=== PATIENT | female | born 1970 | race Caucasian/White ===

== ENCOUNTER 2016-11-25 05:25 | Inpatient (IN) ==
--- NOTE | 2016-11-25 05:51 | Emergency Department Note ---
Disposition Clinical Impression: Nausea and vomiting Qualifiers: Vomiting type: unspecified Vomiting Intractability: non-intractable Qualified Code(s): R11.2 - Nausea with vomiting, unspecified STEMI (ST elevation myocardial infarction) Qualifiers: Involved coronary artery: unspecified coronary artery Qualified Code(s): I21.3 - ST elevation (STEMI) myocardial infarction of unspecified site Disposition: Admitted As Inpatient Condition: Fair General Adult HPI - General Chief complaint: ED Chest Pain Stated complaint: Chest Pain Time Seen by Provider: 11/25/16 05:41 Source: patient, EMS Mode of arrival: EMS Limitations: no limitations Nursing Notes Reviewed: Yes Vital Signs Reviewed: Yes - History of Present Illness HPI Narrative: 46 year old female who presents with nausea and vomiting since 11pm last night. She admits to generalized abdominal pain. She also complains of a burning sensation retrosternal. No prior occurence. Just had a heart cath with stent placed on 11/16. She is on ASA and plavix. PMH of DM, HTN, COPD. Radiation: non-radiation Pain Severity: moderate Pain Scale: 7 Quality: burning Consistency: constant Improves with: nothing Worsens with: nothing Associated symptoms: Reports: weakness Treatments Prior to Arrival: none - Related Data Home Medications Medication Instructions Recorded Confirmed Albuterol Neb [Proventil Neb] 2.5 mg IH TID PRN 12/22/15 11/15/16 Diphenhydramine HCl [Vianca-Dryl] 25 mg PO Q6HR PRN 12/22/15 11/15/16 Docusate Sodium [Move It Along] 100 mg PO BID PRN 12/22/15 11/15/16 Fluticasone Propionate Nasal 2 spray NS DAILY 12/22/15 11/15/16 [Flonase] GlipiZIDE [Glipizide] 10 mg PO BID 12/22/15 11/15/16 Loratadine [Claritin] 10 mg PO DAILY 12/22/15 11/15/16 Montelukast [Singulair] 10 mg PO HS 12/22/15 11/15/16 Omeprazole [PriLOSEC] 40 mg PO DAILY 12/22/15 11/15/16 Gabapentin [Neurontin] 600 mg PO TID 11/15/16 11/15/16 Tramadol HCl [Ultram] 50 mg PO Q6H PRN 11/15/16 11/15/16 Previous Rx's Medication Instructions Recorded Aspirin 81 mg PO DAILY #30 tab.chew 11/17/16 Blood Sugar Diagnostic [Test [address] [facility] #120 strip 11/17/16 Strips] Blood-Glucose Meter [Freestyle 1 each ACHS #1 each 11/17/16 Precision Albert Meter] Clopidogrel [Plavix] 75 mg PO DAILY #30 tablet 11/17/16 Insulin Glargine,Hum.rec.anlog 15 unit SQ HS #1 insuln.pen 11/17/16 [Basaglar Kwikpen U-100] Insulin LISPRO [HumaLOG] 0 units SQ TIDAC #1 vial 11/17/16 Insulin LISPRO [Humalog Kwikpen 200 unit SQ TIDAC #1 insuln.pen 11/17/16 U-200] Lancets 1 each ACHS #120 each 11/17/16 Lisinopril [Zestril] 2.5 mg PO DAILY #15 tablet 11/17/16 Metoprolol [Lopressor] 25 mg PO BID #60 tablet 11/17/16 Nicotine Patch [Nicoderm] 21 mg TD HS #30 patch.td24 11/17/16 Pen Needle, Diabetic [Insulin Pen 1 each ACHS #150 dis.needle 11/17/16 Needle] Rosuvastatin [Crestor] 20 mg PO HS #30 tablet 11/17/16 Allergies Allergy/AdvReac Type Severity Reaction Status Date / Time codeine AdvReac Diarrhea Verified 12/22/15 13:29 All systems ED: reviewed and negative except as stated. Constitutional: Denies: fever Eyes: Denies: vision change Cardiovascular: Denies: chest pain Respiratory: Denies: cough Gastrointestinal: Reports: abdominal pain, nausea, vomiting. Denies: diarrhea Genitourinary: Denies: dysuria Musculoskeletal: Denies: back pain Integumentary: Denies: rash Neurological: Denies: headache Endocrine: Reports: fatigue Past Medical History - Past Medical History Medical history: Reports: asthma, diabetes, GERD, hypertension, other Surgical history: Reports: cholecystectomy Psychiatric history: Reports: no psych history - Social History Smoking Status: Current every day smoker Smokeless Tobacco Status: No Alcohol use: Reports: none Drug use: Reports: none Physical Exam - General Limitations: no limitations General appearance: alert, other (tired) - Head Head exam: atraumatic - Eye Eye exam: Present: nystagmus - ENT ENT exam: normal exam - Chest Chest inspection: Present: normal inspection - Respiratory Respiratory exam: Present: normal lung sounds bilaterally. Absent: respiratory distress - Cardiovascular Cardiovascular exam: Present: regular rate, normal rhythm - Abdominal Exam Abdominal exam: Present: soft, tenderness (epigastric pain on palpation. No rebound or guarding.) - Extremities Exam Extremities exam: Present: normal inspection - Back Exam Back exam: Present: normal inspection - Neurological Exam Neurological exam: Present: alert, oriented X3, CN II-XII intact - Skin Skin exam: Present: warm, dry Course Course Narrative: Initial blood pressure was 80 systolic. Improved after beginning saline infusion. She denies chest pain but says she has burning in her chest. Concern for dehydration vs cardiac vs abdominal etiology. Will obtain cardiac labs, basic labs, and abdominal labs. - Reevaluation(s) Reevaluation #1: EKG shows ST depression in V1-V4. This is significantly worse than her prior. I contacted the interventionalist who reviewed the EKG and decided to take her to the laborer steel handling. Was called by the interventionalist who believes this is a posterior STEMI. We are currently doing a posterior EKG and have called a STEMI alert. This patient has been signed out to the day team Dr Heredia while waiting for the laborer steel handling to take her. Vital Signs Temperature 98.6 F 11/25/16 05:27 Pulse Rate 79 11/25/16 05:27 Respiratory Rate 16 11/25/16 05:27 Blood Pressure 81/56 11/25/16 05:27 O2 Sat by Pulse Oximetry 97 11/25/16 05:27 Temperature 98.6 F 11/25/16 05:27 Pulse Rate 89 11/25/16 07:02 Respiratory Rate 18 11/25/16 07:05 Blood Pressure 75/50 11/25/16 07:05 O2 Sat by Pulse Oximetry 94 L 11/25/16 06:52 Oxygen Delivery Oxygen Delivery Room Air Medical Decision Making - Medical Records Medical records reviewed: Yes I reviewed the patient's medical records. - Lab Data Lab results reviewed: Yes I reviewed the patient's lab results. Result diagrams: 11/25/16 06:40 11/25/16 06:40 - Radiology Data Radiology results reviewed: Yes I reviewed the patient's radiology results. Chest X-Ray 11/25/16 05:46 IMPRESSION: No acute findings in the chest. D/ / Rafa Turner MD / Rafa Turner MD Interpreting Provider: Rafa Turner MD - EKG Data EKG #1 EKG attestation: Yes I reviewed and interpreted this EKG. EKG shows normal: sinus rhythm Rate: normal Rhythm: NSR ST segment depression in: v1, v2, v3, v4 When compared to previous EKG there are: changes noted Interpretation: other (Worsening ST depression in anterior leads.) EKG #2 Interpretation: other (Posterior EKG was performed which shows acute STEMI. Posterior STEMI.) Critical Care Time Critical Care Time: Yes Total Critical Care Time: 45 Attestation: Critical care performed: Time is exclusive of separately billable procedures. Time includes: direct patient care, patient reassessment, coordination of patient care, interpretation of data (laboratory data, radiology data, and respiratory data), review of patient's medical records, medical consultation and documentation of patient care. Procedures included in critical care time: Procedures excluded from critical care time: Attestation Statement - Attestation Attestation: I, Juancho Rodriguez MD, personally performed a history and physical exam of the patient and discussed their management with the resident. I reviewed the resident's note and agree with the documented findings, medical decision making , and plan of care. 46-year-old female presents to the emergency department by ambulance with a complaint of nausea and vomiting that started about 11 PM this evening. Shortly after onset of nausea and vomiting she developed a burning sensation in the epigastric area radiating up to the mid chest and into her throat. She states it scanlon all the way up into her ears. Patient just had a cardiac catheterization and a stent placed 9 days ago. She states that she did not have an LA but just is having chest pain so they did the heart catheter. She reports that this burning chest pain she is having now is not anything like the pain she was having before her heart catheter. She described it as more like a ball and pressure and tightness in her chest and not a burning sensation. There is been no diarrhea. No melena, hematemesis, or hematochezia. No urinary symptoms. No cough or fever. Patient states that she has done fine since the heart catheter until 11 PM tonight. On examination patient is a well-developed well-nourished female in mild distress. She was notably hypotensive on arrival. She is not diaphoretic but does appear slightly pale. She appears uncomfortable. Chest is nontender to palpation. Breath sounds are clear and equal bilaterally. Heart regular rate and rhythm. Abdomen is soft with normal bowel sounds. There is mild to moderate mid upper epigastric tenderness. EKG shows ST segment depression in V1 through V4, worse in V3 and V4. She also has inverted T waves. These changes were present on her prior EKG but appears significantly worse at this time. No ST elevation noted. EKG was sent to the spot machine operator and the case was discussed with him by Dr. Castillo. Called back after reviewing the x-ray and felt that the patient had an acute posterior LA and is going to take her to the cardiac catheter lab. Labs reviewed. Troponin 0.01. Labs consistent with DKA. Chest x-ray negative. Patient was taken from the emergency department to the cardiac catheter lab before her labs returned.
[2016-11-25] MEDS: 0.9 % Sodium Chloride 1,000 ML IVC ONE ×3 (05:53→06:51)
[2016-11-25] MEDS ORDERED: 0.9 % Sodium Chloride 1,000 ML ONE ×6 (06:11→09:12)
[2016-11-25] MEDS ORDERED: *HR* Ticagrelor 90 MG TABLET ONE (06:32)
[2016-11-25] MEDS ORDERED: *HR* Heparin 5,000 UNIT/ML VIAL ONE (06:32)
[2016-11-25] MEDS ORDERED: Aspirin 81 MG TAB.CHEW ONE (06:32)
[2016-11-25] MEDS ORDERED: Aspirin 81 MG TAB.CHEW PO ONE (06:35)
[2016-11-25] MEDS ORDERED: *HR* Ticagrelor 90 MG TABLET PO ONE (06:35)
[2016-11-25] MEDS ORDERED: *HR* Heparin 5,000 UNIT/ML VIAL IVP ONE (06:38)
[2016-11-25 06:49] LABS: Basophils % 0.2 %; Eosinophils % 0.1 %; Hematocrit 41.4 % (35.3-44.9); Hemoglobin 14.2 g/dL (11.5-15.4); Immature Granulocytes % 0.5 % (0-4); Lymphocytes # 1.2 K/mcL (0.6-4.6); Lymphocytes % 8.2 %; Mean Corpuscular HGB Conc 34.3 g/dL (31.6-35.5); Mean Corpuscular Hemoglobin 31.1 pg (28.0-33.3); Mean Corpuscular Volume 90.8 fL (83.0-100.0); Mean Platelet Volume 9.8 fL (9.4-12.4); Monocytes # 0.7 K/mcL (0.0-1.3); Monocytes % 4.6 %; Neutrophils # 12.2 K/mcL (1.6-8.9); Platelet Count 214 K/mcL (140-400); Red Blood Count 4.56 M/mcL (3.82-4.97); Red Cell Distribution Width 11.8 % (11.5-14.5); Segmented Neutrophils % 86.4 %
[2016-11-25 06:51] LABS: VBG HCO3 18.4 mEq/L (21-27); VBG PH 7.25 pH Units (7.32-7.42)
[2016-11-25] MEDS ORDERED: *HR* Heparin 10,000 UNIT/10 ML VIAL ONE (06:52)
[2016-11-25] MEDS ORDERED: Heparin 1,000 UNITS/500 mL NS 500 ML ONE (06:52)
[2016-11-25] MEDS ORDERED: Nitroglycerin 1,000 MCG/10 ML VIAL IV ONE (06:53)
[2016-11-25 06:54] LABS: Beta-Hydroxybutyric Acid 1.56 mmol/L (0.02-0.27); INR 1.5; Prothrombin Time 15.8 Seconds (9.4-12.1)
[2016-11-25 06:57] LABS: Activated Partial Thrombo Time 24.7 Seconds (26.0-36.0)
--- NOTE | 2016-11-25 07:01 | Pre-Sedation Evaluation ---
Pre-sedation evaluation - Pre-sedation checklist Date of procedure: 11/25/16 Procedure: heart cath Recent Vitals: Last Vital Signs Temp 98.6 F 11/25/16 05:27 Pulse 89 11/25/16 06:52 Resp 18 11/25/16 06:52 BP 92/36 11/25/16 06:52 Pulse Ox 94 L 11/25/16 06:52 H&P (including ROS) documented in medical record: Yes Previous reaction to sedatives/anesthetics: No Dietary Status: NPO after Midnight Airway Assessment: Patient can open mouth completely, TMJ function normal Dentition: No loose teeth or bridges Possible difficult airway: No ASA Classification *see protocol: CLASS III-Severe systemic disease Plan of Care: Pt appropriate candidate for procedure/moderate/conscious sedation , Risks/benefits of procedure/sedation discussed w/ patient/family, If not NPO; Risk of intake outweiged by necessity to perform procedure
--- NOTE | 2016-11-25 07:04 | Cardiology Consult Note ---
Date of Encounter: 11/25/16 Time of Encounter: 07:01 Assessment and Plan (1) STEMI (ST elevation myocardial infarction) Current Visit: Yes Status: Acute She is having ongoing 7 out of 10 chest pain. EKG suggestive of acute PA. She has taken to the lab for primary angioplasty if needed. Risk-benefit and alternatives of left heart catheterization and possible PCI explained to patient all questions answered she agrees to proceed. Qualifiers: Involved coronary artery: unspecified coronary artery Qualified Code(s): I21.3 - ST elevation (STEMI) myocardial infarction of unspecified site Discussion w patient/family: The assessment and plan as outlined above was discussed with the patient and/or family members who expressed understanding and agreement. All questions were answered. Thank you for involving us in the care of your patient. Please call with any questions. History of Present Illness Consult date: 11/25/16 Consult reason: Chest pain EKG suggestive of acute posterior PA Chief complaint: Chest pain History of present illness: Ms. Bravo is a 46 year old female with history of hypertension uncontrolled diabetes asthma who presented recently with chest pain on 11 16 2016. Stress test was abnormal indicating circumflex distribution ischemia. She underwent a left heart catheterization which showed 50% mid LAD, 80% first diagonal stenosis circumflex had a 24 mm long 90% stenosis in the mid circumflex. Right coronary artery was occluded distally there was a 70% proximal 90% mid RCA. She underwent drug-eluting stent placement to the midcircumflex a Promus premier 2.5 x 24 mm drug-eluting stent was placed. She presented to the ER with substernal burning nausea and vomiting since 11 PM last night. EKG that was transmitted earlier this morning to me she showed ST depressions in V1 through V4 with tall R waves in V1 and V2 suggestive of an acute posterior myocardial infarction. She is continuing to have substernal burning chest discomfort. Blood pressure was 90 systolic she was given fluid resuscitation. Full labs are pending at this time. She is being taken to the laboratory for catheterization and possible intervention. Patient states that she has been compliant with her aspirin and Plavix Past Med Surg Social Fam HX - Past Medical History Medical history: asthma, coronary artery disease, diabetes, GERD, hypertension, other Psychiatric history: no psych history - Past Surgical History Surgical History: cholecystectomy - Social History Smoking Status: Current every day smoker Smokeless Tobacco Status: No Alcohol use: none Drug use: none Medications and Allergies Albuterol Neb [Proventil Neb] 2.5 mg IH TID PRN 12/22/15 [History] Diphenhydramine HCl [Vianca-Dryl] 25 mg PO Q6HR PRN 12/22/15 [History] Docusate Sodium [Move It Along] 100 mg PO BID PRN 12/22/15 [History] Fluticasone Propionate Nasal [Flonase] 2 spray NS DAILY 12/22/15 [History] GlipiZIDE [Glipizide] 10 mg PO BID 12/22/15 [History] Loratadine [Claritin] 10 mg PO DAILY 12/22/15 [History] Montelukast [Singulair] 10 mg PO HS 12/22/15 [History] Omeprazole [PriLOSEC] 40 mg PO DAILY 12/22/15 [History] Gabapentin [Neurontin] 600 mg PO TID 11/15/16 [History] Tramadol HCl [Ultram] 50 mg PO Q6H PRN 11/15/16 [History] Aspirin 81 mg PO DAILY #30 tab.chew 11/17/16 [Rx] Blood Sugar Diagnostic [Test Strips] 1 each ACHS #120 strip 11/17/16 [Rx] Blood-Glucose Meter [Freestyle Precision Albert Meter] 1 each ACHS #1 each 11/17 [Rx] Clopidogrel [Plavix] 75 mg PO DAILY #30 tablet 11/17/16 [Rx] Insulin Glargine,Hum.rec.anlog [Basaglar Kwikpen U-100] 15 unit SQ HS #1 insuln.pen 11/17/16 [Rx] Insulin LISPRO [HumaLOG] 0 units SQ TIDAC #1 vial 11/17/16 [Rx] Insulin LISPRO [Humalog Kwikpen U-200] 200 unit SQ TIDAC #1 insuln.pen 11/17/16 [Rx] Lancets 1 each ACHS #120 each 11/17/16 [Rx] Lisinopril [Zestril] 2.5 mg PO DAILY #15 tablet 11/17/16 [Rx] Metoprolol [Lopressor] 25 mg PO BID #60 tablet 11/17/16 [Rx] Nicotine Patch [Nicoderm] 21 mg TD HS #30 patch.td24 11/17/16 [Rx] Pen Needle, Diabetic [Insulin Pen Needle] 1 each ACHS #150 dis.needle [Rx] Rosuvastatin [Crestor] 20 mg PO HS #30 tablet 11/17/16 [Rx] Allergies codeine Adverse Reaction (Verified 12/22/15 13:29) Diarrhea All Systems Review: A 10-system review of systems was performed and is negative for pertinent findings except as documented above in the HPI. Physical Examination Vital Signs, Last 4 Hours Pulse Resp BP Pulse Ox 11/25/16 06:52 89 18 92/36 94 L General: Conversant HEENT: Atraumatic, Normocephaly, Mucus Membranes Moist Neck: No JVD, Normal carotid pulses Cardiac: Reg Rate and Rhythm, Normal S1 and S2, No Murmur Lungs: Normal Breath Sounds, No Wheeze, Rales, Rhonchi Neuro: Alert and responsive, No focal deficits noted Abdomen: Soft Skin: No rashes noted on visualized skin Musculoskeletal: No Chest Wall Tenderness Extremities: No Clubbing, No Cyanosis, No Edema Results 11/25/16 06:40 Lab Results 11/25/16 11/25/16 06:40 06:40 WBC 14.1 H Hgb 14.2 Hct 41.4 Plt Count 214 INR 1.5 APTT 24.7 L - EKG Interpretation EKG results cardiology: personally reviewed (Normal sinus rhythm right bundle branch block, ST depressions in V1 through V4 suggestive of acute posterior myocardial infarction tall R-wave V1- V3) Consult Discharge Plan - Plan Referrals: NO,PCP [Primary Care Provider] -
[2016-11-25 07:05] LABS: Alanine Aminotransferase 9 Units/L (0-55); Albumin 2.5 g/dL (3.5-5.0); Albumin/Globulin Ratio 1.1 (1.1-2.2); Alkaline Phosphatase 48 Units/L (38-126); Amylase 19 Units/L (25-125); Aspartate Amino Transferase 9 Units/L (5-34); BUN/Creatinine Ratio 18 (6-26); Bilirubin,Direct 0.2 mg/dL (0.0-0.5); Bilirubin,Indirect 0.3 mg/dL (0.0-1.2); Bilirubin,Total 0.5 mg/dL (0.2-1.2); Blood Urea Nitrogen 12 mg/dL (7-20); Calcium 6.8 mg/dL (8.6-10.8); Carbon Dioxide 14 mEq/L (19-29); Chloride 115 mEq/L (98-109); Globulin 2.3 g/dL (2.4-3.5); Glucose 305 mg/dL (70-99); Lipase 17 Units/L (8-78); Osmolality,Calculated 301 (280-300); Sodium 140 mEq/L (136-145); Total Protein 4.8 g/dL (6.0-8.3); eGFR For African Americans > 60 (> 60); eGFR For Non-African Americans > 60 (> 60)
[2016-11-25 07:07] LABS: Potassium 3.6 mEq/L (3.5-4.5)
[2016-11-25] MEDS ORDERED: *HR* Midazolam HCl 5 MG/5 ML VIAL IVP ONE (07:08)
[2016-11-25] MEDS ORDERED: *HR* FentaNYL (PF) 250 MCG/5 ML VIAL ONE (07:09)
[2016-11-25] MEDS ORDERED: Ondansetron 4 MG/2 ML VIAL ONE (07:24)
[2016-11-25] MEDS ORDERED: Tirofiban 5 MG/100ML 5 MG/100 ML BAG IV ONE (07:29)
[2016-11-25] MEDS ORDERED: *HR* Norepinephrine 4 MG/4 ML VIAL IVC ONE (07:38)
[2016-11-25] MEDS ORDERED: D5% in Water 250 ML ONE (07:39)
[2016-11-25] MEDS ORDERED: Ondansetron 4 MG/2 ML VIAL IVP PRN (07:51)
--- NOTE | 2016-11-25 08:04 | Invasive Diagnostic Lab ---
Name: Elyse Bravo Date of Study: 11/25/2016 Date: 1970 Ht: 167.6 cm /66.0 in Medical Record#: [id number] Age: 46 Wt: 79. kg / 174.17 lb Account/Order#: [id number] Gender: Female BSA: 1.89 Order #: [id number] Fluoro Dose: 806 mGy BMI: 28.12 Procedure Physician: Sj Crow MD Referring MD: Referring MD: Procedures Performed: LEFT HEART CATH PCI of Acute MO Indications: STEMI Impressions: There is severe one vessel coronary artery disease. The left ventricle is normal and has mildly Abnormal contractility EF 45% Patient had successful PTCA/Drug-Eluting Stent placement in the mid Circ. Recommendations: Optimal medical therapy of patient's disease. Aggressive risk factor modification. History/Risk Factors: GERD Positive Stress Chest Pain Asthma Smoker HPTN DM PCI Procedure Access obtained in the right Femoral artery by percutaneous puncture Access obtained in the right Femoral vein. Patient had successful PTCA/Drug-Eluting Stent placement in the mid Circ. Complications: None, None Contrast: Isovue 150ml Hemodynamics: Pressures Site Systolic/ A Wave Diastolic/ V Wave End Diastolic/ Mean HR LV 75 24 35 75 AO 63 50 56 94 AO 73 57 64 95 AO 86 68 77 102 AO 90 67 76 136 AO 93 69 79 124 LV 73 29 37 88 LV -12 -12 -12 85 AO 73 55 64 85 LV Ventriculography Ejection Method: LV Gram Ejection Fraction: 45% Wall Motion: LOPEZ Anterobasal Normal Anterolateral Normal Apical: Normal Inferoapical Moderate Hypokinesis Inferobasal Moderate Hypokinesis Coronary Dominance: Lesion Findings/Interventions * Left Main Coronary Artery The LMCA is angiographically free of disease. * Left Anterior Descending There is a 50% stenosis in the Mid LAD. There is a 80% stenosis in the 1st Diagonal which is a small vessel. * Circumflex There is a 100% stenosis in the Mid Circumflex. The lesion has thrombus present. An intervention was performed on the Mid Circumflex with a final stenosis of 0%. There were no lesion complications. * Right Coronary Artery There is a 70% stenosis in the Proximal RCA. There is a 90% stenosis in the Mid RCA. There is a 100% stenosis in the Distal RCA. Interventional Device(s) Vessel Segment Type Name Diameter (mm) Length (mm) Mid Circumflex Balloon NC Emerge 2.5 12 Mid Circumflex Drug Eluting Stent Promus Premier Rx 2.25 16 Mid Circumflex Balloon NC Emerge 2.5 20 Updated by RT Tyler(R) on 11/25/2016 7:56:17 AM Sj Crow MD electronically signed on 11/25/2016 7:59:32 AM with status of Final
--- NOTE | 2016-11-25 08:31 | Invasive Diagnostic Lab Proc ---
Name: Elyse Bravo Date of Study: 11/25/2016 Date: 1970 Ht: 66.0in Medical Record#: [id number] Age: 46 Wt: 174.17lb Gender: Female BSA: 1.89 Order #: [id number] BMI: 28.12 Physicians Procedure Physician: Sj Crow MD Referring MD: Referring MD: Staff Name Position Time In Mellisa Cm RT (R) Monitor 07:13 AM Navid Kellee RT (R) Scrub 07:13 AM Nish Almeida RN Meat Hanger 07:14 AM Indications Indication STEMI Procedures Performed Procedure L HRT ARTERY/VENTRICLE ANGIO PRQ CARD REVASC AZ 1 VSL Pre-Procedure Checklist Informed consent is complete signed and on chart. H\\T\\P is on chart. ID band is on and ID verified with patient. Pt not NPO for procedure and MD aware. The procedure was described for the patient and questions were answered. Blood Pressure: 91/75 ECG is on chart. Rhythm: NSR with ST depression Plan of Care Patient will tolerate the procedure without complications. Adequate level of comfort will be maintained. Hemodynamics will remain stable Patient will recover from procedure without complications. Respiratory function will be maintained. Cardiac rhythm will remain stable. Patient temperature will be maintained. Patient and/or family have verbalized understanding of the procedure. Patient Education Intravenous Access Time IV Size Location DC'd Fluid/Drip Rate Units RN 06:52 AM 20g 1 1/4" Patent On Arrival Rt Wrist 0.9NaCl 25 ml/hr Nish Almeida RN Allergies codeine Vital Signs Time BP (mmHg) HR (bpm) O2 Sat. RR (bpm) LOC 06:53 AM 91 / 75 84 97 % 16 5 = Fully awake and oriented or at pre-proc level 07:15 AM / % 4 = Oriented but drowsy 07:16 AM 124 / 70 117 92 % 18 08:09 AM / 100 % Procedural Medications Time Medication Dose Units Method Given By 07:14 AM Oxygen 2 L/min nasal cannula Nish Almeida RN 07:18 AM Lidocaine 2% 18 ml Subcutaneous Sj Crow MD 07:19 AM Dopamine 5 mg/kg/min Intravenous Nish Almeida RN 07:24 AM Zofran 4 mg Intravenous Nish Almeida RN 07:26 AM Dopamine 10 mg/kg/min Intravenous Nish Almeida RN 07:27 AM Oxygen 4 L/min nasal cannula Nish Almeida RN 07:31 AM Aggrastat Bolus: 37.5 ml Intravenous Nish Almeida RN 07:33 AM Aggrastat drip 13.5 ml Intravenous Nish Almeida RN 07:36 AM Heparin 3000 units Intravenous Nish Almeida RN 07:37 AM Versed 1 mg Intravenous Nish Almeida RN 07:56 AM Dopamine 10 mg/kg/min Intravenous Nish Almeida RN DC'd 07:57 AM Levophed 5 mcg/min Intravenous Nish Almeida RN 07:59 AM Brillinta 180 mg Orally Nish Almeida RN Baudilio Score Preprocedure Postprocedure Activity Activity Circulation Circulation Consciousness Consciousness O2 Saturation O2 Saturation Respiratory Respiratory Total Score Total Score Contrast Agent: Isovue Diagnostic Contrast: 150 ml Total Contrast: 150 ml Fluoro Dose: 806 mGy Activated Clotting Time Time Seconds to Clot 07:31 AM 400 07:35 AM 171 Procedure Log Time Note Enter By 06:51 AM CathStat 07:12 AM Vitals capture started with the following parameters, Patient=Adult, Interval=5 min, Initial Vvrjxkve=720 mmHg, Deflation Rate=5 mmHg, Cuff placed on Right Arm 07:12 AM Case Start 07:13 AM 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 07:14 AM Physician arrived 07:14 csmith 07:14 AM Hair removed from procedure site in holding area using clippers. Bilateral groin prepped with Chloraprep by Mellisa Cm RT (R) then patient draped. Skin intact. [email or web address] 07:14 AM Meet and greet completed csmith 07:14 AM Sign in performed according to hospital policy. [email or web address] 07:14 AM Procedure start 07:14 [email or web address] 07:14 AM Time: 07:14 Oxygen on at 2 L/min per nasal cannula by Nish Almeida RN csmith 07:15 AM Vitals capture started with the following parameters, Patient=Adult, Interval=5 min, Initial Yrmzognj=442 mmHg, Deflation Rate=5 mmHg, Cuff placed on Right Arm 07:15 AM Time: 07:15 Patient comfortable and pain free: Yes [email or web address] 07:15 AM Time: 07:15LOC: 4 = Oriented but drowsy csmith 07:15 AM Time out performed according to hospital policy [email or web address] 07:16 AM JD=675 bpm, NLGT=137/70 mmhg, SpO2=92.0 %, Resp=18 B/min, Comment=NSR 07:17 AM Pressure channel 1 zeroed. 07:17 AM Recorded ECG: HR=87 Condition=Condition 1 07:18 AM Time: 07:18 18 ml Lidocaine 2% to right groin Subcutaneous Given by Sj Crow MD [email or web address] 07:18 AM Access obtained by percutaneous puncture. 6Fr 10cm Terumo Rector sheath placed in right Femoral artery. [id number] csmith 07:18 AM 0.035 145cm Navilyst 3mmJ wire [id number] csmith 07:18 AM 5Fr FL 4 catheter inserted over the wire DN csmith 07:19 AM LCA angiography performed in multiple views. [email or web address] 07:20 AM Time: :19 Dopamine 5 mg/kg/min Intravenous Given by Nish Almeida RN Gerardo pump csmith 07:21 AM Catheter removed csmith 07:21 AM RCA angiography performed in multiple views. [email or web address] 07:21 AM RCA angiography performed in multiple views. [email or web address] 07:21 AM Catheter removed csmith 07:22 AM Recorded Pressure: LV, HR=75, Condition=Condition 1 (Left Ventricle) LV 75/24/35 07:22 AM Recorded Pressure: LV, HR=88, Condition=Condition 1 (Left Ventricle) LV 73/29/37 07:22 AM Recorded Pressure: LV, Ao, HR=85, Condition=Condition 1 (Left Ventricle) LV -12/-12/-12, (Aorta) Ao 73/55/64 07:22 AM Vitals capture stopped. 07:23 AM 5Fr Pigtail catheter inserted over the wire DN [email or web address] 07:23 AM Catheter selectively placed in left ventricle csmith 07:23 AM Bolus angiogram of left Ventricle complete: 10 ml/sec for a total of 25 mls csmith 07:23 AM Catheter removed csmith 07:23 AM 6Fr XB LAD 3.5 Cordis guide catheter was used to cannulate the PCI vessel successfully. reused? No csmith 07:23 AM .014 Prowater 190cm guide wire across target lesion- successful. reused? No csmith 07:23 AM Inflation device was opened. [email or web address] 07:24 AM Recorded Pressure: Ao, HR=94, Condition=Condition 1 (Aorta) Ao 63/50/56 07:24 AM Time: 07:24 Zofran 4 mg Intravenous Given [email or web address] 07:25 AM Recorded Pressure: Ao, HR=95, Condition=Condition 1 (Aorta) Ao 73/57/64 07:26 AM 2.5 mm x 12mm NC Emerge balloon across target lesion- successful. reused? No [email or web address] 07:27 AM Time: 07:26 Dopamine 10 mg/kg/min Intravenous Given by Nish Almeida RN Gerardo pump [email or web address] 07:27 AM Time: 07:27 Oxygen on at 4 L/min per nasal cannula by Nish Almeida RN [email or web address] 07:29 AM Balloon inflated @ 16 jeff for 10 seconds [email or web address] 07:29 AM Balloon inflated @ 14 jeff for 4 seconds [email or web address] 07:29 AM Balloon inflated @ 14 jeff for 4 seconds [email or web address] 07:29 AM Recorded Pressure: Ao, AG=952, Condition=Condition 1 (Aorta) Ao 86/68/77 07:29 AM Balloon inflated @ 14 jeff for 4 seconds [email or web address] 07:30 AM Balloon catheter removed intact. [email or web address] 07:33 AM Time: 07:31 Aggrastat Bolus: 37.5 ml Intravenous Given by Nish Almeida RN Gerardo pump [email or web address] 07:34 AM Time: 07:33 Aggrastat drip 13.5 ml Intravenous Given by Nish Almeida RN Gerardo pump [email or web address] 07:34 AM 2.25mm x 16mm Promus Premier Rx drug-eluting stent across target lesion- successful Lot #[id number] [email or web address] 07:36 AM Time: 07:36 Heparin 3000 units Intravenous Given by Nish Almeida RN [email or web address] 07:36 AM Recorded Pressure: Ao, DL=574, Condition=Condition 1 (Aorta) Ao 90/67/76 07:37 AM Stent deployed @ 11 jeff for 8 seconds [email or web address] 07:37 AM Stent balloon reinflated @ 18 jeff for 18 seconds [email or web address] 07:37 AM Time: 07:37 Versed 1 mg Intravenous Given by Nish Almeida RN [email or web address] 07:38 AM Vitals capture started with the following parameters, Patient=Adult, Interval=5 min, Initial Ojgmjrtd=051 mmHg, Deflation Rate=5 mmHg, Cuff placed on Right Arm 07:38 AM Stent delivery system removed intact. [email or web address] 07:38 AM 2.5 mm x 20mm NC Emerge balloon across target lesion- successful. reused? No [email or web address] 07:38 AM Balloon inflated @ 18 jeff for 30 seconds [email or web address] 07:39 AM Balloon catheter removed intact. [email or web address] 07:40 AM Guide wire removed intact. [email or web address] 07:40 AM Recorded Pressure: Ao, HI=310, Condition=Condition 1 (Aorta) Ao 93/69/79 07:40 AM Vitals capture stopped. 07:42 AM Guide catheter removed intact. [email or web address] 07:43 AM Access obtained by percutaneous puncture. 7Fr 11cm Cordis Sarahi sheath placed in right Femoral vein. [id number] [email or web address] 07:44 AM Procedure completed at 07:44 [email or web address] 07:44 AM Sign out completed: Radiation Dose 805.77 mGy Fluoro Time: 5.1 Isovue 370 - 200ml contrast 150.4 ml given by Sj Crow MD. Complications: NoneCardiac Rehab Consult needed: YesConfirmed administered medications: Yes [email or web address] 07:44 AM Isovue 370 - 200ml,1 Bottle(s) used. [email or web address] 07:44 AM Sheath left in place to be pulled on floor/holding areaV+Pad [email or web address] 07:45 AM Post ECG Sinus Tachycardia [email or web address] 07:45 AM Post Blood Pressure 93/69 [email or web address] 07:45 AM 07:45 Post Pulses Bilateral DP \\T\\ PT 1+ [email or web address] 07:46 AM Information taught Cardiac Cath and PCI [email or web address] 07:47 AM Education needs Plan of Care and Disease Process [email or web address] 07:47 AM Learning barriers :None [email or web address] 07:47 AM Education Methods Verbal [email or web address] 07:47 AM Education evaluation Able to repeat information [email or web address] 07:47 AM Delay to floor No [email or web address] 07:47 AM Family placed in consult room. [email or web address] 07:47 AM Complications: None [email or web address] 07:54 AM Site status No bleeding/hematoma - Rt Groin as reported by Kellee Shoemaker RT (R) at 07:54 [email or web address] 07:54 AM Opsite applied [email or web address] 07:57 AM Time: 07:56 Dopamine 10 mg/kg/min Intravenous Given by Nish Almeida RN DC'd Gerardo pump [email or web address] 07:57 AM Time: 07:57 Levophed 5 mcg/min Intravenous Given by Nish Almeida RN [email or web address] 08:00 AM Time: 07:59 Brillinta 180 mg Orally Given by Nish Almeida RN [email or web address] 08:09 AM Report given to Megan VILLA Pt taken to ICU Room #11. 08:09 [email or web address] 08:10 AM Patient out of room: 08:10 [email or web address] Complications Complication None None Hemodynamics Pressures Site Systolic/A Wave Diastolic/V Wave Mean LV 75 24 35 AO 63 50 56 AO 73 57 64 AO 86 68 77 AO 90 67 76 AO 93 69 79 LV 73 29 37 LV -12 -12 -12 AO 73 55 64 Post Procedure Information Blood Pressure: 93/69 mmHg Rhythm: Sinus Tachycardia Post procedural instructions were not given Site Checks Time Location Status Staff Sheath In? Note 07:54 AM Rt Groin No bleeding/hematoma Kellee Shoemaker RT (R) Pulses Time Site Pre-Procedure Post-Procedure Note 11/25/2016 7:13:00 AM Bilateral DP \\T\\ PT 1+ 7:45:00 AM Bilateral DP \\T\\ PT 1+ Updated by Mellisa Cm RT(R) on 11/25/2016 8:10:19 AM electronically signed on 11/25/2016 8:27:15 AM with status of Final
[2016-11-25 09:04] LABS: Bilirubin,Urine Negative (Negative); Blood,Urine Large (Negative); Clarity,Urine Clear (Clear); Color,Urine Yellow (Yellow); Glucose,Urine (UA) >=1000 mg/dL (Normal); Ketones,Urine 80 mg/dL (Negative); Leukocyte Esterase,Urine Negative (Negative); Nitrite,Urine Negative (Negative); Protein,Urine Trace mg/dL (Neg-Trace); Specific Gravity,Urine > 1.030 (1.010-1.025); Urobilinogen,Urine Normal (Normal)
[2016-11-25 09:07] LABS: Bacteria,Urine Few per hpf (None-Few); Hyaline Casts,Urine None Seen per lpf (None-Few); Squamous Epithelial Cell,Urine Many per lpf (None-Few)
[2016-11-25 09:37] LABS: Yeast,Urine Many per hpf (None Seen)
[2016-11-25] MEDS ORDERED: *HR* Dextrose 50 % in Water (Syg) 50 ML SYRINGE IVP PRN ×2 (10:04→11:01)
[2016-11-25] MEDS ORDERED: Ringers Solution, Lactated 1,000 ML IVC SCH (10:15)
[2016-11-25] MEDS: Insulin Human Regular 100 UNIT in 0.9 % Sodium Chloride 100 ML IVC SCH ×2 (10:24→20:49)
[2016-11-25] MEDS: Aspirin 81 MG TAB.CHEW PO SCH (10:25)
[2016-11-25] MEDS: Tirofiban 12.5 MG/250ML 12.5 MG/250 ML BAG IVC SCH (10:25)
[2016-11-25] MEDS: *HR* Ticagrelor 90 MG TABLET PO SCH ×2 (10:26→20:41)
[2016-11-25 10:50] LABS: Ionized Calcium 1.02 mmol/L (1.15-1.35)
[2016-11-25 10:57] LABS: Magnesium 1.5 mg/dL (1.6-2.6)
[2016-11-25] MEDS ORDERED: D5% in 0.45% NACL 1,000 ML IVC PRN (11:01)
[2016-11-25] MEDS ORDERED: Insulin Regular, Human 100 UNIT/ML IV PRN (11:01)
[2016-11-25] MEDS ORDERED: D5% in 0.45% NACL w KCl 20 MEQ/1,000 ML MLS IVC PRN (11:01)
--- NOTE | 2016-11-25 11:14 | Event Note ---
Date of Encounter: 11/25/16 Time of Encounter: 11:13 Patient seen and examined after emergent cardiac catheterization. She is resting comfortably. Remains on Levophed. Only complaint is fatigue. She denies chest pain or discomfort. ICU consulted for management of diabetes, possible DKA, and medical comorbidities.
[2016-11-25] MEDS ORDERED: 0.9 % Sodium Chloride 1,000 ML IV SCH (11:15)
[2016-11-25] MEDS ORDERED: 0.9 % Sodium Chloride w KCl 20 MEQ/1,000 ML MLS IVC SCH (11:15)
[2016-11-25] MEDS: Magnesium Sulfate 2 GM in D5% in Water 100 ML IVPB PRN ×2 (11:15→20:17)
[2016-11-25] MEDS: Calcium Gluconate 1,000 MG in D5% in Water 100 ML IVPB PRN ×2 (11:28→20:16)
[2016-11-25] MEDS: 0.9 % Sodium Chloride w KCl 20 MEQ/1,000 ML MLS IVC SCH ×3 (11:28→22:04)
--- NOTE | 2016-11-25 11:28 | Pulmonology Consult Note ---
Date of Encounter: 11/25/16 Time of Encounter: 11:26 Assessment and Plan (1) DKA (diabetic ketoacidoses) Current Visit: Yes Status: Acute Patient with a known history of poorly controlled insulin dependent diabetes presented to the ED last evening with chest pain and abdominal pain. Labs revealed early DKA. Likely source of initial complaints of abdominal pain, nausea, and vomiting. VBG pH 7.25, Beta hydroxybutyrate level 1.56, glucose 305 Anion Gap of 11, Correct anion gap for albumin 14.75 (Na 140, K 3.6, Cl 115, HCO3 14, albumin 2.5) DKA protocol ordered. Will continue to monitor blood glucose and electrolytes per protocol orders. Will replace electrolytes per protocol orders. Continue to monitor i/o. Qualifiers: Diabetes mellitus type: type 2 Diabetes mellitus complication detail: without coma Qualified Code(s): E13.10 - Other specified diabetes mellitus with ketoacidosis without coma (2) STEMI (ST elevation myocardial infarction) Current Visit: Yes Status: Acute Continue per Cardiology management. Continue aspirin, ticagrelor, and statin. Qualifiers: Involved coronary artery: unspecified coronary artery Qualified Code(s): I21.3 - ST elevation (STEMI) myocardial infarction of unspecified site History of Present Illness Consult date: 11/25/16 Requesting physician: Pedro Luis Lawrence Reason for consult: other (DKA) Chief complaint: STEMI, DKA History of present illness: Ms. Bravo is a 46 year old female with history of hypertension, uncontrolled diabetes, gerd, and asthma, and recent left heart catheterization with drug euting stent placement on 11/16/16 who presented to the ED last night with substernal burning chest pain, generalized abdominal pain, nausea, vomiting, and weakness. EKG revealed ST depressions in V1-V4 with tall R waves in V1 and V2 suggestive of acute posterior CO. Blood pressure was slightly hypotensive in the 80s and patient was given fluids with improvement. She was taken to the clinical lab clerk this morning. Lab results returned and suggestive of early DKA. Patient denied fevers, chills, sweats, headaches, changes in vision or hearing, changes in bowels or bladder, and loss of sensation. Pulmonary was consulted for medical managment of DKA while patient is in the ICU. Past Med Surg Social Fam HX - Past Medical History Medical history: asthma, diabetes, GERD, hypertension, other Psychiatric history: no psych history - Past Surgical History Surgical History: angioplasty/stent, cholecystectomy - Social History Smoking Status: Current every day smoker Smokeless Tobacco Status: No Alcohol use: none Drug use: none Activity Level: Independent ambulation Recent Out of Country Travel Within the Last 8 Weeks: No Exposure or Possible Exposure to Illness During Travel: No Medications and Allergies Albuterol Neb [Proventil Neb] 2.5 mg IH TID PRN 12/22/15 [History] Diphenhydramine HCl [Vianca-Dryl] 25 mg PO Q6HR PRN 12/22/15 [History] Docusate Sodium [Move It Along] 100 mg PO BID PRN 12/22/15 [History] Fluticasone Propionate Nasal [Flonase] 2 spray NS DAILY 12/22/15 [History] GlipiZIDE [Glipizide] 10 mg PO BID 12/22/15 [History] Loratadine [Claritin] 10 mg PO DAILY 12/22/15 [History] Montelukast [Singulair] 10 mg PO HS 12/22/15 [History] Omeprazole [PriLOSEC] 40 mg PO DAILY 12/22/15 [History] Gabapentin [Neurontin] 600 mg PO TID 11/15/16 [History] Tramadol HCl [Ultram] 50 mg PO Q6H PRN 11/15/16 [History] Aspirin 81 mg PO DAILY #30 tab.chew 11/17/16 [Rx] Clopidogrel [Plavix] 75 mg PO DAILY #30 tablet 11/17/16 [Rx] Lisinopril [Zestril] 2.5 mg PO DAILY #15 tablet 11/17/16 [Rx] Metoprolol [Lopressor] 25 mg PO BID #60 tablet 11/17/16 [Rx] Nicotine Patch [Nicoderm] 21 mg TD HS #30 patch.td24 11/17/16 [Rx] Rosuvastatin [Crestor] 20 mg PO HS #30 tablet 11/17/16 [Rx] Insulin Glargine,Hum.rec.anlog [Lantus Solostar] 15 unit SQ HS 11/25/16 [History ] Insulin LISPRO [HumaLOG] 2 - 10 units SQ TIDAC 11/25/16 [History] Allergies codeine Adverse Reaction (Verified 12/22/15 13:29) Diarrhea All Systems: A 10-system review of systems was performed and is negative for pertinent findings except as documented above in the HPI. - Constitutional Constitutional: as per HPI, fatigue, weakness, no chills, no fever(s), no headache(s), no night sweats - EENT Eyes: as per HPI Ears: as per HPI Nose, mouth and throat: as per HPI, no dysphagia, no headache(s), no neck pain - Cardiovascular Cardiovascular: as per HPI, chest pain, no dyspnea, no edema - Respiratory Respiratory: as per HPI, no cough, no dyspnea - Gastrointestinal Gastrointestinal: as per HPI, abdominal pain, nausea, vomiting, no diarrhea - Genitourinary Genitourinary: as per HPI, no dysuria, no flank pain - Musculoskeletal Musculoskeletal: no neck pain - Integumentary Integumentary: as per HPI - Neurological Neurological: as per HPI, weakness, no headache(s) - Endocrine Endocrine: as per HPI, fatigue, no excessive sweating, no polyuria Physical Examination Vital Signs: Vital Signs, Last 4 Hours Temp Pulse Resp BP Pulse Ox 11/25/16 10:36 103 20 92/71 97 11/25/16 09:57 99 16 88/70 94 L 11/25/16 09:36 103 16 100/76 95 11/25/16 09:21 103 16 98/62 96 11/25/16 09:11 106 11/25/16 09:06 106 15 94/69 94 L 11/25/16 08:51 107 15 112/85 94 L 11/25/16 08:36 112 20 112/85 92 L 11/25/16 08:21 107 26 112/85 93 L 11/25/16 08:06 97.3 F L 110 20 89/65 93 L 11/25/16 07:51 97.3 F L 107 28 89/65 95 General appearance: no acute distress, alert (oriented x4) Eyes: nonicteric ENT: oropharynx moist Neck: supple Effort: normal Inspection: normal Cardiovascular: regular rate and rhythm Gastrointestinal: normoactive bowel sounds, soft, tender (generalized mild tenderness) Integumentary: normal Extremities: no cyanosis, no edema, pink and warm, pulses normal Musculoskeletal: no deformities normal mental status, non-focal exam, pupils equal and round, CN II-XII normal mood appropriate, affect normal Results - Laboratory Findings CBC and BMP: 11/25/16 06:40 11/25/16 06:40 PT/INR, D-dimer PT 15.8 Seconds (9.4-12.1) H 11/25/16 06:40 Abnormal lab findings: Abnormal lab results WBC 14.1 K/mcL (4.3-11.1) H 11/25/16 06:40 Neutrophils # 12.2 K/mcL (1.6-8.9) H 11/25/16 06:40 PT 15.8 Seconds (9.4-12.1) H 11/25/16 06:40 APTT 24.7 Seconds (26.0-36.0) L 11/25/16 06:40 VBG pH 7.25 pH Units (7.32-7.42) L 11/25/16 06:40 VBG pO2 41 mmHg (25-40) H 11/25/16 06:40 VBG HCO3 18.4 mEq/L (21-27) L 11/25/16 06:40 Chloride 115 mEq/L (98-109) H 11/25/16 06:40 Carbon Dioxide 14 mEq/L (19-29) L 11/25/16 06:40 Glucose 305 mg/dL (70-99) H 11/25/16 06:40 POC Glucose 334 (58-89) H 11/25/16 08:26 Calculated Osmolality 301 (280-300) H 11/25/16 06:40 Lactic Acid 2.3 mmol/L (0.5-2.2) H 11/25/16 06:40 Calcium 6.8 mg/dL (8.6-10.8) L 11/25/16 06:40 Ionized Calcium 1.02 mmol/L (1.15-1.35) L 11/25/16 10:40 Magnesium 1.5 mg/dL (1.6-2.6) L 11/25/16 10:40 Serum Total Protein 4.8 g/dL (6.0-8.3) L 11/25/16 06:40 Albumin 2.5 g/dL (3.5-5.0) L 11/25/16 06:40 Globulin 2.3 g/dL (2.4-3.5) L 11/25/16 06:40 Amylase 19 Units/L (25-125) L 11/25/16 06:40 Beta-Hydroxybutyric Acd 1.56 mmol/L (0.02-0.27) H 11/25/16 06:40 Ur Specific [place] > 1.030 (1.010-1.025) H 11/25/16 08:45 Urine Glucose (UA) >=1000 mg/dL (Normal) H 11/25/16 08:45 Urine Ketones 80 mg/dL (Negative) H 11/25/16 08:45 Urine Blood Large (Negative) H 11/25/16 08:45 Urine Microscopic RBC 5-15 per hpf (0-3) H 11/25/16 08:45 Urine Microscopic WBC 3-5 per hpf (0-3) H 11/25/16 08:45 Ur Squamous Epith Cells Many per lpf (None-Few) H 11/25/16 08:45 Urine Yeast Many per hpf (None Seen) H 11/25/16 08:45 - Clinical Findings Intake & Output: Intake & Output 11/24/16 11/25/16 11/25/16 23:59 07:59 15:59 Intake Total 999 0 / 0 Output Total 300 / 300 Balance 999 -300 / -300 Consult Discharge Plan - Plan Referrals: NO,PCP [Primary Care Provider] -
[2016-11-25] MEDS: *HR* Morphine 2 MG/ML SYRINGE IVP PRN (12:47)
[2016-11-25] MEDS: Norepinephrine 4 MG in D5% in Water 250 ML IVC SCH ×4 (13:59→20:35)
[2016-11-25 14:16] LABS: BUN/Creatinine Ratio 16 (6-26); Blood Urea Nitrogen 12 mg/dL (7-20); Calcium 7.5 mg/dL (8.6-10.8); Carbon Dioxide 17 mEq/L (19-29); Chloride 110 mEq/L (98-109); Glucose 269 mg/dL (70-99); Osmolality,Calculated 291 (280-300); Potassium 3.8 mEq/L (3.5-4.5); Sodium 136 mEq/L (136-145); eGFR For African Americans > 60 (> 60); eGFR For Non-African Americans > 60 (> 60)
[2016-11-25 18:21] LABS: BUN/Creatinine Ratio 14 (6-26); Blood Urea Nitrogen 11 mg/dL (7-20); Carbon Dioxide 19 mEq/L (19-29); Chloride 113 mEq/L (98-109); Glucose 189 mg/dL (70-99); Magnesium 1.9 mg/dL (1.6-2.6); Osmolality,Calculated 290 (280-300); Potassium 4.6 mEq/L (3.5-4.5); Sodium 138 mEq/L (136-145); eGFR For African Americans > 60 (> 60); eGFR For Non-African Americans > 60 (> 60)
[2016-11-25 23:34] LABS: BUN/Creatinine Ratio 14 (6-26); Blood Urea Nitrogen 9 mg/dL (7-20); Carbon Dioxide 17 mEq/L (19-29); Chloride 114 mEq/L (98-109); Glucose 96 mg/dL (70-99); Osmolality,Calculated 283 (280-300); Potassium 3.8 mEq/L (3.5-4.5); Sodium 137 mEq/L (136-145); eGFR For African Americans > 60 (> 60); eGFR For Non-African Americans > 60 (> 60)
[2016-11-26] MEDS ORDERED: *HR* Dextrose 50 % in Water (Syg) 50 ML SYRINGE IVP PRN (00:35)
[2016-11-26] MEDS ORDERED: D5% in Water 1,000 ML IV PRN (00:35)
[2016-11-26] MEDS ORDERED: Dextrose Gel 15 GM PO PRN ×2 (00:35)
[2016-11-26] MEDS: 0.9 % Sodium Chloride w KCl 20 MEQ/1,000 ML MLS IVC SCH (04:55)
[2016-11-26 05:17] LABS: Ionized Calcium 0.97 mmol/L (1.15-1.35)
[2016-11-26 05:25] LABS: BUN/Creatinine Ratio 13 (6-26); Blood Urea Nitrogen 8 mg/dL (7-20); Calcium 6.9 mg/dL (8.6-10.8); Carbon Dioxide 18 mEq/L (19-29); Chloride 113 mEq/L (98-109); Glucose 95 mg/dL (70-99); Magnesium 2.3 mg/dL (1.6-2.6); Osmolality,Calculated 280 (280-300); Potassium 3.6 mEq/L (3.5-4.5); Sodium 136 mEq/L (136-145); eGFR For African Americans > 60 (> 60); eGFR For Non-African Americans > 60 (> 60)
[2016-11-26 05:58] LABS: Phosphorous 1.5 mg/dL (2.3-4.7)
[2016-11-26] MEDS ORDERED: Insulin LISPRO 300 UNITS/3 ML VIAL SQ SCH (06:00)
[2016-11-26 06:26] LABS: Basophils % 0.1 %; Eosinophils % 0.3 %; Hematocrit 35.1 % (35.3-44.9); Immature Granulocytes % 0.5 % (0-4); Lymphocytes # 2.7 K/mcL (0.6-4.6); Lymphocytes % 18.1 %; Mean Corpuscular HGB Conc 33.9 g/dL (31.6-35.5); Mean Corpuscular Hemoglobin 31.3 pg (28.0-33.3); Mean Corpuscular Volume 92.4 fL (83.0-100.0); Mean Platelet Volume 9.9 fL (9.4-12.4); Neutrophils # 10.8 K/mcL (1.6-8.9); Platelet Count 222 K/mcL (140-400); Red Cell Distribution Width 12.4 % (11.5-14.5)
[2016-11-26] MEDS: Calcium Gluconate 1,000 MG in D5% in Water 100 ML IVPB PRN (06:33)
[2016-11-26 06:38] LABS: Hemoglobin 11.9 g/dL (11.5-15.4)
--- NOTE | 2016-11-26 07:37 | Pulmonology Progress Note ---
Date of Encounter: 11/26/16 Time of Encounter: 07:35 Assessment and Plan (1) STEMI (ST elevation myocardial infarction) Current Visit: Yes Status: Acute Qualifiers: Involved coronary artery: unspecified coronary artery Qualified Code(s): I21.3 - ST elevation (STEMI) myocardial infarction of unspecified site (2) Shock Current Visit: Yes Status: Acute (3) Hyperglycemia Current Visit: Yes Status: Acute (4) Metabolic acidosis Current Visit: Yes Status: Acute Subjective Principal diagnosis: STEMI Interval history: No acute overnight events. Patient is intermittently on vasopressors. She has responded nicely to insulin drip. No new complaints this morning. She is tolerating diabetic clear diet. Objective PUL Vital signs: Last Vital Signs Temp 98.3 F 11/26/16 06:00 Pulse 84 11/26/16 06:00 Resp 23 11/26/16 06:00 BP 80/65 11/26/16 06:00 Pulse Ox 97 11/26/16 06:00 General: no acute distress Eyes: nonicteric ENT: oropharynx moist Neck: supple, no lymphadenopathy Lungs: Clear to auscultation bilaterally Cardiovascular: regular rate and rhythm Gastrointestinal: normoactive bowel sounds, soft, non-tender, non-distended Integumentary: normal Extremities: no cyanosis, no edema Musculoskeletal: no deformities Neuro: normal mental status, non-focal exam Psych: mood appropriate, affect normal Results - Laboratory Findings CBC and BMP: 11/26/16 04:58 11/26/16 04:58 PT/INR, D-dimer PT 15.8 Seconds (9.4-12.1) H 11/25/16 06:40 Abnormal lab findings: Abnormal lab results WBC 14.6 K/mcL (4.3-11.1) H 11/26/16 04:58 RBC 3.80 M/mcL (3.82-4.97) L 11/26/16 04:58 Hct 35.1 % (35.3-44.9) L 11/26/16 04:58 Neutrophils # 10.8 K/mcL (1.6-8.9) H 11/26/16 04:58 PT 15.8 Seconds (9.4-12.1) H 11/25/16 06:40 APTT 24.7 Seconds (26.0-36.0) L 11/25/16 06:40 VBG pH 7.25 pH Units (7.32-7.42) L 11/25/16 06:40 VBG pO2 41 mmHg (25-40) H 11/25/16 06:40 VBG HCO3 18.4 mEq/L (21-27) L 11/25/16 06:40 Chloride 113 mEq/L (98-109) H 11/26/16 04:58 Carbon Dioxide 18 mEq/L (19-29) L 11/26/16 04:58 POC Glucose 117 (58-89) H 11/26/16 07:19 Calcium 6.9 mg/dL (8.6-10.8) L 11/26/16 04:58 Ionized Calcium 0.97 mmol/L (1.15-1.35) L 11/26/16 04:58 Phosphorus 1.5 mg/dL (2.3-4.7) L 11/26/16 04:58 Serum Total Protein 4.8 g/dL (6.0-8.3) L 11/25/16 06:40 Albumin 2.5 g/dL (3.5-5.0) L 11/25/16 06:40 Globulin 2.3 g/dL (2.4-3.5) L 11/25/16 06:40 Amylase 19 Units/L (25-125) L 11/25/16 06:40 Beta-Hydroxybutyric Acd 1.56 mmol/L (0.02-0.27) H 11/25/16 06:40 Ur Specific [place] > 1.030 (1.010-1.025) H 11/25/16 08:45 Urine Glucose (UA) >=1000 mg/dL (Normal) H 11/25/16 08:45 Urine Ketones 80 mg/dL (Negative) H 11/25/16 08:45 Urine Blood Large (Negative) H 11/25/16 08:45 Urine Microscopic RBC 5-15 per hpf (0-3) H 11/25/16 08:45 Urine Microscopic WBC 3-5 per hpf (0-3) H 11/25/16 08:45 Ur Squamous Epith Cells Many per lpf (None-Few) H 11/25/16 08:45 Urine Yeast Many per hpf (None Seen) H 11/25/16 08:45 - Clinical Findings Intake & Output: Intake & Output 11/25/16 11/25/16 11/26/16 15:59 23:59 07:59 Intake Total 1479 / 1479 2250.7 / 2250.7 1265.1 / 1265.1 Output Total 650 / 650 900 / 900 550 / 550 Balance 829 / 829 1350.7 / 1350.7 715.1 / 715.1 Weight 84.368 kg 84.867 kg Consult Discharge Plan - Plan Referrals: NO,PCP [Primary Care Provider] -
[2016-11-26] MEDS ORDERED: Insulin NPH 100 UNIT/ML (x5UNIT) SQ ONE (07:58)
[2016-11-26] MEDS: Aspirin 81 MG TAB.CHEW PO SCH (08:29)
[2016-11-26] MEDS: *HR* Ticagrelor 90 MG TABLET PO SCH ×2 (08:29→19:57)
[2016-11-26 08:41] LABS: Hemoglobin A1C 12.4 %
[2016-11-26] MEDS: Tirofiban 12.5 MG/250ML 12.5 MG/250 ML BAG IVC SCH (09:05)
--- NOTE | 2016-11-26 10:26 | Cardiology Progress Note ---
Date of Encounter: 11/26/16 Time of Encounter: 10:24 Assessment and Plan (1) STEMI (ST elevation myocardial infarction) Current Visit: Yes Status: Acute STEMI s/p emergent LHC. Acute CX ISR s/p PCI with LUIS ARMANDO x1. Clinically, doing very well. Required levophed for hypotension since LHC. Clinically, asymptomatic with no signs of shock. Nurse instructed to check BP on other arm, which was higher. Levophed now off. ? PAD of left upper extremity. Continue supportive care and appropriate medical therapy. DAPT for one year. Continue statin. Resume ACEi, BB if BP remains stable. Transfer out of ICU later today if remains stable off Levophed. Qualifiers: Involved coronary artery: unspecified coronary artery Qualified Code(s): I21.3 - ST elevation (STEMI) myocardial infarction of unspecified site (2) CAD (coronary artery disease) Current Visit: No Status: Acute [place] CAD. s/p PCI with LUIS ARMANDO x1 to CX 11/15/2016. s/p stent thrombosis and repeat PCI 11/25/2011 with LUIS ARMANDO x1. Residual significant disease as per [facility]. Risk factor modification, especially tobacco cessation emphasized. Continue DAPT without interruption for one year. Continue statin. Resume BB/ACEi if BP remains stable. Qualifiers: Coronary Disease-Associated Artery/Lesion type: [place] artery [place] vs. transplanted heart: [place] heart Associated angina: angina presence unspecified Qualified Code(s): I25.10 - Atherosclerotic heart disease of [place] coronary artery without angina pectoris Discussion w patient/family: The assessment and plan as outlined above was discussed with the patient and/or family members who expressed understanding and agreement. All questions were answered. Thank you for involving us in the care of your patient. Please call with any questions. Subjective Principal diagnosis: STEMI Interval history: Patient seen and examined. Clinically, she seems to be doing well. Levophed continued overnight despite feeling well due to hypotension. No chest pain reported. Objective Vital Signs, Last 4 Hours Temp Pulse Resp BP Pulse Ox 11/26/16 10:00 92 18 103/60 95 11/26/16 09:00 86 20 101/53 96 11/26/16 08:30 78 20 111/60 95 11/26/16 07:15 98.4 F General: Conversant, No Apparent Distress HEENT: Atraumatic, Normocephaly, Mucus Membranes Moist Neck: No JVD, Normal carotid pulses Cardiac: Reg Rate and Rhythm, Normal S1 and S2, No Murmur Lungs: Normal Breath Sounds, No Wheeze, Rales, Rhonchi Neuro: Alert and responsive, No focal deficits noted Abdomen: Soft, Non-Tender Skin: No rashes noted on visualized skin Musculoskeletal: No Chest Wall Tenderness Extremities: No Clubbing, No Cyanosis, No Edema Results 11/26/16 04:58 11/26/16 04:58 Lab Results 11/25/16 11/25/16 11/25/16 10:40 13:53 18:00 WBC Hgb Hct Plt Count Sodium 136 138 Potassium 3.8 4.6 H Chloride 110 H 113 H Carbon Dioxide 17 L 19 BUN 12 11 Creatinine 0.73 0.77 Glucose 269 H 189 H Calcium 7.5 L 7.0 L Magnesium 1.5 L 1.9 11/25/16 11/26/16 11/26/16 23:15 04:58 04:58 WBC 14.6 H Hgb 11.9 D Hct 35.1 L Plt Count 222 Sodium 137 136 Potassium 3.8 3.6 Chloride 114 H 113 H Carbon Dioxide 17 L 18 L BUN 9 8 Creatinine 0.63 0.62 Glucose 96 95 Calcium 7.0 L 6.9 L Magnesium 2.3 - Imaging and Cardiology Echo: pending - EKG Interpretation EKG results cardiology: personally reviewed Consult Discharge Plan - Plan Referrals: NO,PCP [Primary Care Provider] -
[2016-11-26] MEDS: Insulin LISPRO 300 UNITS/3 ML VIAL SQ SCH ×2 (11:52→16:45)
--- NOTE | 2016-11-26 12:45 | ECHO - Doppler Report ---
Echocardiogram Name: Elyse Bravo Date of Study: 11/26/2016 Date: 1970 Ht: 67.0 in Medical Record#: [id number] Age: 46 Wt: 187.0 lb Gender: Female BSA: 1.97 Order #: [id number] Location: [facility] Room #: [facility] Reading Physician: Pedro Luis Lawrence DO, SHAVONNE, RITA CARDENAS Job Order Clerk: Marcos Doty RDCS Ordering Physician: Sj Crow MD Primary Physician: None Indications: Myocardial infarction, Coronary artery disease Impressions: LVEF 50%. Normal LV chamber size. Mild concentric left ventricular hypertrophy. Mild segmental left ventricular systolic dysfunction. Moderate left ventricular diastolic dysfunction. Normal right ventricular structure and function. Mild mitral regurgitation. No evidence of pulmonary hypertension. Left Ventricular Wall Motion: Rest Echo Findings The mid inferior lateral and basal inferior lateral ricketts were hypokinetic. All other wall segments showed normal motion. Findings: Study Quality * Technically adequate exam. ECG Findings * Normal sinus rhythm. Left Ventricle * LVEF 50%. * Normal LV chamber size. * Mild segmental left ventricular systolic dysfunction. * Mild concentric left ventricular hypertrophy. * Moderate left ventricular diastolic dysfunction. Right Ventricle * Normal right ventricular structure and function. Left Atrium * Normal left atrial size. Right Atrium * Normal right atrial size. Interatrial Septum * Interatrial septum not well evaluated. Aortic Valve * Trileaflet aortic valve. * Mildly sclerotic aortic valve leaflets. * No aortic regurgitation. * No aortic stenosis. Mitral Valve * Normal mitral valve structure. * Mild mitral regurgitation. * No mitral stenosis. Tricuspid Valve * Normal tricuspid valve structure and function. * Trace tricuspid regurgitation. * No evidence of pulmonary hypertension. Pulmonic Valve * Pulmonic valve not well visualized. * No pulmonic regurgitation. Aorta * Normally sized aortic root. Pericardium * There is a trivial pericardial effusion present. IVC * Normal IVC dimensions and inspiratory collapse. Pulmonary Artery * Normal visualized portions of the main pulmonary artery. History Hypertension Diabetes History of Smoking Years 33 Packs 2 11/16/16 a Previous Echo was performed. Measurements: BP: 98/ 65 2D Normal Values RVIDd: 3.10 cm <2.7 cm IVSd: 1.30 cm 0.6 - 1.0 cm LVIDd: 4.30 cm 3.7 - 5.6 cm LVPWd: 1.30 cm 0.6 - 1.1 cm LVIDs: 3.30 cm 1.5 - 3.6 cm AO: 2.70 cm < 4.0 cm LA: 2.80 cm 2.0 - 4.0cm %FS: 23.30 cm >25 % LA volume: 39 Mitral Valve Peak E:1.29 m/sec Peak A:.68 m/sec E/A Ratio:1.9 Peak E' Lat Anthony:5.46 cm/s Peak E' Med Anthony:6.04 cm/s E/E' Lat Ratio:23.6 E/E' Med Ratio:21.4 Tricuspid Valve TV Regurg Peak Grad: 16.00mmHg TV Regurg Peak Anthony: 1.98m/sec Updated by Pedro Luis Lawrence DO, FACLizzy, RONALD, FASMACKENZIE on 11/26/2016 12:42:05 PM electronically signed on 11/26/2016 12:42:32 PM with status of Final Wall Motion Angel: 1=Normal, 2=Hypokinesis, 3=Akinesis, 4=Dyskinesis, 5=Aneurysmal, 6=Hyperkinetic, X=Not Visualized (Blank)=Missing
[2016-11-26] MEDS: Insulin Human Regular 100 UNIT in 0.9 % Sodium Chloride 100 ML IVC SCH (16:40)
[2016-11-26] MEDS: Potassium Phosphate 44 MEQ in 0.9 % Sodium Chloride 250 ML IVPB PRN (18:44)
[2016-11-26 18:57] LABS: Ionized Calcium 1.11 mmol/L (1.15-1.35)
[2016-11-26 19:01] LABS: Potassium 4.1 mEq/L (3.5-4.5)
--- NOTE | 2016-11-26 19:50 | Electrocardiograph Report ---
[facility] Test Date: 2016-11-25 Pat Name: Elyse Bravo Department: 105 Room: 07 Gender: F Trimmer Sorter: : 1970 Requested By: Hadley Castillo Order Number: [id number] Reading MD: Pedro Luis Lawrence DO Measurements Intervals [place] Rate: 82 P: 74 NE: 167 QRS: 116 QRSD: 153 T: 43 QT: 400 QTc: 438 Interpretive Statements Sinus rhythm Right bundle branch block Left posterior fascicular block Extensive ST-T changes V2-4 suggestive of ischemia Electronically Signed On 11-26-16 19:49:21 EST by Pedro Luis Lawrence DO
--- NOTE | 2016-11-26 19:51 | Electrocardiograph Report ---
[facility] Test Date: 2016-11-25 Pat Name: Elyse Bravo Department: 105 Room: 07 Gender: F Kiss Mixer: : 1970 Requested By: Sj Crow Order Number: [id number] Reading MD: Pedro Luis Lawrence DO Measurements Intervals [place] Rate: 89 P: 65 IA: 157 QRS: 110 QRSD: 100 T: 35 QT: 386 QTc: 433 Interpretive Statements Sinus rhythm Incomplete RBBB Anterior ST elevation suggests injury ACUTE RI Electronically Signed On 11-26-16 19:50:18 EST by Pedro Luis Lawrence DO
--- NOTE | 2016-11-26 19:53 | Electrocardiograph Report ---
[facility] Test Date: 2016-11-25 Pat Name: Elyse Bravo Department: 109 Room: 07 Gender: F Ripper Operator: SAGAR : 1970 Requested By: Sj Crow Order Number: [id number] Reading MD: Pedro Luis Lawrence DO Measurements Intervals [place] Rate: 109 P: 81 IA: 192 QRS: 127 QRSD: 150 T: 56 QT: 379 QTc: 443 Interpretive Statements SINUS TACHYCARDIA RIGHT BUNDLE BRANCH BLOCK LEFT POSTERIOR FASCICULAR BLOCK Electronically Signed On 11-26-16 19:52:38 EST by Pedro Luis Lawrence DO
[2016-11-26] MEDS ORDERED: Insulin DETEMIR 100 UNIT/ML X5UNITS SQ SCH (21:00)
[2016-11-27] MEDS: *HR* Morphine 2 MG/ML SYRINGE IVP PRN (00:15)
[2016-11-27 04:20] LABS: Ionized Calcium 1.17 mmol/L (1.15-1.35)
[2016-11-27 04:32] LABS: BUN/Creatinine Ratio 8 (6-26); Blood Urea Nitrogen 5 mg/dL (7-20); Carbon Dioxide 19 mEq/L (19-29); Chloride 110 mEq/L (98-109); Glucose 90 mg/dL (70-99); Magnesium 1.8 mg/dL (1.6-2.6); Osmolality,Calculated 281 (280-300); Phosphorous 2.6 mg/dL (2.3-4.7); Potassium 3.9 mEq/L (3.5-4.5); Sodium 137 mEq/L (136-145); eGFR For African Americans > 60 (> 60); eGFR For Non-African Americans > 60 (> 60)
[2016-11-27] MEDS: Potassium Phosphate 44 MEQ in 0.9 % Sodium Chloride 250 ML IVPB PRN (05:04)
[2016-11-27] MEDS: Magnesium Sulfate 2 GM in D5% in Water 100 ML IVPB PRN (05:05)
[2016-11-27 06:09] LABS: Basophils % 0.2 %; Eosinophils # 0.1 K/mcL (0.0-0.6); Eosinophils % 0.7 %; Hematocrit 33.7 % (35.3-44.9); Hemoglobin 11.6 g/dL (11.5-15.4); Immature Granulocytes % 0.5 % (0-4); Lymphocytes # 2.8 K/mcL (0.6-4.6); Lymphocytes % 23.1 %; Mean Corpuscular HGB Conc 34.4 g/dL (31.6-35.5); Mean Corpuscular Hemoglobin 31.4 pg (28.0-33.3); Mean Corpuscular Volume 91.1 fL (83.0-100.0); Mean Platelet Volume 9.7 fL (9.4-12.4); Monocytes # 0.9 K/mcL (0.0-1.3); Monocytes % 7.6 %; Neutrophils # 8.2 K/mcL (1.6-8.9); Platelet Count 181 K/mcL (140-400); Red Cell Distribution Width 12.3 % (11.5-14.5); Segmented Neutrophils % 67.9 %
[2016-11-27] MEDS: Norepinephrine 4 MG in D5% in Water 250 ML IVC SCH (07:56)
[2016-11-27] MEDS: *HR* Ticagrelor 90 MG TABLET PO SCH ×2 (08:39→19:52)
[2016-11-27] MEDS: Aspirin 81 MG TAB.CHEW PO SCH (08:40)
[2016-11-27] MEDS: Insulin LISPRO 300 UNITS/3 ML VIAL SQ SCH ×3 (08:41→19:52)
[2016-11-27] MEDS: Tirofiban 12.5 MG/250ML 12.5 MG/250 ML BAG IVC SCH (08:41)
--- NOTE | 2016-11-27 08:43 | Cardiology Progress Note ---
Date of Encounter: 11/27/16 Time of Encounter: 08:40 Assessment and Plan (1) STEMI (ST elevation myocardial infarction) Current Visit: Yes Status: Acute - S/p LHC after STEMI with acute CX ISR s/p PCI with LUIS ARMANDO x1. - Doing well - Off Levophed for 23 hours - Continue optimized medical therapy as listed below - Uninterrupted DAPT for one year with Aspirin and Brilinta (was previously on Plavix, will check with social work to see if patients insurance will cover it) - Continue statin. - Resume home doses of ACEi and BB today 11/27 - Transfer to step down today as well - Remove R femoral venous sheath, no longer requiring pressors Qualifiers: Involved coronary artery: unspecified coronary artery Qualified Code(s): I21.3 - ST elevation (STEMI) myocardial infarction of unspecified site (2) CAD (coronary artery disease) Current Visit: No Status: Acute - [place] CAD. - s/p PCI with LUIS ARMANDO x1 to CX 11/15/2016 and subsequent stent thrombosis on 2016 with LUIS ARMANDO x1 - LHC demonstrates significant residual CAD - Discussed risk factor modification including smoking cessation - Continue DAPT with Aspirin/Brilinta without interruption for one year. - Continue statin - Resume BB/ACEi today 11/27 - Remove R femoral venous sheath today 11/27 Qualifiers: Coronary Disease-Associated Artery/Lesion type: [place] artery [place] vs. transplanted heart: [place] heart Associated angina: angina presence unspecified Qualified Code(s): I25.10 - Atherosclerotic heart disease of [place] coronary artery without angina pectoris (3) DKA (diabetic ketoacidoses) Current Visit: Yes Status: Acute - On Insulin gtt - Further management per critical care team Qualifiers: Diabetes mellitus type: type 2 Diabetes mellitus complication detail: without coma Qualified Code(s): E13.10 - Other specified diabetes mellitus with ketoacidosis without coma Discussion w patient/family: The assessment and plan as outlined above was discussed with the patient and/or family members who expressed understanding and agreement. All questions were answered. Thank you for involving us in the care of your patient. Please call with any questions. Subjective Principal diagnosis: STEMI Interval history: No acute events overnight. Off vassopressors since 10am yesterday. Had BM this morning. Denies any chest pain, shortness of breath, continues to do well. Objective Vital Signs, Last 4 Hours Pulse Resp BP Pulse Ox 11/27/16 06:00 95 16 119/74 94 L 11/27/16 05:00 103 18 125/70 94 L General: Conversant, No Apparent Distress HEENT: Atraumatic, Normocephaly, Mucus Membranes Moist Neck: No JVD, Normal carotid pulses Cardiac: Reg Rate and Rhythm, Normal S1 and S2, No Murmur Lungs: Normal Breath Sounds, No Wheeze, Rales, Rhonchi Neuro: Alert and responsive, No focal deficits noted Abdomen: Soft, Non-Tender Skin: No rashes noted on visualized skin Musculoskeletal: No Chest Wall Tenderness Extremities: No Clubbing, No Cyanosis, No Edema, Normal Pulses Results 11/27/16 06:02 11/27/16 04:05 Lab Results 11/26/16 11/27/16 11/27/16 18:22 04:05 06:02 WBC 12.1 H Hgb 11.6 Hct 33.7 L Plt Count 181 Sodium 137 Potassium 4.1 3.9 Chloride 110 H Carbon Dioxide 19 BUN 5 L Creatinine 0.63 Glucose 90 Calcium 8.0 L D Magnesium 1.8 Consult Discharge Plan - Plan Referrals: NO,PCP [Primary Care Provider] -
[2016-11-27] MEDS ORDERED: Nicotine 21 MG PATCH.TD24 TD SCH (09:00)
[2016-11-27] MEDS ORDERED: Ondansetron 4 MG/2 ML VIAL IVP PRN (11:58)
[2016-11-27] MEDS ORDERED: *HR* Dextrose 50 % in Water (Syg) 50 ML SYRINGE IVP PRN (11:58)
[2016-11-27] MEDS ORDERED: Dextrose Gel 15 GM PO PRN ×2 (11:58)
[2016-11-27] MEDS ORDERED: D5% in Water 1,000 ML IV PRN (11:58)
[2016-11-27] MEDS ORDERED: *HR* Morphine 2 MG/ML SYRINGE IVP PRN (11:58)
[2016-11-27] MEDS ORDERED: Insulin DETEMIR 100 UNIT/ML X5UNITS SQ SCH (21:00)
[2016-11-28] MEDS: Insulin LISPRO 300 UNITS/3 ML VIAL SQ SCH ×2 (08:50→12:50)
[2016-11-28] MEDS: *HR* Ticagrelor 90 MG TABLET PO SCH (08:59)
[2016-11-28] MEDS ORDERED: Nicotine 21 MG PATCH.TD24 TD SCH (09:00)
[2016-11-28] MEDS ORDERED: Aspirin 81 MG TAB.CHEW PO SCH (09:00)
[2016-11-28 09:25] LABS: Hematocrit 34.1 % (35.3-44.9); Hemoglobin 11.8 g/dL (11.5-15.4)
--- NOTE | 2016-11-28 11:28 | Discharge Summary ---
Date of Encounter: 11/28/16 Time of Encounter: 10:00 - Discharge Diagnosis (1) Acute VA Priority: Primary Status: Acute Comments: Presented with ECG with presentation concerning for acute VA and underwent urgent left heart catheterization with findings of circumflex in-stent restenosis. Qualifiers: Myocardial infarction ST status: ST elevation myocardial infarction Involved coronary artery: left circumflex coronary artery Qualified Code(s): I21.21 - ST elevation (STEMI) myocardial infarction involving left circumflex coronary artery (2) Hyperglycemia Priority: Secondary Status: Acute Comments: On arrival hyperglycemic and seen by pulmonology in ICU for management. - Discharge Medications Prescriptions: Nitroglycerin 0.4 mg SL Q5MIN #30 tab.subl Metoprolol [Lopressor] 12.5 mg PO BID #60 tablet Ticagrelor [Brilinta] 90 mg PO BID #60 tablet Home Medications: Albuterol Neb [Proventil Neb] 2.5 mg IH TID PRN 12/22/15 [History] Diphenhydramine HCl [Vianca-Dryl] 25 mg PO Q6HR PRN 12/22/15 [History] Docusate Sodium [Move It Along] 100 mg PO BID PRN 12/22/15 [History] Fluticasone Propionate Nasal [Flonase] 2 spray NS DAILY 12/22/15 [History] GlipiZIDE [Glipizide] 10 mg PO BID 12/22/15 [History] Loratadine [Claritin] 10 mg PO DAILY 12/22/15 [History] Montelukast [Singulair] 10 mg PO HS 12/22/15 [History] Gabapentin [Neurontin] 600 mg PO TID 11/15/16 [History] Tramadol HCl [Ultram] 50 mg PO Q6H PRN 11/15/16 [History] Aspirin 81 mg PO DAILY #30 tab.chew 11/17/16 [Rx] Lisinopril [Zestril] 2.5 mg PO DAILY #15 tablet 11/17/16 [Rx] Nicotine Patch [Nicoderm] 21 mg TD HS #30 patch.td24 11/17/16 [Rx] Rosuvastatin [Crestor] 20 mg PO HS #30 tablet 11/17/16 [Rx] Insulin Glargine,Hum.rec.anlog [Lantus Solostar] 15 unit SQ HS 11/25/16 [History ] Insulin LISPRO [HumaLOG] 2 - 10 units SQ TIDAC 11/25/16 [History] Metoprolol [Lopressor] 12.5 mg PO BID #60 tablet 11/28/16 [Rx] Nitroglycerin 0.4 mg SL Q5MIN #30 tab.subl 11/28/16 [Rx] Ticagrelor [Brilinta] 90 mg PO BID #60 tablet 11/28/16 [Rx] Allergies/Adverse Reactions: Allergies codeine Adverse Reaction (Verified 12/22/15 13:29) Diarrhea Procedures/tests Complete & Pending: Procedures Performed prior 72 hours Category Date Time Status ECG 12 lead ECG [ECG] Routine Y 11/26/16 07:00 Ordered Date of admission: 11/25/16 06:37 Primary care physician: PCP NO Consults: 11/25/16 07:51 Consult to Cardiac Rehabilitation-Phase1 [CONS] Routine Comment: Reason for Consult: AMI Call Completed: Yes Consult to Cardiac Rehabilitation-Phase1 [CONS] Routine Comment: Reason for Consult: post op cath Call Completed: Yes Consult to Nurse Navigator [CONS] Routine Comment: 11/25/16 11:14 Consult to Pulmonology [CONS] Routine Consulting Provider: [facility] Jesse Reason for Consult: DKA, medical management Call Completed: Yes 11/25/16 14:56 Consult to Comb Machine Operator [CONS] Routine Comment: Discharging clinician: Thuan Sánchez Anticipated date of discharge: 11/28/16 - Patient Status Disposition: Home, Self-Care Condition: Fair Functional capacity at discharge: independent ambulation Overall status at discharge: patient is progressing back to baseline - Discharge Instructions Follow Up With: Marquez Arredondo, REED MAN [Advanced Practice Nurse] - 12/05/16 1:00 pm (Please follow up as schedule, at [facility]) Additional Instructions: RISK FACTORS: STOP SMOKING: If you smoke, STOP. Smoking or tobacco use significantly increases your risk of heart disease because nicotine causes the arteries to narrow or constrict. It also causes fats to stick to the artery. Your chances of having a heart attack are greatly increased if you continue to smoke. For more information, call the education line for smoking cessation 0-303-KYLAZYX EAT A LOW FAT/CHOLESTEROL/SODIUM DIET: This diet may help reduce your chances of having a heart attack. LIFTING: Avoid lifting anything more than 10 pounds for 5-7 days Prior to straining, laughing, sneezing and/or coughing, apply manual pressure directly over insertion site. ACTIVITY: You may walk or climb stairs as tolerated You can resume sexual activity as tolerated In general, you are encouraged to engage in a minimum of 30 minutes or more of moderate intensity physical activity, such as brisk walking, daily or at least 3 -4 times weekly BATHING Do not submerge the site into water (bath tub, hot tub, swimming pool) for 1 week. This can be a source for infection into the blood stream. You may shower after 24 hours SITE CARE: After 24 hours, you may remove the dressing and leave the site open to air. Keep the site clean and dry. Clean gently and pat dry. You can expect bruising and tenderness that gradually resolve within a week or two. Return to work as instructed per your physician Resume driving as instructed per physician Keep all scheduled follow up appointments Resume medications as instructed IMPORTANT: If prescribed a Platelet Aggregation Inhibitor such as, Plavix, Brilinta or Effient: Duration of therapy is minimum one year These medications are often used in combination with Aspirin in prevention of future heart attacks Never discontinue unless consult with your Watermaster STROKE (CVA) Risk factors for a stroke are: Age, cigarette smoking, diabetes, excessive alcohol consumption, family history, high blood pressure, overweight, physical inactivity, prior stroke, heart attack, diagnosis of carotid artery stenosis or other artery disease. Warning signs: Sudden numbness or weakness of the face, arm or leg; especially on one side of the body, sudden confusion, trouble speaking or understanding, sudden trouble seeing in one or both eyes, sudden trouble walking, dizziness, loss of balance or coordination, sudden severe headache with no cause. Call 911 or go to the Emergency Room. CONGESTIVE HEART FAILURE: If you have been diagnosed with Congestive Heart Failure (CHF) and your symptoms return, make an appointment with your physician Weigh yourself daily. Notify your physician if you have a weight gain of two or more pounds in one day or five or more pounds in one week. If you experience any difficulty breathing, please call 911 BLEEDING: Although the risk of bleeding is minimal, it can happen. If you have any bleeding from the site, apply firm pressure above the puncture site for 10-15 minutes. If the bleeding does not stop, continue manual pressure and call 911 Contact your physician if: You develop a fever greater than 101 degrees Fahrenheit Your site becomes reddened or has any drainage You have an increase in pain or burning at the site or if a large knot forms at the site. If you experience chest pain, shortness of breath, dizziness, or extreme tiredness, stop the activity and rest. Please notify your physicians office if you experience any of these symptoms and they are not relieved by rest please call 911! - Diet and Activity Diet: diabetic diet, low fat, low cholesterol - Hospital Course Hospital course: Ms. Bravo is a 46 year old female whom is status post recent catheterization November 16, 2016 status post PTCA with drug-eluting stent to mid circumflex 90% stenosis. Patient presented November 25, 2016 with acute VA with ECG suggestive of ischemia/Anterior STEMI and status post urgent left heart catheterization with subsequent PTCA and drug-eluting stent placement to mid circumflex 100% stenosis. Most recent catheterization also shows mid LAD 50%, diagonal 1 80% with small vessel, proximal RCA 70%, and mid RCA 90% stenosis. Echo showed EF 50 %, mild diastolic dysfunction, mild MR. Upon arrival patient with hyperglycemia with management per ICU staff. Required levophed for hypotension. Has been resumed on her home blood pressure meds indicate a building hallway without any difficulty. Encouraged to keep a heart rate and blood pressure log and bring to follow-up appointment. Smoking cessation reinforced. Patient follow-up with cardiology in 5-7 days unless she needs be seen sooner. The hospital stay Plavix was discontinued and patient started on Brilinta-- assistance card provided. Prepping for discharge home today in stable condition. Recommend follow-up with PCP in one week as well for further evaluation of diabetic regimen. - Time Spent with Patient Total time spent providing and/or coordinating discharge services: Physical Examination Vital Signs, Last 4 Hours Temp Pulse Resp BP Pulse Ox 11/28/16 07:30 97.3 F L 76 16 90/52 96
[2016-11-28 11:33] VITALS: BP 103/71
== END 2016-11-28 15:13 | disposition home or self-care (01) | DRG 174 ==
LOC: EMEROO 05:25 → ICNU 06:37 → 2ANU 11-27 13:46
PROVIDERS: ADMIT Internal Medicine; ATTEND Internal Medicine

== ENCOUNTER 2018-05-18 23:17 | Inpatient (IN) ==
--- NOTE | 2018-05-18 23:26 | Emergency Department Note ---
Disposition Clinical Impression: Non-STEMI (non-ST elevated myocardial infarction) Disposition: Admitted As Inpatient Condition: Fair Referrals: NONE,PCP [Primary Care Provider] - Time of Disposition: 02:41 Chest Pain HPI - General Stated Complaint: chest pain Time Seen by Provider: 05/18/18 23:22 Source: patient, EMS Mode of arrival: EMS Limitations: no limitations Vital Signs Reviewed: Yes Nursing Notes Reviewed: Yes - History of Present Illness HPI Narrative: nontoxic-appearing 48-yearold female presents for evaluatn of sustenal chest leigh that radiates into he neck. Symptoms began 2 days ago but worsened substantially this evening while she was attempting to fall asleep. She complains of some associated nausea, diaphoresis, and a couple episodes of vomiting since symptom onset. She does state that she has been running low- grade fevers and is coughing up a clear colored sputum. She denies any known alleviating factors for this pain. She states the pain is worsened with deep breathing but she denies any hemoptysis. She denies any pain or swelling of the lower extremities. She states a previous cardiac history with 2 MIs in the past however cannot recall if she has any cardiac stents in place. She states that she has seen a javascript web developer at this facility but it is been quite some time since she has followed up. Pt complaint: chest pain Onset (ago): day(s) (12) Duration: gradually worsening Onset: during rest Pain Location: substernal Severity: moderate Severity scale (1-10): 6 Quality: tightness Pain Radiation: neck Improves with: nothing Worsens with: nothing Associated symptoms: Reports: nausea, vomiting, diaphoresis, dyspnea, fever, cough. Denies: palpitations Treatments prior to arrival chest pain: aspirin (324 mg per EMS) - Related Data Home Medications Medication Instructions Recorded Confirmed Clopidogrel [Plavix] 75 mg PO DAILY 01/22/18 01/22/18 Nitroglycerin [Nitrostat] 0.4 mg SL Q5M PRN 01/22/18 01/22/18 Gabapentin 05/18/18 Previous Rx's Medication Instructions Recorded Aspirin 81 mg PO DAILY #30 tab.chew 11/17/16 Rosuvastatin [Crestor] 20 mg PO HS #30 tablet 11/17/16 Meclizine [Antivert] 12.5 mg PO TID PRN #12 tablet 05/18/18 Allergies Allergy/AdvReac Type Severity Reaction Status Date / Time cefdinir [From Omnicef] Allergy Rash Verified 01/22/18 10:46 metronidazole Allergy Swelling Verified 05/18/18 11:26 of Lip/Tongue/Throat codeine AdvReac Diarrhea Verified 01/22/18 10:46 metformin AdvReac Diarrhea Verified 05/18/18 11:25 All systems ED: reviewed and negative except as stated. Constitutional: Reports: as per HPI, fever. Denies: chills, weakness, weight change Eyes: Denies: eye pain, eye discharge, vision change ENT ED: Denies: ear pain, throat pain, dental pain, hearing loss, epistaxis, congestion, dysphagia Cardiovascular: Reports: as per HPI, chest pain, dyspnea on exertion. Denies: palpitations, edema, syncope Respiratory: Reports: as per HPI, cough, dyspnea, sputum production. Denies: wheezes, hemoptysis, stridor Gastrointestinal: Reports: as per HPI, nausea, vomiting. Denies: abdominal pain , diarrhea, constipation, hematemesis, melena, hematochezia Genitourinary: Denies: dysuria, frequency, hematuria, discharge Musculoskeletal: Denies: back pain, neck pain, arthralgia, myalgia Integumentary: Denies: rash, abrasion, lesions Neurological: Denies: headache, weakness, numbness, paresthesias, confusion, abnormal gait, vertigo Psychiatric: Denies: anxiety, depression, suicidal thoughts, homicidal thoughts , auditory hallucinations, visual hallucinations Endocrine: Denies: fatigue Hematological/Lymphatic: Denies: easy bleeding, easy bruising Allergic/Immunologic: Denies: facial swelling, urticaria Chest Pain PMH - Past Medical History Medical history: Reports: asthma, coronary artery disease, diabetes, GERD, myocardial infarction Surgical history: Reports: angioplasty/stent, cholecystectomy, other Psychiatric history: Reports: no psych history - Social History Smoking Status: Current every day smoker Alcohol use: Reports: none Drug use: Reports: none Physical Exam - General Limitations: no limitations General appearance: alert, in no apparent distress - Head Head exam: atraumatic, normocephalic, normal inspection - Eye Eye exam: Present: normal appearance, PERRL, EOMI. Absent: nystagmus - ENT ENT exam: mucous membranes moist - Neck Neck exam: Present: normal inspection, full ROM, trachea midline - Chest Chest inspection: Present: normal inspection, symmetric chest wall rise - Respiratory Respiratory exam: Present: normal lung sounds bilaterally. Absent: respiratory distress, wheezes, stridor, accessory muscle use, prolonged expiratory phase - Cardiovascular Cardiovascular exam: Present: regular rate, normal rhythm, normal heart sounds - Abdominal Exam Abdominal exam: Present: soft, Non-Tender, normal bowel sounds - Extremities Exam Extremities exam: Present: normal inspection, full ROM. Absent: tenderness, pedal edema - Neurological Exam Neurological exam: Present: alert, oriented X3 - Psychiatric Psychiatric exam: Present: normal affect, normal mood - Skin Skin exam: Present: warm, dry, intact, normal color. Absent: rash Course Course Narrative: 0110: I was informed by the patient's nurse that laboratory had notified her of a critically high troponin at 9.21. I discussed these findings with Dr. Vieyra. She recommended cardiology consultation. I consult with Dr. Valdes, javascript web developer supervisor electronics inspection. He recommended obtaining a repeat troponin to ascertain if the troponin was actually climbing or if he had perhaps plateaued. He recommends initiating a nitroglycerin and heparin (ACS protocol).. 0235: I spoke with Dr. Valdes again regarding the patient's repeat troponin of 9.22. The patient is completely pain-free at this time. She was pain-free prior to the initiation of the nitroglycerin drip, and as such, the nitroglycerin drip was withheld. Dr. Valdes states that the patient is suitable for admission to the hospitalist service at this time. He states that given the fact that she is pain-free and has a stable troponin, she does not require cardiac catheterization at this time however, He states that he plans a probable cardiac catheterization in the morning. 0311: I spoke with Dr. Spicer, of the hospitalist services agreed to accept the patient for admission under his care. Vital Signs Temperature 97.8 F 05/18/18 23:26 Pulse Rate 103 05/18/18 23:26 Respiratory Rate 21 05/18/18 23:26 Blood Pressure 144/97 05/18/18 23:26 O2 Sat by Pulse Oximetry 94 05/18/18 23:26 Temperature 97.8 F 05/18/18 23:26 Pulse Rate 88 05/19/18 02:21 Respiratory Rate 18 05/19/18 02:21 Blood Pressure 114/69 05/19/18 02:21 O2 Sat by Pulse Oximetry 96 05/19/18 02:21 Oxygen Delivery Oxygen Delivery Nasal Cannula Chest Pain - Medical Records Medical records reviewed: Yes I reviewed the patient's medical records. - Lab Data Lab results reviewed: Yes I reviewed the patient's lab results. Lab results narrative: Lab Results 05/19/18 05/19/18 05/19/18 Range/Units 00:18 00:26 00:26 WBC 13.5 H (4.3-11.1) K/mcL RBC 4.65 (3.82-4.97) M/mcL Hgb 15.2 (11.5-15.4) g/dL Hct 41.9 (35.3-44.9) % MCV 90.1 (83.0-100.0) fL MCH 32.7 (28.0-33.3) pg MCHC 36.3 H (31.6-35.5) g/dL RDW 12.2 (11.5-14.5) % Plt Count 209 (140-400) K/mcL MPV 9.6 (9.4-12.4) fL Immature Gran % 0.2 (0-4) % Seg Neutrophils % 70.8 % Lymphocytes % 19.1 % Monocytes % 9.2 % Eosinophils % 0.3 % Basophils % 0.4 % Neutrophils # 9.6 H (1.6-8.9) K/mcL Lymphocytes # 2.6 (0.6-4.6) K/mcL Monocytes # 1.2 (0.0-1.3) K/mcL Eosinophils # 0.0 (0.0-0.6) K/mcL Basophils # 0.1 (0.0-0.2) K/mcL PT 11.4 (9.4-12.1) Seconds INR 1.0 APTT 27.9 (26.0-36.0) Seconds D-Dimer 347 (0-500) ng/mLFEU Sodium (136-145) mEq/L Potassium (3.5-5.1) mEq/L Chloride (98-107) mEq/L Carbon Dioxide (23-29) mEq/L BUN (6-20) mg/dL Creatinine (0.60-1.20) mg/dL Est GFR ( Amer) (> 60) Est GFR (Non-Af Amer) (> 60) BUN/Creatinine Ratio (6-26) Glucose (70-105) mg/dL Calculated Osmolality (280-300) Calcium (8.6-10.3) mg/dL Troponin I (< 0.04) ng/mL Urine Color Yellow (Yellow) Urine Clarity Cloudy A (Clear) Urine pH 6.0 (5.0-8.0) pH Units Ur Specific Holstein > 1.030 H (1.010-1.025) Urine Protein Negative (Neg-Trace) mg/dL Urine Glucose (UA) >=1000 H (Normal) mg/dL Urine Ketones Trace H (Negative) mg/dL Urine Blood Trace H (Negative) Urine Nitrite Negative (Negative) Urine Bilirubin Negative (Negative) Urine Urobilinogen Normal (Normal) mg/dL Ur Leukocyte Esterase Negative (Negative) Urine Microscopic RBC 3-5 H (0-3) per hpf Urine Microscopic WBC 15-30 H (0-3) per hpf Ur Squamous Epith Cells Many H (None-Few) per lpf Urine Bacteria Many H (None-Few) per hpf Hyaline Casts None Seen (None-Few) per lpf Ur Culture Indicated? NO (NO) 05/19/18 05/19/18 Range/Units 00:26 01:35 WBC (4.3-11.1) K/mcL RBC (3.82-4.97) M/mcL Hgb (11.5-15.4) g/dL Hct (35.3-44.9) % MCV (83.0-100.0) fL MCH (28.0-33.3) pg MCHC (31.6-35.5) g/dL RDW (11.5-14.5) % Plt Count (140-400) K/mcL MPV (9.4-12.4) fL Immature Gran % (0-4) % Seg Neutrophils % % Lymphocytes % % Monocytes % % Eosinophils % % Basophils % % Neutrophils # (1.6-8.9) K/mcL Lymphocytes # (0.6-4.6) K/mcL Monocytes # (0.0-1.3) K/mcL Eosinophils # (0.0-0.6) K/mcL Basophils # (0.0-0.2) K/mcL PT (9.4-12.1) Seconds INR APTT (26.0-36.0) Seconds D-Dimer (0-500) ng/mLFEU Sodium 134 L (136-145) mEq/L Potassium 3.7 (3.5-5.1) mEq/L Chloride 104 (98-107) mEq/L Carbon Dioxide 21 L (23-29) mEq/L BUN 9 (6-20) mg/dL Creatinine 0.64 (0.60-1.20) mg/dL Est GFR ( Amer) > 60 (> 60) Est GFR (Non-Af Amer) > 60 (> 60) BUN/Creatinine Ratio 14 (6-26) Glucose 335 H (70-105) mg/dL Calculated Osmolality 290 (280-300) Calcium 9.2 (8.6-10.3) mg/dL Troponin I 9.21 H* 9.22 H* (< 0.04) ng/mL Urine Color (Yellow) Urine Clarity (Clear) Urine pH (5.0-8.0) pH Units Ur Specific Holstein (1.010-1.025) Urine Protein (Neg-Trace) mg/dL Urine Glucose (UA) (Normal) mg/dL Urine Ketones (Negative) mg/dL Urine Blood (Negative) Urine Nitrite (Negative) Urine Bilirubin (Negative) Urine Urobilinogen (Normal) mg/dL Ur Leukocyte Esterase (Negative) Urine Microscopic RBC (0-3) per hpf Urine Microscopic WBC (0-3) per hpf Ur Squamous Epith Cells (None-Few) per lpf Urine Bacteria (None-Few) per hpf Hyaline Casts (None-Few) per lpf Ur Culture Indicated? (NO) Result diagrams: 05/19/18 00:26 05/19/18 00:26 Lab Results 05/19/18 05/19/18 05/19/18 Range/Units 00:18 00:26 00:26 WBC 13.5 H (4.3-11.1) K/mcL RBC 4.65 (3.82-4.97) M/mcL Hgb 15.2 (11.5-15.4) g/dL Hct 41.9 (35.3-44.9) % MCV 90.1 (83.0-100.0) fL MCH 32.7 (28.0-33.3) pg MCHC 36.3 H (31.6-35.5) g/dL RDW 12.2 (11.5-14.5) % Plt Count 209 (140-400) K/mcL MPV 9.6 (9.4-12.4) fL Immature Gran % 0.2 (0-4) % Seg Neutrophils % 70.8 % Lymphocytes % 19.1 % Monocytes % 9.2 % Eosinophils % 0.3 % Basophils % 0.4 % Neutrophils # 9.6 H (1.6-8.9) K/mcL Lymphocytes # 2.6 (0.6-4.6) K/mcL Monocytes # 1.2 (0.0-1.3) K/mcL Eosinophils # 0.0 (0.0-0.6) K/mcL Basophils # 0.1 (0.0-0.2) K/mcL PT 11.4 (9.4-12.1) Seconds INR 1.0 APTT 27.9 (26.0-36.0) Seconds D-Dimer 347 (0-500) ng/mLFEU Sodium (136-145) mEq/L Potassium (3.5-5.1) mEq/L Chloride (98-107) mEq/L Carbon Dioxide (23-29) mEq/L BUN (6-20) mg/dL Creatinine (0.60-1.20) mg/dL Est GFR ( Amer) (> 60) Est GFR (Non-Af Amer) (> 60) BUN/Creatinine Ratio (6-26) Glucose (70-105) mg/dL Calculated Osmolality (280-300) Calcium (8.6-10.3) mg/dL Troponin I (< 0.04) ng/mL Urine Color Yellow (Yellow) Urine Clarity Cloudy A (Clear) Urine pH 6.0 (5.0-8.0) pH Units Ur Specific Holstein > 1.030 H (1.010-1.025) Urine Protein Negative (Neg-Trace) mg/dL Urine Glucose (UA) >=1000 H (Normal) mg/dL Urine Ketones Trace H (Negative) mg/dL Urine Blood Trace H (Negative) Urine Nitrite Negative (Negative) Urine Bilirubin Negative (Negative) Urine Urobilinogen Normal (Normal) mg/dL Ur Leukocyte Esterase Negative (Negative) Urine Microscopic RBC 3-5 H (0-3) per hpf Urine Microscopic WBC 15-30 H (0-3) per hpf Ur Squamous Epith Cells Many H (None-Few) per lpf Urine Bacteria Many H (None-Few) per hpf Hyaline Casts None Seen (None-Few) per lpf Ur Culture Indicated? NO (NO) 05/19/18 05/19/18 Range/Units 00:26 01:35 WBC (4.3-11.1) K/mcL RBC (3.82-4.97) M/mcL Hgb (11.5-15.4) g/dL Hct (35.3-44.9) % MCV (83.0-100.0) fL MCH (28.0-33.3) pg MCHC (31.6-35.5) g/dL RDW (11.5-14.5) % Plt Count (140-400) K/mcL MPV (9.4-12.4) fL Immature Gran % (0-4) % Seg Neutrophils % % Lymphocytes % % Monocytes % % Eosinophils % % Basophils % % Neutrophils # (1.6-8.9) K/mcL Lymphocytes # (0.6-4.6) K/mcL Monocytes # (0.0-1.3) K/mcL Eosinophils # (0.0-0.6) K/mcL Basophils # (0.0-0.2) K/mcL PT (9.4-12.1) Seconds INR APTT (26.0-36.0) Seconds D-Dimer (0-500) ng/mLFEU Sodium 134 L (136-145) mEq/L Potassium 3.7 (3.5-5.1) mEq/L Chloride 104 (98-107) mEq/L Carbon Dioxide 21 L (23-29) mEq/L BUN 9 (6-20) mg/dL Creatinine 0.64 (0.60-1.20) mg/dL Est GFR ( Amer) > 60 (> 60) Est GFR (Non-Af Amer) > 60 (> 60) BUN/Creatinine Ratio 14 (6-26) Glucose 335 H (70-105) mg/dL Calculated Osmolality 290 (280-300) Calcium 9.2 (8.6-10.3) mg/dL Troponin I 9.21 H* 9.22 H* (< 0.04) ng/mL Urine Color (Yellow) Urine Clarity (Clear) Urine pH (5.0-8.0) pH Units Ur Specific Holstein (1.010-1.025) Urine Protein (Neg-Trace) mg/dL Urine Glucose (UA) (Normal) mg/dL Urine Ketones (Negative) mg/dL Urine Blood (Negative) Urine Nitrite (Negative) Urine Bilirubin (Negative) Urine Urobilinogen (Normal) mg/dL Ur Leukocyte Esterase (Negative) Urine Microscopic RBC (0-3) per hpf Urine Microscopic WBC (0-3) per hpf Ur Squamous Epith Cells (None-Few) per lpf Urine Bacteria (None-Few) per hpf Hyaline Casts (None-Few) per lpf Ur Culture Indicated? (NO) - Radiology Data Radiology results reviewed: Yes I reviewed the patient's radiology results. Chest X-Ray 05/18/18 23:23 IMPRESSION: No acute process. D/ / Celestino Laird MD / Celestino Laird MD Interpreting Provider: Celestino Laird MD - EKG Data EKG attestation: Yes I reviewed and interpreted this EKG. EKG results narrative: EKG reviewed by Dr. Vieyra as well. EKG shows a sinus rhythm with a right bundle branch block and a left posterior fascicular block at a rate of 97 bpm. NJ interval 185, QRS duration 163, QT/QTc interval 402/457. No ST elevation noted. No significant changes when compared to an EKG dated from 11/11/17. 0132: EKG repeated at this time for cardiology request. EKG shows no significant changes from previous. EKG reviewed by Dr. Valdes as well.
[2018-05-18] MEDS ORDERED: Nitroglycerin 0.4 MG TAB.SUBL SL PRN (23:34)
--- NOTE | 2018-05-19 00:17 | Emergency Department Note ---
Disposition Clinical Impression: Non-STEMI (non-ST elevated myocardial infarction) Disposition: Admitted As Inpatient Condition: Fair Referrals: NONE,PCP [Primary Care Provider] - General Adult HPI - General Chief complaint: ED Chest Pain Stated complaint: chest pain Time Seen by Provider: 05/18/18 23:22 Source: patient, EMS Mode of arrival: EMS Limitations: no limitations - History of Present Illness Pain Scale: 7 - Related Data Home Medications Medication Instructions Recorded Confirmed Clopidogrel [Plavix] 75 mg PO DAILY 01/22/18 01/22/18 Nitroglycerin [Nitrostat] 0.4 mg SL Q5M PRN 01/22/18 01/22/18 Gabapentin 05/18/18 Previous Rx's Medication Instructions Recorded Aspirin 81 mg PO DAILY #30 tab.chew 11/17/16 Rosuvastatin [Crestor] 20 mg PO HS #30 tablet 11/17/16 Meclizine [Antivert] 12.5 mg PO TID PRN #12 tablet 05/18/18 Allergies Allergy/AdvReac Type Severity Reaction Status Date / Time cefdinir [From Omnicef] Allergy Rash Verified 01/22/18 10:46 metronidazole Allergy Swelling Verified 05/18/18 11:26 of Lip/Tongue/Throat codeine AdvReac Diarrhea Verified 01/22/18 10:46 metformin AdvReac Diarrhea Verified 05/18/18 11:25 Constitutional: Reports: as per HPI, fever. Denies: chills, weakness, weight change Eyes: Denies: eye pain, eye discharge, vision change ENT ED: Denies: ear pain, throat pain, dental pain, hearing loss, epistaxis, congestion, dysphagia Cardiovascular: Reports: as per HPI, chest pain, dyspnea on exertion. Denies: palpitations, edema, syncope Respiratory: Reports: as per HPI, cough, dyspnea, sputum production. Denies: wheezes, hemoptysis, stridor Gastrointestinal: Reports: as per HPI, nausea, vomiting. Denies: abdominal pain , diarrhea, constipation, hematemesis, melena, hematochezia Genitourinary: Denies: dysuria, frequency, hematuria, discharge Musculoskeletal: Denies: back pain, neck pain, arthralgia, myalgia Integumentary: Denies: rash, abrasion, lesions Neurological: Denies: headache, weakness, numbness, paresthesias, confusion, abnormal gait, vertigo Psychiatric: Denies: anxiety, depression, suicidal thoughts, homicidal thoughts , auditory hallucinations, visual hallucinations Endocrine: Denies: fatigue Hematological/Lymphatic: Denies: easy bleeding, easy bruising Allergic/Immunologic: Denies: facial swelling, urticaria Past Medical History - Past Medical History Medical history: Reports: asthma, coronary artery disease, diabetes, GERD, myocardial infarction Surgical history: Reports: angioplasty/stent, cholecystectomy, other Psychiatric history: Reports: no psych history - Social History Smoking Status: Current every day smoker Smokeless Tobacco Status: No Alcohol use: Reports: none Drug use: Reports: none Physical Exam - General Limitations: no limitations General appearance: alert, in no apparent distress Course Vital Signs Temperature 97.8 F 05/18/18 23:26 Pulse Rate 103 05/18/18 23:26 Respiratory Rate 21 05/18/18 23:26 Blood Pressure 144/97 05/18/18 23:26 O2 Sat by Pulse Oximetry 94 05/18/18 23:26 Temperature 97.8 F 05/18/18 23:26 Pulse Rate 88 05/19/18 02:21 Respiratory Rate 18 05/19/18 02:21 Blood Pressure 114/69 05/19/18 02:21 O2 Sat by Pulse Oximetry 96 05/19/18 02:21 Oxygen Delivery Oxygen Delivery Nasal Cannula Medical Decision Making - Lab Data Result diagrams: 05/19/18 00:26 05/19/18 00:26 Lab Results 05/19/18 05/19/18 05/19/18 Range/Units 00:18 00:26 00:26 WBC 13.5 H (4.3-11.1) K/mcL RBC 4.65 (3.82-4.97) M/mcL Hgb 15.2 (11.5-15.4) g/dL Hct 41.9 (35.3-44.9) % MCV 90.1 (83.0-100.0) fL MCH 32.7 (28.0-33.3) pg MCHC 36.3 H (31.6-35.5) g/dL RDW 12.2 (11.5-14.5) % Plt Count 209 (140-400) K/mcL MPV 9.6 (9.4-12.4) fL Immature Gran % 0.2 (0-4) % Seg Neutrophils % 70.8 % Lymphocytes % 19.1 % Monocytes % 9.2 % Eosinophils % 0.3 % Basophils % 0.4 % Neutrophils # 9.6 H (1.6-8.9) K/mcL Lymphocytes # 2.6 (0.6-4.6) K/mcL Monocytes # 1.2 (0.0-1.3) K/mcL Eosinophils # 0.0 (0.0-0.6) K/mcL Basophils # 0.1 (0.0-0.2) K/mcL PT 11.4 (9.4-12.1) Seconds INR 1.0 APTT 27.9 (26.0-36.0) Seconds D-Dimer 347 (0-500) ng/mLFEU Sodium (136-145) mEq/L Potassium (3.5-5.1) mEq/L Chloride (98-107) mEq/L Carbon Dioxide (23-29) mEq/L BUN (6-20) mg/dL Creatinine (0.60-1.20) mg/dL Est GFR ( Amer) (> 60) Est GFR (Non-Af Amer) (> 60) BUN/Creatinine Ratio (6-26) Glucose (70-105) mg/dL Calculated Osmolality (280-300) Calcium (8.6-10.3) mg/dL Troponin I (< 0.04) ng/mL Urine Color Yellow (Yellow) Urine Clarity Cloudy A (Clear) Urine pH 6.0 (5.0-8.0) pH Units Ur Specific Campbell > 1.030 H (1.010-1.025) Urine Protein Negative (Neg-Trace) mg/dL Urine Glucose (UA) >=1000 H (Normal) mg/dL Urine Ketones Trace H (Negative) mg/dL Urine Blood Trace H (Negative) Urine Nitrite Negative (Negative) Urine Bilirubin Negative (Negative) Urine Urobilinogen Normal (Normal) mg/dL Ur Leukocyte Esterase Negative (Negative) Urine Microscopic RBC 3-5 H (0-3) per hpf Urine Microscopic WBC 15-30 H (0-3) per hpf Ur Squamous Epith Cells Many H (None-Few) per lpf Urine Bacteria Many H (None-Few) per hpf Hyaline Casts None Seen (None-Few) per lpf Ur Culture Indicated? NO (NO) 05/19/18 05/19/18 Range/Units 00:26 01:35 WBC (4.3-11.1) K/mcL RBC (3.82-4.97) M/mcL Hgb (11.5-15.4) g/dL Hct (35.3-44.9) % MCV (83.0-100.0) fL MCH (28.0-33.3) pg MCHC (31.6-35.5) g/dL RDW (11.5-14.5) % Plt Count (140-400) K/mcL MPV (9.4-12.4) fL Immature Gran % (0-4) % Seg Neutrophils % % Lymphocytes % % Monocytes % % Eosinophils % % Basophils % % Neutrophils # (1.6-8.9) K/mcL Lymphocytes # (0.6-4.6) K/mcL Monocytes # (0.0-1.3) K/mcL Eosinophils # (0.0-0.6) K/mcL Basophils # (0.0-0.2) K/mcL PT (9.4-12.1) Seconds INR APTT (26.0-36.0) Seconds D-Dimer (0-500) ng/mLFEU Sodium 134 L (136-145) mEq/L Potassium 3.7 (3.5-5.1) mEq/L Chloride 104 (98-107) mEq/L Carbon Dioxide 21 L (23-29) mEq/L BUN 9 (6-20) mg/dL Creatinine 0.64 (0.60-1.20) mg/dL Est GFR ( Amer) > 60 (> 60) Est GFR (Non-Af Amer) > 60 (> 60) BUN/Creatinine Ratio 14 (6-26) Glucose 335 H (70-105) mg/dL Calculated Osmolality 290 (280-300) Calcium 9.2 (8.6-10.3) mg/dL Troponin I 9.21 H* 9.22 H* (< 0.04) ng/mL Urine Color (Yellow) Urine Clarity (Clear) Urine pH (5.0-8.0) pH Units Ur Specific Campbell (1.010-1.025) Urine Protein (Neg-Trace) mg/dL Urine Glucose (UA) (Normal) mg/dL Urine Ketones (Negative) mg/dL Urine Blood (Negative) Urine Nitrite (Negative) Urine Bilirubin (Negative) Urine Urobilinogen (Normal) mg/dL Ur Leukocyte Esterase (Negative) Urine Microscopic RBC (0-3) per hpf Urine Microscopic WBC (0-3) per hpf Ur Squamous Epith Cells (None-Few) per lpf Urine Bacteria (None-Few) per hpf Hyaline Casts (None-Few) per lpf Ur Culture Indicated? (NO) Critical Care Time Critical Care Time: Yes Total Critical Care Time: 40 Attestation: Critical care performed: Time is exclusive of separately billable procedures. Time includes: direct patient care, patient reassessment, coordination of patient care, interpretation of data (laboratory data, radiology data, and respiratory data), review of patient's medical records, medical consultation and documentation of patient care. Procedures included in critical care time: Procedures excluded from critical care time: Attestation Statement - Attestation Attestation: I examined this patient and my medical decision-making was reviewed with the Resident Physician. I agree with the documented findings, disposition and treatment plan as described except to the extent set forth below. Patient presents to the ED with chief complaint of substernal chest pain radiating to her neck. Onset 2 days ago but worsened tonight. On my evaluation patient is received nitroglycerin which is significantly improved the pain and it is minimally present. She appears in no distress with heart regular rate and rhythm and clear lungs. Plan. EKG shows a bifascicular block. No acute ST segment changes. Cardiac workup. Troponin elevated at 9. We will start heparin and nitro drip. Discussing with cardiology. We will admit. Repeat troponin was stable. Cardiology garay Chest X-Ray 05/18/18 23:23 IMPRESSION: No acute process. D/ / Celestino Laird MD / Celestino Laird MD Interpreting Provider: Celestino Laird MD s been contacted and admitted to medicine.
[2018-05-19 00:31] LABS: Bilirubin,Urine Negative (Negative); Blood,Urine Trace (Negative); Clarity,Urine Cloudy (Clear); Color,Urine Yellow (Yellow); Glucose,Urine (UA) >=1000 mg/dL (Normal); Ketones,Urine Trace mg/dL (Negative); Leukocyte Esterase,Urine Negative (Negative); Nitrite,Urine Negative (Negative); Protein,Urine Negative (Neg-Trace); Specific Gravity,Urine > 1.030 (1.010-1.025); Urobilinogen,Urine Normal (Normal)
[2018-05-19 00:33] LABS: Bacteria,Urine Many per hpf (None-Few); Hyaline Casts,Urine None Seen per lpf (None-Few); Squamous Epithelial Cell,Urine Many per lpf (None-Few); WBC,Urine 15-30 per hpf (0-3)
[2018-05-19 00:37] LABS: Basophils # 0.1 K/mcL (0.0-0.2); Basophils % 0.4 %; Eosinophils % 0.3 %; Hematocrit 41.9 % (35.3-44.9); Hemoglobin 15.2 g/dL (11.5-15.4); Immature Granulocytes % 0.2 % (0-4); Lymphocytes # 2.6 K/mcL (0.6-4.6); Lymphocytes % 19.1 %; Mean Corpuscular HGB Conc 36.3 g/dL (31.6-35.5); Mean Corpuscular Hemoglobin 32.7 pg (28.0-33.3); Mean Corpuscular Volume 90.1 fL (83.0-100.0); Mean Platelet Volume 9.6 fL (9.4-12.4); Monocytes # 1.2 K/mcL (0.0-1.3); Monocytes % 9.2 %; Neutrophils # 9.6 K/mcL (1.6-8.9); Platelet Count 209 K/mcL (140-400); Red Blood Count 4.65 M/mcL (3.82-4.97); Red Cell Distribution Width 12.2 % (11.5-14.5); Segmented Neutrophils % 70.8 %
[2018-05-19 00:45] LABS: Prothrombin Time 11.4 Seconds (9.4-12.1)
[2018-05-19 00:48] LABS: Activated Partial Thrombo Time 27.9 Seconds (26.0-36.0)
[2018-05-19 00:58] LABS: BUN/Creatinine Ratio 14 (6-26); Blood Urea Nitrogen 9 mg/dL (6-20); Calcium 9.2 mg/dL (8.6-10.3); Carbon Dioxide 21 mEq/L (23-29); Chloride 104 mEq/L (98-107); Glucose 335 mg/dL (70-105); Osmolality,Calculated 290 (280-300); Potassium 3.7 mEq/L (3.5-5.1); Sodium 134 mEq/L (136-145); eGFR For African Americans > 60 (> 60); eGFR For Non-African Americans > 60 (> 60)
[2018-05-19 01:02] LABS: Troponin I 9.21 ng/mL (< 0.04)
[2018-05-19] MEDS ORDERED: *HR* Heparin 5,000 UNIT/ML VIAL IVP PRN (01:13)
[2018-05-19] MEDS ORDERED: *HR* Heparin 5,000 UNIT/ML VIAL IVP ONE (01:13)
[2018-05-19] MEDS: Heparin 25,000 UNIT/500 ML D5W 25,000 UNIT/500 ML BAG IVC SCH (02:03)
[2018-05-19 04:18] LABS: Hematocrit 41.7 % (35.3-44.9); Hemoglobin 14.6 g/dL (11.5-15.4); Mean Corpuscular Hemoglobin 31.7 pg (28.0-33.3); Mean Corpuscular Volume 90.5 fL (83.0-100.0); Platelet Count 214 K/mcL (140-400); Red Blood Count 4.61 M/mcL (3.82-4.97); Red Cell Distribution Width 12.2 % (11.5-14.5)
[2018-05-19 04:25] LABS: Heparin anti-factor XA UFH 0.47 IU/mL (0.30-0.70)
[2018-05-19 04:26] LABS: Prothrombin Time 11.6 Seconds (9.4-12.1)
[2018-05-19] MEDS ORDERED: *HR* Dextrose 50 % in Water (Syg) 50 ML SYRINGE IVP PRN (04:46)
[2018-05-19] MEDS ORDERED: D5% in Water 1,000 ML IVC PRN (04:46)
[2018-05-19] MEDS ORDERED: Dextrose Gel 15 GM/37.5 ML TUBE PO PRN ×2 (04:46)
[2018-05-19] MEDS ORDERED: Naloxone 0.4 MG/ML INJ IVP PRN (04:46)
--- NOTE | 2018-05-19 05:08 | Internal Med History&Physical ---
Date of Encounter: 05/19/18 Time of Encounter: 05:00 Internal Medicine - H&P: HPI Chief complaint: chest pain; SOB Admitted From: Emergency Dept Plans for Post Hospital Care: Home History of present illness: Ms. Bravo is a 48 year old female who presents with complaints of substernal chest pain, pressure, diaphoresis, neck, and especially jaw pain. She has history of prior CAD with stents. She therefore came to ER for evaluation. Workup in the ER revealed patient to have findings concerning for non-STEMI. Troponin elevation was in excess of 9. Because of clinical presentation and rapid troponin elevation, Dr. Valdes was called by ER staff. Dr. Valdes reviewed the EKGs and discussed case with ER staff. No immediate intervention was recommended for patient, but she will likely undergo cardiac catheterization later today. She was subsequently admitted to hospitalist service with cardiology consultation. Upon my assessment of the patient, she confirms above history. Is very similar to her prior episodes of a ACS/NH. She denies any fevers, cough, congestion, vomiting, or diarrhea. Symptoms started earlier this evening while she was in bed and awoke her from sleep. She denies any recent episodes of exertional dyspnea or exertional chest pain. This with sudden in onset and very similar to her prior NH. In the ER, patient had several repeat EKGs and cardiology was consulted for concern of possible early STEMI. Dr. Valdes revealed EKGs and discussed with the ER staff. Patient did not require urgent or emergent left heart catheterization as he did not feel she was having a STEMI. He did recommend starting on aspirin, heparin drip, and admission to hospital service. He stated patient will likely go for left heart catheterization later today, but not emergently. Past Med Surg Social Fam HX - Past Medical History Attestation: Yes The following information was validated with the patient. 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 Psychiatric history: no psych history - Past Surgical History Surgical History: angioplasty/stent, cholecystectomy, other Additional surgical history: carpal tunnel-rt,foot surgey-rt - Social History Smoking Status: Current every day smoker Smokeless Tobacco Status: No Alcohol use: none Drug use: none Current living situation: Home, With Family Activity Level: Independent ambulation Recent Out of Country Travel Within the Last 8 Weeks: No - Family History Mother Living Status: Hx Family Cardiac Disorders: Yes Father Living Status: Hx Family Cardiac Disorders: Yes Internal Medicine - H&P: Meds Aspirin 81 mg PO DAILY #30 tab.chew 11/17/16 [Rx] Rosuvastatin [Crestor] 20 mg PO HS #30 tablet 11/17/16 [Rx] Clopidogrel [Plavix] 75 mg PO DAILY 01/22/18 [History] Nitroglycerin [Nitrostat] 0.4 mg SL Q5M PRN 01/22/18 [History] Gabapentin 05/18/18 [History] Meclizine [Antivert] 12.5 mg PO TID PRN #12 tablet 05/18/18 [Rx] 3 Allergy/AdvReac Type Severity Reaction Status Date / Time cefdinir [From Omnicef] Allergy Rash Verified 01/22/18 10:46 metronidazole Allergy Swelling Verified 05/18/18 11:26 of Lip/Tongue/Throat codeine AdvReac Diarrhea Verified 01/22/18 10:46 metformin AdvReac Diarrhea Verified 05/18/18 11:25 - Constitutional Constitutional: no chills, no fever(s) - EENT Eyes: no blurry vision, no change in vision Ears: no ear pain, no tinnitus Nose, mouth and throat: no nasal congestion, no sinus pressure, no sore throat - Cardiovascular Cardiovascular ROS IM: chest pain, diaphoresis, dyspnea, dyspnea on exertion, no orthopnea, no palpitations, no paroxysmal nocturnal dyspnea - Respiratory Respiratory: dyspnea, no cough, no hemoptysis, no chest congestion, no excessive phlegm production, no change in phlegm color - Gastrointestinal Gastrointestinal: no abdominal pain, no dyspepsia, no hematemesis, no hematochezia, no melena, no nausea, no vomiting - Genitourinary Genitourinary: no dysuria, no flank pain, no hematuria - Musculoskeletal Musculoskeletal ROS IM: no arthralgias, no back pain - Integumentary Integumentary IM: no rash, no jaundice - Neurological Neurological ROS: no confusion, no focal weakness, no frequent falls, no headache(s) - Psychiatric Psychiatric: no anxiety, no depression - Endocrine Endocrine IM: no polydipsia, no polyuria - Allergic/Immunologic Allergic/Immunologic: wheezing, no GI upset with certain foods - Constitutional Vitals: Temp Pulse Resp BP Pulse Ox 98.2 F 88 15 105/68 96 05/19/18 04:13 05/19/18 04:13 05/19/18 04:13 05/19/18 04:13 05/19/18 04:13 General appearance: Present: cooperative, A&O X 3, pleasant, no acute distress Exam: currently chest pain free - Head Head exam: Present: atraumatic, normal inspection - Eye Eye exam: Present: EOMI, PERRL. Absent: scleral icterus Pupils: Present: normal accommodation - ENT ENT exam: Present: mucous membranes dry, normal exam, normal external ear exam, normal oropharynx Additional comments: edentulous - Neck Neck exam general surgery: Present: full ROM, supple. Absent: tenderness, nuchal rigidity, thyromegaly - Respiratory Respiratory exam: Present: CTAB. Absent: chest wall tenderness, rales, rhonchi , wheezes - Cardiovascular Cardiovascular exam: Present: distant heart sounds, RRR, +S1, +S2. Absent: diastolic murmur, systolic murmur - GI/Abdominal GI/Abdominal exam: Present: soft. Absent: hepatomegaly, mass, splenomegaly, tenderness - Extremities Exam Extremities exam: Present: full ROM, normal capillary refill, warm, radial pulses palpable and symmetrical. Absent: calf tenderness, joint swelling, pedal edema, tenderness - Back Exam Back exam: Absent: CVA tenderness (L), CVA tenderness (R) - Neurological Exam Neurological exam: Present: alert, CN II-XII intact, oriented X3, no focal deficits - Psychiatric Psychiatric exam: Present: normal affect, normal mood - Skin Skin exam: Present: dry, intact, warm Internal Med - H&P Results - Labs CBC & Chem 7: 05/19/18 04:05 05/19/18 00:26 Labs: Short CBC 05/19/18 Range/Units 04:05 WBC 14.3 H (4.3-11.1) K/mcL Hgb 14.6 (11.5-15.4) g/dL Hct 41.7 (35.3-44.9) % Plt Count 214 (140-400) K/mcL - EKG Data -: EKG Interpreted by Myself (NSR; RBBB; subtle ST (<1mm) elevation in I, aVL. ) - Diagnostic Studies Chest x-ray Status: image reviewed by me (negative) - Assessment and plan (1) Non-STEMI (non-ST elevated myocardial infarction) Current Visit: Yes Status: Acute Assessment and plan: 1. Cardiology consulted by ER. Dr. Valdes reviewed EKG with ER and plans to take patient ot Heart Catheterization later this morning. 2. Patient currently CP free on Heparin gtt adn NTG gtt. 3. Will place on ASA, STATIN, and BB. 4. Will trend troponins, EKG's, and order ECHO. (2) CAD (coronary artery disease) Current Visit: Yes Status: Chronic Assessment and plan: 1. Will proceed with [facility] and obtain ECHO. 2. Intervention as above with further evaluation/work-up as clinically indicated. 3. Verify and resume home meds as appropriate. 4. Smoking cessation well advised. Qualifiers: Coronary Disease-Associated Artery/Lesion type: [place] artery [place] vs. transplanted heart: [place]art heart Associated angina: angina presence unspecified Qualified Code(s): I25.10 - Atherosclerotic heart disease of [place] coronary artery without angina pectoris (3) Uncontrolled type 2 diabetes mellitus Current Visit: Yes Status: Chronic Assessment and plan: 1. Patient does not know her meds and can not confirm meds. 2. Current med list not updated or accurate. 3. Will place on Q6H glucose checks and SSI. 4. Resume home meds as appropriate once verified. Qualifiers: Diabetes mellitus long-term insulin use: unspecified long-term insulin use status Diabetes mellitus complication status: with unspecified complications Qualified Code(s): E11.8 - Type 2 diabetes mellitus with unspecified complications; E11.65 - Type 2 diabetes mellitus with hyperglycemia (4) DVT prophylaxis Current Visit: No Status: Acute Assessment and plan: 1. Heparin gtt as above.
[2018-05-19] MEDS: 0.9 % Sodium Chloride 1,000 ML IVC SCH ×2 (05:29→22:20)
[2018-05-19] MEDS: Insulin LISPRO 300 UNITS/3 ML VIAL SQ SCH ×3 (06:20→17:48)
[2018-05-19] MEDS: Aspirin 81 MG TAB.CHEW PO SCH (09:50)
--- NOTE | 2018-05-19 10:16 | Cardiology Consult Note ---
<Thuan Sánchez R - Last Filed: 05/19/18 11:18> Date of Encounter: 05/19/18 Time of Encounter: 10:15 Assessment and Plan (1) NSTEMI (non-ST elevated myocardial infarction) Current Visit: Yes Status: Acute Per Cardiology: Peak troponin 9.22, downward trend to 7.15. Echo pending. On aspirin, Plavix, heparin drip, beta radha. Takes statin at home, will resume and increase to high intensity. Cardiac rehabilitation consult placed. Discussed and reviewed with Dr. Valdes, possible left heart catheterization tomorrow. Currently chest pain-free. All questions answered, patient verbalized understanding and agreed with plan. (2) CAD (coronary artery disease) Current Visit: Yes Status: Chronic Per Cardiology: Known history of CAD with most recent catheterization November 2016 which showed mid LAD 50%, diagonal 1 80% (small vessel), mid circumflex 100% status post PTCA /drug-eluting stent, proximal RCA 70%, mid RCA 90%, and distal RCA 100% lesions. Qualifiers: Coronary Disease-Associated Artery/Lesion type: [place] artery [place] vs. transplanted heart: [place] heart Associated angina: angina presence unspecified Qualified Code(s): I25.10 - Atherosclerotic heart disease of [place] coronary artery without angina pectoris Discussion w patient/family: The assessment and plan as outlined above was discussed with the patient and/or family members who expressed understanding and agreement. All questions were answered. Thank you for involving us in the care of your patient. Please call with any questions. History of Present Illness Consult date: 05/19/18 Requesting physician: Leon Spicer Consult reason: NSTEMI Chief complaint: CP History of present illness: Ms. Bravo is a 48 year old female with a relevant past medical history of CAD , GERD, nicotine abuse, diabetes mellitus. Cardiology consult for chest pain and elevated troponin. Patient reports chest midsternal pressure burning starting yesterday, currently now relieved. She denies any shortness of breath or palpitations. Reports continues to smoke about one pack per day. Reports compliance with medication regimen. Denies any active bleeding or blood loss. Reports nonproductive cough. Past Med Surg Social Fam HX - Past Medical History Attestation: Yes The following information was validated with the patient. 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 Psychiatric history: no psych history - Past Surgical History Surgical History: angioplasty/stent, cholecystectomy, other Additional surgical history: carpal tunnel-rt,foot surgey-rt - Social History Smoking Status: Current every day smoker Smokeless Tobacco Status: No Alcohol use: none Drug use: none - Family History Mother Living Status: Hx Family Cardiac Disorders: Yes Father Living Status: Hx Family Cardiac Disorders: Yes Medications and Allergies Aspirin 81 mg PO DAILY #30 tab.chew 11/17/16 [Rx] Clopidogrel [Plavix] 75 mg PO DAILY 01/22/18 [History] Nitroglycerin [Nitrostat] 0.4 mg SL Q5M PRN 01/22/18 [History] Alogliptin Benzoate [Alogliptin] 25 mg PO DAILY 05/19/18 [History] Omeprazole [PriLOSEC] 40 mg PO DAILY 05/19/18 [History] Rosuvastatin Calcium [Rosuvastatin Calcium] 20 mg PO HS 05/19/18 [History] 3 Allergy/AdvReac Type Severity Reaction Status Date / Time cefdinir [From Omnicef] Allergy Rash Verified 05/19/18 11:23 metronidazole Allergy Swelling Verified 05/19/18 11:23 of Lip/Tongue/Throat codeine AdvReac Diarrhea Verified 05/19/18 11:23 metformin AdvReac Diarrhea Verified 05/19/18 11:23 All Systems Review: The remainder of the systems were reviewed and are negative - Cardiovascular Cardiovascular: as per HPI, chest pain at rest - Respiratory Respiratory: cough Physical Examination Vital Signs, Last 4 Hours Temp Pulse Resp BP Pulse Ox 05/19/18 07:05 98.5 F 91 16 110/76 100 General: Conversant, No Apparent Distress HEENT: Atraumatic, Normocephaly, Mucus Membranes Moist Neck: No JVD, Normal carotid pulses Cardiac: Reg Rate and Rhythm, Normal S1 and S2, No Murmur Lungs: Normal Breath Sounds, No Wheeze, Rales, Rhonchi Neuro: Alert and responsive, No focal deficits noted Abdomen: Soft, Non-Tender Skin: No rashes noted on visualized skin Musculoskeletal: No Chest Wall Tenderness Extremities: No Clubbing, No Cyanosis, No Edema, Normal Pulses Results 05/19/18 04:05 05/19/18 00:26 Lab Results Selected Entries 11/28/16 04:47 11/28/16 07:30 Blood Pressure 105/69 90/52 Laboratory Tests 11/25/16 11/25/16 11/25/16 06:40 06:40 06:40 WBC Hgb 14.2 Hct 41.4 INR AST 9 ALT 9 Troponin I 0.01 11/27/16 11/28/16 05/19/18 06:02 09:16 00:26 WBC Hgb 11.6 11.8 Hct 33.7 L 34.1 L INR 1.0 AST ALT Troponin I 05/19/18 05/19/18 05/19/18 00:26 00:26 01:35 WBC 13.5 H Hgb Hct INR AST ALT Troponin I 9.21 H* 9.22 H* 05/19/18 05/19/18 04:05 06:02 WBC 14.3 H Hgb Hct INR AST ALT Troponin I 7.15 H* Laboratory Tests 01/10/18 01:20 AST 7 L ALT 7 ITS Impressions Chest X-Ray 05/18/18 23:23 IMPRESSION: No acute process. D/ / Celestino Laird MD / Celestino Laird MD Interpreting Provider: Celestino Laird MD Active Medications Aspirin (Aspirin) 81 mg PO DAILY [facility] Stop: 11/18/18 09:01 Last Admin: 05/19/18 09:50 Dose: 81 mg Clopidogrel Bisulfate (Plavix) 75 mg PO DAILY [facility] Stop: 11/18/18 09:01 Dextrose/Water (Dextrose 50% (Syg)) 25 ml IVP AD PRN PRN Reason: Hypoglycemia Stop: 11/18/18 04:47 Glucagon (Glucagen) 1 mg IM ONCE PRN PRN Reason: Hypoglycemia Stop: 11/18/18 04:47 Glucose (Gluctose) 15 gm PO ONCE PRN PRN Reason: Hypoglycemia Stop: 11/18/18 04:47 Glucose (Gluctose) 30 gm PO ONCE PRN PRN Reason: Hypoglycemia Stop: 11/18/18 04:47 Heparin Sodium (Porcine) (Heparin) 4,000 unit IVP Q6HR PRN PRN Reason: SEE COMMENTS Stop: 11/18/18 01:14 Heparin Sodium (Porcine) (Heparin) 2,000 unit IVP Q6H PRN PRN Reason: SEE COMMENTS Stop: 11/18/18 01:14 Heparin Sodium/Dextrose (Heparin 25,000 Unit/500 Ml D5w) 25,000 unit in 500 mls @ 19.051 mls/hr IVC .Q24H [place]; 12 UNIT/KG/HR PRN Reason: Protocol Stop: 11/18/18 01:16 Last Titration: 05/19/18 06:07 Dose: 12 unit/kg/hr, 19.051 mls/hr Nitroglycerin (Nitroglycerin Premix 25 Mg/250 Ml) 25 mg in 250 mls @ 3 mls/hr IVC .Q24H CAT[place]; 5 MCG/MIN PRN Reason: Protocol Stop: 11/18/18 01:16 Sodium Chloride (0.9 % Sodium Chloride) 1,000 mls @ 75 mls/hr IVC .[id number] [place] Stop: 05/20/18 07:39 Last Admin: 05/19/18 05:29 Dose: 75 mls/hr Dextrose (Dextrose 5%) 1,000 mls @ 100 mls/hr IVC .Q10H PRN PRN Reason: HYPOGLYCEMIA Stop: 11/18/18 04:47 Insulin Human Lispro (Humalog) 0 units SQ Q6HR [place] PRN Reason: Protocol Stop: 11/18/18 06:01 Last Admin: 05/19/18 06:20 Dose: 10 unit Metoprolol Tartrate (Lopressor) 12.5 mg PO BID [place] Stop: 11/18/18 09:01 Last Admin: 05/19/18 09:51 Dose: 12.5 mg Naloxone HCl (Narcan) 0.4 mg IVP Q2MIN PRN PRN Reason: SEE COMMENTS Stop: 11/18/18 04:47 Nitroglycerin (Nitroglycerin) 0.4 mg SL Q5MIN PRN PRN Reason: Chest Pain Stop: 11/17/18 23:35 Last Admin: 05/18/18 23:57 Dose: 0.4 mg - Imaging and Cardiology Echo: pending Cardiac cath: report reviewed - EKG Interpretation EKG results cardiology: personally reviewed, normal ECG, sinus rhythm, no diagnostic ischemia Consult Discharge Plan - Plan Referrals: NONE,PCP [Primary Care Provider] - <Marisa Valdes - Last Filed: 05/19/18 13:37> Date of Encounter: 05/19/18 - Attending Attestation I have personally performed a face to face evaluation on this patient. I have reviewed and agree with the care plan. History and Exam by me shows: 48 YOF with known CAD s/ p PCI of the Circ stent thrombosis 2 weeks after stent placement in 11/2016. Currently presents with NSTEMI and elevated trops now downtrending. Currently completely asymptomatic asking to go home. She is on Heparin IV and has been on her asa and plavix. She denies any recent exertional CP/SOB and states has been actiive. Initial presentation is fever chills and elevated wbc. She complains of sore throat and has possible uti. Dr. Umana will start on Abx. She does have extensive CAD with severe disease of the RCA occluded distally with proximal LAD 50%. Proximal DIAG 80% disease may have caused intial high lateral EKG changes but documented as a small vessel. This DIAG may be culprit, will consider [facility] sunday Assessment and Plan Discussion w patient/family: The assessment and plan as outlined above was discussed with the patient and/or family members who expressed understanding and agreement. All questions were answered. Thank you for involving us in the care of your patient. Please call with any questions. History of Present Illness History of present illness: Ms. Bravo is a 48 year old female All Systems Review: The remainder of the systems were reviewed and are negative Physical Examination Vital Signs, Last 4 Hours Temp Pulse Resp BP Pulse Ox 05/19/18 11:13 97.9 F 85 18 117/53 98 Results 05/19/18 04:05 05/19/18 00:26 Lab Results 05/19/18 05/19/18 05/19/18 04:05 04:05 06:02 WBC 14.3 H Hgb 14.6 Hct 41.7 Plt Count 214 INR 1.0 Troponin I 7.15 H* 05/19/18 12:00 WBC Hgb Hct Plt Count INR Troponin I 6.83 H*
--- NOTE | 2018-05-19 10:36 | Event Note ---
Date of Encounter: 05/19/18 Time of Encounter: 10:35 No longer having chest pain at this time. On IV heparin drip. Cardiology consultation. Echocardiogram pending. Will follow cardiology recommendations.
[2018-05-19] MEDS: *HR* Heparin 5,000 UNIT/ML VIAL IVP PRN ×2 (12:59→20:44)
[2018-05-19] MEDS: Nitroglycerin 25 MG/250 ML INFUS..BTL IVC SCH (17:35)
[2018-05-20] MEDS: Insulin LISPRO 300 UNITS/3 ML VIAL SQ SCH ×3 (01:55→13:04)
[2018-05-20] MEDS: Nitroglycerin 25 MG/250 ML INFUS..BTL IVC SCH (01:57)
[2018-05-20 02:09] LABS: Basophils % 0.3 %; Eosinophils # 0.1 K/mcL (0.0-0.6); Eosinophils % 0.4 %; Hematocrit 37.2 % (35.3-44.9); Hemoglobin 12.8 g/dL (11.5-15.4); Immature Granulocytes % 0.4 % (0-4); Lymphocytes # 2.7 K/mcL (0.6-4.6); Mean Corpuscular HGB Conc 34.4 g/dL (31.6-35.5); Mean Corpuscular Hemoglobin 31.2 pg (28.0-33.3); Mean Corpuscular Volume 90.7 fL (83.0-100.0); Monocytes # 1.1 K/mcL (0.0-1.3); Monocytes % 9.3 %; Neutrophils # 7.8 K/mcL (1.6-8.9); Platelet Count 187 K/mcL (140-400); Red Cell Distribution Width 12.3 % (11.5-14.5); Segmented Neutrophils % 66.6 %
[2018-05-20] MEDS: Heparin 25,000 UNIT/500 ML D5W 25,000 UNIT/500 ML BAG IVC SCH (02:14)
[2018-05-20 02:15] LABS: INR 1.1; Prothrombin Time 12.6 Seconds (9.4-12.1)
[2018-05-20 02:17] LABS: Activated Partial Thrombo Time 60.4 Seconds (26.0-36.0)
[2018-05-20 02:35] LABS: Alanine Aminotransferase 24 Units/L (7-52); Albumin 3.3 g/dL (3.5-5.7); Albumin/Globulin Ratio 1.4 (1.1-2.2); Alkaline Phosphatase 68 Units/L (34-104); Aspartate Amino Transferase 32 Units/L (13-39); BUN/Creatinine Ratio 18 (6-26); Bilirubin,Total 0.4 mg/dL (0.3-1.0); Blood Urea Nitrogen 12 mg/dL (6-20); Calcium 8.9 mg/dL (8.6-10.3); Carbon Dioxide 24 mEq/L (23-29); Chloride 105 mEq/L (98-107); Chol/HDL Ratio 5.3 (0-4.9); Cholesterol 139 mg/dL (< 200); Globulin 2.3 g/dL (2.4-3.5); Glucose 292 mg/dL (70-105); HDL Cholesterol 26 mg/dL (40-59); LDL Cholesterol,Calculated 73 mg/dL (0-99); Magnesium 1.7 mg/dL (1.6-2.6); Osmolality,Calculated 293 (280-300); Potassium 3.7 mEq/L (3.5-5.1); Sodium 136 mEq/L (136-145); Total Protein 5.6 g/dL (6.4-8.9); Triglycerides 202 mg/dL (< 150); eGFR For African Americans > 60 (> 60); eGFR For Non-African Americans > 60 (> 60)
--- NOTE | 2018-05-20 09:01 | Event Note ---
Date of Encounter: 05/20/18 Time of Encounter: 08:15 - Cardiology Event Note Laboratory Tests 05/19/18 05/19/18 05/19/18 00:26 01:35 06:02 INR Creatinine Est GFR (Non-Af Amer) Troponin I 9.21 H* 9.22 H* 7.15 H* 05/19/18 05/20/18 05/20/18 12:00 01:52 01:52 INR 1.1 Creatinine 0.67 Est GFR (Non-Af Amer) > 60 Troponin I 6.83 H* On IV heparin drip. Currently chest pain-free. Plan for heart catheterization today. All questions answered.
[2018-05-20] MEDS: Aspirin 81 MG TAB.CHEW PO SCH (10:01)
[2018-05-20] MEDS ORDERED: Nitroglycerin 1,000 MCG/10 ML VIAL IV ONE (13:27)
[2018-05-20] MEDS ORDERED: ISOVUE-370 200 ML INFUS..BTL IV ONE (13:27)
[2018-05-20] MEDS ORDERED: *HR* Heparin 10,000 UNIT/10 ML VIAL ONE (13:27)
[2018-05-20] MEDS ORDERED: Verapamil 5 MG/2 ML VIAL ONE (13:27)
[2018-05-20] MEDS ORDERED: Heparin 1,000 UNITS/500 mL 500 ML ONE (13:27)
[2018-05-20] MEDS ORDERED: 0.9 % Sodium Chloride 1,000 ML ONE ×2 (13:27→13:34)
[2018-05-20] MEDS ORDERED: *HR* Midazolam HCl 5 MG/5 ML VIAL IVP ONE (13:34)
[2018-05-20] MEDS ORDERED: *HR* FentaNYL (PF) 100 MCG/2 ML VIAL ONE (13:34)
--- NOTE | 2018-05-20 14:01 | Pre-Sedation Evaluation ---
Pre-sedation evaluation - Pre-sedation checklist Date of procedure: 05/20/18 Procedure: heart cath Recent Vitals: Last Vital Signs Temp 98.0 F 05/20/18 11:40 Pulse 81 05/20/18 11:40 Resp 16 05/20/18 11:40 BP 104/70 05/20/18 11:40 Pulse Ox 94 05/20/18 11:40 H&P (including ROS) documented in medical record: Yes Previous reaction to sedatives/anesthetics: No Dietary Status: NPO after Midnight Dentition: No loose teeth or bridges ASA Classification *see protocol: CLASS II-Mild systemic disease Plan of Care: Pt appropriate candidate for procedure/moderate/conscious sedation , Risks/benefits of procedure/sedation discussed w/ patient/family Cardiac Registry (Cardio Only) - Functional Capacity Functional Capacity: >=4 METS with symptoms - Clincal Frailty Scale Clinical Frailty Scale: Managing Well
[2018-05-20] MEDS ORDERED: Nitroglycerin Spray 4.9 GM BOTTLE ONE (14:09)
--- NOTE | 2018-05-20 14:58 | Invasive Diagnostic Lab Proc ---
Name: Elyse Bravo Date of Study: 05/20/2018 Date: 1970 Ht: 67.0in Medical Record#: [id number] Age: 48 Wt: 181.44lb Gender: Female BSA: 1.94 Order #: [id number] BMI: 28.41 Physicians Procedure Physician: Antonio Palmer MD, [facility] Referring MD: Referring MD: Staff Name Position Time In Eliane Jackson RT Monitor 01:45 PM Kellee Shoemaker RT (R) Scrub 01:45 PM Oneyda Luther RN Group Dynamics Instructor 01:45 PM Indications Indication Non-Stemi Procedures Performed Procedure L HRT ARTERY/VENTRICLE ANGIO Pre-Procedure Checklist Informed consent is complete signed and on chart. H&P is on chart. ID band is on and ID verified with patient. Patient NPO for procedure The procedure was described for the patient and questions were answered. ECG is on chart. Rhythm: NSR Plan of Care Patient will tolerate the procedure without complications. Adequate level of comfort will be maintained. Hemodynamics will remain stable Patient will recover from procedure without complications. Respiratory function will be maintained. Cardiac rhythm will remain stable. Patient temperature will be maintained. Patient and/or family have verbalized understanding of the procedure. Patient Education Chief Complaint/Reason for Test: Cardiac Cath Developmental Category: Adult (18-64 years) Developmentally Appropriate for Age: Yes Learning Barriers: None Education Needs: Procedure Education Method: Verbal Information Taught: Cardiac Cath Educational Evaluation: Able to repeat information Intravenous Access Time IV Size Location DC'd Fluid/Drip Rate Units RN 18g 1 1/4" Patent On Arrival Lt Arm 0.9NaCl ml/hr 20g 1 1/4" Patent On Arrival Rt Arm Allergies metformin metronidazole codeine cefdinir Vital Signs Time BP (mmHg) HR (bpm) O2 Sat. RR (bpm) LOC 01:46 PM / % 5 = Fully awake and oriented or at pre-proc level 01:46 PM / % 4 = Oriented but drowsy 02:07 PM / % 4 = Oriented but drowsy 02:22 PM / % 4 = Oriented but drowsy 01:51 PM 76 / 61 83 93 % 18 01:53 PM 90 / 66 82 94 % 27 01:56 PM 96 / 74 84 94 % 22 02:01 PM 90 / 67 86 93 % 20 02:06 PM 97 / 64 85 94 % 18 02:13 PM 84 / 57 83 92 % 18 02:17 PM 77 / 49 83 90 % 19 02:18 PM 80 / 58 113 92 % 19 02:22 PM 88 / 49 83 93 % 19 02:26 PM 82 / 49 81 94 % 18 02:31 PM 89 / 51 77 95 % 17 02:36 PM 86 / 52 78 % 20 Procedural Medications Time Medication Dose Units Method Given By 01:45 PM Oxygen 2 L/min nasal cannula Oneyda Luther RN 01:56 PM Versed 2 mg Intravenous Oneyda Luther RN 01:56 PM Fentanyl 50 mcg Intravenous Oneyda Luther RN 02:08 PM Versed 1 mg Intravenous Oneyda Luther RN 02:10 PM Fentanyl 25 mcg Intravenous Oneyda Luther RN 02:10 PM Nitro [place] 400 mcg Sublingual Oneyda Luther RN 02:11 PM Lidocaine 2% 0.5 ml Subcutaneous Antonio Palmer MD, FACC 02:12 PM Heparin 2000 units Nitroglycerin 200 mcg Verapamil 2.5 mg Intraarterial Antonio Palmer MD, FACC 02:14 PM Oxygen 4 L/min nasal cannula Oneyda Luther RN ASA Classification: CLASS II- Mild systemic disease (i.e. well-controlled diabetes, hypertension, asthma, cigarette smoking) Baudilio Score Preprocedure Postprocedure Activity 2- Moves 4 extremities sustained head lift Activity 2- Moves 4 extremities sustained head lift Circulation 2- SBP +/= 20 points of pre-anesthetic level Circulation 2- SBP +/= 20 points of pre-anesthetic level Consciousness 2- Awake and alert oriented x 3 Consciousness 2- Awake and alert oriented x 3 O2 Saturation 2- Able to maintain O2 satruation of 92% on room air O2 Saturation 2- Able to maintain O2 satruation of 92% on room air Respiratory 2- Able to deep breathe and cough well Respiratory 2- Able to deep breathe and cough well Total Score 10 Total Score 10 Contrast Agent: Isovue Diagnostic Contrast: 69 ml Total Contrast: 69 ml Fluoro Dose: 2629 mGy Procedure Log Time Note Enter By 01:44 PM CathStat 01:45 PM Vitals capture started with the following parameters, Patient=Adult, Interval=5 min, Initial Rlpqoteh=294 mmHg, Deflation Rate=5 mmHg, Cuff placed on Right Arm 01:45 PM Pt arrived to slab lifting supervisor 2 at 13:45 kkallner :45 PM Eliane Jackson RT Position: Monitor Time in: 13:45 kkallner :45 PM Kellee Shoemaker RT (R) Position: Scrub Time in: 13:45 kkallner :45 PM Oneyda Luther RN Position: Group Dynamics Instructor Time in: 13:45 kkallner :45 PM Patient charges- Angio tray pack, Navilyst 3mm J, Pulse Oximetry and ACIST tubing and transducer kkallner :45 PM Case Delayed No kkallner :45 PM Hair removed from procedure site in procedure lab using clippers. Right wrist prepped with Chloraprep by Kellee Shoemaker RT (R), then patient was draped. Skin intact. kkallner :45 PM Physician arrived 13:45 kkallner :45 PM Vitals capture stopped. 01:45 PM ASA Class CLASS II- Mild systemic disease (i.e. well-controlled diabetes, hypertension, asthma, cigarette smoking) kkallner :45 PM Meet and greet completed kkallner :45 PM Sign in performed according to hospital policy. kkallner :45 PM Procedure start 13:45 kkallner :45 PM Time: 13:45 Oxygen on at 2 L/min per nasal cannula by Oneyda Luther RN kkallner :46 PM Time: 13:46 Patient comfortable and pain free: Yes kkallner :46 PM Time: 13:46LOC: 5 = Fully awake and oriented or at pre-proc level kkallner :46 PM Clinical Presentation: Unstable angina kkallner 01:50 PM Vitals capture started with the following parameters, Patient=Adult, Interval=5 min, Initial Ogiqzuwz=315 mmHg, Deflation Rate=5 mmHg, Cuff placed on Right Arm 01:51 PM HR=83 bpm, NIBP=76/61 mmhg, SpO2=93 %, Resp=18 B/min 01:52 PM NIBP STAT measurement started. 01:53 PM HR=82 bpm, NIBP=90/66 mmhg, SpO2=94 %, Resp=27 B/min 01:56 PM HR=84 bpm, NIBP=96/74 mmhg, SpO2=94 %, Resp=22 B/min 01:56 PM Time: 13:56 Versed 2 mg Intravenous Given by Oneyda Luther RN 01:56 PM Time: 13:56 Fentanyl 50 mcg Intravenous Given by Oneyda Luther RN 02:01 PM HR=86 bpm, NIBP=90/67 mmhg, SpO2=93.0 %, Resp=20 B/min 02:06 PM HR=85 bpm, NIBP=97/64 mmhg, SpO2=94.0 %, Resp=18 B/min 02:07 PM Time: 13:46LOC: 4 = Oriented but drowsy 02:07 PM Time: 13:46 Patient comfortable and pain free: Yes allner 02:10 PM Time: 14:08 Versed 1 mg Intravenous Given by Oneyda Luther RN 02:10 PM Time: 14:10 Fentanyl 25 mcg Intravenous Given by Oneyda Luther RN rosa 02:10 PM Time: 14:10 Nitro [place] 400 mcg Sublingual Given by Oneyda Luther RN 02:10 PM ultrasound utilized 02:11 PM Time out performed according to hospital policy 02:11 PM Time: 14:11 .5 ml Lidocaine 2% to right radial Subcutaneous Given by Antonio Palmer MD, FACC 02:12 PM Access obtained by percutaneous puncture. 6Fr 10cm Terumo Glidesheath sheath placed in right Radial artery. [id number] 02:12 PM Time: 14:12 Patient given 2000 units Heparin, 200 mcg Nitroglycerin, and 2.5 mg Verapamil Intraarterial by Antonio Palmer MD, FAC. This is given to reduce risk of vessel spasm and thrombosis. :13 PM HR=83 bpm, NIBP=84/57 mmhg, SpO2=92.0 %, Resp=18 B/min 02:13 PM 5Fr TIG catheter inserted over the wire DNC 02:13 PM wire removed :14 PM Pressure channel 1 zeroed. 02:14 PM Time: 14:14 Oxygen on at 4 L/min per nasal cannula by Oneyda Luther RN sofi 02:15 PM Recorded Pressure: Ao, HR=95, Condition=Condition 1 (Aorta) Ao 90/69/78 02:16 PM LCA angiography performed in multiple views. kkallner 02:16 PM TIG repositioned into RCA kkallner 02:16 PM RCA angiography performed in multiple views. kkallner 02:17 PM HR=83 bpm, NIBP=77/49 mmhg, SpO2=90.0 %, Resp=19 B/min 02:17 PM NIBP STAT measurement started. 02:18 PM Catheter removed kkall 02:18 PM 5Fr Pigtail catheter inserted over the wire DNC kkallner 02:18 PM wire removed kkallner 02:18 PM OZ=863 bpm, NIBP=80/58 mmhg, SpO2=92.0 %, Resp=19 B/min 02:18 PM Catheter selectively placed in left ventricle kkallner 02:19 PM Bolus angiogram of left Ventricle complete: 10 ml/sec for a total of 20 mls allner :20 PM Recorded Pressure: LV, HR=82, Condition=Condition 1 (Left Ventricle) LV 103/10/27 02:20 PM Bolus angiogram of left Ventricle complete: 13 ml/sec for a total of 26 mls allner :22 PM Time: 14:07LOC: 4 = Oriented but drowsy ner 02:22 PM HR=83 bpm, NIBP=88/49 mmhg, SpO2=93.0 %, Resp=19 B/min 02:22 PM Time: 14:07 Patient comfortable and pain free: Yes all 02:24 PM Recorded Pressure: LV, Ao, HR=92, Condition=Condition 1 (Left Ventricle) LV 101/34/30, (Aorta) Ao 99/60/76 02:26 PM HR=81 bpm, NIBP=82/49 mmhg, SpO2=94.0 %, Resp=18 B/min 02:31 PM HR=77 bpm, NIBP=89/51 mmhg, SpO2=95.0 %, Resp=17 B/min 02:32 PM wire and catheter removed 02:33 PM Coronary Dominance: right kkallner 02:33 PM Lesion found in Distal LMCA. Pre Stenosis: 60 Pre CYNTHIA Flow: kkallner 02:34 PM Lesion found in Mid LAD. Pre Stenosis: 50 Pre CYNTHIA Flow: kkallner 02:34 PM Lesion found in 1st Diagonal. Pre Stenosis: 90 Pre CYNTHIA Flow: kkallner 02:35 PM Lesion found in Proximal Circumflex. Pre Stenosis: 60 Pre CYNTHIA Flow: kkallner 02:35 PM Lesion found in 1st Marginal. Pre Stenosis: 90 Pre CYNTHIA Flow: kkallner 02:35 PM Lesion found in Mid RCA. Pre Stenosis: 100 Pre CYNTHIA Flow: kkallner 02:35 PM Left Main Coronary Artery with 60% stenosis kkallner 02:35 PM Proximal Left Anterior Descending Coronary Artery with 0% stenosis. If graft is supplying this territory, 0 % stenosis. kkallner 02:36 PM Mid/Distal Left Anterior Descending Coronary Artery and diagonal branches with 50% stenosis. If graft is supplying this area, 0 % stenosis kkallner 02:36 PM Circumflex, Obtuse Marginal, Left Posterior Descending, and Left Posterolateral Coronary Arteries with 90 % stenosis. If graft is supplying this area, 0 % stenosis kkallner 02:36 PM Right Coronary, Right Posterior Descending Arteries with Right Posterolateral and Acute Marginal branches with 100 % stenosis. If graft is supplying this area, 0 % stenosis kkallner 02:36 PM Ramus with 0% stenosis. If graft is supplying this area, 0 % stenosis kkallner 02:36 PM Conversation between Interventionalist and CT Surgeon. kkallner 02:36 PM Procedure completed at 14:36 05/20/2018 kkallner 02:36 PM HR=78 bpm, NIBP=86/52 mmhg, Resp=20 B/min 02:36 PM Did you address CYNTHIA flow and Dominance? Yes kkallner 02:37 PM Time: 14:22LOC: 4 = Oriented but drowsy kkallner 02:37 PM Sign out completed: Radiation Dose 240.27 mGy, 2629.01 cGy/cm2 Fluoro Time: 1.0 Isovue 370 - 200ml contrast 69 ml given by Antonio Palmer MD, [facility]. Complications: NoneCardiac Rehab Consult needed: YesConfirmed administered medications: Yes kkallner 02:38 PM Isovue 370 - 200ml,1 Bottle(s) used. kkallner 02:38 PM 11 ml air in Vasc Band. kkallner 02:38 PM Estimated Blood Loss: minimal kkallner 02:38 PM Post ECG NSR kkallner 02:38 PM Post Blood Pressure 86/52 kkallner 02:39 PM 14:38 Post Pulses Rt Radial 2+ kkallner 02:39 PM Information taught Cardiac Cath and Vasc Band kkallner 02:39 PM Education needs Procedure, Plan of Care, and Responsibilities of Patient in Care kkallner 02:39 PM Learning barriers :None kkallner 02:39 PM Education Methods Verbal kkallner 02:39 PM Education evaluation Able to repeat information kkallner 02:39 PM Site status No bleeding/hematoma - Rt Wrist as reported by Kellee Shoemaker RT (R) at 14:39 kkallner 02:39 PM Plavix, Effient or Brilinta given No kkallner 02:39 PM Delay to floor No kkallner 02:39 PM Patient out of room: 14:39 kkallner 02:39 PM Family placed in consult room. kkallner 02:39 PM Complications: None kkallner 02:41 PM What is the NYHA Class? Class 3 kkallner 02:45 PM Report given to Jacquie VILLA Pt taken to 2A Room #44. 14:44 kkallner Complications Complication None None Hemodynamics Pressures Site Systolic/A Wave Diastolic/V Wave Mean AO 90 69 78 LV 103 10 27 LV 101 34 30 AO 99 60 76 Post Procedure Information Blood Pressure: 86/52 mmHg Rhythm: NSR Post procedural instructions were given Surgery consult for CABG Site Checks Time Location Status Staff Sheath In? Note 02:39 PM Rt Wrist No bleeding/hematoma Kellee Shoemaker RT (R) Pulses Time Site Pre-Procedure Post-Procedure Note Bilateral DP & PT 2+ Bilateral radial 2+ 2:38:00 PM Rt Radial 2+ Updated by Eliane Jackson, RT (R) on 05/20/2018 2:51:22 PM electronically signed on 05/20/2018 2:52:20 PM with status of Final
--- NOTE | 2018-05-20 14:58 | Event Note ---
Date of Encounter: 05/20/18 Time of Encounter: 14:45 - Cardiology Event Note EF 25-30% by angiogram with 50-60% distal left main disease, ostial LCx 50-60%, 80-90% edge stent stenosis of OM, 100% RCA (small collaterals from left) and small mid distal LAD. Patient continues to smoke and is diabetic with evidence of rapidly progressive coronary disease (from 11/2016) and history of stent thrombosis after angiographically good result of mid LCx 11/2016. Will consult CT surgery for options but has suboptimal distal vessels for grafting. Would recommend medical management if declined for CABG, and return for high risk PCI if intractable angina despite maximal medical management. Start Imdur 60mg daily.
--- NOTE | 2018-05-20 16:31 | Internal Med Progress Note ---
Date of Encounter: 05/20/18 Time of Encounter: 10:20 - Assessment and plan (1) Non-STEMI (non-ST elevated myocardial infarction) Current Visit: Yes Status: Acute Assessment and plan: Patient underwent left heart catheterization today. Does have poor anatomy and low ejection fraction of 25-30% with significant 50-60% distal left main disease , ostial left circumflex has 50-60% stenosis and 80-90% end stent stenosis of OM with 100% RCA and small mid distal LAD. Given her comorbidities, cardiothoracic surgery has been consulted. We will follow the recommendations. In the meantime continue aspirin, Plavix. (2) CAD (coronary artery disease) Current Visit: Yes Status: Chronic Assessment and plan: Continue aspirin, Plavix and statin. Qualifiers: Coronary Disease-Associated Artery/Lesion type: rosebud artery [place] vs. transplanted heart: rosebud heart Associated angina: angina presence unspecified Qualified Code(s): I25.10 - Atherosclerotic heart disease of rosebud coronary artery without angina pectoris (3) Uncontrolled type 2 diabetes mellitus Current Visit: Yes Status: Chronic Assessment and plan: Blood sugars remain elevated. We will increase insulin regimen. Monitor blood sugars closely. Diabetic diet when patient is able to eat. Qualifiers: Diabetes mellitus intermediate insulin use: unspecified intermediate insulin use status Diabetes mellitus complication status: with unspecified complications Qualified Code(s): E11.8 - Type 2 diabetes mellitus with unspecified complications; E11.65 - Type 2 diabetes mellitus with hyperglycemia (4) Urinary tract infection Current Visit: Yes Status: Acute Assessment and plan: Urine culture growing gram-negative rods. Patient is currently on ciprofloxacin. We will continue IV every 8 culture results.. Qualifiers: Urinary tract infection type: acute cystitis Hematuria presence: without hematuria Qualified Code(s): N30.00 - Acute cystitis without hematuria (5) DVT prophylaxis Current Visit: Yes Status: Acute Assessment and plan: Patient is currently on IV heparin for non-ST elevation NH - Time Spent With Patient Total time spent is greater than 50% in coordination of care (as documented) at patient's floor/unit and/or counseling patient: - Subjective Interval history: Patient not having any chest pain. Awaiting left heart catheterization this morning when I saw her. No shortness of breath or palpitations. No dizziness or lightheadedness. - Constitutional Vitals: Temp Pulse Resp BP Pulse Ox 97.8 F 81 14 85/60 91 05/20/18 15:23 05/20/18 15:23 05/20/18 16:15 05/20/18 16:15 05/20/18 15:23 General appearance: Present: cooperative, A&O X 3, pleasant, no acute distress, answers questions appropriately - Respiratory Respiratory exam: Present: CTAB. Absent: accessory muscle use, rales, rhonchi, wheezes - Cardiovascular Cardiovascular exam: Present: RRR, +S1, +S2. Absent: diastolic murmur, gallop, rubs, systolic murmur - Extremities Exam Extremities exam: Present: warm, radial pulses palpable and symmetrical. Absent : calf tenderness, cyanotic, pedal edema - Neurological Exam Neurological exam: Present: alert, oriented X3, no focal deficits. Absent: facial droop, speech deficit - Skin Skin exam: Present: dry, intact Internal Medicine: Result - Labs CBC & Chem 7: 05/20/18 01:52 05/20/18 01:52 Labs: Short CBC 05/20/18 Range/Units 01:52 WBC 11.8 H (4.3-11.1) K/mcL Hgb 12.8 D (11.5-15.4) g/dL Hct 37.2 (35.3-44.9) % Plt Count 187 (140-400) K/mcL Neutrophils # 7.8 (1.6-8.9) K/mcL BMP 05/20/18 01:52 Sodium 136 Potassium 3.7 Chloride 105 Carbon Dioxide 24 BUN 12 Creatinine 0.67 Glucose 292 H Calcium 8.9 Liver Function 05/20/18 Range/Units 01:52 Total Bilirubin 0.4 (0.3-1.0) mg/dL AST 32 (13-39) Units/L ALT 24 (7-52) Units/L Alkaline Phosphatase 68 (34-104) Units/L Albumin 3.3 L (3.5-5.7) g/dL - ABG Interpretation ABG results: PT/INR, D-dimer PT 12.6 Seconds (9.4-12.1) H 05/20/18 01:52 D-Dimer 347 ng/mLFEU (0-500) 05/19/18 00:26 Consult Discharge Plan - Plan Referrals: NONE,PCP [Primary Care Provider] -
--- NOTE | 2018-05-20 17:24 | Cardiothoracic Consult Note ---
Date of Encounter: 05/20/18 Time of Encounter: 17:20 Assessment and Plan (1) NSTEMI (non-ST elevated myocardial infarction) Current Visit: Yes Status: Acute The patient is a 32-year-old type II diabetic lady with known CAD and hypercholesterolemia. She experienced a NSTEMI on 05/18/2018. She underwent a transthoracic echocardiogram which revealed an LVEF 45%. Cardiac catheterization performed today revealed severe 3 vessel CAD and an LVEF 20%. The patient has small diffusely diseased diabetic vessels with no adequate grafting sites and is not an operative candidate. The patient should be treated medically. The assessment and plan as outlined above was discussed with the patient and/or family members who expressed understanding and agreement. All questions were answered. - History of Present Illness Consult date: 05/20/18 Requesting physician: Antonio Palmer Consult reason: CABG evaluation Chief complaint: Epigastric discomfort, jaw pain History of present illness: Ms. Bravo is a 48 year old type II diabetic lady with known CAD and hypercholesterolemia who was awakened from sleep on 05/18/2018. She had an LCx stent placed in November 2016. She did well initially, but states that for several weeks she has had "indigestion" manifested by epigastric discomfort. On the day of admission, she had epigastric discomfort as well as jaw pain, shortness of breath, dyspnea on exertion, diaphoresis, diarrhea, nausea, and vomiting. She was evaluated at [facility] emergency department and found to have elevated troponin I levels consistent with an acute NSTEMI. She was admitted for further cardiac workup. The patient underwent a transthoracic echocardiogram which revealed an LVEF 45% and mild segmental left ventricular systolic dysfunction. Cardiac catheterization performed today revealed severe 3 vessel CAD and an LVEF 20%. In particular the patient has a 60% distal left main lesion, a 50% mid LAD lesion, a 90% proximal D1 lesion, a 60% mid LCx lesion, a 90% proximal OM1 lesion, and a completely occluded mid RCA which has faint distal filling via [id number] collaterals. I have been asked to evaluate the patient for possible high risk CABG. 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 Psychiatric history: no psych history - Past Surgical History Surgical History: angioplasty/stent, cholecystectomy, other (Right carpal tunnel release, right foot second digit distal phalanx debridement) Additional surgical history: carpal tunnel-rt,foot surgey-rt - Social History Smoking Status: Current every day smoker Packs per day: 1PPD x 34YRS Smokeless Tobacco Status: No Alcohol use: none Drug use: none Occupational status: employed Current living situation: Home - Independent Activity Level: Independent ambulation Recent Out of Country Travel Within the Last 8 Weeks: No Exposure or Possible Exposure to Illness During Travel: No - Family History Mother Living Status: Hx Family Cardiac Disorders: Yes Father Living Status: Hx Family Cardiac Disorders: Yes Medications and Allergies Aspirin 81 mg PO DAILY #30 tab.chew 11/17/16 [Rx] Clopidogrel [Plavix] 75 mg PO DAILY 01/22/18 [History] Nitroglycerin [Nitrostat] 0.4 mg SL Q5M PRN 01/22/18 [History] Alogliptin Benzoate [Alogliptin] 25 mg PO DAILY 05/19/18 [History] Omeprazole [PriLOSEC] 40 mg PO DAILY 05/19/18 [History] Rosuvastatin Calcium [Rosuvastatin Calcium] 20 mg PO HS 05/19/18 [History] 3 Allergy/AdvReac Type Severity Reaction Status Date / Time cefdinir [From Omnicef] Allergy Rash Verified 05/19/18 11:23 metronidazole Allergy Swelling Verified 05/19/18 11:23 of Lip/Tongue/Throat codeine AdvReac Diarrhea Verified 05/19/18 11:23 metformin AdvReac Diarrhea Verified 05/19/18 11:23 All Systems Review: The remainder of the systems were reviewed and are negative Physical Examination Vital Signs, Last 4 Hours Temp Pulse Resp BP Pulse Ox 05/20/18 16:56 98.0 F 81 14 92/68 90 05/20/18 16:15 14 85/60 05/20/18 15:23 97.8 F 81 16 80/58 91 General: Conversant, No Apparent Distress HEENT: Atraumatic, Normocephaly, Trachea midline Neck: No JVD, Normal carotid pulses Cardiac: Reg Rate and Rhythm, Normal S1 and S2, No Murmur Lungs: Normal Breath Sounds Neuro: Alert and responsive, No focal deficits noted Vascular: Normal capillary refill Abdomen: Soft, Non-tender Skin: No rashes noted on visualized skin Musculoskeletal: No Chest Wall Tenderness Extremities: No Clubbing, No Cyanosis, No Edema Results 05/20/18 01:52 05/20/18 01:52 Lab Results, Last 24 hours 05/20/18 05/20/18 05/20/18 01:52 01:52 01:52 WBC 11.8 H Hgb 12.8 D Hct 37.2 Plt Count 187 INR 1.1 APTT 60.4 H D Sodium 136 Potassium 3.7 Chloride 105 Carbon Dioxide 24 BUN 12 Creatinine 0.67 Glucose 292 H Calcium 8.9 Magnesium 1.7 Total Bilirubin 0.4 AST 32 ALT 24 Alkaline Phosphatase 68 - Imaging Chest Xray: image reviewed (Normal cardiac size. No active pulmonary disease.) Consult Discharge Plan - Plan Referrals: NONE,PCP [Primary Care Provider] -
--- NOTE | 2018-05-20 18:32 | Electrocardiograph Report ---
[address] [place], [place] [address] Test Date: 2018-05-18 Pat Name: Elyse Bravo Department: 104 Room: 2A44 Gender: F Publications Sales Representative: EKP : 1970 Requested By: Thom Spring Order Number: [id number] Reading MD: Pedro Luis Lawrence Measurements Intervals [place] Rate: 97 P: 59 AR: 185 QRS: 153 QRSD: 163 T: 36 QT: 402 QTc: 457 Interpretive Statements SINUS RHYTHM POSSIBLE LEFT ATRIAL ENLARGEMENT RIGHT BUNDLE BRANCH BLOCK LEFT POSTERIOR FASCICULAR BLOCK Electronically Signed On 05-20-2018 18:30:33 EDT by Pedro Luis Lawrence
--- NOTE | 2018-05-20 18:35 | Electrocardiograph Report ---
[address] [place], [place] [address] Test Date: 2018-05-19 Pat Name: Elyse Bravo Department: 104 Room: 2A44 Gender: F Foot Worker: EKP : 1970 Requested By: Leon Spicer Order Number: [id number] Reading MD: Pedro Luis Lawrence Measurements Intervals [place] Rate: 84 P: 49 HI: 168 QRS: 151 QRSD: 164 T: 34 QT: 413 QTc: 454 Interpretive Statements SINUS RHYTHM POSSIBLE LEFT ATRIAL ENLARGEMENT RIGHT BUNDLE BRANCH BLOCK LEFT POSTERIOR FASCICULAR BLOCK Electronically Signed On 05-20-2018 18:33:27 EDT by Pedro Luis Lawrence
[2018-05-20] MEDS ORDERED: Insulin LISPRO 300 UNITS/3 ML VIAL SQ SCH (21:00)
[2018-05-21 04:50] LABS: Basophils % 0.3 %; Eosinophils # 0.1 K/mcL (0.0-0.6); Eosinophils % 0.5 %; Hemoglobin 12.6 g/dL (11.5-15.4); Immature Granulocytes % 0.3 % (0-4); Lymphocytes # 2.8 K/mcL (0.6-4.6); Lymphocytes % 27.4 %; Mean Corpuscular HGB Conc 34.1 g/dL (31.6-35.5); Mean Corpuscular Volume 91.1 fL (83.0-100.0); Mean Platelet Volume 10.4 fL (9.4-12.4); Monocytes # 0.8 K/mcL (0.0-1.3); Monocytes % 7.8 %; Neutrophils # 6.5 K/mcL (1.6-8.9); Platelet Count 196 K/mcL (140-400); Red Blood Count 4.06 M/mcL (3.82-4.97); Red Cell Distribution Width 12.3 % (11.5-14.5); Segmented Neutrophils % 63.7 %
[2018-05-21 05:11] LABS: BUN/Creatinine Ratio 15 (6-26); Blood Urea Nitrogen 8 mg/dL (6-20); Calcium 8.9 mg/dL (8.6-10.3); Carbon Dioxide 23 mEq/L (23-29); Chloride 106 mEq/L (98-107); Glucose 210 mg/dL (70-105); Osmolality,Calculated 289 (280-300); Potassium 3.7 mEq/L (3.5-5.1); Sodium 137 mEq/L (136-145); eGFR For African Americans > 60 (> 60); eGFR For Non-African Americans > 60 (> 60)
[2018-05-21] MEDS ORDERED: Insulin LISPRO 300 UNITS/3 ML VIAL SQ SCH (07:30)
[2018-05-21 07:36] VITALS: BP 134/83
[2018-05-21] MEDS ORDERED: Isosorbide MONOnitrate (24 HR) 60 MG TAB.ER.24H PO SCH (09:00)
[2018-05-21] MEDS: Aspirin 81 MG TAB.CHEW PO SCH (09:46)
--- NOTE | 2018-05-21 10:18 | Discharge Summary ---
<Chan Ivey - Last Filed: 05/21/18 10:16> - NOTES TO OUTPATIENT PROVIDER Notes to Outpatient Provider: Patient was admitted for chest pain. Catheterization and Cardiothoracic consult determined patient was not candidate for surgical intervention. Patient will be medically managed with Aspirin, Plavix, Statin, Beta [place], Imdur. Outpatient follow up with cardiology scheduled. Date of Encounter: 05/21/18 Time of Encounter: 10:16 - Discharge Diagnosis (1) Non-STEMI (non-ST elevated myocardial infarction) Priority: Primary Status: Resolved Assessment and Plan: Patient underwent left heart catheterization today. Does have poor anatomy and low ejection fraction of 25-30% with significant 50-60% distal left main disease , ostial left circumflex has 50-60% stenosis and 80-90% end stent stenosis of OM with 100% RCA and small mid distal LAD. Given her comorbidities, cardiothoracic surgery has been consulted. We will follow the recommendations. In the meantime continue aspirin, Plavix. 05/21-Cardiothoracic surgery decided patient was not a surgical candidate. Cardiology opted for medical management. Patient will be treated outpatient with Aspirin, Plavix, Statin, Beta [place], Imdur. (2) CAD (coronary artery disease) Priority: Secondary Status: Chronic Assessment and Plan: Medical Management as described above. Qualifiers: Coronary Disease-Associated Artery/Lesion type: [place] artery [place] vs. transplanted heart: [place] heart Associated angina: angina presence unspecified Qualified Code(s): I25.10 - Atherosclerotic heart disease of [place] coronary artery without angina pectoris (3) DVT prophylaxis Priority: Secondary Status: Inactive Assessment and Plan: Patient was anticoagulated with heparin while admitted (4) Uncontrolled type 2 diabetes mellitus Priority: Secondary Status: Chronic Assessment and Plan: Blood sugars remain elevated. We will increase insulin regimen. Monitor blood sugars closely. Diabetic diet when patient is able to eat. 05/21- Patient will be discharged on home diabetic medications. Qualifiers: Diabetes mellitus intermediate accountant insulin use: unspecified shelter insulin use status Diabetes mellitus complication status: with unspecified complications Qualified Code(s): E11.8 - Type 2 diabetes mellitus with unspecified complications; E11.65 - Type 2 diabetes mellitus with hyperglycemia (5) Urinary tract infection Priority: Secondary Status: Acute Assessment and Plan: Urine culture growing gram-negative rods. Patient is currently on ciprofloxacin. We will continue IV every 8 culture results.. 05/21- Urine culture final growth yielded E. coli sensitive to Bactrim, patient will get one dose here and 6 days outpatient Bactrim. Qualifiers: Urinary tract infection type: acute cystitis Hematuria presence: without hematuria Qualified Code(s): N30.00 - Acute cystitis without hematuria Hospital course: Ms. Bravo is a 48 year old female who presented in AM of 05/19 with chest pain and pressure, diaphoresis, neck and jaw pain. Remainder of ROS was negative. She has history of CAD with stents. Workup in ED was concerning for NSTEMI, troponins>9. Patient was admitted with aspirin, heparin drip, and cardiology consult for left heart cath. Left heart catheterization revealed significant stenosis and stent thrombosis, high risk for percutaneous intervention. Cardiothoracic surgery was consult who decided patient was not a surgical candidate. Plan is for outpatient medical management and outpatient cardiology follow up. Patient also developed UTI with E. coli on urine culture. Patient symptoms and clinical disposition improved at discharge. Patient will be discharged with Bactrim, ASA, Plavix, Statin, Beta [place], Imdur. Discharge discussed with: patient - Time Spent with Patient Total time spent providing and/or coordinating discharge services: - Discharge Medications Prescriptions: Isosorbide MONOnitrate (24 HR) [Imdur] 60 mg PO DAILY #30 tab.er.24h Metoprolol [Lopressor] 12.5 mg PO BID #60 tablet Sulfamethoxazole/Trimeth DS [Bactrim Ds] 1 each PO BID #12 tablet Home Medications: Aspirin 81 mg PO DAILY #30 tab.chew 11/17/16 [Rx] Clopidogrel [Plavix] 75 mg PO DAILY 01/22/18 [History] Nitroglycerin [Nitrostat] 0.4 mg SL Q5M PRN 01/22/18 [History] Alogliptin Benzoate [Alogliptin] 25 mg PO DAILY 05/19/18 [History] Omeprazole [PriLOSEC] 40 mg PO DAILY 05/19/18 [History] Rosuvastatin Calcium 20 mg PO HS 05/19/18 [History] Isosorbide MONOnitrate (24 HR) [Imdur] 60 mg PO DAILY #30 tab.er.24h 05/21/18 [ Rx] Metoprolol [Lopressor] 12.5 mg PO BID #60 tablet 05/21/18 [Rx] Sulfamethoxazole/Trimeth DS [Bactrim Ds] 1 each PO BID #12 tablet 05/21/18 [Rx] Allergies/Adverse Reactions: 3 Allergy/AdvReac Type Severity Reaction Status Date / Time cefdinir [From Omnicef] Allergy Rash Verified 05/19/18 11:23 metronidazole Allergy Swelling Verified 05/19/18 11:23 of Lip/Tongue/Throat codeine AdvReac Diarrhea Verified 05/19/18 11:23 metformin AdvReac Diarrhea Verified 05/19/18 11:23 Date of admission: 05/19/18 15:57 Primary care physician: PCP NONE - Constitutional Vitals: Temp Pulse Resp BP Pulse Ox 97.9 F 93 18 134/83 94 05/21/18 07:35 05/21/18 07:35 05/21/18 07:35 05/21/18 07:35 05/21/18 07:35 General appearance: Present: cooperative, A&O X 3, pleasant, no acute distress, answers questions appropriately Exam: Patient in no acute distress Alert and Oriented x3 Lungs clear to auscultation without wheeze or rhonchi Heart regular rate and rhythm without murmur, rub, or mirna Abdomen soft and non-tender skin warm and dry - Patient Status Disposition: Home, Self-Care Condition: Fair Functional capacity at discharge: independent ambulation Overall status at discharge: patient is back to baseline - Discharge Instructions Instructions: Sulfamethoxazole/Trimethoprim (By mouth), Metoprolol (By mouth), Isosorbide Mononitrate (By mouth), Myocardial Infarction (DC) Follow Up With: NONE,PCP [Primary Care Provider] - (cardio will call patient for an appointment...) Forms: ED Satisfaction Letter - Diet and Activity Activity: increase activity as tolerated Diet: diabetic diet, low fat, low cholesterol <Danny Don - Last Filed: 05/21/18 15:51> Date of Encounter: 05/21/18 - Discharge Diagnosis (1) DVT prophylaxis Status: Inactive (2) CAD (coronary artery disease) Status: Chronic Qualifiers: Coronary Disease-Associated Artery/Lesion type: [place] artery [place] vs. transplanted heart: [place] heart Associated angina: angina presence unspecified Qualified Code(s): I25.10 - Atherosclerotic heart disease of [place] coronary artery without angina pectoris (3) Uncontrolled type 2 diabetes mellitus Status: Chronic Qualifiers: Diabetes mellitus intermediate accountant insulin use: unspecified intermediate accountant insulin use status Diabetes mellitus complication status: with unspecified complications Qualified Code(s): E11.8 - Type 2 diabetes mellitus with unspecified complications; E11.65 - Type 2 diabetes mellitus with hyperglycemia (4) Non-STEMI (non-ST elevated myocardial infarction) Status: Resolved (5) Urinary tract infection Status: Acute Qualifiers: Urinary tract infection type: acute cystitis Hematuria presence: without hematuria Qualified Code(s): N30.00 - Acute cystitis without hematuria Hospital course: Ms. Bravo is a 48 year old female - Time Spent with Patient Total time spent providing and/or coordinating discharge services: Date of admission: 05/19/18 15:57 Primary care physician: PCP NONE - Constitutional Vitals: Temp Pulse Resp BP Pulse Ox 97.9 F 93 18 134/83 94 05/21/18 07:35 05/21/18 07:35 05/21/18 07:35 05/21/18 07:35 05/21/18 07:35 - Attending Attestation Patient was seen and examined. I agree with the discharge summary as dictated above by the resident physician. Discharge plans and recommendations were made under my direct supervision.
--- NOTE | 2018-05-21 10:28 | Cardiology Progress Note ---
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 Rapidly progressive CAD (compared with 11/2016) and history of stent thrombosis Diabetes, nicotine dependence The left ventricle has abnormal contractility EF 20% Recommendations: Optimal medical therapy of patient's disease. Aggressive risk factor modification. Consult CT surgery but likely poor targets, would recommend aggressive maximal medical therapy. Seen by CT surgery: "transthoracic echocardiogram which revealed an LVEF 45%. Cardiac catheterization performed today revealed severe 3 vessel CAD and an LVEF 20%. The patient has small diffusely diseased diabetic vessels with no adequate grafting sites and is not an operative candidate. The patient should be treated medically". Peak troponin 9.22. On aspirin, Plavix, statin, long-acting nitrate, and beta radha. Chest pain-free. Postprocedure education provided. Patient has nitroglycerin pills at home, reinforced education on how to utilize and when to call 911. I did spend 3-5 minutes today providing smoking cessation reinforcement, has nicotine patches at home. Cardiology will signoff, reconsult as needed, follow-up arranged. All questions answered. Discussed and reviewed with primary service, discharged pending. (2) CAD (coronary artery disease) Current Visit: Yes Status: Chronic Per Cardiology: Known history of CAD with most recent catheterization November 2016 which showed mid LAD 50%, diagonal 1 80% (small vessel), mid circumflex 100% status post PTCA /drug-eluting stent, proximal RCA 70%, mid RCA 90%, and distal RCA 100% lesions. Qualifiers: Qualified Code(s): I25.10 - Atherosclerotic heart disease of [place] coronary artery without angina pectoris Discussion w patient/family: The assessment and plan as outlined above was discussed with the patient and/or family members who expressed understanding and agreement. All questions were answered. Thank you for involving us in the care of your patient. Please call with any questions. Subjective Principal diagnosis: NSTEMI Interval history: Patient denies any chest pain, shortness of breath, palpitations. Reports some mild right wrist soreness. Anxious to go home. Objective Vital Signs, Last 4 Hours Temp Pulse Resp BP Pulse Ox 05/21/18 07:35 97.9 F 93 18 134/83 94 General: Conversant, No Apparent Distress HEENT: Atraumatic, Normocephaly, Mucus Membranes Moist Neck: No JVD, Normal carotid pulses Cardiac: Reg Rate and Rhythm, Normal S1 and S2, No Murmur Lungs: Normal Breath Sounds, No Wheeze, Rales, Rhonchi Neuro: Alert and responsive, No focal deficits noted Abdomen: Soft, Non-Tender Skin: No rashes noted on visualized skin, Other (Right wrist site dry and intact , mild ecchymosis, no bleeding, right radial pulse 2+ palpable) Musculoskeletal: No Chest Wall Tenderness Extremities: No Clubbing, No Cyanosis, No Edema, Normal Pulses Results 05/21/18 03:56 05/21/18 03:56 Lab Results 05/21/18 05/21/18 03:56 03:56 WBC 10.2 Hgb 12.6 Hct 37.0 Plt Count 196 Sodium 137 Potassium 3.7 Chloride 106 Carbon Dioxide 23 BUN 8 Creatinine 0.54 L Glucose 210 H Calcium 8.9 Active Medications Aspirin (Aspirin) 81 mg PO DAILY [facility] Stop: 11/18/18 09:01 Last Admin: 05/21/18 09:46 Dose: 81 mg Clopidogrel Bisulfate (Plavix) 75 mg PO DAILY [facility] Stop: 11/18/18 09:01 Last Admin: 05/21/18 09:46 Dose: 75 mg Dextrose/Water (Dextrose 50% (Syg)) 25 ml IVP AD PRN PRN Reason: Hypoglycemia Stop: 11/18/18 04:47 Glucagon (Glucagen) 1 mg IM ONCE PRN PRN Reason: Hypoglycemia Stop: 11/18/18 04:47 Glucose (Gluctose) 15 gm PO ONCE PRN PRN Reason: Hypoglycemia Stop: 11/18/18 04:47 Glucose (Gluctose) 30 gm PO ONCE PRN PRN Reason: Hypoglycemia Stop: 11/18/18 04:47 Heparin Sodium (Porcine) (Heparin) 4,000 unit IVP Q6HR PRN PRN Reason: SEE COMMENTS Stop: 11/18/18 01:14 Heparin Sodium (Porcine) (Heparin) 2,000 unit IVP Q6H PRN PRN Reason: SEE COMMENTS Stop: 11/18/18 01:14 Last Admin: 05/19/18 20:44 Dose: 2,000 unit Dextrose (Dextrose 5%) 1,000 mls @ 100 mls/hr IVC .Q10H PRN PRN Reason: HYPOGLYCEMIA Stop: 11/18/18 04:47 Insulin Human Lispro (Humalog) 0 units SQ HS [facility] PRN Reason: Protocol Stop: 11/19/18 21:01 Last Admin: 05/20/18 21:58 Dose: 5 unit Insulin Human Lispro (Humalog) 0 units SQ TIDAC [facility] PRN Reason: Protocol Stop: 11/20/18 07:31 Last Admin: 05/21/18 09:48 Dose: 8 unit Isosorbide Mononitrate (Imdur) 60 mg PO DAILY [facility] Stop: 11/20/18 09:01 Last Admin: 05/21/18 09:46 Dose: 60 mg Metoprolol Tartrate (Lopressor) 12.5 mg PO BID [facility] Stop: 11/18/18 09:01 Last Admin: 05/21/18 09:46 Dose: 12.5 mg Naloxone HCl (Narcan) 0.4 mg IVP Q2MIN PRN PRN Reason: SEE COMMENTS Stop: 11/18/18 04:47 Nitroglycerin (Nitroglycerin) 0.4 mg SL Q5MIN PRN PRN Reason: Chest Pain Stop: 11/17/18 23:35 Last Admin: 05/18/18 23:57 Dose: 0.4 mg Omeprazole (Prilosec) 40 mg PO DAILY [facility] Stop: 11/19/18 09:01 Last Admin: 05/21/18 09:46 Dose: 40 mg Rosuvastatin Calcium (Crestor) 40 mg PO HS [facility] Stop: 11/18/18 21:01 Last Admin: 05/20/18 20:23 Dose: 40 mg Trimethoprim/Sulfamethoxazole (Bactrim Ds) 1 each PO BID [facility] Stop: 05/27/18 21:01 - Imaging and Cardiology Cardiac cath: report reviewed Consult Discharge Plan - Plan Referrals: NONE,PCP [Primary Care Provider] -
[2018-05-21] MEDS ORDERED: Sulfamethoxazole/Trimeth DS 1 EACH TABLET PO SCH (21:00)
== END 2018-05-21 10:55 | disposition home or self-care (01) | DRG 190 ==
LOC: 2ANU 23:17 → EMEROO 23:17 → SUATTDRO 05-19 03:14 → 2ANU 05-19 03:48
PROVIDERS: ADMIT Pediatrics; ATTEND Internal Medicine

== ENCOUNTER 2018-07-15 05:55 | Observation (INO) ==
[2018-07-15] MEDS ORDERED: methylPREDNISolone 125 MG/2 ML VIAL IVP ONE (05:57)
[2018-07-15] MEDS ORDERED: Ipratropium/Albuterol Neb 3 ML IH ONE (05:57)
--- NOTE | 2018-07-15 06:13 | Emergency Department Note ---
Disposition Clinical Impression: Congestive heart failure Qualifiers: Heart failure type: unspecified Heart failure chronicity: acute on chronic Qualified Code(s): I50.9 - Heart failure, unspecified Disposition: Admitted As Inpatient Condition: Fair Time of Disposition: 16:23 SOB HPI - General Chief Complaint: ED Shortness of Breath/Dyspnea Stated Complaint: SERAFIN Time Seen by Provider: 07/15/18 05:56 Source: patient, EMS Mode of arrival: EMS Limitations: no limitations Nursing Notes Reviewed: Yes Vital Signs Reviewed: Yes - History of Present Illness Nontoxic-appearing 48-year-old female presents for evaluation of a nonproductive cough, shortness of breath, postnasal drainage, sore throat, and bilateral earache. Symptoms began 4 days ago and gradually worsened. She denies any overt chest pain but states of a "tightness in her chest that is more noticeable with cough. She denies any pain with inspiration or hemoptysis. She denies any swelling or discomfort of the lower extremities. She denies any abdominal pain, nausea, or vomiting. She states multiple contacts within her household with similar symptoms. Pt Subjective Complaint: shortness of breath, cough Onset (ago): day(s) (4) Consistency/Duration: gradually worsening Improves with: nothing Worsens with: exertion Associated symptoms: Reports: cough, wheezing. Denies: pain with inspiration, fever, sputum production, orthopnea, lower extremity pain, palpitations, hemoptysis, diaphoresis, nausea/vomiting, abdominal pain Treatment prior to arrival: none Cough Description: Involuntary Cough Frequency: Continuous Sputum production: No - Related Data Home oxygen amount: none Home Medications Medication Instructions Recorded Confirmed Clopidogrel [Plavix] 75 mg PO DAILY 01/22/18 07/15/18 Nitroglycerin [Nitrostat] 0.4 mg SL Q5M PRN 01/22/18 07/15/18 Alogliptin Benzoate [Alogliptin] 25 mg PO DAILY 05/19/18 07/15/18 Rosuvastatin Calcium 20 mg PO HS 05/19/18 07/15/18 Lisinopril [Zestril] 5 mg PO DAILY 07/04/18 07/15/18 Metoprolol Succinate [Toprol Xl] 25 mg PO DAILY 07/04/18 07/15/18 Previous Rx's Medication Instructions Recorded Aspirin 81 mg PO DAILY #30 tab.chew 11/17/16 Allergies Allergy/AdvReac Type Severity Reaction Status Date / Time cefdinir [From Omnicef] Allergy Rash Verified 07/04/18 15:30 metronidazole Allergy Swelling Verified 07/04/18 15:30 of Lip/Tongue/Throat codeine AdvReac Diarrhea Verified 07/04/18 15:30 metformin AdvReac Diarrhea Verified 07/04/18 15:30 All systems ED: reviewed and negative except as stated. Review of Systems: As Per HPI Constitutional: Denies: fever, chills, weakness, weight change Eyes: Denies: eye pain, eye discharge, vision change ENT ED: Reports: as per HPI, throat pain, congestion, other (Postnasal drainage) . Denies: ear pain, dental pain, hearing loss, epistaxis, dysphagia Cardiovascular: Denies: chest pain, palpitations, dyspnea on exertion, edema, syncope Respiratory: Reports: as per HPI, cough, wheezes. Denies: dyspnea, hemoptysis, stridor, sputum production Gastrointestinal: Denies: abdominal pain, nausea, vomiting, diarrhea, constipation, hematemesis, melena, hematochezia Genitourinary: Denies: dysuria, frequency, hematuria, discharge Musculoskeletal: Denies: back pain, neck pain, arthralgia, myalgia Integumentary: Denies: rash, abrasion, lesions Neurological: Denies: headache, weakness, numbness, paresthesias, confusion, abnormal gait, vertigo Psychiatric: Denies: anxiety, depression, suicidal thoughts, homicidal thoughts , auditory hallucinations, visual hallucinations Endocrine: Denies: fatigue Hematological/Lymphatic: Denies: easy bleeding, easy bruising Allergic/Immunologic: Denies: facial swelling, urticaria Past Medical History - Past Medical History Attestation: Yes The following information was validated with the patient. Source: patient, nursing notes reviewed Medical history: Reports: arthritis, asthma, CHF, coronary artery disease, diabetes, GERD, hypertension, myocardial infarction Surgical history: Reports: angioplasty/stent, cholecystectomy, other (Right carpal tunnel release, right foot second digit distal phalanx debridement) Psychiatric history: Reports: no psych history - Social History Smoking Status: Current every day smoker Smokeless Tobacco Status: No Alcohol use: Reports: none Drug use: Reports: none Physical Exam - General Limitations: no limitations General appearance: alert, in no apparent distress - Head Head exam: atraumatic, normocephalic, normal inspection - Eye Eye exam: Present: normal appearance, PERRL, EOMI. Absent: nystagmus - ENT ENT exam: mucous membranes moist - Neck Neck exam: Present: normal inspection, full ROM, trachea midline - Chest Chest inspection: Present: normal inspection, symmetric chest wall rise - Respiratory Respiratory exam: Present: wheezes (Expiratory wheezes noted bilaterally). Absent: respiratory distress, stridor, accessory muscle use, prolonged expiratory phase - Cardiovascular Cardiovascular exam: Present: normal rhythm, tachycardia, normal heart sounds - Abdominal Exam Abdominal exam: Present: soft, Non-Tender, normal bowel sounds - Extremities Exam Extremities exam: Present: normal inspection, full ROM. Absent: tenderness, pedal edema - Neurological Exam Neurological exam: Present: alert, oriented X3 - Psychiatric Psychiatric exam: Present: normal affect, normal mood - Skin Skin exam: Present: warm, dry, intact, normal color. Absent: rash Course Course Narrative: 0715: I discussed this patient's case with Dr. ba, ED attending. Dr. ba has had a [id number] evaluation with the patient. He has used a bedside ultrasound to further evaluate the patient's lung brooks. Prominent B lines favor edema over an infectious process. BiPAP per respiratory therapy has been ordered. The patient will be admitted to the hospitalist service pending CTA findings, as the patient is tachycardic, tachypnea, and has an elevated d-dimer. The patient's blood pressure cuff was switched to her contralateral arm. She had a systolic reading in the 120s. This was repeated and found to have a systolic reading in the 140s shortly thereafter. I feel that the patient's original vital signs as charted were inaccurate in showing a hypotensive state. 0944: I spoke with Dr. Nava of the hospitalist service. Dr. Nava has accepted the patient to the hospitalist care for further observation and management. Vital Signs Temperature 98.2 F 07/15/18 05:59 Pulse Rate 115 07/15/18 05:59 Respiratory Rate 30 07/15/18 05:59 Blood Pressure 105/87 07/15/18 05:59 O2 Sat by Pulse Oximetry 93 07/15/18 05:59 Temperature 98.4 F 07/15/18 10:44 Pulse Rate 92 07/15/18 10:44 Respiratory Rate 20 07/15/18 15:40 Blood Pressure 70/57 07/15/18 10:44 O2 Sat by Pulse Oximetry 92 07/15/18 15:40 Oxygen Delivery Oxygen Delivery Bipap Shortness of Breath/Dyspnea - Medical Records Medical records reviewed: Yes I reviewed the patient's medical records. - Lab Data Lab results reviewed: Yes I reviewed the patient's lab results. Lab results narrative: Lab Results 07/15/18 07/15/18 07/15/18 Range/Units 06:14 06:14 06:14 WBC 11.9 H (4.3-11.1) K/mcL RBC 5.28 H (3.82-4.97) M/mcL Hgb 16.4 H (11.5-15.4) g/dL Hct 48.4 H (35.3-44.9) % MCV 91.7 (83.0-100.0) fL MCH 31.1 (28.0-33.3) pg MCHC 33.9 (31.6-35.5) g/dL RDW 12.1 (11.5-14.5) % Plt Count 291 (140-400) K/mcL MPV 9.8 (9.4-12.4) fL Immature Gran % 0.5 (0-4) % Seg Neutrophils % 71.5 % Lymphocytes % 22.1 % Monocytes % 5.1 % Eosinophils % 0.5 % Basophils % 0.3 % Neutrophils # 8.5 (1.6-8.9) K/mcL Lymphocytes # 2.6 (0.6-4.6) K/mcL Monocytes # 0.6 (0.0-1.3) K/mcL Eosinophils # 0.1 (0.0-0.6) K/mcL Basophils # 0.0 (0.0-0.2) K/mcL D-Dimer (0-500) ng/mLFEU Sodium 134 L (136-145) mEq/L Potassium 4.0 (3.5-5.1) mEq/L Chloride 102 (98-107) mEq/L Carbon Dioxide 25 (23-29) mEq/L BUN 8 (6-20) mg/dL Creatinine 0.71 (0.60-1.20) mg/dL Est GFR ( Amer) > 60 (> 60) Est GFR (Non-Af Amer) > 60 (> 60) BUN/Creatinine Ratio 11 (6-26) Glucose 321 H (70-105) mg/dL Calculated Osmolality 289 (280-300) Calcium 9.4 (8.6-10.3) mg/dL Troponin I < 0.03 (< 0.04) ng/mL B-Natriuretic Peptide 452 H (Less than 100) pg/mL 07/15/18 Range/Units 06:14 WBC (4.3-11.1) K/mcL RBC (3.82-4.97) M/mcL Hgb (11.5-15.4) g/dL Hct (35.3-44.9) % MCV (83.0-100.0) fL MCH (28.0-33.3) pg MCHC (31.6-35.5) g/dL RDW (11.5-14.5) % Plt Count (140-400) K/mcL MPV (9.4-12.4) fL Immature Gran % (0-4) % Seg Neutrophils % % Lymphocytes % % Monocytes % % Eosinophils % % Basophils % % Neutrophils # (1.6-8.9) K/mcL Lymphocytes # (0.6-4.6) K/mcL Monocytes # (0.0-1.3) K/mcL Eosinophils # (0.0-0.6) K/mcL Basophils # (0.0-0.2) K/mcL D-Dimer 597 H (0-500) ng/mLFEU Sodium (136-145) mEq/L Potassium (3.5-5.1) mEq/L Chloride (98-107) mEq/L Carbon Dioxide (23-29) mEq/L BUN (6-20) mg/dL Creatinine (0.60-1.20) mg/dL Est GFR ( Amer) (> 60) Est GFR (Non-Af Amer) (> 60) BUN/Creatinine Ratio (6-26) Glucose (70-105) mg/dL Calculated Osmolality (280-300) Calcium (8.6-10.3) mg/dL Troponin I (< 0.04) ng/mL B-Natriuretic Peptide (Less than 100) pg/mL Result diagrams: 07/15/18 06:14 07/15/18 06:14 Lab Results 07/15/18 07/15/18 07/15/18 Range/Units 06:14 06:14 06:14 WBC 11.9 H (4.3-11.1) K/mcL RBC 5.28 H (3.82-4.97) M/mcL Hgb 16.4 H (11.5-15.4) g/dL Hct 48.4 H (35.3-44.9) % MCV 91.7 (83.0-100.0) fL MCH 31.1 (28.0-33.3) pg MCHC 33.9 (31.6-35.5) g/dL RDW 12.1 (11.5-14.5) % Plt Count 291 (140-400) K/mcL MPV 9.8 (9.4-12.4) fL Immature Gran % 0.5 (0-4) % Seg Neutrophils % 71.5 % Lymphocytes % 22.1 % Monocytes % 5.1 % Eosinophils % 0.5 % Basophils % 0.3 % Neutrophils # 8.5 (1.6-8.9) K/mcL Lymphocytes # 2.6 (0.6-4.6) K/mcL Monocytes # 0.6 (0.0-1.3) K/mcL Eosinophils # 0.1 (0.0-0.6) K/mcL Basophils # 0.0 (0.0-0.2) K/mcL D-Dimer (0-500) ng/mLFEU Sodium 134 L (136-145) mEq/L Potassium 4.0 (3.5-5.1) mEq/L Chloride 102 (98-107) mEq/L Carbon Dioxide 25 (23-29) mEq/L BUN 8 (6-20) mg/dL Creatinine 0.71 (0.60-1.20) mg/dL Est GFR ( Amer) > 60 (> 60) Est GFR (Non-Af Amer) > 60 (> 60) BUN/Creatinine Ratio 11 (6-26) Glucose 321 H (70-105) mg/dL Calculated Osmolality 289 (280-300) Calcium 9.4 (8.6-10.3) mg/dL Troponin I < 0.03 (< 0.04) ng/mL B-Natriuretic Peptide 452 H (Less than 100) pg/mL 07/15/18 Range/Units 06:14 WBC (4.3-11.1) K/mcL RBC (3.82-4.97) M/mcL Hgb (11.5-15.4) g/dL Hct (35.3-44.9) % MCV (83.0-100.0) fL MCH (28.0-33.3) pg MCHC (31.6-35.5) g/dL RDW (11.5-14.5) % Plt Count (140-400) K/mcL MPV (9.4-12.4) fL Immature Gran % (0-4) % Seg Neutrophils % % Lymphocytes % % Monocytes % % Eosinophils % % Basophils % % Neutrophils # (1.6-8.9) K/mcL Lymphocytes # (0.6-4.6) K/mcL Monocytes # (0.0-1.3) K/mcL Eosinophils # (0.0-0.6) K/mcL Basophils # (0.0-0.2) K/mcL D-Dimer 597 H (0-500) ng/mLFEU Sodium (136-145) mEq/L Potassium (3.5-5.1) mEq/L Chloride (98-107) mEq/L Carbon Dioxide (23-29) mEq/L BUN (6-20) mg/dL Creatinine (0.60-1.20) mg/dL Est GFR ( Amer) (> 60) Est GFR (Non-Af Amer) (> 60) BUN/Creatinine Ratio (6-26) Glucose (70-105) mg/dL Calculated Osmolality (280-300) Calcium (8.6-10.3) mg/dL Troponin I (< 0.04) ng/mL B-Natriuretic Peptide (Less than 100) pg/mL - Radiology Data Radiology results reviewed: Yes I reviewed the patient's radiology results. Chest X-Ray 07/15/18 05:57 IMPRESSION: Increased airspace disease, either early pneumonia or edema. D/ / Christiano Alvares MD / Christiano Alvares MD Interpreting Provider: Christiano Alvares MD Chest CTA 07/15/18 07:05 IMPRESSION: 1. No evidence of pulmonary embolism. 2. The patient does have numerous subcentimeter bilateral pulmonary nodules. Respiratory motion artifact limits evaluation of the fine lung details. Differential considerations include metastatic disease versus atypical infectious/inflammatory nodules. Correlation with any history of a primary malignancy is recommended. Follow-up chest CT is recommended in the next 6-8 weeks after the acute episode resolves. 3. Small to moderate bilateral pleural effusions, right greater than left with compressive atelectasis involving both lower lobes. The etiology is uncertain but could be reactive from an infectious/inflammatory process or malignant if the patient has a primary malignancy. 4. Soft tissue fullness in the bilateral keshav without discrete enlarged lymph nodes. Again, this may be reactive in nature or malignant. 5. Mild centrilobular emphysema. 6. Incidental subcutaneous lesion over the anterior aspect of the left shoulder likely related to a sebaceous cyst. D/ / Christian Rai MD / Christian Rai MD Interpreting Provider: Christian Rai MD - EKG Data EKG attestation: Yes I reviewed and interpreted this EKG. EKG results narrative: EKG shows a sinus tachycardia with a right bundle branch block and left posterior fascicular block at a rate of 108 bpm. [place] interval 152, QRS duration 158, QT/QTc interval 386/518. No ST elevation noted. No significant changes when compared to an EKG dated from 05/19/18.
[2018-07-15 06:26] LABS: Basophils % 0.3 %; Eosinophils # 0.1 K/mcL (0.0-0.6); Eosinophils % 0.5 %; Hematocrit 48.4 % (35.3-44.9); Hemoglobin 16.4 g/dL (11.5-15.4); Immature Granulocytes % 0.5 % (0-4); Lymphocytes # 2.6 K/mcL (0.6-4.6); Lymphocytes % 22.1 %; Mean Corpuscular HGB Conc 33.9 g/dL (31.6-35.5); Mean Corpuscular Hemoglobin 31.1 pg (28.0-33.3); Mean Corpuscular Volume 91.7 fL (83.0-100.0); Mean Platelet Volume 9.8 fL (9.4-12.4); Monocytes # 0.6 K/mcL (0.0-1.3); Monocytes % 5.1 %; Neutrophils # 8.5 K/mcL (1.6-8.9); Platelet Count 291 K/mcL (140-400); Red Blood Count 5.28 M/mcL (3.82-4.97); Red Cell Distribution Width 12.1 % (11.5-14.5); Segmented Neutrophils % 71.5 %
[2018-07-15 06:53] LABS: BUN/Creatinine Ratio 11 (6-26); Blood Urea Nitrogen 8 mg/dL (6-20); Calcium 9.4 mg/dL (8.6-10.3); Carbon Dioxide 25 mEq/L (23-29); Chloride 102 mEq/L (98-107); Glucose 321 mg/dL (70-105); Osmolality,Calculated 289 (280-300); Sodium 134 mEq/L (136-145); Troponin I < 0.03 ng/mL (< 0.04); eGFR For Non-African Americans > 60 (> 60)
[2018-07-15] MEDS ORDERED: Isovue-370 500 ML INFUS..BTL IV ONE (07:05)
[2018-07-15] MEDS ORDERED: 0.9 % Sodium Chloride 500 ML IVC ONE (07:18)
[2018-07-15] MEDS: Furosemide 40 MG/4 ML VIAL IVP ONE ×2 (07:30→09:10)
[2018-07-15] MEDS ORDERED: levoFLOXacin 500 MG TABLET PO ONE (10:06)
[2018-07-15] MEDS ORDERED: Naloxone 0.4 MG/ML INJ IVP PRN (10:09)
[2018-07-15] MEDS ORDERED: *HR* OxyCODONE Immed Rel 5 MG TABLET PO PRN (10:09)
[2018-07-15] MEDS ORDERED: Acetaminophen 325 MG TABLET PO PRN (10:09)
[2018-07-15] MEDS ORDERED: *HR* HYDROcodone/Acet 5/325 mg TABLET PO PRN (10:09)
[2018-07-15] MEDS ORDERED: Dextrose Gel 15 GM/37.5 ML TUBE PO PRN ×2 (10:12)
[2018-07-15] MEDS ORDERED: D5% in Water 1,000 ML IVC PRN (10:12)
[2018-07-15] MEDS ORDERED: *HR* Dextrose 50 % in Water (Syg) 50 ML SYRINGE IVP PRN (10:12)
--- NOTE | 2018-07-15 10:15 | Internal Med History&Physical ---
Date of Encounter: 07/15/18 Time of Encounter: 11:14 Internal Medicine - H&P: HPI Chief complaint: Shortness of breath Admitted From: Home Plans for Post Hospital Care: Home History of present illness: Ms. Bravo is a 48 year old female with medical history of CHF with reduced ejection fraction uncontrolled diabetes mellitus, heavy tobacco use, COPD not on home oxygen, coronary artery disease with prior stent placement andno stentable lesions her last period She presented to the emergency room with complains of 4 days duration of change in sputum production, nonproductive cough, sore throat, ear aches and shortness of breath. She reports that she has no chest pain, however she began to have pressure and tightness in the chest after coughing persistently for several days. She denies sick contacts. She denies pleuritic chest pain, she denies cough tenderness. She denies pedal edema. She denies orthopnea or PND. She has no abdominal or genitourinary symptoms. On presentation to the emergency room, she was found to be hypotensive when the blood pressure was checked on the left arm, 4 she received 1 L bolus. Further workup revealed BNP greater than 500, evidence of pulmonary edema and likely inflammatory or infectious multiple pulmonary nodules, as well as hyperglycemia. Other workup was unremarkable. EKG was nonischemic. She was placed on BiPAP I received 40 mg of intravenous Lasix. At my time of evaluation, she is saturating 92-94% on room air, she is comfortable at rest, and is able to provide History. She reports still smoking 1 pack per day, denies illicit drug use and is compliant with her medications and cardio rehabilitation. There is no documentation of hypoxemia on the chart She will be placed on observation for CHF exacerbation and COPD exacerbation. Incidental findings of multiple pulmonary nodules and pulmonology will be consulted. She is full code. 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 Psychiatric history: no psych history - Past Surgical History Surgical History: angioplasty/stent, cholecystectomy, other (Right carpal tunnel release, right foot second digit distal phalanx debridement) Additional surgical history: carpal tunnel-rt,foot surgey-rt - Social History Smoking Status: Current every day smoker Smokeless Tobacco Status: No Alcohol use: none Drug use: none - Family History Mother Living Status: Hx Family Cardiac Disorders: Yes Father Adopted: Yes (pt was adopted) Living Status: Hx Family Cardiac Disorders: Yes Internal Medicine - H&P: Meds Aspirin 81 mg PO DAILY #30 tab.chew 11/17/16 [Rx] Clopidogrel [Plavix] 75 mg PO DAILY 01/22/18 [History] Nitroglycerin [Nitrostat] 0.4 mg SL Q5M PRN 01/22/18 [History] Alogliptin Benzoate [Alogliptin] 25 mg PO DAILY 05/19/18 [History] Rosuvastatin Calcium 20 mg PO HS 05/19/18 [History] Lisinopril [Zestril] 5 mg PO DAILY 07/04/18 [History] Metoprolol Succinate [Toprol Xl] 25 mg PO DAILY 07/04/18 [History] 3 Allergy/AdvReac Type Severity Reaction Status Date / Time cefdinir [From Omnicef] Allergy Rash Verified 07/04/18 15:30 metronidazole Allergy Swelling Verified 07/04/18 15:30 of Lip/Tongue/Throat codeine AdvReac Diarrhea Verified 07/04/18 15:30 metformin AdvReac Diarrhea Verified 07/04/18 15:30 All Systems PM: A 10-system review of systems was performed and is negative for pertinent findings except as documented above in the HPI. - Constitutional Constitutional: as per HPI - EENT Eyes: as per HPI Ears: as per HPI Nose, mouth and throat: as per HPI - Cardiovascular Cardiovascular ROS IM: as per HPI - Respiratory Respiratory: as per HPI - Gastrointestinal Gastrointestinal: as per HPI - Genitourinary Genitourinary: as per HPI - Musculoskeletal Musculoskeletal ROS IM: as per HPI - Integumentary Integumentary IM: as per HPI - Neurological Neurological ROS: as per HPI - Hematologic/Lymphatic Hematologic/Lymphatic: as per HPI - Constitutional Vitals: Temp Pulse Resp BP Pulse Ox 98.2 F 101 26 142/84 96 07/15/18 05:59 07/15/18 09:38 07/15/18 09:38 07/15/18 09:38 07/15/18 09:38 General appearance: Present: A&O X 3, pleasant, no acute distress Exam: Detailed examination below - Head Head exam: Present: atraumatic, normocephalic - Eye Eye exam: Present: PERRL, conjuntiva pink, sclera anicteric Pupils: Present: PERRL - Neck Neck exam general surgery: Present: supple, trachea midline. Absent: lymphadenopathy - Respiratory Respiratory exam: Absent: accessory muscle use, rales, rhonchi, wheezes Additional comments: Equal air entry bilaterally, right lower lobe reveals, no rhonchi, few scattered wheezing bilaterally. - Cardiovascular Cardiovascular exam: Present: +S1, +S2, tachycardia. Absent: diastolic murmur, gallop, rubs, systolic murmur - GI/Abdominal GI/Abdominal exam: Present: normal bowel sounds, soft, no peritoneal signs. Absent: distended, tenderness - Extremities Exam Extremities exam: Present: warm, radial pulses palpable and symmetrical. Absent : calf tenderness, cyanotic, pedal edema - Neurological Exam Neurological exam: Present: alert, CN II-XII intact, oriented X3, no focal deficits. Absent: pronater drift, facial droop, speech deficit - Skin Skin exam: Present: dry, intact Internal Med - H&P Results - Labs CBC & Chem 7: 07/15/18 06:14 07/15/18 06:14 - Assessment and plan (1) COPD exacerbation Current Visit: Yes Status: Acute Assessment and plan: Patient presented with viral-like symptoms associated with change in sputum production and cough COPDE likely induced by viral infection Continue prednisone, DuoNeb's, add Levaquin by mouth. There is no oxygen requirement at this time, monitor pulse oximetry. Check resp panel Encouraged tobacco cessation. (2) CHF exacerbation Current Visit: Yes Status: Acute Assessment and plan: 48-year-old female with known CHF with decreased ejection fraction, ejection fraction on echo done 05/19/2018 showed EF 45%. Associated moderate left ventricular diastolic dysfunction. She also has coronary artery disease which is not amenable to stenting. She continues to smoke. She presented with shortness of breath associated with cough. BNP was 560. Chest x-ray and chest CAT scan shows likely pulmonary edema. She improved rapidly with intravenous Lasix and BiPAP in the ER. Continue Lasix IV 40 mg twice a day Continue daily weight monitoring Strict intake and output and fluid restriction diet. Initial troponin was negative, and initial EKG showed right bundle branch block which is chronic. Continue home doses of aspirin, beta blockers and Plavix. There is no current indication for repeat echo and there is no current indication for cardiology evaluation. Qualifiers: Heart failure type: systolic Qualified Code(s): I50.23 - Acute on chronic systolic (congestive) heart failure (3) Pulmonary nodules/lesions, multiple Current Visit: Yes Status: Acute Assessment and plan: heavy tobacco use Review of EMR shos hx of same in Abd/Pelvis CT from 01/2018, patient denies hemoptysis Consult pulmonology (4) CAD (coronary artery disease) Current Visit: Yes Status: Chronic Assessment and plan: resume and continue home meds Qualifiers: Coronary Disease-Associated Artery/Lesion type: [place] artery [place] vs. transplanted heart: [place] heart Associated angina: without angina Qualified Code(s): I25.10 - Atherosclerotic heart disease of [place] coronary artery without angina pectoris (5) DVT prophylaxis Current Visit: Yes Status: Acute Assessment and plan: SQ heparin (6) Hypertension Current Visit: Yes Status: Chronic Qualifiers: Hypertension type: essential hypertension Qualified Code(s): I10 - Essential (primary) hypertension (7) Diabetes mellitus Current Visit: Yes Status: Chronic Assessment and plan: Uncontrolled, with hyperglycemia Check A1C with a.m labs Levemir BID Correctional dose insulin as well as prandial insulin FS ACHS Qualifiers: Diabetes mellitus type: type 2 Diabetes mellitus penitentiary insulin use: without terminal worker use Diabetes mellitus complication status: with hyperglycemia Qualified Code(s): E11.65 - Type 2 diabetes mellitus with hyperglycemia - Time Spent With Patient Total time spent is greater than 50% in coordination of care (as documented) at patient's floor/unit and/or counseling patient:
[2018-07-15] MEDS: Ipratropium Neb 0.5 MG NEBULIZER IH SCH ×3 (11:19→22:10)
[2018-07-15] MEDS: Levalbuterol Neb 1.25 MG/3 ML IH SCH ×3 (11:19→22:10)
[2018-07-15] MEDS ORDERED: Insulin DETEMIR 100 UNIT/ML X5UNITS SQ ONE (11:20)
[2018-07-15] MEDS: Aspirin 81 MG TAB.CHEW PO SCH (11:37)
[2018-07-15] MEDS: Insulin LISPRO 300 UNITS/3 ML VIAL SQ SCH ×4 (11:38→17:16)
--- NOTE | 2018-07-15 11:38 | Pulmonology Consult Note ---
Date of Encounter: 07/15/18 Time of Encounter: 11:37 Assessment and Plan (1) COPD exacerbation Current Visit: Yes Status: Acute Patient is suffering from COPD exacerbation likely from upper respiratory tract infection. Agree with the current treatment with antibiotics and steroids I suspect she can be transitioned to oral glucocorticoids to complete a two-week taper Send sputum culture and respiratory infectious panel (PCR) She will need home-going nebulizer with bronchodilators to be scheduled (duo nebs) every 6 hours Start Symbicort 160/4.52 puffs twice a day Outpatient pulmonary follow-up for PFTs and ongoing optimization of respiratory disease (2) Heavy tobacco smoker Current Visit: No Status: Chronic I encouraged the patient to stop smoking completely (3) Pulmonary nodules/lesions, multiple Current Visit: Yes Status: Acute I suspect this is related to smoking related lung disease that is respiratory bronchiolitis interstitial lung disease (RB-ILD) Cannot exclude the possibility of chronic infectious process for this reason I agree with Levaquin and this should be prescribed for 10 days total there is possibly this represents an inflammatory condition such as underlying rheumatological condition for which I have sent off inflammatory serologies Outpatient pulmonary follow-up she will need repeat CT scan in 4-6 weeks if there is still evidence of pulmonary nodules would likely proceed with bronchoscopy at that time Although malignancy is possible and increased based upon the smoking history this CT scan at face value is not a classic picture for primary lung malignancy nor necessarily metastatic disease as opposed to the aforementioned differential diagnosis. Regardless she will need radiographic/clinical follow-up and is imperative that she follows up with pulmonary for this History of Present Illness Consult date: 07/15/18 Requesting physician: Clayton Nava Reason for consult: abnormal CXR/CT Chief complaint: SOB History of present illness: This is a pleasant 48-year-old woman with a past medical history of advanced coronary artery disease including severe triple vessel disease but not a candidate for CABG. She also suffers from heart failure with reduced ejection fraction. She was admitted for shortness of breath that started earlier in the day abruptly after a sore throat this is complicated by cough with thick mucus production which was unusual for her. She states that her brought his family around recently and they were all suffering from similar symptoms and thinks she picked up an infection from them. She was presenting to the emergency room where a CTA was performed which was negative for filling defect but notable for bilateral almost him numerable subcentimeter pulmonary nodules. She also small bilateral pleural effusions pulmonary was consulted for further evaluation of this. Patient is a current every day smoker smoking at least a pack a day since adolescence. 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 She did have woodworking as a hobby in the past but has not done that recently no exposure to exotic animals including birds. She denies night sweats hemoptysis weight loss nausea vomiting or diarrhea no recent travel outside the [place]. She is currently being treated with Levaquin for pneumonia also receiving steroids she says that she feels much better after starting steroids 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 Psychiatric history: no psych history - Past Surgical History Surgical History: angioplasty/stent, cholecystectomy, other (Right carpal tunnel release, right foot second digit distal phalanx debridement) Additional surgical history: carpal tunnel-rt,foot surgey-rt - Social History Smoking Status: Current every day smoker Smokeless Tobacco Status: No Alcohol use: none Drug use: none - Family History Mother Living Status: Hx Family Cardiac Disorders: Yes Father Adopted: Yes (pt was adopted) Living Status: Hx Family Cardiac Disorders: Yes Medications and Allergies Aspirin 81 mg PO DAILY #30 tab.chew 11/17/16 [Rx] Clopidogrel [Plavix] 75 mg PO DAILY 01/22/18 [History] Nitroglycerin [Nitrostat] 0.4 mg SL Q5M PRN 01/22/18 [History] Alogliptin Benzoate [Alogliptin] 25 mg PO DAILY 05/19/18 [History] Rosuvastatin Calcium 20 mg PO HS 05/19/18 [History] Lisinopril [Zestril] 5 mg PO DAILY 07/04/18 [History] Metoprolol Succinate [Toprol Xl] 25 mg PO DAILY 07/04/18 [History] 3 Allergy/AdvReac Type Severity Reaction Status Date / Time cefdinir [From Omnicef] Allergy Rash Verified 07/04/18 15:30 metronidazole Allergy Swelling Verified 07/04/18 15:30 of Lip/Tongue/Throat codeine AdvReac Diarrhea Verified 07/04/18 15:30 metformin AdvReac Diarrhea Verified 07/04/18 15:30 All Systems: The remainder of the systems were reviewed and are negative Physical Examination Vital Signs: Vital Signs, Last 4 Hours Temp Pulse Resp BP Pulse Ox 07/15/18 11:22 20 97 07/15/18 10:44 98.4 F 92 20 70/57 91 General appearance: no acute distress Eyes: nonicteric ENT: oropharynx moist Neck: supple Effort: normal Auscultation: bilateral: diminished breath sounds, wheezes (Prolonged expiratory phase with faint expiratory wheezing) Cardiovascular: regular rate and rhythm Gastrointestinal: normoactive bowel sounds Integumentary: normal Extremities: no cyanosis, no edema, no clubbing Musculoskeletal: no deformities normal mental status mood appropriate Results - Laboratory Findings CBC and BMP: 07/15/18 06:14 07/15/18 06:14 PT/INR, D-dimer D-Dimer 597 ng/mLFEU (0-500) H 07/15/18 06:14 Abnormal lab findings: Abnormal lab results WBC 11.9 K/mcL (4.3-11.1) H 07/15/18 06:14 RBC 5.28 M/mcL (3.82-4.97) H 07/15/18 06:14 Hgb 16.4 g/dL (11.5-15.4) H 07/15/18 06:14 Hct 48.4 % (35.3-44.9) H 07/15/18 06:14 D-Dimer 597 ng/mLFEU (0-500) H 07/15/18 06:14 Sodium 134 mEq/L (136-145) L 07/15/18 06:14 Glucose 321 mg/dL (70-105) H 07/15/18 06:14 B-Natriuretic Peptide 452 pg/mL (Less than 100) H 07/15/18 06:14 - Diagnostic Findings Chest x-ray: report reviewed, image reviewed CT scan - chest: report reviewed, image reviewed Consult Discharge Plan - Plan Referrals: NONE,PCP [Primary Care Provider] -
[2018-07-15] MEDS: Metoprolol XL (24 HR) Succ 25 MG TAB.ER.24H PO SCH (11:49)
[2018-07-15 14:32] LABS: Adenovirus Not Detected (Not Detect); Bordetella Pertussis Not Detected (Not Detect); Chlamydophila pneumoniae Not Detected (Not Detect); Coronavirus 229E Not Detected (Not Detect); Coronavirus HKU1 Not Detected (Not Detect); Coronavirus NL63 Not Detected (Not Detect); Coronavirus OC43 Not Detected (Not Detect); Human Metapneumovirus Not Detected (Not Detect); Human Rhinovirus/Enterovirus Not Detected (Not Detect); Influenza A Subtype 2009 H1 Not Detected (Not Detect); Influenza A Untypeable Not Detected (Not Detect); Influenza B Not Detected (Not Detect); Mycoplasma pneumoniae Not Detected (Not Detect); Parainfluenza Virus 1 Not Detected (Not Detect); Parainfluenza Virus 2 Not Detected (Not Detect); Parainfluenza Virus 3 Not Detected (Not Detect); Parainfluenza Virus 4 Not Detected (Not Detect); Respiratory Syncytial Virus Not Detected (Not Detect)
[2018-07-15] MEDS: Budesonide/Formoterol 160/4.5 1 PUFF INH IH SCH ×2 (15:36→22:10)
[2018-07-15] MEDS: Insulin DETEMIR 100 UNIT/ML X5UNITS SQ SCH (21:22)
[2018-07-15] MEDS: Furosemide 40 MG/4 ML VIAL IVP SCH (21:38)
[2018-07-16] MEDS: Insulin LISPRO 300 UNITS/3 ML VIAL SQ SCH ×7 (00:50→17:13)
[2018-07-16] MEDS: Levalbuterol Neb 1.25 MG/3 ML IH SCH ×4 (03:46→22:10)
[2018-07-16] MEDS: Ipratropium Neb 0.5 MG NEBULIZER IH SCH ×4 (03:47→22:10)
[2018-07-16 04:18] LABS: Basophils % 0.1 %; Hematocrit 39.5 % (35.3-44.9); Immature Granulocytes % 0.4 % (0-4); Lymphocytes # 2.5 K/mcL (0.6-4.6); Lymphocytes % 11.2 %; Mean Corpuscular HGB Conc 33.9 g/dL (31.6-35.5); Mean Corpuscular Hemoglobin 30.9 pg (28.0-33.3); Monocytes # 1.2 K/mcL (0.0-1.3); Monocytes % 5.2 %; Platelet Count 269 K/mcL (140-400); Red Blood Count 4.34 M/mcL (3.82-4.97); Red Cell Distribution Width 12.3 % (11.5-14.5); Segmented Neutrophils % 83.1 %
[2018-07-16 04:19] LABS: Hemoglobin 13.4 g/dL (11.5-15.4); Neutrophils # 18.8 K/mcL (1.6-8.9)
[2018-07-16 04:41] LABS: BUN/Creatinine Ratio 25 (6-26); Blood Urea Nitrogen 16 mg/dL (6-20); Calcium 9.1 mg/dL (8.6-10.3); Carbon Dioxide 25 mEq/L (23-29); Chloride 106 mEq/L (98-107); Glucose 193 mg/dL (70-105); Osmolality,Calculated 294 (280-300); Potassium 3.6 mEq/L (3.5-5.1); Sodium 139 mEq/L (136-145); eGFR For Non-African Americans > 60 (> 60)
[2018-07-16] MEDS: *HR* Enoxaparin 40 MG/0.4 ML SYRINGE SQ SCH (05:12)
[2018-07-16 06:53] LABS: Estimated Average Glucose 275 mg/dl; Hemoglobin A1C 11.2 %
--- NOTE | 2018-07-16 07:25 | Pulmonology Progress Note ---
Date of Encounter: 07/16/18 Time of Encounter: 07:25 Assessment and Plan (1) COPD exacerbation Current Visit: Yes Status: Acute recommend oral prednisone to complete 2 day burst. Symbicort 160/4.5 2puffs BID NASH as needed Home nebulizer with albuterol at d/c F/u PUlmonary 2-4 weeks Walking pulse ox prior to d/c (2) Heavy tobacco smoker Current Visit: No Status: Chronic tobacco cessation counseling given. (3) Pulmonary nodules/lesions, multiple Current Visit: Yes Status: Acute suspect RB-ILD cannot r/o infectious etiology. Levaquin x 7 days at discharge. f/u pulm for repeat Ct Scan in 4-6 weeks Crucial to stop smoking completely. Pulmonary will sign off please call with questions. Subjective Principal diagnosis: AECOPD Interval history: Elyse generally is feeling better today from a lung standpoint. She is tearful lamenting the fact that she has received fewer visitors in the hospital than she anticipated. Dawit any significant cough or sputum production. Denies hemoptysis. She has been weaned off of NC O2. RIP (-). Objective PUL Vital signs: Last Vital Signs Temp 98.4 F 07/16/18 04:00 Pulse 97 07/16/18 04:00 Resp 16 07/16/18 04:00 BP 121/66 07/16/18 04:00 Pulse Ox 95 07/16/18 04:00 General appearance: no acute distress Eyes: nonicteric ENT: oropharynx moist Neck: supple Effort: normal Auscultation: bilateral: rales (in lung bases exam in general markedly improved from previous days ) Cardiovascular: regular rate and rhythm Gastrointestinal: normoactive bowel sounds, soft, non-tender Integumentary: normal Extremities: no cyanosis Musculoskeletal: no deformities normal mental status, non-focal exam tearful Results - Laboratory Findings CBC and BMP: 07/16/18 03:44 07/16/18 03:44 PT/INR, D-dimer D-Dimer 597 ng/mLFEU (0-500) H 07/15/18 06:14 Abnormal lab findings: Abnormal lab results WBC 22.6 K/mcL (4.3-11.1) H D 07/16/18 03:44 Neutrophils # 18.8 K/mcL (1.6-8.9) H 07/16/18 03:44 D-Dimer 597 ng/mLFEU (0-500) H 07/15/18 06:14 Glucose 193 mg/dL (70-105) H 07/16/18 03:44 POC Glucose 298 mg/dL (70-99) H 07/16/18 00:30 Hemoglobin A1c 11.2 % (-5.6) H 07/16/18 03:44 B-Natriuretic Peptide 452 pg/mL (Less than 100) H 07/15/18 06:14 - Clinical Findings Intake & Output: Intake & Output 07/15/18 07/15/18 07/16/18 15:59 23:59 07:59 Intake Total 420 / 420 540 / 540 60 / 60 Output Total 1200 / 1200 1450 / 1450 Balance -780 / -780 -910 / -910 60 / 60 Weight 80.6 kg Consult Discharge Plan - Plan Referrals: NONE,PCP [Primary Care Provider] -
[2018-07-16] MEDS ORDERED: levoFLOXacin 500 MG TABLET PO SCH (09:00)
[2018-07-16] MEDS: Aspirin 81 MG TAB.CHEW PO SCH (09:48)
[2018-07-16] MEDS: Metoprolol XL (24 HR) Succ 25 MG TAB.ER.24H PO SCH (09:48)
[2018-07-16] MEDS: Furosemide 40 MG/4 ML VIAL IVP SCH (09:48)
[2018-07-16] MEDS: predniSONE 20 MG TABLET PO SCH (09:49)
[2018-07-16] MEDS: Insulin DETEMIR 100 UNIT/ML X5UNITS SQ SCH ×2 (09:56→20:38)
[2018-07-16] MEDS: Budesonide/Formoterol 160/4.5 1 PUFF INH IH SCH ×2 (10:25→22:10)
--- NOTE | 2018-07-16 10:45 | Electrocardiograph Report ---
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
--- NOTE | 2018-07-16 15:44 | Internal Med Progress Note ---
Hospitalist Progress Note - Encounter Date of Encounter: 07/16/18 Time of Encounter: 09:00 - Subjective Interval History: Patient has less shortness of breath and less cough. No fever overnight. - Exam Vitals: Temp Pulse Resp BP Pulse Ox 98.1 F 120 16 95/72 97 07/16/18 11:17 07/16/18 11:17 07/16/18 11:17 07/16/18 11:17 07/16/18 11:17 Exam: Patient is awake alert oriented 3, in no acute distress HEENT: NC/AT, PERRL Neck: Supple, no JVD Lungs: Coarse breathsound b/l with scattered wheezing Heart: S1S2, RRR Abd: Soft, NT Ext: No pedal edema. Neuro: No focal deficit. - Assessment and Plan (1) DVT prophylaxis Current Visit: Yes Status: Acute Assessment and Plan: SQ heparin (2) Hypertension Current Visit: Yes Status: Chronic Assessment and Plan: BP is at lower site. Hold home medication lisinopril 5 mg daily. (3) CAD (coronary artery disease) Current Visit: Yes Status: Chronic Assessment and Plan: resume and continue home meds (4) COPD exacerbation Current Visit: Yes Status: Acute Assessment and Plan: Patient presented with viral-like symptoms associated with change in sputum production and cough COPDE likely induced by viral infection Continue prednisone, DuoNeb's, add Levaquin by mouth. There is no oxygen requirement at this time, monitor pulse oximetry. Resp panel negative Encouraged tobacco cessation. (5) CHF exacerbation Current Visit: Yes Status: Acute Assessment and Plan: 48-year-old female with known CHF with decreased ejection fraction, ejection fraction on echo done 05/19/2018 showed EF 45%. Associated moderate left ventricular diastolic dysfunction. Appears euvolemic at this point. Lasix is on hold. Home medication metoprolol , will resume AUNG inhibitor has BP is stable. (6) Pulmonary nodules/lesions, multiple Current Visit: Yes Status: Acute Assessment and Plan: heavy tobacco use Review of EMR shows hx of same in Abd/Pelvis CT from 01/2018, patient denies hemoptysis Pulmonology input appreciated. We will repeat CT in 6 weeks (7) Diabetes mellitus Current Visit: Yes Status: Chronic Assessment and Plan: Poorly controlled, with hyperglycemia A1C 11 Levemir BID Correctional dose insulin as well as prandial insulin FS ACHS (8) Leukocytosis Current Visit: Yes Status: Acute Assessment and Plan: Most likely due to steroid use. No signs of sepsis DVT Prophylaxis: Lovenox sc - Time Spent with Patient Total time spent is greater than 50% in coordination of care (as documented) at patient's floor/unit and/or counseling patient: 30 min 25 - 35 minutes Plan of Care Discussed with: patient Internal Medicine: Result - Labs CBC & Chem 7: 07/16/18 03:44 07/16/18 03:44 Labs: Short CBC 07/16/18 Range/Units 03:44 WBC 22.6 H D (4.3-11.1) K/mcL Hgb 13.4 D (11.5-15.4) g/dL Hct 39.5 (35.3-44.9) % Plt Count 269 (140-400) K/mcL Neutrophils # 18.8 H (1.6-8.9) K/mcL BMP 07/16/18 03:44 Sodium 139 Potassium 3.6 Chloride 106 Carbon Dioxide 25 BUN 16 Creatinine 0.63 Glucose 193 H Calcium 9.1 - ABG Interpretation ABG results: PT/INR, D-dimer D-Dimer 597 ng/mLFEU (0-500) H 07/15/18 06:14 Consult Discharge Plan - Plan Referrals: NONE,PCP [Primary Care Provider] - (2) Hypertension Qualifiers: Hypertension type: essential hypertension Qualified Code(s): I10 - Essential (primary) hypertension (3) CAD (coronary artery disease) Qualifiers: Coronary Disease-Associated Artery/Lesion type: [place] artery [place] vs. transplanted heart: [place] heart Associated angina: without angina Qualified Code(s): I25.10 - Atherosclerotic heart disease of [place] coronary artery without angina pectoris (5) CHF exacerbation Qualifiers: Heart failure type: systolic Qualified Code(s): I50.23 - Acute on chronic systolic (congestive) heart failure (7) Diabetes mellitus Qualifiers: Diabetes mellitus type: type 2 Diabetes mellitus nursing home insulin use: without nursing home use Diabetes mellitus complication status: with hyperglycemia Qualified Code(s): E11.65 - Type 2 diabetes mellitus with hyperglycemia (8) Leukocytosis Qualifiers: Leukocytosis type: leukemoid reaction Qualified Code(s): D72.823 - Leukemoid reaction
[2018-07-16] MEDS ORDERED: Furosemide 40 MG/4 ML VIAL IVP SCH (17:00)
[2018-07-16] MEDS ORDERED: Insulin LISPRO 300 UNITS/3 ML VIAL SQ SCH (21:00)
[2018-07-17] MEDS: Levalbuterol Neb 1.25 MG/3 ML IH SCH ×2 (04:03→10:34)
[2018-07-17] MEDS: Ipratropium Neb 0.5 MG NEBULIZER IH SCH ×2 (04:03→10:34)
[2018-07-17 04:41] LABS: Basophils % 0.1 %; Eosinophils % 0.1 %; Hematocrit 42.6 % (35.3-44.9); Hemoglobin 14.2 g/dL (11.5-15.4); Immature Granulocytes % 0.4 % (0-4); Lymphocytes # 2.6 K/mcL (0.6-4.6); Lymphocytes % 15.4 %; Mean Corpuscular HGB Conc 33.3 g/dL (31.6-35.5); Mean Corpuscular Hemoglobin 30.9 pg (28.0-33.3); Mean Corpuscular Volume 92.6 fL (83.0-100.0); Mean Platelet Volume 9.8 fL (9.4-12.4); Monocytes # 0.9 K/mcL (0.0-1.3); Monocytes % 5.2 %; Neutrophils # 13.1 K/mcL (1.6-8.9); Platelet Count 280 K/mcL (140-400); Red Cell Distribution Width 12.4 % (11.5-14.5); Segmented Neutrophils % 78.8 %
[2018-07-17 04:57] LABS: BUN/Creatinine Ratio 30 (6-26); Blood Urea Nitrogen 18 mg/dL (6-20); Calcium 9.3 mg/dL (8.6-10.3); Carbon Dioxide 24 mEq/L (23-29); Chloride 105 mEq/L (98-107); Glucose 204 mg/dL (70-105); Osmolality,Calculated 294 (280-300); Potassium 4.1 mEq/L (3.5-5.1); Sodium 138 mEq/L (136-145); eGFR For Non-African Americans > 60 (> 60)
[2018-07-17] MEDS: *HR* Enoxaparin 40 MG/0.4 ML SYRINGE SQ SCH (05:32)
[2018-07-17 07:43] VITALS: BP 110/59
[2018-07-17] MEDS: Aspirin 81 MG TAB.CHEW PO SCH (08:14)
[2018-07-17] MEDS: Metoprolol XL (24 HR) Succ 25 MG TAB.ER.24H PO SCH (08:14)
[2018-07-17] MEDS: predniSONE 20 MG TABLET PO SCH (08:14)
[2018-07-17] MEDS: Insulin LISPRO 300 UNITS/3 ML VIAL SQ SCH ×3 (08:15→08:34)
[2018-07-17] MEDS: Insulin DETEMIR 100 UNIT/ML X5UNITS SQ SCH (08:45)
[2018-07-17] MEDS ORDERED: Doxycycline 100 MG CAPSULE PO SCH (09:45)
[2018-07-17] MEDS: Budesonide/Formoterol 160/4.5 1 PUFF INH IH SCH (10:33)
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
[2018-07-19 10:33] LABS: Angiotensin Converting Enzyme 5 U/L (9-67); Immunoglobulin A 292 mg/dL (68-408); Immunoglobulin G 805 mg/dL (768-1632); Immunoglobulin M 211 mg/dL (35-263)
[2018-07-19 10:45] LABS: ANA IgG by ELISA NONE DETECTED (None Detected)
[2018-07-20 10:12] LABS: Aspergillus spp. Ab by ID NONE DETECTED (None Detected); Blastomyces dermatitidis Ab ID NONE DETECTED (None Detected); Coccidioides immitis Ab by ID DETECTED (None Detected); Histoplasma spp.Ab by ID NONE DETECTED (None Detected)
== END 2018-07-17 14:22 | disposition home or self-care (01) ==
LOC: EMEROOARM 05:55 → 2NENU 10:01 → INTOOBSV 10:01 → 2NENU 10:27
PROVIDERS: ADMIT Internal Medicine; ATTEND Internal Medicine

== ENCOUNTER 2018-11-07 10:15 | Inpatient (IN) ==
--- NOTE | 2018-11-07 11:13 | Emergency Department Note ---
Disposition Clinical Impression: Osteomyelitis Qualifiers: Osteomyelitis type: unspecified type Osteomyelitis location: foot Laterality: right Qualified Code(s): M86.9 - Osteomyelitis, unspecified Disposition: Admitted As Inpatient Condition: Good Wound/Laceration HPI - General Chief Complaint: ED Wound/Laceration Stated Complaint: Ulcer right foot Time Seen by Provider: 11/07/18 10:47 Source: patient Mode of arrival: ambulatory Limitations: no limitations Nursing Notes Reviewed: Yes Vital Signs Reviewed: Yes - History of Present Illness HPI Narrative: 48 year old female with a history of diabetes presents with the right foot ulcer. Patient stated she has right foot ulcer for 2-3 months. Patient follows up with Dr. Araiza in wound clinic. Patient reported worsening swelling around the ulcer in the past 1 week. She was on antibiotics Doxycycline, Bactrim, Augmentin. Patient visited Dr. Araiza today. She was suggested to be admitted to hospital. Dr. Araiza will see the patient in the floor. Pt denied chills and fever. Onset (ago): week(s) (1) - Related Data Home Medications Medication Instructions Recorded Confirmed Clopidogrel [Plavix] 75 mg PO DAILY 01/22/18 10/03/18 Nitroglycerin [Nitrostat] 0.4 mg SL Q5M PRN 01/22/18 10/03/18 Metoprolol Succinate [Toprol Xl] 25 mg PO DAILY 07/04/18 10/03/18 Fluticasone/Vilanterol [Breo 1 puff IH DAILY 10/03/18 10/03/18 Ellipta 100-25 Mcg INH] Rosuvastatin [Crestor] 20 mg PO HS 10/03/18 10/03/18 Sulfamethoxazole/Trimeth DS 1 tab PO BID 10/03/18 10/03/18 [Bactrim DS] Tiotropium [place] [Spiriva 2 puff PO DAILY 10/03/18 10/03/18 Respimat] Previous Rx's Medication Instructions Recorded Aspirin 81 mg PO DAILY #30 tab.chew 11/17/16 Insulin DETEMIR [Levemir] 15 unit SQ HS 30 Days #90 [id number] 07/17/18 Insulin LISPRO [HumaLOG] 10 units SQ TIDAC 30 Days #3 vial 07/17/18 Lisinopril [Zestril] 2.5 mg PO DAILY 30 Days #30 tablet 07/17/18 Allergies Allergy/AdvReac Type Severity Reaction Status Date / Time cefdinir [From Omnicef] Allergy Rash Verified 10/01/18 13:33 metronidazole Allergy Swelling Verified 10/01/18 13:33 of Lip/Tongue/Throat codeine AdvReac Diarrhea Verified 10/01/18 13:33 metformin AdvReac Diarrhea Verified 10/01/18 13:33 Constitutional: Denies: fever, chills Eyes: Denies: eye pain ENT ED: Denies: ear pain Cardiovascular: Denies: chest pain Respiratory: Denies: cough Gastrointestinal: Denies: abdominal pain Genitourinary: Denies: urgency Musculoskeletal: Denies: back pain Integumentary: Reports: lesions (right foot ulcer). Denies: rash Neurological: Denies: headache Psychiatric: Denies: anxiety Endocrine: Denies: fatigue Hematological/Lymphatic: Denies: easy bleeding Allergic/Immunologic: Denies: facial swelling Past Medical History - Past Medical History Medical history: Reports: diabetes, myocardial infarction, other Surgical history: Reports: angioplasty/stent, cholecystectomy Psychiatric history: Reports: no psych history - Social History Smoking Status: Current every day smoker Smokeless Tobacco Status: No Alcohol use: Reports: none Drug use: Reports: none Physical Exam - General Limitations: no limitations General appearance: alert - Head Head exam: atraumatic - Eye Eye exam: Present: normal appearance - ENT ENT exam: normal exam - Neck Neck exam: Present: normal inspection - Chest Chest inspection: Present: normal inspection - Respiratory Respiratory exam: Present: normal lung sounds bilaterally - Cardiovascular Cardiovascular exam: Present: regular rate - Abdominal Exam Abdominal exam: Present: soft, Non-Tender - Expanded Lower Extremity Exam Foot/toe exam: Present: full ROM, tenderness, swelling. Absent: normal inspection (dorsal side right second toe swelling, erythema, warmth and tender to palpation) - Back Exam Back exam: Present: normal inspection, full ROM. Absent: tenderness - Neurological Exam Neurological exam: Present: alert, oriented X3 - Psychiatric Psychiatric exam: Present: normal affect, normal mood - Skin Skin exam: Present: warm. Absent: intact (see foot exam) Course Vital Signs Temperature 98.6 F 11/07/18 10:30 Pulse Rate 86 11/07/18 10:30 Respiratory Rate 17 11/07/18 10:30 Blood Pressure 112/57 11/07/18 10:30 O2 Sat by Pulse Oximetry 97 11/07/18 10:30 Temperature 98.6 F 11/07/18 10:30 Pulse Rate 86 11/07/18 10:30 Respiratory Rate 17 11/07/18 10:30 Blood Pressure 112/57 11/07/18 10:30 O2 Sat by Pulse Oximetry 97 11/07/18 10:30 Oxygen Delivery Oxygen Delivery Room Air Wound/Laceration - MDM Narrative Medical decision making narrative: 48-year-old female with a history of diabetes presents with the worsening right foot ulcer. Patient visited Dr. Araiza in wound care clinic today. She was suggested to be admitted to hospital. Pt has right second toe swelling, erythema, warmth and tender to palpation. Xr right foot indicated osteomylitis in right second toe, with gas in soft tissue. Antibiotics started in ER. Spoke with Hospitalist. Pt is accepted. Dr. Araiza notified the xray results. He will see the patient in floor. He may take the patient to operation room. - Lab Data Lab results reviewed: Yes I reviewed the patient's lab results. Result diagrams: 11/07/18 11:17 11/07/18 11:17 Lab Results 11/07/18 11/07/18 11/07/18 Range/Units 11:17 11:17 11:17 WBC 11.4 H (4.3-11.1) K/mcL RBC 4.59 (3.82-4.97) M/mcL Hgb 13.6 (11.5-15.4) g/dL Hct 40.2 (35.3-44.9) % MCV 87.6 (83.0-100.0) fL MCH 29.6 (28.0-33.3) pg MCHC 33.8 (31.6-35.5) g/dL RDW 12.6 (11.5-14.5) % Plt Count 343 (140-400) K/mcL MPV 9.1 L (9.4-12.4) fL Immature Gran % 0.5 (0-4) % Seg Neutrophils % 73.2 % Lymphocytes % 18.9 % Monocytes % 5.7 % Eosinophils % 1.3 % Basophils % 0.4 % Neutrophils # 8.3 (1.6-8.9) K/mcL Lymphocytes # 2.2 (0.6-4.6) K/mcL Monocytes # 0.7 (0.0-1.3) K/mcL Eosinophils # 0.2 (0.0-0.6) K/mcL Basophils # 0.1 (0.0-0.2) K/mcL Sodium 137 (136-145) mEq/L Potassium 4.3 (3.5-5.1) mEq/L Chloride 103 (98-107) mEq/L Carbon Dioxide 27 (23-29) mEq/L BUN 10 (6-20) mg/dL Creatinine 0.63 (0.60-1.20) mg/dL Est GFR ( Amer) > 60 (> 60) Est GFR (Non-Af Amer) > 60 (> 60) BUN/Creatinine Ratio 16 (6-26) Glucose 348 H (70-105) mg/dL Calculated Osmolality 297 (280-300) Lactic Acid 1.1 (0.5-2.2) mmol/L Calcium 9.5 (8.6-10.3) mg/dL - Radiology Data Radiology results reviewed: Yes I reviewed the patient's radiology results. HISTORY: ORDERING SYSTEM PROVIDED HISTORY: right foot ulcer Follow-up foot ulcer. On going examination. Subsequent study. FINDINGS: There has been amputation at the base of the middle phalanx of the 2nd toe, as seen previously. No acute fracture or dislocation is demonstrated. There is soft tissue gas in the 2nd digit, which is diffusely swollen. There is indistinctness of the medial base of the proximal phalanx of the 2nd digit, suspicious for osteomyelitis, which was not previously present. XR/XR foot 3V RT IMPRESSION: Osteomyelitis involving the medial base of the proximal phalanx of the 2nd digit. There is surrounding soft tissue infection, with soft tissue gas. Consider further evaluation of these findings with MRI. D/ / Steven Banks MD / tSeven Banks MD Interpreting Provider: Steven Banks MD
[2018-11-07 11:30] LABS: Basophils # 0.1 K/mcL (0.0-0.2); Basophils % 0.4 %; Eosinophils # 0.2 K/mcL (0.0-0.6); Eosinophils % 1.3 %; Hematocrit 40.2 % (35.3-44.9); Hemoglobin 13.6 g/dL (11.5-15.4); Immature Granulocytes % 0.5 % (0-4); Lymphocytes # 2.2 K/mcL (0.6-4.6); Lymphocytes % 18.9 %; Mean Corpuscular HGB Conc 33.8 g/dL (31.6-35.5); Mean Corpuscular Hemoglobin 29.6 pg (28.0-33.3); Mean Corpuscular Volume 87.6 fL (83.0-100.0); Mean Platelet Volume 9.1 fL (9.4-12.4); Monocytes # 0.7 K/mcL (0.0-1.3); Monocytes % 5.7 %; Neutrophils # 8.3 K/mcL (1.6-8.9); Platelet Count 343 K/mcL (140-400); Red Blood Count 4.59 M/mcL (3.82-4.97); Red Cell Distribution Width 12.6 % (11.5-14.5); Segmented Neutrophils % 73.2 %
[2018-11-07 11:50] LABS: BUN/Creatinine Ratio 16 (6-26); Blood Urea Nitrogen 10 mg/dL (6-20); Calcium 9.5 mg/dL (8.6-10.3); Carbon Dioxide 27 mEq/L (23-29); Chloride 103 mEq/L (98-107); Glucose 348 mg/dL (70-105); Osmolality,Calculated 297 (280-300); Potassium 4.3 mEq/L (3.5-5.1); Sodium 137 mEq/L (136-145); eGFR For Non-African Americans > 60 (> 60)
[2018-11-07] MEDS ORDERED: Piperacillin/Tazobactam 3.375 GM in 0.9 % Sodium Chloride Mini Bag 100 ML IVPB ONE (11:50)
[2018-11-07] MEDS ORDERED: *HR* Dextrose 50 % in Water (Syg) 50 ML SYRINGE IVP PRN (12:07)
[2018-11-07] MEDS ORDERED: Dextrose Gel 15 GM/37.5 ML TUBE PO PRN ×2 (12:07)
[2018-11-07] MEDS ORDERED: D5% in Water 1,000 ML IVC PRN (12:07)
[2018-11-07] MEDS ORDERED: Naloxone 0.4 MG/ML INJ IVP PRN (12:09)
--- NOTE | 2018-11-07 12:12 | Emergency Department Note ---
Disposition Clinical Impression: Osteomyelitis Qualifiers: Osteomyelitis type: unspecified type Osteomyelitis location: foot Laterality: right Qualified Code(s): M86.9 - Osteomyelitis, unspecified Disposition: Admitted As Inpatient Condition: Good Referrals: NONE,PCP [Primary Care Provider] - Forms: ED Satisfaction Letter General Adult HPI - General Chief complaint: ED Wound/Laceration Stated complaint: Ulcer right foot Time Seen by Provider: 11/07/18 10:47 Source: patient Mode of arrival: ambulatory Limitations: no limitations - History of Present Illness Pain Scale: 5 - Related Data Home Medications Medication Instructions Recorded Confirmed Clopidogrel [Plavix] 75 mg PO DAILY 01/22/18 10/03/18 Nitroglycerin [Nitrostat] 0.4 mg SL Q5M PRN 01/22/18 10/03/18 Metoprolol Succinate [Toprol Xl] 25 mg PO DAILY 07/04/18 10/03/18 Fluticasone/Vilanterol [Breo 1 puff IH DAILY 10/03/18 10/03/18 Ellipta 100-25 Mcg INH] Rosuvastatin [Crestor] 20 mg PO HS 10/03/18 10/03/18 Sulfamethoxazole/Trimeth DS 1 tab PO BID 10/03/18 10/03/18 [Bactrim DS] Tiotropium [place] [Spiriva 2 puff PO DAILY 10/03/18 10/03/18 Respimat] Previous Rx's Medication Instructions Recorded Aspirin 81 mg PO DAILY #30 tab.chew 11/17/16 Insulin DETEMIR [Levemir] 15 unit SQ HS 30 Days #90 [id number] 07/17/18 Insulin LISPRO [HumaLOG] 10 units SQ TIDAC 30 Days #3 vial 07/17/18 Lisinopril [Zestril] 2.5 mg PO DAILY 30 Days #30 tablet 07/17/18 Allergies Allergy/AdvReac Type Severity Reaction Status Date / Time cefdinir [From Omnicef] Allergy Rash Verified 10/01/18 13:33 metronidazole Allergy Swelling Verified 10/01/18 13:33 of Lip/Tongue/Throat codeine AdvReac Diarrhea Verified 10/01/18 13:33 metformin AdvReac Diarrhea Verified 10/01/18 13:33 Constitutional: Denies: fever, chills Eyes: Denies: eye pain ENT ED: Denies: ear pain Cardiovascular: Denies: chest pain Respiratory: Denies: cough Gastrointestinal: Denies: abdominal pain Genitourinary: Denies: urgency Musculoskeletal: Denies: back pain Integumentary: Reports: lesions (right foot ulcer). Denies: rash Neurological: Denies: headache Psychiatric: Denies: anxiety Endocrine: Denies: fatigue Hematological/Lymphatic: Denies: easy bleeding Allergic/Immunologic: Denies: facial swelling Past Medical History - Past Medical History Medical history: Reports: diabetes, myocardial infarction, other Surgical history: Reports: angioplasty/stent, cholecystectomy Psychiatric history: Reports: no psych history - Social History Smoking Status: Current every day smoker Smokeless Tobacco Status: No Alcohol use: Reports: none Drug use: Reports: none Physical Exam - General Limitations: no limitations General appearance: alert Course Vital Signs Temperature 98.6 F 11/07/18 10:30 Pulse Rate 86 11/07/18 10:30 Respiratory Rate 17 11/07/18 10:30 Blood Pressure 112/57 11/07/18 10:30 O2 Sat by Pulse Oximetry 97 11/07/18 10:30 Temperature 98.6 F 11/07/18 10:30 Pulse Rate 86 11/07/18 10:30 Respiratory Rate 17 11/07/18 10:30 Blood Pressure 112/57 11/07/18 10:30 O2 Sat by Pulse Oximetry 97 11/07/18 10:30 Oxygen Delivery Oxygen Delivery Room Air Medical Decision Making - Lab Data Result diagrams: 11/07/18 11:17 11/07/18 11:17 Lab Results 11/07/18 11/07/18 11/07/18 Range/Units 11:17 11:17 11:17 WBC 11.4 H (4.3-11.1) K/mcL RBC 4.59 (3.82-4.97) M/mcL Hgb 13.6 (11.5-15.4) g/dL Hct 40.2 (35.3-44.9) % MCV 87.6 (83.0-100.0) fL MCH 29.6 (28.0-33.3) pg MCHC 33.8 (31.6-35.5) g/dL RDW 12.6 (11.5-14.5) % Plt Count 343 (140-400) K/mcL MPV 9.1 L (9.4-12.4) fL Immature Gran % 0.5 (0-4) % Seg Neutrophils % 73.2 % Lymphocytes % 18.9 % Monocytes % 5.7 % Eosinophils % 1.3 % Basophils % 0.4 % Neutrophils # 8.3 (1.6-8.9) K/mcL Lymphocytes # 2.2 (0.6-4.6) K/mcL Monocytes # 0.7 (0.0-1.3) K/mcL Eosinophils # 0.2 (0.0-0.6) K/mcL Basophils # 0.1 (0.0-0.2) K/mcL Sodium 137 (136-145) mEq/L Potassium 4.3 (3.5-5.1) mEq/L Chloride 103 (98-107) mEq/L Carbon Dioxide 27 (23-29) mEq/L BUN 10 (6-20) mg/dL Creatinine 0.63 (0.60-1.20) mg/dL Est GFR ( Amer) > 60 (> 60) Est GFR (Non-Af Amer) > 60 (> 60) BUN/Creatinine Ratio 16 (6-26) Glucose 348 H (70-105) mg/dL Calculated Osmolality 297 (280-300) Lactic Acid 1.1 (0.5-2.2) mmol/L Calcium 9.5 (8.6-10.3) mg/dL Attestation Statement - Attestation Attestation: For this encounter, I have reviewed the DIRECTOR OF PEOPLE or PA documentation, treatment plan, and medical decision making; and I have had face to face time with this patient. Patient presents to the ED with a chief complaint of a foot ulcer infection. Patient has had bone removed in the second toe before. Is now red and swollen and she was sent in by podiatry. On exam there is diffuse swelling and erythema of the second digit. Plan. X-ray shows subcutaneous gas. We will discuss with podiatry. IV antibiotic ordered.
--- NOTE | 2018-11-07 12:27 | Internal Med History&Physical ---
Date of Encounter: 11/07/18 Time of Encounter: 12:23 Internal Medicine - H&P: HPI Chief complaint: Right foot ulcer Admitted From: Emergency Dept Plans for Post Hospital Care: Home History of present illness: Ms. JAMES is a 48 year old female with medical history of CHF with reduced ejection fraction uncontrolled diabetes mellitus, heavy tobacco use, COPD not on home oxygen, coronary artery disease with prior stent placement who was sent from Dr. Araiza office as she was there being evaluated for right sided diabetic foot ulcer. The patient has been dealing with this for the past 3-4 months and has been on multiple courses of oral antibiotics. Recently been on doxycycline as well as Bactrim and Augmentin. She is being evaluated there in in the office and was sent here for possible osteomyelitis. Patient had a right foot x-ray that showed osteomyelitis involving the medial base of the proximal phalanx of the second digit. There is surrounding soft tissue infection. There was also soft tissue gas. The patient was given vancomycin and Zosyn. She was hemodynamically stable in the ED. Denies any headache, blurry vision, nausea, vomiting, chest pain, shortness of Abdominal pain, there, constipation, her symptoms, or neurological symptoms. Patient does report subjective fevers and chills. Labs in the ED were significant for glucose of 348 and a WBC count of 11.4. Otherwise labs were unremarkable. 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 Psychiatric history: no psych history - Past Surgical History Surgical History: angioplasty/stent, cholecystectomy Additional surgical history: carpal tunnel-rt,foot surgey-rt - Social History Smoking Status: Current every day smoker Smokeless Tobacco Status: No Alcohol use: none Drug use: none - Family History Mother Adopted: No Living Status: Hx Family Cardiac Disorders: Yes Father Adopted: (Patient adopted, no information available) Living Status: Hx Family Cardiac Disorders: Yes Internal Medicine - H&P: Meds Aspirin 81 mg PO DAILY #30 tab.chew 11/17/16 [Rx] Clopidogrel [Plavix] 75 mg PO DAILY 01/22/18 [History] Nitroglycerin [Nitrostat] 0.4 mg SL Q5M PRN 01/22/18 [History] Metoprolol Succinate [Toprol Xl] 25 mg PO DAILY 07/04/18 [History] Insulin DETEMIR [Levemir] 15 unit SQ HS 30 Days #90 [id number] 07/17/18 [Rx] Insulin LISPRO [HumaLOG] 10 units SQ TIDAC 30 Days #3 vial 07/17/18 [Rx] Lisinopril [Zestril] 2.5 mg PO DAILY 30 Days #30 tablet 07/17/18 [Rx] Fluticasone/Vilanterol [Breo Ellipta 100-25 Mcg INH] 1 puff IH DAILY 10/03/18 [History] Rosuvastatin [Crestor] 20 mg PO HS 10/03/18 [History] Sulfamethoxazole/Trimeth DS [Bactrim DS] 1 tab PO BID 10/03/18 [History] Tiotropium [place] [Spiriva Respimat] 2 puff PO DAILY 10/03/18 [History] Allergy/AdvReac Type Severity Reaction Status Date / Time cefdinir [From Omnicef] Allergy Rash Verified 10/01/18 13:33 metronidazole Allergy Swelling Verified 10/01/18 13:33 of Lip/Tongue/Throat codeine AdvReac Diarrhea Verified 10/01/18 13:33 metformin AdvReac Diarrhea Verified 10/01/18 13:33 All Systems PM: A 10-system review of systems was performed and is negative for pertinent findings except as documented above in the HPI. Review of systems: All systems reviewed are negative except as mentioned above - Constitutional Vitals: Temp Pulse Resp BP Pulse Ox 98.6 F 86 17 112/57 97 11/07/18 12:15 11/07/18 12:15 11/07/18 12:15 11/07/18 12:15 11/07/18 12:15 Exam: GEN: NAD HEENT: AT, NC, No cyanosis, oral mucosa is moist, No JVD Lymphatics: No lymphadenoapthy Eyes: Extrocular muscles intact, anicteric CVS:RRR. S1, S2, No m/r/g RESP: CTAB ABD: Soft, NT, ND, +BS EXT: No edema, No rashes, 2+ DP. Patient has been ulceration there is deep to the bone on the plantar aspect of her right foot under the area of the second toe with surrounding erythema. Tender to palpation. The toe on the dorsal aspect is erythematous and swollen NEURO: Nonfocal, CN II-XII intact, No focal motor or sensory deficits Psych: Cooperative, Not anxious or depressed Internal Med - H&P Results - Labs CBC & Chem 7: 11/07/18 11:17 11/07/18 11:17 Labs: Short CBC 11/07/18 Range/Units 11:17 WBC 11.4 H (4.3-11.1) K/mcL Hgb 13.6 (11.5-15.4) g/dL Hct 40.2 (35.3-44.9) % Plt Count 343 (140-400) K/mcL Neutrophils # 8.3 (1.6-8.9) K/mcL BMP 11/07/18 11:17 Sodium 137 Potassium 4.3 Chloride 103 Carbon Dioxide 27 BUN 10 Creatinine 0.63 Glucose 348 H Calcium 9.5 - Impressions ITS Impressions Foot X-Ray 11/07/18 11:01 IMPRESSION: Osteomyelitis involving the medial base of the proximal phalanx of the 2nd digit. There is surrounding soft tissue infection, with soft tissue gas. Consider further evaluation of these findings with MRI. D/ / Steven Banks MD / Steven Banks MD Interpreting Provider: Steven Banks MD - Assessment and plan (1) Osteomyelitis Current Visit: Yes Status: Acute Assessment and plan: We will place the patient on vancomycin and Zosyn. Follow up on cultures. We will talk to Dr. Araiza about his plans. If patient is to be operated on we will have to get cardiology involved for preop clearance given her history of ischemic cardiomyopathy. I believe she is likely to get an amputation. Had an echocardiogram that showed an EF of 45% with mild diastolic dysfunction. Also left heart catheter done recently showed severe three-vessel disease. There was collateral sonorously description. Recommendations was for optimal medical therapy as she was not a candidate for CABG due to no adequate grafting sites available. This was all in May of last year. We will get an EKG for now. Otherwise the patient is functional. Qualifiers: Osteomyelitis type: unspecified type Osteomyelitis location: foot Laterality: right Qualified Code(s): M86.9 - Osteomyelitis, unspecified (2) COPD (chronic obstructive pulmonary disease) Current Visit: Yes Status: Acute Assessment and plan: not in exacerbation. c/w inhalers Qualifiers: COPD type: emphysema Emphysema type: unspecified Qualified Code(s): J43.9 - Emphysema, unspecified (3) Ischemic cardiomyopathy Current Visit: Yes Status: Acute Assessment and plan: c/w previous cardiac meds (4) CAD (coronary artery disease) Current Visit: No Status: Chronic Assessment and plan: c/w home meds Qualifiers: Coronary Disease-Associated Artery/Lesion type: [place] artery [place] vs. transplanted heart: [place] heart Associated angina: without angina Qualified Code(s): I25.10 - Atherosclerotic heart disease of [place] coronary artery without angina pectoris (5) Diabetes mellitus Current Visit: No Status: Chronic Assessment and plan: c/w basal insulin. will put on sliding scale insulin. 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
[2018-11-07] MEDS: Nicotine 21 MG PATCH.TD24 TD SCH (15:08)
[2018-11-07] MEDS: *HR* Heparin 5,000 UNIT/ML VIAL SQ SCH ×2 (15:08→21:32)
[2018-11-07] MEDS: Insulin LISPRO 300 UNITS/3 ML VIAL SQ SCH (18:09)
[2018-11-07] MEDS ORDERED: Insulin DETEMIR 100 UNIT/ML X5UNITS SQ SCH (21:00)
[2018-11-07] MEDS ORDERED: Insulin LISPRO 300 UNITS/3 ML VIAL SQ SCH (21:00)
[2018-11-07] MEDS: Piperacillin/Tazobactam 3.375 GM in 0.9 % Sodium Chloride Mini Bag 100 ML IVPB SCH (23:35)
--- NOTE | 2018-11-07 23:54 | Anesthesia Evaluation PreOp ---
Addendum entered and electronically signed by Pearl Elliott MD 11/08/18 12:37: Laboratory Tests 11/08/18 11/08/18 11/08/18 05:00 05:00 05:00 WBC 10.7 Hgb 12.6 Hct 38.1 Plt Count 331 PT 12.4 H INR 1.1 Sodium 137 Potassium 4.2 Chloride 102 Carbon Dioxide 27 BUN 9 Creatinine 0.66 Vital Signs/O2 Sat, Most Current Temp Pulse Resp BP Pulse Ox 98.2 F 77 16 106/71 100 11/08/18 11:18 11/08/18 11:18 11/08/18 11:18 11/08/18 11:18 11/08/18 11:18 labs reviewed, vital signs stable, NPO status confirmed Plan MAC/LOCAL Original Note: Date of Encounter: 11/07/18 Time of Encounter: 21:44 - Past History Planned Operation: RIGHT PARTIAL FOOT AMPUTATION Cardiac History: [place] (05/2018), HTN, Arrhythmia (RBBB, LPFB), Cardiac Stent (11/2016), Other (ISCHEMIC CARDIOMYOPATHY, EF 20% BY C AT TIME OF [place] & 45% BY TTE) Pulmonary History: Smoker, COPD Other Medical History: Diabetes Type II (INSULIN DEPENDENT, POORLY CONTROLLED) Anesthesia History: No Prior Anesthetic Complications Alcohol Use: none Drug use: none Medications and Allergies Aspirin 81 mg PO DAILY #30 tab.chew 11/17/16 [Rx] Clopidogrel [Plavix] 75 mg PO DAILY 01/22/18 [History] Nitroglycerin [Nitrostat] 0.4 mg SL Q5M PRN 01/22/18 [History] Metoprolol Succinate [Toprol Xl] 25 mg PO DAILY 07/04/18 [History] Insulin DETEMIR [Levemir] 15 unit SQ HS 30 Days #90 [id number] 07/17/18 [Rx] Insulin LISPRO [HumaLOG] 10 units SQ TIDAC 30 Days #3 vial 07/17/18 [Rx] Lisinopril [Zestril] 2.5 mg PO DAILY 30 Days #30 tablet 07/17/18 [Rx] Fluticasone/Vilanterol [Breo Ellipta 100-25 Mcg INH] 1 puff IH DAILY 10/03/18 [History] Rosuvastatin [Crestor] 20 mg PO HS 10/03/18 [History] Sulfamethoxazole/Trimeth DS [Bactrim DS] 1 tab PO BID 10/03/18 [History] Tiotropium Proctor [Spiriva Respimat] 2 puff PO DAILY 10/03/18 [History] Allergy/AdvReac Type Severity Reaction Status Date / Time cefdinir [From Omnicef] Allergy Rash Verified 10/01/18 13:33 metronidazole Allergy Swelling Verified 10/01/18 13:33 of Lip/Tongue/Throat codeine AdvReac Diarrhea Verified 10/01/18 13:33 metformin AdvReac Diarrhea Verified 10/01/18 13:33 - Meds/Allergy Pre-op Review Medications Reviewed: Yes Allergies Reviewed: Yes Beta Blockers on Current Med List: No Anesthesia Results - Labs 11/07/18 11:17 11/07/18 11:17 Laboratory Tests 11/07/18 11:17 Est GFR (Non-Af Amer) > 60 Calcium 9.5 - Imaging Additional studies: [facility] 05/2018: There is severe three vessel coronary artery disease including severe distal left main disease/ostial LCx and long RCA OTOLOGIST with left septals providing collaterals to RCA distribution. Rapidly progressive CAD (compared with 11/2016) and history of stent thrombosis Diabetes, nicotine dependence The left ventricle has abnormal contractility EF 20% Recommendations: Optimal medical therapy of patient's disease. Aggressive risk factor modification. Consult CT surgery but likely poor targets, would recommend aggressive maximal medical therapy. TTE 05/2018 LVEF 45%. Normal LV chamber size. Atypical septal motion consistent with a bundle branch block. Mild segmental left ventricular systolic dysfunction. Moderate left ventricular diastolic dysfunction. Normal right ventricular structure and function. Mild mitral regurgitation. Unable to estimate RVSP due to lack of TR jet. EXCERCISE STRESS 06/2018: Stress ECG was indeterminate for ischemia due to failure to achieve target heart rate. Patient exercised for 2 minutes 8 seconds achieving 58% MPHR demonstrating poor exercise capacity. At heart rate achieved, there were no marked ECG abnormalities. Blunted blood pressure response correlating with poor exercise capacity. No complaints of chest pain. No dysrhythmia. Anesthesia Exam Vital Signs/O2 Sat/Glucose, Most Recent Temp Pulse Resp BP Pulse Ox 98.3 F 90 14 108/71 93 11/07/18 18:50 11/07/18 18:50 11/07/18 18:50 11/07/18 18:50 11/07/18 18:50 Blood Glucose* 368 Weight: 79 KG - BMI 27 NPO (# of Hours): >MN - HEENT Mallampati: II Teeth: Edentulous Oral Opening: Greater than 3 - Cardiac Rhythm: Regular - Pulmonary Breath Sounds: bilateral Clear Respiratory Effort: Symmetrical - Additional Findings Active Medications Dextrose/Water (Dextrose 50% (Syg)) 25 ml IVP AD PRN PRN Reason: Hypoglycemia Stop: 05/09/19 12:08 Glucagon (Glucagen) 1 mg IM ONCE PRN PRN Reason: Hypoglycemia Stop: 05/09/19 12:08 Glucose (Gluctose) 15 gm PO ONCE PRN PRN Reason: Hypoglycemia Stop: 05/09/19 12:08 Glucose (Gluctose) 30 gm PO ONCE PRN PRN Reason: Hypoglycemia Stop: 05/09/19 12:08 Heparin Sodium (Porcine) (Heparin) 5,000 unit SQ Q8HCO [place] Stop: 05/09/19 14:01 Last Admin: 11/07/18 21:32 Dose: 5,000 unit Dextrose (Dextrose 5%) 1,000 mls @ 100 mls/hr IVC .Q10H PRN PRN Reason: HYPOGLYCEMIA Stop: 05/09/19 12:08 Piperacillin Sod/Tazobactam (Sod 3.375 gm/ Sodium Chloride) 100 mls @ 25 mls/hr IVPB Q8H [place] Stop: 05/09/19 21:01 Last Admin: 11/07/18 23:35 Dose: 25 mls/hr Vancomycin HCl 1,250 mg/ (Sodium Chloride) 250 mls @ 167 mls/hr IVPB Q12H [facility]; Protocol Stop: 05/09/19 22:01 Last Admin: 11/07/18 21:33 Dose: 167 mls/hr Insulin Detemir (Levemir) 20 unit SQ HS [place] Stop: 05/09/19 21:01 Last Admin: 11/07/18 21:33 Dose: 20 unit Insulin Human Lispro (Humalog) 0 units SQ HS [facility]; Protocol Stop: 05/09/19 21:01 Last Admin: 11/07/18 21:32 Dose: 6 units Insulin Human Lispro (Humalog) 0 units SQ TIDAC [facility]; Protocol Stop: 05/09/19 16:31 Last Admin: 11/07/18 18:09 Dose: 12 units Naloxone HCl (Narcan) 0.4 mg IVP Q2MIN PRN PRN Reason: SEE COMMENTS Stop: 05/09/19 12:10 Nicotine (Nicoderm) 21 mg TD Q24H [facility]; Protocol Stop: 05/09/19 12:46 Last Admin: 11/07/18 15:08 Dose: Not Given Anesthesia Assess/Plan ASA Score: 3 Anesthetic Plan: General, MAC Monitoring Plan: Standard Monitors Recovery Plan: PACU
[2018-11-08 05:14] LABS: Basophils # 0.1 K/mcL (0.0-0.2); Basophils % 0.5 %; Eosinophils # 0.2 K/mcL (0.0-0.6); Eosinophils % 1.6 %; Hematocrit 38.1 % (35.3-44.9); Hemoglobin 12.6 g/dL (11.5-15.4); Immature Granulocytes % 0.7 % (0-4); Lymphocytes # 2.9 K/mcL (0.6-4.6); Lymphocytes % 27.3 %; Mean Corpuscular HGB Conc 33.1 g/dL (31.6-35.5); Mean Corpuscular Hemoglobin 29.1 pg (28.0-33.3); Mean Platelet Volume 9.2 fL (9.4-12.4); Monocytes # 0.7 K/mcL (0.0-1.3); Monocytes % 6.1 %; Neutrophils # 6.8 K/mcL (1.6-8.9); Platelet Count 331 K/mcL (140-400); Red Blood Count 4.33 M/mcL (3.82-4.97); Red Cell Distribution Width 12.3 % (11.5-14.5); Segmented Neutrophils % 63.8 %
[2018-11-08 05:19] LABS: INR 1.1; Prothrombin Time 12.4 Seconds (9.4-12.1)
[2018-11-08 05:32] LABS: BUN/Creatinine Ratio 14 (6-26); Blood Urea Nitrogen 9 mg/dL (6-20); Calcium 9.3 mg/dL (8.6-10.3); Carbon Dioxide 27 mEq/L (23-29); Chloride 102 mEq/L (98-107); Glucose 293 mg/dL (70-105); Magnesium 1.8 mg/dL (1.6-2.6); Osmolality,Calculated 293 (280-300); Potassium 4.2 mEq/L (3.5-5.1); Sodium 137 mEq/L (136-145); eGFR For Non-African Americans > 60 (> 60)
[2018-11-08] MEDS: *HR* Heparin 5,000 UNIT/ML VIAL SQ SCH ×2 (05:49→21:39)
[2018-11-08] MEDS: Piperacillin/Tazobactam 3.375 GM in 0.9 % Sodium Chloride Mini Bag 100 ML IVPB SCH ×3 (06:46→21:31)
--- NOTE | 2018-11-08 07:34 | Podiatry Consult Note ---
Date of Encounter: 11/08/18 Time of Encounter: 06:00 Assessment and Plan (1) Osteomyelitis Current visit: Yes Status: Acute see below. Qualifiers: Osteomyelitis type: other acute Osteomyelitis location: foot Laterality: right Qualified Code(s): M86.171 - Other acute osteomyelitis, right ankle and foot (2) Osteomyelitis Current visit: Yes Status: Acute I had a thorough review with the patient regarding her infection and condition. discussed with patient treatment options. patient in agreement to proceed with I&D and partial 2nd ray amputation right foot. discussed with patient potential complications and consequences of surgery of surgery and her condition. she und erstood that she is high risk for limb loss and she could during or after surgery with her heart condition or if she develops sepsis. She understood that she will require more surgery in the future. No guarantees made as to the outcome or that she would keep her foot. all questions answered and the informed consent was signed. Qualifiers: Osteomyelitis type: unspecified type Osteomyelitis location: foot Laterality: right Qualified Code(s): M86.9 - Osteomyelitis, unspecified History of Present Illness HPI: Ms. JAMES is a 48 year old female admitted with severe right foot infection. The infection has worsened since last week. She was admitted after being sent to the ER from the wound care center yesterday. 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 Psychiatric history: no psych history - Past Surgical History Surgical History: angioplasty/stent, cholecystectomy Additional surgical history: carpal tunnel-rt,foot surgey-rt - Social History Smoking Status: Current every day smoker Smokeless Tobacco Status: No Alcohol use: none Drug use: none - Family History Mother Adopted: No Living Status: Hx Family Cardiac Disorders: Yes Father Adopted: (Patient adopted, no information available) Living Status: Hx Family Cardiac Disorders: Yes Medications and Allergies Aspirin 81 mg PO DAILY #30 tab.chew 11/17/16 [Rx] Clopidogrel [Plavix] 75 mg PO DAILY 01/22/18 [History] Nitroglycerin [Nitrostat] 0.4 mg SL Q5M PRN 01/22/18 [History] Metoprolol Succinate [Toprol Xl] 25 mg PO DAILY 07/04/18 [History] Insulin DETEMIR [Levemir] 15 unit SQ HS 30 Days #90 [id number] 07/17/18 [Rx] Insulin LISPRO [HumaLOG] 10 units SQ TIDAC 30 Days #3 vial 07/17/18 [Rx] Lisinopril [Zestril] 2.5 mg PO DAILY 30 Days #30 tablet 07/17/18 [Rx] Fluticasone/Vilanterol [Breo Ellipta 100-25 Mcg INH] 1 puff IH DAILY 10/03/18 [History] Rosuvastatin [Crestor] 20 mg PO HS 10/03/18 [History] Sulfamethoxazole/Trimeth DS [Bactrim DS] 1 tab PO BID 10/03/18 [History] Tiotropium Aurora [Spiriva Respimat] 2 puff PO DAILY 10/03/18 [History] Allergy/AdvReac Type Severity Reaction Status Date / Time cefdinir [From Omnicef] Allergy Rash Verified 10/01/18 13:33 metronidazole Allergy Swelling Verified 10/01/18 13:33 of Lip/Tongue/Throat codeine AdvReac Diarrhea Verified 10/01/18 13:33 metformin AdvReac Diarrhea Verified 10/01/18 13:33 All Systems Reviewed: The remainder of the systems were reviewed and are negative - Constitutional Constitutional: no fever(s) - Cardiovascular Cardiovascular: no chest pain - Respiratory Respiratory: no cough - Musculoskeletal Musculoskeletal: numbness Physical Exam - Constitutional Vitals: Temp Pulse Resp BP Pulse Ox 98.7 F 92 14 120/82 90 11/08/18 03:30 11/08/18 03:30 11/08/18 03:30 11/08/18 03:30 11/08/18 03:30 Exam: well developed and nourished female in no acute distress CFT < 3 sec digits of right foot. right foot is warm to touch. intense erythema of the right 2nd toe extending onto the midfoot. crepitus of the 2nd digit. purulent drainage and ulceration plantarly. moderate edema. diminished protective sensation. xray: osteomyelitis proximal phalanx base, soft tissue gas 2nd digit. Results - Labs Result Diagrams: 11/08/18 05:00 11/08/18 05:00 Labs: Abnormal lab results MPV 9.2 fL (9.4-12.4) L 11/08/18 05:00 PT 12.4 Seconds (9.4-12.1) H 11/08/18 05:00 Glucose 293 mg/dL (70-105) H 11/08/18 05:00 POC Glucose 358 mg/dL (70-99) H 11/07/18 16:45 H & H 11/07/18 11/08/18 Range/Units 11:17 05:00 Hgb 13.6 12.6 (11.5-15.4) g/dL Hct 40.2 38.1 (35.3-44.9) % All other labs normal. Consult Discharge Plan - Plan Referrals: NONE,PCP [Primary Care Provider] -
--- NOTE | 2018-11-08 07:35 | Internal Med Progress Note ---
Hospitalist Progress Note - Encounter Date of Encounter: 11/08/18 Time of Encounter: 07:36 - Subjective Interval History: No acute events overnight. Feeling well. afebrile. Admitted by myself for osteomyelitis. Discussed with Dr. Araiza and needs clearance by cardiology to go to the OR for amputation. - Exam Vitals: Temp Pulse Resp BP Pulse Ox 98.7 F 92 14 120/82 90 11/08/18 03:30 11/08/18 03:30 11/08/18 03:30 11/08/18 03:30 11/08/18 03:30 Exam: GEN: NAD HEENT: AT, NC, No cyanosis, oral mucosa is moist, No JVD Lymphatics: No lymphadenoapthy Eyes: Extrocular muscles intact, anicteric CVS:RRR. S1, S2, No m/r/g RESP: CTAB ABD: Soft, NT, ND, +BS EXT: No edema, No rashes, 2+ DP. Patient has been ulceration there is deep to the bone on the plantar aspect of her right foot under the area of the second toe with surrounding erythema. Tender to palpation. The toe on the dorsal aspect is erythematous and swollen NEURO: Nonfocal, CN II-XII intact, No focal motor or sensory deficits Psych: Cooperative, Not anxious or depressed - Assessment and Plan (1) Osteomyelitis Current Visit: Yes Status: Acute Assessment and Plan: c/w vanco/zosyn. f/u on blood cultures. cardiology to see for preop clearance. Has a history of ischemic cardiomyopathy. Had an echocardiogram that showed an EF of 45% with mild diastolic dysfunction. Also left heart catheter done recently showed severe three-vessel disease. There was collateral. Re commendations was for optimal medical therapy as she was not a candidate for CABG due to no adequate grafting sites available. This was all in May of last year. We will get an EKG for now. Otherwise the patient is functional. (2) COPD (chronic obstructive pulmonary disease) Current Visit: Yes Status: Acute Assessment and Plan: not in exacerbation. c/w inhalers (3) Ischemic cardiomyopathy Current Visit: Yes Status: Acute Assessment and Plan: c/w previous cardiac meds (4) CAD (coronary artery disease) Current Visit: No Status: Chronic Assessment and Plan: c/w home meds (5) Diabetes mellitus Current Visit: No Status: Chronic Assessment and Plan: c/w basal insulin. will put on sliding scale insulin. c/w accuchecks (6) Tobacco abuse Current Visit: Yes Status: Acute Assessment and Plan: Nicotine patch (7) DVT prophylaxis Current Visit: No Status: Acute Assessment and Plan: heparin sq - Time Spent with Patient Total time spent is greater than 50% in coordination of care (as documented) at patient's floor/unit and/or counseling patient: Internal Medicine: Result - Labs CBC & Chem 7: 11/08/18 05:00 11/08/18 05:00 Labs: Short CBC 11/07/18 11/08/18 Range/Units 11:17 05:00 WBC 11.4 H 10.7 (4.3-11.1) K/mcL Hgb 13.6 12.6 (11.5-15.4) g/dL Hct 40.2 38.1 (35.3-44.9) % Plt Count 343 331 (140-400) K/mcL Neutrophils # 8.3 6.8 (1.6-8.9) K/mcL BMP 11/07/18 11/08/18 11:17 05:00 Sodium 137 137 Potassium 4.3 4.2 Chloride 103 102 Carbon Dioxide 27 27 BUN 10 9 Creatinine 0.63 0.66 Glucose 348 H 293 H Calcium 9.5 9.3 - ABG Interpretation ABG results: PT/INR, D-dimer PT 12.4 Seconds (9.4-12.1) H 11/08/18 05:00 - Impressions Impressions Foot X-Ray 11/07/18 11:01 IMPRESSION: Osteomyelitis involving the medial base of the proximal phalanx of the 2nd digit. There is surrounding soft tissue infection, with soft tissue gas. Consider further evaluation of these findings with MRI. D/ / Steven Banks MD / Steven Banks MD Interpreting Provider: Steven Banks MD Consult Discharge Plan - Plan Referrals: NONE,PCP [Primary Care Provider] - ___ (1) Osteomyelitis Qualifiers: Qualified Code(s): M86.9 - Osteomyelitis, unspecified (2) COPD (chronic obstructive pulmonary disease) Qualifiers: Qualified Code(s): J43.9 - Emphysema, unspecified (4) CAD (coronary artery disease) Qualifiers: Qualified Code(s): I25.10 - Atherosclerotic heart disease of [place] coronary artery without angina pectoris (5) Diabetes mellitus Qualifiers: Qualified Code(s): E11.65 - Type 2 diabetes mellitus with hyperglycemia
[2018-11-08] MEDS: Insulin LISPRO 300 UNITS/3 ML VIAL SQ SCH ×4 (07:47→21:41)
--- NOTE | 2018-11-08 08:50 | Cardiology Consult Note ---
<Farhan Goodwin - Last Filed: 11/08/18 10:50> Date of Encounter: 11/08/18 Time of Encounter: 09:48 Assessment and Plan (1) Osteomyelitis Current Visit: Yes Status: Acute Ms. JAMES is a 48 year old female with PMHx significant for three vessel CAD w/ most recent WI in May 2017, CHF with reduced EF, uncontrolled DM, heavy tobacco use who presents from Podiatry office with worsening right foot ulcer. Cardiology consulted for pre-operative clearance; Pt denies chest pain, SOB, palpitations; denies decreased functional capacity; patient able to complete activities of daily living without difficulty. Pt recently seen in May 2018 with WI. LHC indicated severe three vessel CAD. CT surgery was consulted for possible surgical intervention at the time. However, due to poor targets for grafting, they recommended against surgery, and instead suggested aggressive maximal medical therapy. TTE indicated LVEF = 45% at the time, and LHC suggested EF = 20%. PLAN: Patient is at high risk for surgical complications due to severe three vessel coronary artery disease including severe distal left main disease; however, patient is not a surgical candidate; will continue with aggressive maximal medical therapy Follow up Outpatient Cardiology Qualifiers: Osteomyelitis type: other acute Osteomyelitis location: foot Laterality: right Qualified Code(s): M86.171 - Other acute osteomyelitis, right ankle and foot (2) CAD (coronary artery disease) Current Visit: No Status: Chronic Currently denies any symptoms - denies headache, blurry vision, chest pain, SOB, palpitations, weakness, fatigue, lower extremity claudication No decreased in functional capacity; has not necessitated use of nitroglycerin for chest pain EKG: HR = 91; NSR; Right Crucible deviation; Right Bundle Branch Block; No acute ST Changes; EKG largely unchanged from previous in 07/2018 [facility] 05/2018: There is severe three vessel coronary artery disease including severe distal lef t main disease/ostial LCx and 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 Rapidly progressive CAD (compared with 11/2016) and history of stent thrombosis. Diabetes, nicotine dependence. The left ventricle has abnormal contractility EF 20% Recommendations: Optimal medical therapy of patient's disease. Aggressive risk factor modification. Consult CT surgery but likely poor targets, would recommend aggressive maximal medical therapy. PLAN: Cont home medications - Rosuvastatin, Metoprolol Succ, Lisinopril, Plavix, Aspirin, Nitroglycerin PRN Follow up Outpatient cardiology Qualifiers: Coronary Disease-Associated Artery/Lesion type: [place] artery [place] vs. transplanted heart: [place] heart Associated angina: without angina Qualified Code(s): I25.10 - Atherosclerotic heart disease of [place] coronary artery without angina pectoris (3) Congestive heart failure Current Visit: No Status: Acute Currently not in acute exacerbation - no evidence of dyspnea, chest pain, lower extremity swelling TTE 05/2018: LVEF 45%. Normal LV chamber size. Atypical septal motion consistent with a bundle branch block. Mild segmental left ventricular systolic dysfunction. Moderate left ventricular diastolic dysfunction. Normal right ventricular structure and function. Mild mitral regurgitation. Unable to estimate RVSP due to lack of TR jet. PLAN: Cont home meds Follow up Outpatient Cardiology Qualifiers: Heart failure type: combined systolic and diastolic Heart failure chronicity: acute on chronic Qualified Code(s): I50.43 - Acute on chronic combined systolic (congestive) and diastolic (congestive) heart failure (4) Hypertension Current Visit: No Status: Chronic Chronic - BP controlled PLAN: Cont home meds Qualifiers: Hypertension type: essential hypertension Qualified Code(s): I10 - Essential (primary) hypertension Discussion w patient/family: The assessment and plan as outlined above was discussed with the patient and/or family members who expressed understanding and agreement. All questions were answered. Thank you for involving us in the care of your patient. Please call with any questions. History of Present Illness Consult date: 11/08/18 Requesting physician: Danny Don Consult reason: Pre Operative Clearance Chief complaint: Right Foot Ulcer History of present illness: Ms. JAMES is a 48 year old female with PMHx significant for three vessel CAD w/ most recent WI in May 2017, CHF with reduced EF, uncontrolled DM, heavy tobacco use who presents from Podiatry office with worsening right foot ulcer. On further examination, patient was found to have osteomyelitis involving medial base of the proximal phalynx of the second digit. Associated with surrounding soft tissue infection, soft tissue gas. Plan for podiatry to take patient to surgery for toe amputation. Cardiology was consulted for pre-operative clearance given patient's extensive cardiac history. Pt recently seen in May 2018 with WI. LHC indicated severe three vessel CAD. CT surgery was consulted for possible surgical intervention at the time. However, due to poor targets for grafting, they recommended against surgery, and instead suggested aggressive maximal medical therapy. TTE indicated LVEF = 45% at the time, and [facility] suggested EF = 20%. Pt seen and examined at bedside today, resting comfortably in no acute distress. Denies any cardiac symptoms at this time. Denies headache, blurry vision, chest pain, SOB, palpitations, nausea, vomiting, diarrhea, weakness, fatigue, lower extremity pain, numbness. Pt states that she is fully functional and able to complete her daily activities of living without difficulty. Notes that she can walk and climb stairs without difficulty, other than pain secondary to her foot ulcer. Notes she is able to complete chores around the house. Denies dyspnea on exertion, exertional angina, lower extremity claudication. Denies need to use nitroglycerin for chest pain. Currently managed with Rosuvastatin, Metoprolol Succ, Lisinopril, Plavix, Aspirin, Nitroglycerin PRN. 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 Rapidly progressive CAD (compared with 11/2016) and history of stent thrombosis. Diabetes, nicotine dependence. The left ventricle has abnormal contractility EF 20% Recommendations: Optimal medical therapy of patient's disease. Aggressive risk factor modification. Consult CT surgery but likely poor targets, would recommend aggressive maximal medical therapy. TTE 05/2018: LVEF 45%. Normal LV chamber size. Atypical septal motion consistent with a bundle branch block. Mild segmental left ventricular systolic dysfunction. Moderate left ventricular diastolic dysfunction. Normal right ventricular structure and function. Mild mitral regurgitation. Unable to estimate RVSP due to lack of TR jet. EXCERCISE STRESS 06/2018: Stress ECG was indeterminate for ischemia due to failure to achieve target heart rate. Patient exercised for 2 minutes 8 seconds achieving 58% MPHR demonstrati ng poor exercise capacity. At heart rate achieved, there were no marked ECG abnormalities. Blunted blood pressure response correlating with poor exercise capacity. No complaints of chest pain. No dysrhythmia. Past Med Surg Social Fam HX - Past Medical History Attestation: Yes The following information was validated with the patient. Source: patient, old records reviewed Medical history: diabetes, myocardial infarction, other Additional medical history: right arm nerve damage Psychiatric history: no psych history - Past Surgical History Surgical History: angioplasty/stent, cholecystectomy Additional surgical history: carpal tunnel-rt,foot surgey-rt - Social History Smoking Status: Current every day smoker Smokeless Tobacco Status: No Alcohol use: none Drug use: none - Family History Mother Adopted: No Living Status: Hx Family Cardiac Disorders: Yes Father Adopted: (Patient adopted, no information available) Living Status: Hx Family Cardiac Disorders: Yes Medications and Allergies Aspirin 81 mg PO DAILY #30 tab.chew 11/17/16 [Rx] Clopidogrel [Plavix] 75 mg PO DAILY 01/22/18 [History] Nitroglycerin [Nitrostat] 0.4 mg SL Q5M PRN 01/22/18 [History] Metoprolol Succinate [Toprol Xl] 25 mg PO DAILY 07/04/18 [History] Insulin DETEMIR [Levemir] 15 unit SQ HS 30 Days #90 [id number] 07/17/18 [Rx] Insulin LISPRO [HumaLOG] 10 units SQ TIDAC 30 Days #3 vial 07/17/18 [Rx] Lisinopril [Zestril] 2.5 mg PO DAILY 30 Days #30 tablet 07/17/18 [Rx] Fluticasone/Vilanterol [Breo Ellipta 100-25 Mcg INH] 1 puff IH DAILY 10/03/18 [History] Rosuvastatin [Crestor] 20 mg PO HS 10/03/18 [History] Sulfamethoxazole/Trimeth DS [Bactrim DS] 1 tab PO BID 10/03/18 [History] Tiotropium [place] [Spiriva Respimat] 2 puff PO DAILY 10/03/18 [History] Allergy/AdvReac Type Severity Reaction Status Date / Time cefdinir [From Omnicef] Allergy Rash Verified 10/01/18 13:33 metronidazole Allergy Swelling Verified 10/01/18 13:33 of Lip/Tongue/Throat codeine AdvReac Diarrhea Verified 10/01/18 13:33 metformin AdvReac Diarrhea Verified 10/01/18 13:33 All Systems Review: The remainder of the systems were reviewed and are negative - Constitutional Constitutional: no anorexia, no chills, no fatigue, no fever(s), no frequent falls, no headache(s), no lethargy, no malaise, no weakness - EENT Eyes: no blurred vision - Cardiovascular Cardiovascular: no chest pain at rest, no chest pain with exertion, no claudication, no diaphoresis, no dyspnea at rest, no dyspnea on exertion, no irregular heart rhythm, no radiating jaw, neck or arm pain, no leg edema, no lightheadedness, no palpitations, no rapid heart rate - Respiratory Respiratory: no cough, no dyspnea - Gastrointestinal Gastrointestinal: no abdominal pain, no nausea - Genitourinary Genitourinary: no dysuria - Musculoskeletal Musculoskeletal: other (Right Foot Pain), no back pain, no myalgias - Integumentary Integumentary: no rash - Neurological Neurological: no dizziness, no focal weakness, no syncope Physical Examination Vital Signs, Last 4 Hours Temp Pulse Resp BP Pulse Ox 11/08/18 07:31 98.1 F 84 16 114/74 91 General: Conversant, No Apparent Distress HEENT: Atraumatic, Normocephaly, Mucus Membranes Moist Neck: Normal carotid pulses Cardiac: Reg Rate and Rhythm, Normal S1 and S2, No Murmur Lungs: Normal Breath Sounds, No Wheeze, Rales, Rhonchi Neuro: Alert and responsive, No focal deficits noted Abdomen: Soft, Non-Tender Skin: No rashes noted on visualized skin Extremities: No Edema, Normal Pulses, Other (Bandaged Right Foot) Results 11/08/18 05:00 11/08/18 05:00 Lab Results 11/07/18 11/07/18 11/08/18 11:17 11:17 05:00 WBC 11.4 H 10.7 Hgb 13.6 12.6 Hct 40.2 38.1 Plt Count 343 331 INR Sodium 137 Potassium 4.3 Chloride 103 Carbon Dioxide 27 BUN 10 Creatinine 0.63 Glucose 348 H Calcium 9.5 Magnesium 11/08/18 11/08/18 05:00 05:00 WBC Hgb Hct Plt Count INR 1.1 Sodium 137 Potassium 4.2 Chloride 102 Carbon Dioxide 27 BUN 9 Creatinine 0.66 Glucose 293 H Calcium 9.3 Magnesium 1.8 Consult Discharge Plan - Plan Referrals: NONE,PCP [Primary Care Provider] - <Alex Atkinson - Last Filed: 11/08/18 11:53> Date of Encounter: 11/08/18 - Attending Attestation I examined this patient and my medical decision-making was reviewed with the Resident Physician. I agree with the documented findings, disposition and treatment plan as described except to the extent set forth below. CC: Pain in right foot. HPI: Pt reports approximately six month hx of pain right foot, started with sore on bottom of her foot, which has progressed in size and pain. She has also developed an ulcer on the top of her right distal foot. She has undergone outpatient evaluation, and reportedly has a bone infection in the distal right foot, anticipates amputation. She has an extensive cardiac history, with two previous MIs in the last year, with most recent LHC 05/22. She denies chest pain, pressure, lower extremity edema and palpitations. She reports is chronically short of breath with exertion, which she attributes to smoking, however reports is able to climb one flight of stairs without stopping due to shortness of breath of chest pain. She has more difficulty comming down stairs due pain in right foot with weight bearing. She continues to smoke at least one half pack cigs a day against medical advice. ROS: Reviewed PMH: Reviewed LABS, Xrays, previous C 05/23 reviewed PE: pt seen and examined, agree with findings as documented. IMP/Plan: 1. Osteomyelites second digit right foot, failed multiple courses of antibiotics, now anticipates partial right foot amptuation. 2. CAD: severe triple vessel CAD with severe LMT disease, proximal LAD dx, with diffuse moderate to severe CAD in all three vessels, not a candidate for surgical or percutaneous revascularization, on optimal medical management. 3. Well compensated chronic systolic heart failure due to ischemic CMP with most recent EF 45%, ant and apical hypokinesis 4. Tobacco abuse medical advice: encourage smoking cessation Pt is at high cardiovascular risk for planned procedure, not a candidate for revascularization, medical tx optimized, pt aware and accepts increased cardiovascular risk of WI, CHF, arrythmia and . Assessment and Plan Discussion w patient/family: The assessment and plan as outlined above was discussed with the patient and/or family members who expressed understanding and agreement. All questions were answered. Thank you for involving us in the care of your patient. Please call with any questions. History of Present Illness History of present illness: Ms. JAMES is a 48 year old female All Systems Review: The remainder of the systems were reviewed and are negative Physical Examination Vital Signs, Last 4 Hours Temp Pulse Resp BP Pulse Ox 11/08/18 11:18 98.2 F 77 16 106/71 100 Results 11/08/18 05:00 11/08/18 05:00 Lab Results 11/07/18 11/08/18 11/08/18 11:17 05:00 05:00 WBC 10.7 Hgb 12.6 Hct 38.1 Plt Count 331 INR 1.1 Sodium 137 Potassium 4.3 Chloride 103 Carbon Dioxide 27 BUN 10 Creatinine 0.63 Glucose 348 H Calcium 9.5 Magnesium 11/08/18 05:00 WBC Hgb Hct Plt Count INR Sodium 137 Potassium 4.2 Chloride 102 Carbon Dioxide 27 BUN 9 Creatinine 0.66 Glucose 293 H Calcium 9.3 Magnesium 1.8
[2018-11-08] MEDS ORDERED: Bupivacaine/EPI 1:200k 0.25%PF 10 ML VIAL INFILT ONE (12:43)
[2018-11-08] MEDS ORDERED: Lidocaine -MPF 2% 2 ML VIAL ONE (12:45)
[2018-11-08] MEDS ORDERED: *HR* Midazolam HCl 2 MG/2 ML VIAL ONE (12:45)
[2018-11-08] MEDS ORDERED: Propofol 500 MG/50 ML INFUS..BTL ONE (12:47)
[2018-11-08] MEDS: Nicotine 21 MG PATCH.TD24 TD SCH (13:03)
--- NOTE | 2018-11-08 14:04 | Operative Note ---
Date of procedure: 11/08/18 Pre-op diagnosis: right foot osteomyelitis, soft tissue gas, abscess Post-op diagnosis: same Procedure: incision and drainage right foot partial right foot 2nd ray amputation Implants: none Complications: none Anesthesia: MAC Local Anesthetics: 1% Lidocaine HCL SubQ (cc) Surgeon: Shin Araiza Was there an assistant merchandise manager present: No Estimated blood loss (cc): 25 Specimen: path-right 2nd toe bone and clear margin metatarsal, micro-right foot soft Condition: stable Disposition: PACU Procedure in Detail: Indications: 48 year old female with severe diabetic foot infection with abscess and osteomyelitis being brought to the operating room after having the nature of the procedure, risks versus benefits potential complications consequences of surgery and her condition discussed at length. No guarantees made as to the outcome of any procedure. She understood that she may require return trips to the operating room. All questions were answered and informed consent was signed patient was taken from preoperative holding area and operating room placed on operating room table in supine position. 1% lidocaine plain was injected into the patient's right foot the right foot was scrubbed prepped and draped in the usual sterile fashion and the following procedures began Right foot incision and drainage and partial right second ray amputation.Attention was directed to the patients right foot where a #15 blade was used to make an incision over the dorsal aspect of the right second ray. Skin incision was full-thickness down to the level of the bone soft tissue was freed from the second metatarsophalangeal joint. Bone was noted to be soft at the base of the proximal phalanx and purulent drainage noted surrounding the bone of the second metatarsal and phalanx. Purulent drainage was flushed and tissue culture was taken and sent to microbiology. The second digit was disarticulated at the metatarsophalangeal joint and sent to pathology. The soft tissue was freed from the distal aspect of the second metatarsal sagittal saw used to resect the metatarsal was also sent to pathology. The flexor and extensor tendons were traced for proximal and cut. Devitalized tissue surrounding the area was excised. Pulse lavage with vancomycin was used to irrigate the area. Upon reinspection no further devitalized tissue was present or purulence could be expressed. 2-0 Prolene was used to partially close the incision dorsally and iodoform gauze was used to pack the area distally where the wound present. Sterile bandage applied. PRP was applied to the wound. Patient tolerated the anesthesia and the procedure well and escorted to the recovery room with vital signs stable and vascular status intact to the right foot noted by instant capillar refill time to the remaining digits.
--- NOTE | 2018-11-08 14:23 | Anesthesia Evaluation Post Op ---
Date of Encounter: 11/08/18 Time of Encounter: 14:22 - Vital Signs Vital Signs: Vital Signs/O2 Sat, Most Current Temp Pulse Resp BP Pulse Ox 98.2 F 77 16 106/71 100 11/08/18 11:18 11/08/18 11:18 11/08/18 11:18 11/08/18 11:18 11/08/18 11:18 - Lungs Lungs: Clear Ascult./Percussion - Airway Airway: Non-obstructed - Cardiovascular Regular Rate - Mental Status Mental Status: Alert & Oriented, Answers Appropriately - Pain Pain Scale: 0 Pain Scale used: Numeric (1 - 10) - Nausea Vomiting Nausea Vomiting: Not Present - Hydration Hydration: NPO - Discharge PostOp Status: Transfer Patient to floor
[2018-11-08] MEDS ORDERED: Naloxone 0.4 MG/ML INJ IVP PRN (15:33)
[2018-11-08] MEDS ORDERED: D5% in Water 1,000 ML IVC PRN (15:33)
[2018-11-08] MEDS ORDERED: *HR* Dextrose 50 % in Water (Syg) 50 ML SYRINGE IVP PRN (15:33)
[2018-11-08] MEDS ORDERED: Dextrose Gel 15 GM/37.5 ML TUBE PO PRN ×2 (15:33)
[2018-11-08] MEDS ORDERED: Acetaminophen 325 MG TABLET PO PRN (16:20)
[2018-11-08] MEDS ORDERED: *HR* OxyCODONE Immed Rel 5 MG TABLET PO PRN (16:20)
[2018-11-08] MEDS: traMADol 50 MG TABLET PO PRN ×2 (17:22→23:46)
[2018-11-08] MEDS: Insulin DETEMIR 100 UNIT/ML X5UNITS SQ SCH (21:40)
[2018-11-09 03:08] LABS: Basophils # 0.1 K/mcL (0.0-0.2); Basophils % 0.5 %; Eosinophils # 0.1 K/mcL (0.0-0.6); Eosinophils % 1.3 %; Hemoglobin 11.9 g/dL (11.5-15.4); Immature Granulocytes % 0.5 % (0-4); Lymphocytes # 2.8 K/mcL (0.6-4.6); Lymphocytes % 27.4 %; Mean Corpuscular HGB Conc 33.1 g/dL (31.6-35.5); Mean Corpuscular Hemoglobin 29.7 pg (28.0-33.3); Mean Corpuscular Volume 89.8 fL (83.0-100.0); Mean Platelet Volume 9.5 fL (9.4-12.4); Monocytes # 0.6 K/mcL (0.0-1.3); Monocytes % 5.5 %; Neutrophils # 6.6 K/mcL (1.6-8.9); Platelet Count 313 K/mcL (140-400); Red Blood Count 4.01 M/mcL (3.82-4.97); Red Cell Distribution Width 12.4 % (11.5-14.5); Segmented Neutrophils % 64.8 %
[2018-11-09 03:30] LABS: BUN/Creatinine Ratio 17 (6-26); Blood Urea Nitrogen 13 mg/dL (6-20); Calcium 9.1 mg/dL (8.6-10.3); Carbon Dioxide 29 mEq/L (23-29); Chloride 100 mEq/L (98-107); Glucose 308 mg/dL (70-105); Magnesium 1.7 mg/dL (1.6-2.6); Osmolality,Calculated 292 (280-300); Potassium 4.1 mEq/L (3.5-5.1); Sodium 135 mEq/L (136-145); eGFR For Non-African Americans > 60 (> 60)
[2018-11-09] MEDS: Piperacillin/Tazobactam 3.375 GM in 0.9 % Sodium Chloride Mini Bag 100 ML IVPB SCH ×3 (05:20→20:18)
[2018-11-09] MEDS: *HR* Heparin 5,000 UNIT/ML VIAL SQ SCH ×3 (05:21→20:19)
[2018-11-09] MEDS: traMADol 50 MG TABLET PO PRN ×2 (06:39→18:03)
[2018-11-09] MEDS: Tiotropium 18 MCG inhalation IH SCH (07:53)
--- NOTE | 2018-11-09 08:02 | Podiatry Progress Note ---
Date of Encounter: 11/09/18 Time of Encounter: 07:30 - Assessment and Plan (1) Osteomyelitis Current Visit: Yes Status: Acute see below. Qualifiers: Osteomyelitis type: other acute Osteomyelitis location: foot Laterality: right Qualified Code(s): M86.171 - Other acute osteomyelitis, right ankle and foot (2) Osteomyelitis Current Visit: Yes Status: Acute reviewed surgical procedure and findings with patient. discussed recovery. she understands she could require more surgery but for now would continue IV antibiotics and f/u recommendations from ID. patient may heel weight bear. will need diabetic boot Sunday. dressing changed today. orders placed for [id number] packing. change if saturated or change tomorrow. elevation. Qualifiers: Osteomyelitis type: unspecified type Osteomyelitis location: foot Laterality: right Qualified Code(s): M86.9 - Osteomyelitis, unspecified Subjective Interval history: no problems overnight. pain controlled. denies feeling like she experienced f/c/n/v/sob/cp. Objective - Vital Signs Vital Signs: Vital Signs Temp Pulse Resp BP Pulse Ox 11/09/18 04:41 97.7 F 93 16 113/57 90 11/08/18 23:21 98.0 F 77 17 89/60 93 11/08/18 19:26 97.8 F 77 17 93/59 90 11/08/18 14:35 98.0 F 81 16 110/73 97 11/08/18 11:18 98.2 F 77 16 106/71 100 Intake and Output 11/08/18 11/08/18 11/09/18 15:59 23:59 07:59 Intake Total 1350 / 1350 Output Total 20 Balance -20 / -20 1350 / 1350 Intake: IV Fluids 350 / 350 Zosyn 3.375 GM In 0.9 % Sodium 100 / 100 Chloride (Mini-Bag +) 100 ML @ 25 mls/hr IVPB Q8H [facility] Rx#: [id number] Vancocin 1,250 MG In 0.9 % 250 / 250 Sodium Chloride 250 ML @ 167 mls/hr IVPB Q12H [facility] Rx#: [id number] Oral 1000 / 1000 Output: Estimated Blood Loss 20 / 20 Other: # Voids 1 1 Blood Glucose* 202 313 - Exam Exam: no purulence expressed from wound, erythema significantly decreased on the right foot. wound plantar foot circular [id number]. no fluctuance. foot is warm to touch. - Lab Result Diagrams: 11/09/18 02:51 11/09/18 02:51 Labs: Abnormal lab results PT 12.4 Seconds (9.4-12.1) H 11/08/18 05:00 Sodium 135 mEq/L (136-145) L 11/09/18 02:51 Glucose 308 mg/dL (70-105) H 11/09/18 02:51 POC Glucose 313 mg/dL (70-99) H 11/08/18 20:33 Microbiology, Last 48 Hours 11/07/18 11:58 Blood Culture - Preliminary Peripheral Venipuncture Culture is incubating and being continuously monitored for growth. Final report to follow. 11/07/18 11:17 Blood Culture - Preliminary Peripheral Venipuncture Culture is incubating and being continuously monitored for growth. Final report to follow. Consult Discharge Plan - Plan Referrals: NONE,PCP [Primary Care Provider] -
[2018-11-09] MEDS: Insulin LISPRO 300 UNITS/3 ML VIAL SQ SCH ×4 (09:25→20:20)
[2018-11-09] MEDS: Aspirin 81 MG TAB.CHEW PO SCH (09:25)
[2018-11-09] MEDS: Metoprolol XL (24 HR) Succ 25 MG TAB.ER.24H PO SCH (09:25)
[2018-11-09] MEDS: (Breo Ellipta 100-25 Mcg Inh) IH SCH (09:26)
--- NOTE | 2018-11-09 11:17 | Internal Med Progress Note ---
Hospitalist Progress Note - Encounter Date of Encounter: 11/09/18 Time of Encounter: 11:00 - Subjective Interval History: Patient presented from dialysis office due to right diabetic foot ulcer POD#1 incision and drainage right foot with partial right foot 2nd ray amputation Continuing IV antibiotics while surgical cultures pending - Exam Vitals: Temp Pulse Resp BP Pulse Ox 98.1 F 85 16 95/58 94 11/09/18 08:23 11/09/18 08:23 11/09/18 08:23 11/09/18 08:23 11/09/18 08:23 Exam: Gen.: Nonacute distress, alert and oriented 3 ENT: Mucosal membranes moist Respiratory: Lungs are clear to auscultation bilaterally without any wheezing rhonchi or rales Cardiovascular: Normal S1 and S2 regular rate rhythm no murmurs rubs or gallops Abdomen: Soft, nontender and nondistended with positive bowel sounds Extremities: No lower extremity edema Skin: Normal color - Assessment and Plan (1) Osteomyelitis Current Visit: Yes Status: Acute Assessment and Plan: Patient presented from dialysis office due to right diabetic foot ulcer POD#1 incision and drainage right foot with partial right foot 2nd ray amputation Surgical cultures pending Will continue IV vancomycin and IV Zosyn Will consult infectious disease for recommendations for duration and antibiotic choice (2) Ischemic cardiomyopathy Current Visit: Yes Status: Acute Assessment and Plan: Left heart catheterization and 05/2018 severe three vessel coronary artery disease including severe distal left main disease/ostial LCx and long RCA DIRECT MARKETING COORDINATOR with left septals providing collaterals to RCA distribution. Rapidly progressive CAD (compared with 11/2016) and history of stent thrombosis. Echocardiogram on 05/2018 reveal LVEF of 45% with atypical septal motion consistent with bundle branch block in addition to moderate left ventricular diastolic dysfunction Continue current medical management with beta radha, AUNG inhibitor, Plavix, aspirin, statin and nitroglycerin as needed (3) Diabetes mellitus Current Visit: No Status: Chronic Assessment and Plan: Continue basal insulin and coverage with sliding scale insulin (4) COPD (chronic obstructive pulmonary disease) Current Visit: Yes Status: Acute Assessment and Plan: Not in exacerbation;c/w inhalers (5) Tobacco abuse Current Visit: Yes Status: Acute Assessment and Plan: Nicotine patch DVT Prophylaxis: Heparin subcutaneous - Time Spent with Patient Total time spent is greater than 50% in coordination of care (as documented) at patient's floor/unit and/or counseling patient: Internal Medicine: Result - Labs CBC & Chem 7: 11/09/18 02:51 11/09/18 02:51 Labs: Short CBC 11/09/18 Range/Units 02:51 WBC 10.2 (4.3-11.1) K/mcL Hgb 11.9 (11.5-15.4) g/dL Hct 36.0 (35.3-44.9) % Plt Count 313 (140-400) K/mcL Neutrophils # 6.6 (1.6-8.9) K/mcL BMP 11/09/18 02:51 Sodium 135 L Potassium 4.1 Chloride 100 Carbon Dioxide 29 BUN 13 Creatinine 0.75 Glucose 308 H Calcium 9.1 - ABG Interpretation ABG results: PT/INR, D-dimer PT 12.4 Seconds (9.4-12.1) H 11/08/18 05:00 Consult Discharge Plan - Plan Referrals: NONE,PCP [Primary Care Provider] - (1) Osteomyelitis Qualifiers: Osteomyelitis type: unspecified type Osteomyelitis location: foot Laterality: right Qualified Code(s): M86.9 - Osteomyelitis, unspecified (3) Diabetes mellitus Qualifiers: Diabetes mellitus type: type 2 Diabetes mellitus longterm insulin use: without terminal manager use Diabetes mellitus complication status: with hyperglycemia Qualified Code(s): E11.65 - Type 2 diabetes mellitus with hyperglycemia (4) COPD (chronic obstructive pulmonary disease) Qualifiers: COPD type: emphysema Emphysema type: unspecified Qualified Code(s): J43.9 - Emphysema, unspecified
[2018-11-09] MEDS: Nicotine 21 MG PATCH.TD24 TD SCH (12:46)
[2018-11-09] MEDS: Insulin DETEMIR 100 UNIT/ML X5UNITS SQ SCH (20:18)
[2018-11-10] MEDS: traMADol 50 MG TABLET PO PRN ×3 (01:17→19:31)
[2018-11-10] MEDS: *HR* Heparin 5,000 UNIT/ML VIAL SQ SCH ×3 (05:04→21:04)
[2018-11-10] MEDS: Piperacillin/Tazobactam 3.375 GM in 0.9 % Sodium Chloride Mini Bag 100 ML IVPB SCH ×3 (05:05→21:04)
[2018-11-10] MEDS: (Breo Ellipta 100-25 Mcg Inh) IH SCH (07:19)
[2018-11-10] MEDS: Insulin LISPRO 300 UNITS/3 ML VIAL SQ SCH ×3 (07:30→17:23)
[2018-11-10] MEDS: Metoprolol XL (24 HR) Succ 25 MG TAB.ER.24H PO SCH (07:30)
[2018-11-10] MEDS: Aspirin 81 MG TAB.CHEW PO SCH (07:30)
[2018-11-10] MEDS: Tiotropium 18 MCG inhalation IH SCH (07:41)
[2018-11-10] MEDS: Nicotine 21 MG PATCH.TD24 TD SCH (13:19)
[2018-11-10] MEDS ORDERED: Insulin LISPRO 300 UNITS/3 ML VIAL SQ SCH (15:32)
--- NOTE | 2018-11-10 19:50 | Internal Med Progress Note ---
Hospitalist Progress Note - Encounter Date of Encounter: 11/10/18 Time of Encounter: 11:00 - Subjective Interval History: Patient presented from dialysis office due to right diabetic foot ulcer POD#2 incision and drainage right foot with partial right foot 2nd ray amputation Continuing IV antibiotics while surgical cultures pending - Exam Vitals: Temp Pulse Resp BP Pulse Ox 98.1 F 84 18 113/76 93 11/10/18 19:23 11/10/18 19:23 11/10/18 19:23 11/10/18 19:23 11/10/18 19:35 Exam: Gen.: Nonacute distress, alert and oriented 3 ENT: Mucosal membranes moist Respiratory: Lungs are clear to auscultation bilaterally without any wheezing rhonchi or rales Cardiovascular: Normal S1 and S2 regular rate rhythm no murmurs rubs or gallops Abdomen: Soft, nontender and nondistended with positive bowel sounds Extremities: No lower extremity edema Skin: Normal color - Assessment and Plan (1) Osteomyelitis Current Visit: Yes Status: Acute Assessment and Plan: Patient presented from dialysis office due to right diabetic foot ulcer POD#2 incision and drainage right foot with partial right foot 2nd ray amputation Surgical cultures pending Will continue IV vancomycin and IV Zosyn Will consult infectious disease for recommendations for duration and antibiotic choice (2) Ischemic cardiomyopathy Current Visit: Yes Status: Acute Assessment and Plan: Left heart catheterization and 05/2018 severe three vessel coronary artery disease including severe distal left main disease/ostial LCx and long RCA SERVICES MANAGER with left septals providing collaterals to RCA distribution. Rapidly progressive CAD (compared with 11/2016) and history of stent thrombosis. Echocardiogram on 05/2018 reveal LVEF of 45% with atypical septal motion consistent with bundle branch block in addition to moderate left ventricular diastolic dysfunction Continue current medical management with beta radha, AUNG inhibitor, Plavix, aspirin, statin and nitroglycerin as needed (3) Diabetes mellitus Current Visit: No Status: Chronic Assessment and Plan: Continue basal insulin and coverage with sliding scale insulin (4) COPD (chronic obstructive pulmonary disease) Current Visit: Yes Status: Acute Assessment and Plan: Not in exacerbation;c/w inhalers (5) Tobacco abuse Current Visit: Yes Status: Acute Assessment and Plan: Nicotine patch DVT Prophylaxis: Heparin subcutaneous - Time Spent with Patient Total time spent is greater than 50% in coordination of care (as documented) at patient's floor/unit and/or counseling patient: Internal Medicine: Result - Labs CBC & Chem 7: 11/09/18 02:51 11/09/18 02:51 - ABG Interpretation ABG results: PT/INR, D-dimer PT 12.4 Seconds (9.4-12.1) H 11/08/18 05:00 Consult Discharge Plan - Plan Referrals: NONE,PCP [Primary Care Provider] - (1) Osteomyelitis Qualifiers: Osteomyelitis type: unspecified type Osteomyelitis location: foot Laterality: right Qualified Code(s): M86.9 - Osteomyelitis, unspecified (3) Diabetes mellitus Qualifiers: Diabetes mellitus type: type 2 Diabetes mellitus fpc insulin use: without computer terminal operator use Diabetes mellitus complication status: with hyperglycemia Qualified Code(s): E11.65 - Type 2 diabetes mellitus with hyperglycemia (4) COPD (chronic obstructive pulmonary disease) Qualifiers: COPD type: emphysema Emphysema type: unspecified Qualified Code(s): J43.9 - Emphysema, unspecified
[2018-11-10] MEDS: Insulin DETEMIR 100 UNIT/ML X5UNITS SQ SCH (21:49)
[2018-11-10] MEDS ORDERED: Simethicone 80 MG TAB.CHEW PO PRN (23:00)
[2018-11-11 00:33] LABS: ABG Base Excess 6 mEq/L (-2 to 3); ABG HCO3 36 mEq/L (21-27); ABG PCO2 77 mmHg (35-45); ABG PH 7.27 pH Units (7.32-7.45); ABG PO2 < 17 mmHg (85-104); ABG TCO2 38 mEq/L (20-26)
[2018-11-11] MEDS: *HR* Heparin 5,000 UNIT/ML VIAL SQ SCH (05:26)
[2018-11-11] MEDS: Piperacillin/Tazobactam 3.375 GM in 0.9 % Sodium Chloride Mini Bag 100 ML IVPB SCH (05:27)
[2018-11-11] MEDS: Tiotropium 18 MCG inhalation IH SCH (07:52)
[2018-11-11] MEDS: Metoprolol XL (24 HR) Succ 25 MG TAB.ER.24H PO SCH (08:10)
[2018-11-11] MEDS: Aspirin 81 MG TAB.CHEW PO SCH (08:10)
[2018-11-11] MEDS: (Breo Ellipta 100-25 Mcg Inh) IH SCH (08:11)
[2018-11-11] MEDS: Insulin LISPRO 300 UNITS/3 ML VIAL SQ SCH (08:11)
--- NOTE | 2018-11-11 11:30 | Internal Med Progress Note ---
Hospitalist Progress Note - Encounter Date of Encounter: 11/11/18 - Subjective Interval History: Patient presented from dialysis office due to right diabetic foot ulcer POD#3 incision and drainage right foot with partial right foot 2nd ray amputation - Exam Vitals: Temp Pulse Resp BP Pulse Ox 97.7 F 89 16 113/72 92 11/11/18 07:15 11/11/18 08:10 11/11/18 07:52 11/11/18 08:10 11/11/18 07:52 - Assessment and Plan (1) Osteomyelitis Current Visit: Yes Status: Acute Assessment and Plan: Patient presented from dialysis office due to right diabetic foot ulcer POD#3 incision and drainage right foot with partial right foot 2nd ray amputation Surgical cultures growing Corynebacterium and gram-positive cocci; sensitivities pending Will continue IV vancomycin and IV Zosyn Will consult infectious disease for recommendations for duration and antibiotic choice (2) Ischemic cardiomyopathy Current Visit: Yes Status: Acute Assessment and Plan: Left heart catheterization and 05/2018 severe three vessel coronary artery disease including severe distal left main disease/ostial LCx and long RCA FILLING HAULER WEAVING with left septals providing collaterals to RCA distribution. Rapidly progressive CAD (compared with 11/2016) and history of stent thrombosis. Echocardiogram on 05/2018 reveal LVEF of 45% with atypical septal motion consistent with bundle branch block in addition to moderate left ventricular diastolic dysfunction Continue current medical management with beta radha, AUNG inhibitor, Plavix, aspirin, statin and nitroglycerin as needed (3) Diabetes mellitus Current Visit: No Status: Chronic Assessment and Plan: Continue basal insulin and coverage with sliding scale insulin (4) COPD (chronic obstructive pulmonary disease) Current Visit: Yes Status: Acute Assessment and Plan: Not in exacerbation;c/w inhalers (5) Tobacco abuse Current Visit: Yes Status: Acute Assessment and Plan: Nicotine patch DVT Prophylaxis: Heparin subcutaneous - Time Spent with Patient Total time spent is greater than 50% in coordination of care (as documented) at patient's floor/unit and/or counseling patient: Internal Medicine: Result - Labs CBC & Chem 7: 11/09/18 02:51 11/09/18 02:51 - ABG Interpretation ABG results: ABG ABG pH 7.27 pH Units (7.32-7.45) L 11/11/18 00:29 ABG pCO2 77 mmHg (35-45) H* 11/11/18 00:29 ABG pO2 < 17 mmHg (85-104) L* 11/11/18 00:29 ABG O2 Saturation TNP 11/11/18 00:29 PT/INR, D-dimer PT 12.4 Seconds (9.4-12.1) H 11/08/18 05:00 Consult Discharge Plan - Plan Referrals: NONE,PCP [Primary Care Provider] - (1) Osteomyelitis Qualifiers: Osteomyelitis type: unspecified type Osteomyelitis location: foot Laterality: right Qualified Code(s): M86.9 - Osteomyelitis, unspecified (3) Diabetes mellitus Qualifiers: Diabetes mellitus type: type 2 Diabetes mellitus penitentiary insulin use: without penitentiary use Diabetes mellitus complication status: with hyperglycemia Qualified Code(s): E11.65 - Type 2 diabetes mellitus with hyperglycemia (4) COPD (chronic obstructive pulmonary disease) Qualifiers: COPD type: emphysema Emphysema type: unspecified Qualified Code(s): J43.9 - Emphysema, unspecified
[2018-11-11 11:36] VITALS: BP 120/64
[2018-11-11] MEDS ORDERED: Aminoglycoside Consult 1 EACH MC ONE (12:02)
--- NOTE | 2018-11-11 12:03 | Infectious Disease Consult ---
Date of Encounter: 11/11/18 Time of Encounter: 11:46 Assessment and Plan (1) Sepsis Status: Acute Assessment and plan: Had to SIRS criteria on admission (tachycardia and leukocytosis) Secondary to right foot cellulitis/abscess with osteomyelitis Qualifiers: Sepsis type: sepsis due to unspecified organism Qualified Code(s): A41.9 - Sepsis, unspecified organism (2) Osteomyelitis Status: Acute Assessment and plan: Medial base of the proximal phalanx of the second digit Causative organism not clear but previously she had group B streptococcus on October 31 S/P incision and drainage of the right foot and partial right foot second ray amputation by Dr. Araiza 11/08/2018. Intra-Op cultures were sent and so far growing gram-positive cocci and anaerobes. Pathology report is pending Currently patient is on vancomycin and Zosyn We will wait 1 more day, if no MRSA we can DC the vancomycin and we will do Unasyn Duration of treatment 6 weeks While on antibiotics we need to check weekly CBC, BMP, ESR, CRP Patient will need adequate glucose control and smoking cessation for better healing prospects Qualifiers: Osteomyelitis type: other acute Osteomyelitis location: foot Laterality: right Qualified Code(s): M86.171 - Other acute osteomyelitis, right ankle and foot (3) Chronic ulcer of right foot with fat layer exposed Status: Acute (4) Diabetes mellitus with diabetic neuropathy, with long-term current use of insulin Status: Acute Qualifiers: Diabetes mellitus type: type 2 Qualified Code(s): E11.40 - Type 2 diabetes mellitus with diabetic neuropathy, unspecified; Z79.4 - correction (current) use of insulin (5) Tobacco abuse Status: Acute (6) COPD (chronic obstructive pulmonary disease) Status: Acute Qualifiers: COPD type: emphysema Emphysema type: unspecified Qualified Code(s): J43.9 - Emphysema, unspecified (7) Ischemic cardiomyopathy Status: Acute (8) Congestive heart failure Status: Acute Qualifiers: Heart failure type: combined systolic and diastolic Heart failure chronicity: acute on chronic Qualified Code(s): I50.43 - Acute on chronic combined systolic (congestive) and diastolic (congestive) heart failure (9) Allergy to multiple antibiotics Status: Acute Assessment and plan: Cefdinir: Exact reaction not clear but has tolerated Zosyn Metronidazole Infectious Disease HPI - Data of Consult Patient: new to practice Consult date: 11/11/18 Requesting Physician: Sanya Melendez Primary Care Provider: PCP NONE - Consult Narrative Reason for consult: Recommendations for IV antibiotics duration for osteomyelitis History of present illness: Ms. JAMES is a 48 year old female Patient is a 48-year-old woman who presented to [facility] with the right foot ulcer on 11/07/2018, we are consulted on 11/11/2018 for antibiotics recommendation for osteomyelitis of the right foot. Patient with past medical history significant for congestive heart failure, diabetes mellitus type 2 poorly controlled, heavy tobacco use, COPD, coronary ar larisa disease who has been followed by Dr. Araiza since July 2018 for chronic ulcer of the right foot with fat layer exposed. Patient had multiple I&D's done. Most recent I&D was done on 10/31/2018 and it grew group B streptococcus. Patient continued to progressively get worse. Eventually v[place] was evaluated by podiatry and they noted that the wound is getting progressively worse since patient was sent to the emergency department for evaluation and admission. Since admission, patient has been afebrile with a MAXIMUM TEMPERATURE of 99.2, tachycardia but no tachypnea. Presenting labs revealed a WBC of 11.4 with 73% neutrophils no bands. Other labs revealed a BUN of 10 CR 0.63. Foot x-ray right foot reveals osteomyelitis involving the medial base of the proximal phalanx of the second digit. There is surrounding soft tissue infection with soft tissue gas. Patient was taken to surgery where she underwent incision and drainage of the right foot and partial right foot second ray amputation. Intra- Op cultures were sent and so far growing gram-positive cocci and anaerobes. P athology report is pending. Patient currently on vancomycin and Zosyn we were asked to evaluate the patient and make further recommendations. Patient is sitting up in a chair. Very brief when answering questions. Review of systems unremarkable. CC: Sanya Melendez 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 Psychiatric history: no psych history - Past Surgical History Surgical History: angioplasty/stent, cholecystectomy Additional surgical history: carpal tunnel-rt,foot surgey-rt - Social History Smoking Status: Current every day smoker Smokeless Tobacco Status: No Alcohol use: none Drug use: none - Family History Father Adopted: (Patient adopted, no information available) Living Status: Hx Family Cardiac Disorders: Yes Mother Adopted: No Living Status: Hx Family Cardiac Disorders: Yes Infectious Disease-CN:Meds RX: Aspirin 81 mg PO DAILY #30 tab.chew 11/17/16 [Rx] RX: Clopidogrel [Plavix] 75 mg PO DAILY 01/22/18 [History] RX: Nitroglycerin [Nitrostat] 0.4 mg SL Q5M PRN 01/22/18 [History] RX: Metoprolol Succinate [Toprol Xl] 25 mg PO DAILY 07/04/18 [History] RX: Insulin DETEMIR [Levemir] 15 unit SQ HS 30 Days #90 [id number] 07/17/18 [Rx] RX: Insulin LISPRO [HumaLOG] 10 units SQ TIDAC 30 Days #3 vial 07/17/18 [Rx] RX: Fluticasone/Vilanterol [Breo Ellipta 100-25 Mcg INH] 1 puff IH DAILY 10/03/18 [History] Rosuvastatin [Crestor] 20 mg PO HS 10/03/18 [History] Tiotropium [place] [Spiriva Respimat] 2 puff PO DAILY 10/03/18 [History] RX: Amoxicillin/Clavulanate [Augmentin] 1 tab PO BID 11/08/18 [History] RX: Lisinopril [Zestril] 5 mg PO DAILY 11/08/18 [History] RX: Mupirocin [Bactroban Oint] 1 appl TP DAILY 11/08/18 [History] Allergy/AdvReac Type Severity Reaction Status Date / Time cefdinir [From Omnicef] Allergy Rash Verified 10/01/18 13:33 metronidazole Allergy Swelling Verified 10/01/18 13:33 of Lip/Tongue/Throat codeine AdvReac Diarrhea Verified 10/01/18 13:33 metformin AdvReac Diarrhea Verified 10/01/18 13:33 Review of systems: 10 point review of systems done, negative other for what is mentioned in history of present illness Exam - Constitutional Vitals: Temp Pulse Resp BP Pulse Ox 97.4 F L 86 17 120/64 97 11/11/18 11:31 11/11/18 11:31 11/11/18 11:31 11/11/18 11:31 11/11/18 11:31 General appearance: cooperative, no febrile - Head Head exam: Present: atraumatic, normocephalic - Eye Eye exam: Present: EOMI, PERRL, sclera anicteric - ENT ENT exam: Present: mucous membranes dry, normal exam - Respiratory Respiratory exam: Present: CTAB. Absent: wheezes - Cardiovascular Cardiovascular exam: Present: RRR, +S1, +S2 - GI/Abdominal GI/Abdominal exam: Present: normal bowel sounds, soft. Absent: tenderness - Extremities Exam Extremities exam: Present: normal inspection. Absent: joint swelling Additional comments: no purulence expressed from wound, erythema significantly decreased on the right foot. wound plantar foot circular [id number]. no fluctuance. foot is warm to touch. - Neurological Exam Neurological exam: Present: alert, oriented X3 - Psychiatric Psychiatric exam: Present: agitated, normal affect, normal mood - Skin Skin exam: Present: normal color. Absent: rash Infectious Disease CN: Results - Labs CBC & Chem 7: 11/09/18 02:51 11/09/18 02:51 Cultures: Cultures 11/08/18 13:56 Surgical Biopsy Culture - Preliminary Right Foot Corynebacterium striatum Gram Positive Cocci 11/08/18 13:56 Anaerobic Culture - Preliminary Right Foot At this time, no anaerobic growth is present. The culture will be finalized after 5 days of incubation. 11/07/18 11:58 Blood Culture - Preliminary Peripheral Venipuncture Culture is incubating and being continuously monitored for growth. Final report to follow. 11/07/18 11:17 Blood Culture - Preliminary Peripheral Venipuncture Culture is incubating and being continuously monitored for growth. Final report to follow. Consult Discharge Plan - Plan Referrals: NONE,PCP [Primary Care Provider] -
--- NOTE | 2018-11-11 19:30 | Discharge Summary ---
Orders not resulted at time of discharge: Pending orders 11/07/18 11:58 Culture,Blood [BC] Stat 11/07/18 12:34 EKG [ECG 12 lead ECG] [ECG] Stat 11/08/18 13:56 Culture,Anaerobic [RM] Routine Culture,Tissue (Biopsy) [RM] Routine Surgical Pathology [PTH] Routine Date of Encounter: 11/11/18 Time of Encounter: 00:00 - Discharge Diagnosis (1) Osteomyelitis Priority: Primary Status: Acute Qualifiers: Osteomyelitis type: unspecified type Osteomyelitis location: foot Laterality: right Qualified Code(s): M86.9 - Osteomyelitis, unspecified (2) Ischemic cardiomyopathy Priority: Secondary Status: Acute (3) Diabetes mellitus Priority: Secondary Status: Chronic Qualifiers: Diabetes mellitus type: type 2 Diabetes mellitus usp insulin use: without remote computer terminal operator use Diabetes mellitus complication status: with hyperglycemia Qualified Code(s): E11.65 - Type 2 diabetes mellitus with hyperglycemia (4) COPD (chronic obstructive pulmonary disease) Priority: Secondary Status: Acute Qualifiers: COPD type: emphysema Emphysema type: unspecified Qualified Code(s): J43.9 - Emphysema, unspecified (5) Tobacco abuse Priority: Secondary Status: Acute Hospital course: Patient is a 48-year-old female with past medical history significant for CHF with reduced ejection fraction uncontrolled diabetes mellitus, heavy tobacco use, COPD not on home oxygen, coronary artery disease with prior stent placement who was sent from Dr. Araiza office as she was there being evaluated for right sided diabetic foot ulcer. The patient has been dealing with this for the past 3-4 months and has been on multiple courses of oral antibiotics. Recently been on doxycycline as well as Bactrim and Augmentin. She is being evaluated there in in the office and was sent here for possible osteomyelitis. Patient had a right foot x-ray that showed osteomyelitis involving the medial base of the proximal phalanx of the second digit. There is surrounding soft tissue infection. There was also soft tissue gas. The patient was given vancomycin and Zosyn. During patients hospital stay podiatry was consulted and an incision and drainage right foot with partial right foot 2nd ray amputation. Patient was managed with IV antibiotics on vancomycin and Zosyn. Patient however decided to leave AGAINST MEDICAL ADVICE in spite of known risk. - Time Spent with Patient Total time spent providing and/or coordinating discharge services: Less than 30 minutes - Discharge Medications Home Medications: Aspirin 81 mg PO DAILY #30 tab.chew 11/17/16 [Rx] Clopidogrel [Plavix] 75 mg PO DAILY 01/22/18 [History] Nitroglycerin [Nitrostat] 0.4 mg SL Q5M PRN 01/22/18 [History] Metoprolol Succinate [Toprol Xl] 25 mg PO DAILY 07/04/18 [History] Insulin DETEMIR [Levemir] 15 unit SQ HS 30 Days #90 [id number] 07/17/18 [Rx] Insulin LISPRO [HumaLOG] 10 units SQ TIDAC 30 Days #3 vial 07/17/18 [Rx] Fluticasone/Vilanterol [Breo Ellipta 100-25 Mcg INH] 1 puff IH DAILY 10/03/18 [History] Rosuvastatin [Crestor] 20 mg PO HS 10/03/18 [History] Tiotropium [place] [Spiriva Respimat] 2 puff PO DAILY 10/03/18 [History] Amoxicillin/Clavulanate [Augmentin] 1 tab PO BID 11/08/18 [History] Lisinopril [Zestril] 5 mg PO DAILY 11/08/18 [History] Mupirocin [Bactroban Oint] 1 appl TP DAILY 11/08/18 [History] Allergies/Adverse Reactions: Allergy/AdvReac Type Severity Reaction Status Date / Time cefdinir [From Omnicef] Allergy Rash Verified 10/01/18 13:33 metronidazole Allergy Swelling Verified 10/01/18 13:33 of Lip/Tongue/Throat codeine AdvReac Diarrhea Verified 10/01/18 13:33 metformin AdvReac Diarrhea Verified 10/01/18 13:33 Date of admission: 11/07/18 12:13 Primary care physician: PCP NONE Consults: 11/07/18 12:11 Consult to Podiatry [CONS] Routine Consulting Provider: Podiatry [facility] Reason for Consult: diabetic foot ulcer/osteo Call Completed: No 11/07/18 12:35 Consult to Cardiology [CONS] Routine Comment: Consulting Provider: Cardiology [facility] Reason for Consult: pre op clearance Call Completed: No 11/10/18 19:51 Consult to Infectious Diseases [CONS] Routine Consulting Provider: Infectious Disease [place] Reason for Consult: Recommendations for IV antibiotic duration for osteomyelitis Call Completed: No - Constitutional Vitals: Temp Pulse Resp BP Pulse Ox 97.4 F L 86 17 120/64 97 11/11/18 11:31 11/11/18 11:31 11/11/18 11:31 11/11/18 11:31 11/11/18 11:31 Exam: Left AMA - Patient Status Disposition: Left Against Medical Advice - Discharge Instructions Follow Up With: NONE,PCP [Primary Care Provider] -
== END 2018-11-11 12:03 | disposition left against medical advice (07) | DRG 710 ==
LOC: EMEROOARM 10:15 → 3NENU 10:15 → SUATTDRO 12:13 → 3NENU 14:15
PROVIDERS: ADMIT Internal Medicine; ATTEND Hospitalist

== ENCOUNTER 2019-11-15 14:38 | Inpatient (IN) ==
[2019-11-15] MEDS ORDERED: 0.9 % Sodium Chloride 2,000 ML ONE (14:50)
[2019-11-15] MEDS ORDERED: 0.9 % Sodium Chloride 1,000 ML IVC ONE (14:54)
[2019-11-15] MEDS ORDERED: Isovue-370 500 ML BOTTLE IVP ONE (14:57)
[2019-11-15 15:25] LABS: Basophils # 0.1 K/mcL (0.0-0.2); Basophils % 0.4 %; Eosinophils % 0.3 %; Hematocrit 41.2 % (35.3-44.9); Hemoglobin 13.4 g/dL (11.5-15.4); Immature Granulocytes % 0.8 % (0-4); Lymphocytes # 1.4 K/mcL (0.6-4.6); Lymphocytes % 10.9 %; Mean Corpuscular HGB Conc 32.5 g/dL (31.6-35.5); Mean Corpuscular Hemoglobin 26.6 pg (28.0-33.3); Mean Corpuscular Volume 81.9 fL (83.0-100.0); Mean Platelet Volume 9.9 fL (9.4-12.4); Monocytes # 0.6 K/mcL (0.0-1.3); Monocytes % 4.8 %; Neutrophils # 10.7 K/mcL (1.6-8.9); Platelet Count 308 K/mcL (140-400); Red Blood Count 5.03 M/mcL (3.82-4.97); Red Cell Distribution Width 16.8 % (11.5-14.5); Segmented Neutrophils % 82.8 %
[2019-11-15 15:26] LABS: INR 1.4; Prothrombin Time 16.3 Seconds (9.4-12.1)
[2019-11-15 15:50] LABS: Alanine Aminotransferase 8 Units/L (7-52); Albumin 3.2 g/dL (3.5-5.7); Albumin/Globulin Ratio 0.8 (1.1-2.2); Alkaline Phosphatase 131 Units/L (34-104); Aspartate Amino Transferase 9 Units/L (13-39); BUN/Creatinine Ratio 11 (6-26); Bilirubin,Total 0.9 mg/dL (0.3-1.0); Blood Urea Nitrogen 8 mg/dL (6-20); Calcium 8.9 mg/dL (8.6-10.3); Carbon Dioxide 28 mEq/L (23-29); Chloride 87 mEq/L (98-107); Globulin 4.1 g/dL (2.4-3.5); Glucose 309 mg/dL (70-105); Magnesium 1.9 mg/dL (1.6-2.6); Osmolality,Calculated 274 (280-300); Potassium 3.3 mEq/L (3.5-5.1); Sodium 127 mEq/L (136-145); Total Protein 7.3 g/dL (6.4-8.9); eGFR For African Americans > 60 (> 60); eGFR For Non-African Americans > 60 (> 60)
[2019-11-15 15:52] LABS: Troponin I 0.06 ng/mL (< 0.04)
[2019-11-15 16:07] LABS: Thyroid Stimulating Hormone 4.414 mcIU/mL (0.340-5.600)
[2019-11-15 16:42] LABS: Bilirubin,Urine Negative (Negative); Blood,Urine Large (Negative); Color,Urine Yellow (Yellow); Glucose,Urine (UA) >=1000 mg/dL (Normal); Ketones,Urine Negative (Negative); Leukocyte Esterase,Urine Small (Negative); Nitrite,Urine Negative (Negative); Protein,Urine 100 mg/dL (Neg-Trace); Specific Gravity,Urine > 1.030 (1.010-1.025); Urobilinogen,Urine Normal (Normal)
[2019-11-15 16:44] LABS: Bacteria,Urine Many per hpf (None-Few); Hyaline Casts,Urine None Seen per lpf (None-Few); Squamous Epithelial Cell,Urine Many per lpf (None-Few); WBC,Urine TNTC per hpf (0-3)
[2019-11-15 16:50] LABS: Sodium, Urine 15.1 mEq/L
[2019-11-15 16:51] LABS: Clarity,Urine Slightly Hazy (Clear)
[2019-11-15 17:09] LABS: RBC,Urine 0-3 per hpf (0-3)
[2019-11-15] MEDS ORDERED: Piperacillin/Tazobactam 3.375 GM in 0.9 % Sodium Chloride Mini Bag 100 ML IVPB ONE (19:14)
[2019-11-15] MEDS ORDERED: Potassium Chloride Elixir 20 MEQ/15 ML UDC PO ONE (20:10)
[2019-11-15] MEDS ORDERED: Naloxone 0.4 MG/ML INJ IVP PRN (21:57)
[2019-11-15] MEDS ORDERED: Dextrose Gel 15 GM/37.5 ML TUBE PO PRN ×2 (21:58)
[2019-11-15] MEDS ORDERED: *HR* Dextrose 50 % in Water (Syg) 50 ML SYRINGE IVP PRN (21:58)
[2019-11-15] MEDS ORDERED: D5% in Water 1,000 ML IVC PRN (21:58)
[2019-11-15] MEDS ORDERED: 0.9 % Sodium Chloride 1,000 ML IVC SCH (22:00)
[2019-11-15] MEDS ORDERED: Acetaminophen 325 MG TABLET PO PRN (22:12)
[2019-11-15] MEDS ORDERED: Ketorolac 15 MG/ML VIAL IVP PRN (23:43)
[2019-11-16] MEDS ORDERED: Vancomycin 1,000 MG VIAL ONE ×2 (00:25→00:40)
[2019-11-16] MEDS ORDERED: Lidocaine 1% 20 ML MDV ONE (00:34)
[2019-11-16] MEDS ORDERED: *HR* FentaNYL (PF) 100 MCG/2 ML VIAL ONE (00:44)
[2019-11-16] MEDS ORDERED: Propofol 500 MG/50 ML INFUS..BTL ONE (00:44)
[2019-11-16] MEDS ORDERED: Lidocaine HCL 4 ML Topical Solution (Laryng-O-Jet Kit Sterile Pak) TP ONE (00:44)
[2019-11-16] MEDS ORDERED: D5% in Water 1,000 ML IVC PRN ×2 (02:06→15:40)
[2019-11-16] MEDS ORDERED: Naloxone 0.4 MG/ML INJ IVP PRN (02:06)
[2019-11-16] MEDS ORDERED: *HR* Dextrose 50 % in Water (Syg) 50 ML SYRINGE IVP PRN ×3 (02:06→15:40)
[2019-11-16] MEDS ORDERED: Ketorolac 15 MG/ML VIAL IVP PRN (02:06)
[2019-11-16] MEDS ORDERED: Dextrose Gel 15 GM/37.5 ML TUBE PO PRN ×5 (02:06→15:40)
[2019-11-16 05:00] LABS: Acinetobacter baumannii by PCR Not Detected (Not Detect); Candida albicans by PCR Not Detected (Not Detect); Candida glabrata by PCR Not Detected (Not Detect); Candida krusei by PCR Not Detected (Not Detect); Candida parapsilosis by PCR Not Detected (Not Detect); Enterobacter cloacae Cmplx PCR Not Detected (Not Detect); Enterobacteriaceae by PCR Not Detected (Not Detect); Enterococcus by PCR Not Detected (Not Detect); Escherichia coli by PCR Not Detected (Not Detect); Klebsiella oxytoca by PCR Not Detected (Not Detect); Klebsiella pneumoniae by PCR Not Detected (Not Detect); Proteus by PCR Not Detected (Not Detect); Pseudomonas aeruginosa by PCR Not Detected (Not Detect); Serratia marcescens by PCR Not Detected (Not Detect); Staphylococcus aureus by PCR Not Detected (Not Detect); Staphylococcus by PCR Not Detected (Not Detect); Streptococcus agalactiae(B)PCR DETECTED (Not Detect); Streptococcus pneumoniae PCR Not Detected (Not Detect); Streptococcus pyogenes (A) PCR Not Detected (Not Detect); blaKPC Carbapenem-Resist Gene Not Detected (Not Detect); mecA Methicillin-Resist Gene Not Detected (Not Detect); vanA/B Vancomycin-Resist Genes Not Detected (Not Detect)
[2019-11-16 05:01] LABS: Candida tropicalis by PCR Not Detected (Not Detect)
[2019-11-16] MEDS ORDERED: Insulin LISPRO 300 UNITS/3 ML VIAL SQ SCH ×4 (06:00→21:00)
[2019-11-16] MEDS: 0.9 % Sodium Chloride 1,000 ML IVC SCH ×3 (06:10→11:37)
[2019-11-16] MEDS ORDERED: 0.9 % Sodium Chloride 250 ML IVC ONE (06:14)
[2019-11-16] MEDS ORDERED: Piperacillin/Tazobactam 3.375 GM in 0.9 % Sodium Chloride Mini Bag 100 ML IVPB SCH (08:00)
[2019-11-16 08:49] LABS: Hematocrit 38.7 % (35.3-44.9); Hemoglobin 12.3 g/dL (11.5-15.4); Mean Corpuscular HGB Conc 31.8 g/dL (31.6-35.5); Mean Corpuscular Hemoglobin 26.8 pg (28.0-33.3); Mean Corpuscular Volume 84.3 fL (83.0-100.0); Mean Platelet Volume 9.6 fL (9.4-12.4); Platelet Count 299 K/mcL (140-400); Red Blood Count 4.59 M/mcL (3.82-4.97); Red Cell Distribution Width 17.1 % (11.5-14.5)
[2019-11-16 09:01] LABS: BUN/Creatinine Ratio 13 (6-26); Blood Urea Nitrogen 10 mg/dL (6-20); Calcium 8.1 mg/dL (8.6-10.3); Carbon Dioxide 26 mEq/L (23-29); Chloride 99 mEq/L (98-107); Glucose 305 mg/dL (70-105); Osmolality,Calculated 287 (280-300); Potassium 3.6 mEq/L (3.5-5.1); Sodium 133 mEq/L (136-145); eGFR For African Americans > 60 (> 60); eGFR For Non-African Americans > 60 (> 60)
[2019-11-16 09:03] LABS: Troponin I 0.03 ng/mL (< 0.04)
[2019-11-16] MEDS: Piperacillin/Tazobactam 3.375 GM in 0.9 % Sodium Chloride Mini Bag 100 ML IVPB SCH ×3 (09:04→23:28)
[2019-11-16] MEDS: Aspirin 81 MG TAB.CHEW PO SCH (09:04)
[2019-11-16] MEDS: Insulin LISPRO 300 UNITS/3 ML VIAL SQ SCH ×4 (09:05→23:26)
[2019-11-16] MEDS ORDERED: Gadolinium Contrast Agent (WT Based) IV PRN (10:05)
[2019-11-16] MEDS ORDERED: 0.9 % Sodium Chloride 1,000 ML IVC ONE (10:26)
[2019-11-16] MEDS: Clindamycin 900 MG/50 ML 900 MG/50 ML IV.SOLN IVPB SCH ×3 (10:33→23:28)
[2019-11-16] MEDS: Budesonide/Formoterol 160/4.5 1 PUFF INH IH SCH (10:45)
[2019-11-16] MEDS: Acetaminophen 325 MG TABLET PO PRN ×3 (12:28→20:46)
[2019-11-16] MEDS: Norepinephrine 4 MG in 0.9 % Sodium Chloride 250 ML IVC SCH (12:36)
[2019-11-16] MEDS ORDERED: Isovue-370 500 ML BOTTLE IVP ONE (12:49)
[2019-11-16] MEDS ORDERED: Clindamycin 900 MG/50 ML 900 MG/50 ML IV.SOLN IVPB SCH (16:00)
[2019-11-16] MEDS: Insulin DETEMIR 100 UNIT/ML X5UNITS SQ SCH (19:48)
[2019-11-17] MEDS: Acetaminophen 325 MG TABLET PO PRN ×3 (01:55→20:51)
[2019-11-17] MEDS: Insulin LISPRO 300 UNITS/3 ML VIAL SQ SCH ×3 (03:33→17:13)
[2019-11-17 03:39] LABS: Hematocrit 34.3 % (35.3-44.9); Mean Corpuscular HGB Conc 30.3 g/dL (31.6-35.5); Mean Corpuscular Hemoglobin 26.5 pg (28.0-33.3); Mean Corpuscular Volume 87.3 fL (83.0-100.0); Mean Platelet Volume 9.8 fL (9.4-12.4); Platelet Count 277 K/mcL (140-400); Red Blood Count 3.93 M/mcL (3.82-4.97); Red Cell Distribution Width 17.3 % (11.5-14.5); Segmented Neutrophils % 80.4 %; White Blood Count 12.7 K/mcL (4.3-11.1)
[2019-11-17 03:40] LABS: Basophils % 0.3 %; Eosinophils # 0.1 K/mcL (0.0-0.6); Eosinophils % 0.8 %; Immature Granulocytes % 0.8 % (0-4); Lymphocytes # 1.3 K/mcL (0.6-4.6); Lymphocytes % 10.4 %; Monocytes # 0.9 K/mcL (0.0-1.3); Monocytes % 7.3 %; Neutrophils # 10.2 K/mcL (1.6-8.9)
[2019-11-17 03:41] LABS: Hemoglobin 10.4 g/dL (11.5-15.4)
[2019-11-17 04:07] LABS: BUN/Creatinine Ratio 16 (6-26); Blood Urea Nitrogen 10 mg/dL (6-20); Calcium 7.9 mg/dL (8.6-10.3); Carbon Dioxide 25 mEq/L (23-29); Chloride 101 mEq/L (98-107); Glucose 90 mg/dL (70-105); Osmolality,Calculated 277 (280-300); Potassium 3.6 mEq/L (3.5-5.1); Sodium 134 mEq/L (136-145); eGFR For African Americans > 60 (> 60); eGFR For Non-African Americans > 60 (> 60)
[2019-11-17] MEDS: Budesonide/Formoterol 160/4.5 1 PUFF INH IH SCH (07:48)
[2019-11-17] MEDS: Clindamycin 900 MG/50 ML 900 MG/50 ML IV.SOLN IVPB SCH ×3 (07:52→23:23)
[2019-11-17] MEDS: Piperacillin/Tazobactam 3.375 GM in 0.9 % Sodium Chloride Mini Bag 100 ML IVPB SCH ×3 (07:52→23:22)
[2019-11-17] MEDS: Aspirin 81 MG TAB.CHEW PO SCH (08:59)
[2019-11-17] MEDS ORDERED: Vancomycin 500 MG in 0.9 % Sodium Chloride Mini Bag 100 ML IVPB ONE (10:00)
[2019-11-17] MEDS: Norepinephrine 4 MG in 0.9 % Sodium Chloride 250 ML IVC SCH (11:37)
[2019-11-17] MEDS ORDERED: Albuterol 2.5 MG/3 ML NEBULIZER IH PRN (14:41)
[2019-11-17] MEDS: 0.9 % Sodium Chloride 1,000 ML IVC SCH ×2 (16:12→23:20)
[2019-11-17] MEDS: Insulin DETEMIR 100 UNIT/ML X5UNITS SQ SCH (20:52)
[2019-11-17] MEDS ORDERED: Insulin LISPRO 300 UNITS/3 ML VIAL SQ SCH (21:00)
[2019-11-18 04:48] LABS: Hematocrit 33.6 % (35.3-44.9); Hemoglobin 10.4 g/dL (11.5-15.4); Mean Corpuscular Hemoglobin 26.3 pg (28.0-33.3); Mean Corpuscular Volume 85.1 fL (83.0-100.0); Mean Platelet Volume 9.9 fL (9.4-12.4); Platelet Count 328 K/mcL (140-400); Red Blood Count 3.95 M/mcL (3.82-4.97); Red Cell Distribution Width 17.3 % (11.5-14.5); White Blood Count 11.5 K/mcL (4.3-11.1)
[2019-11-18 05:21] LABS: BUN/Creatinine Ratio 25 (6-26); Blood Urea Nitrogen 18 mg/dL (6-20); Calcium 7.6 mg/dL (8.6-10.3); Carbon Dioxide 24 mEq/L (23-29); Chloride 102 mEq/L (98-107); Glucose 217 mg/dL (70-105); Osmolality,Calculated 284 (280-300); Potassium 3.6 mEq/L (3.5-5.1); Sodium 133 mEq/L (136-145); eGFR For African Americans > 60 (> 60); eGFR For Non-African Americans > 60 (> 60)
[2019-11-18] MEDS ORDERED: Vancomycin 1,000 MG, Sodium Chloride IRRigation 1,000 ML IR ONE ×2 (06:00→20:31)
[2019-11-18] MEDS: Budesonide/Formoterol 160/4.5 1 PUFF INH IH SCH (07:21)
[2019-11-18] MEDS ORDERED: Aminoglycoside Consult 1 EACH MC ONE (07:48)
[2019-11-18] MEDS ORDERED: Gabapentin 300 MG CAPSULE PO SCH (09:00)
[2019-11-18] MEDS: Aspirin 81 MG TAB.CHEW PO SCH (09:01)
[2019-11-18] MEDS: Clindamycin 900 MG/50 ML 900 MG/50 ML IV.SOLN IVPB SCH (09:11)
[2019-11-18] MEDS: Piperacillin/Tazobactam 3.375 GM in 0.9 % Sodium Chloride Mini Bag 100 ML IVPB SCH ×2 (09:12→16:29)
[2019-11-18] MEDS: Insulin LISPRO 300 UNITS/3 ML VIAL SQ SCH ×4 (09:15→22:19)
[2019-11-18] MEDS ORDERED: Vancomycin 1,000 MG VIAL ONE (18:25)
[2019-11-18] MEDS ORDERED: Lidocaine -MPF 2% 2 ML VIAL ONE (18:32)
[2019-11-18] MEDS ORDERED: *HR* Midazolam HCl 2 MG/2 ML VIAL ONE (18:33)
[2019-11-18] MEDS ORDERED: Propofol 500 MG/50 ML INFUS..BTL ONE (18:33)
[2019-11-18] MEDS ORDERED: *HR* PHENYLEPHRINE 1,000 MCG/10 ML SYRINGE IVP ONE (19:09)
[2019-11-18] MEDS ORDERED: *HR* Dextrose 50 % in Water (Syg) 50 ML SYRINGE IVP PRN (20:31)
[2019-11-18] MEDS ORDERED: Dextrose Gel 15 GM/37.5 ML TUBE PO PRN ×4 (20:31)
[2019-11-18] MEDS ORDERED: Naloxone 0.4 MG/ML INJ IVP PRN (20:31)
[2019-11-18] MEDS ORDERED: D5% in Water 1,000 ML IVC PRN (20:31)
[2019-11-18] MEDS ORDERED: Albuterol 2.5 MG/3 ML NEBULIZER IH PRN (20:31)
[2019-11-18] MEDS ORDERED: Insulin DETEMIR 100 UNIT/ML X5UNITS SQ SCH (21:00)
[2019-11-18] MEDS: Ketorolac 15 MG/ML VIAL IVP PRN (22:19)
[2019-11-19 01:35] LABS: Basophils # 0.1 K/mcL (0.0-0.2); Basophils % 0.4 %; Eosinophils # 0.2 K/mcL (0.0-0.6); Eosinophils % 1.6 %; Hematocrit 35.7 % (35.3-44.9); Hemoglobin 11.4 g/dL (11.5-15.4); Immature Granulocytes % 1.3 % (0-4); Lymphocytes # 1.8 K/mcL (0.6-4.6); Lymphocytes % 12.7 %; Mean Corpuscular HGB Conc 31.9 g/dL (31.6-35.5); Mean Corpuscular Hemoglobin 26.7 pg (28.0-33.3); Mean Corpuscular Volume 83.6 fL (83.0-100.0); Mean Platelet Volume 9.5 fL (9.4-12.4); Monocytes # 0.8 K/mcL (0.0-1.3); Monocytes % 5.3 %; Neutrophils # 11.1 K/mcL (1.6-8.9); Platelet Count 365 K/mcL (140-400); Red Blood Count 4.27 M/mcL (3.82-4.97); Red Cell Distribution Width 17.4 % (11.5-14.5); Segmented Neutrophils % 78.7 %; White Blood Count 14.1 K/mcL (4.3-11.1)
[2019-11-19] MEDS: Piperacillin/Tazobactam 3.375 GM in 0.9 % Sodium Chloride Mini Bag 100 ML IVPB SCH ×3 (01:43→17:57)
[2019-11-19 01:54] LABS: BUN/Creatinine Ratio 23 (6-26); Blood Urea Nitrogen 15 mg/dL (6-20); Calcium 7.8 mg/dL (8.6-10.3); Carbon Dioxide 24 mEq/L (23-29); Chloride 104 mEq/L (98-107); Glucose 206 mg/dL (70-105); Osmolality,Calculated 289 (280-300); Potassium 3.7 mEq/L (3.5-5.1); Sodium 136 mEq/L (136-145); eGFR For African Americans > 60 (> 60); eGFR For Non-African Americans > 60 (> 60)
[2019-11-19] MEDS: Aspirin 81 MG TAB.CHEW PO SCH (08:21)
[2019-11-19] MEDS: Ketorolac 15 MG/ML VIAL IVP PRN ×2 (08:21→18:20)
[2019-11-19] MEDS: Insulin LISPRO 300 UNITS/3 ML VIAL SQ SCH ×4 (08:21→21:52)
[2019-11-19] MEDS ORDERED: Gabapentin 300 MG CAPSULE PO SCH (09:00)
[2019-11-19] MEDS: Budesonide/Formoterol 160/4.5 1 PUFF INH IH SCH (11:01)
[2019-11-19] MEDS ORDERED: Insulin DETEMIR 100 UNIT/ML X5UNITS SQ SCH (21:00)
[2019-11-19] MEDS: Insulin DETEMIR 100 UNIT/ML X5UNITS SQ SCH (21:53)
[2019-11-20] MEDS: Piperacillin/Tazobactam 3.375 GM in 0.9 % Sodium Chloride Mini Bag 100 ML IVPB SCH ×3 (01:00→15:42)
[2019-11-20 04:58] LABS: Basophils # 0.1 K/mcL (0.0-0.2); Basophils % 0.4 %; Eosinophils # 0.3 K/mcL (0.0-0.6); Eosinophils % 2.5 %; Hematocrit 34.6 % (35.3-44.9); Hemoglobin 10.7 g/dL (11.5-15.4); Immature Granulocytes % 1.1 % (0-4); Lymphocytes # 1.8 K/mcL (0.6-4.6); Lymphocytes % 14.7 %; Mean Corpuscular HGB Conc 30.9 g/dL (31.6-35.5); Mean Corpuscular Hemoglobin 26.9 pg (28.0-33.3); Mean Corpuscular Volume 86.9 fL (83.0-100.0); Mean Platelet Volume 9.5 fL (9.4-12.4); Monocytes # 0.7 K/mcL (0.0-1.3); Monocytes % 5.4 %; Neutrophils # 9.2 K/mcL (1.6-8.9); Platelet Count 370 K/mcL (140-400); Red Blood Count 3.98 M/mcL (3.82-4.97); Red Cell Distribution Width 17.6 % (11.5-14.5); Segmented Neutrophils % 75.9 %; White Blood Count 12.1 K/mcL (4.3-11.1)
[2019-11-20 05:35] LABS: BUN/Creatinine Ratio 19 (6-26); Blood Urea Nitrogen 12 mg/dL (6-20); Calcium 8.2 mg/dL (8.6-10.3); Carbon Dioxide 24 mEq/L (23-29); Chloride 104 mEq/L (98-107); Glucose 121 mg/dL (70-105); Osmolality,Calculated 287 (280-300); Potassium 3.8 mEq/L (3.5-5.1); Sodium 138 mEq/L (136-145); eGFR For African Americans > 60 (> 60); eGFR For Non-African Americans > 60 (> 60)
[2019-11-20] MEDS: Aspirin 81 MG TAB.CHEW PO SCH (08:22)
[2019-11-20] MEDS: Insulin LISPRO 300 UNITS/3 ML VIAL SQ SCH ×4 (08:23→21:32)
[2019-11-20 10:57] LABS: Estimated Average Glucose 401 mg/dl
[2019-11-20] MEDS: Budesonide/Formoterol 160/4.5 1 PUFF INH IH SCH (11:53)
[2019-11-20] MEDS: Ketorolac 15 MG/ML VIAL IVP PRN (17:07)
[2019-11-20] MEDS: Gabapentin 300 MG CAPSULE PO SCH (21:30)
[2019-11-20] MEDS: Insulin DETEMIR 100 UNIT/ML X5UNITS SQ SCH (21:31)
[2019-11-21] MEDS: Piperacillin/Tazobactam 3.375 GM in 0.9 % Sodium Chloride Mini Bag 100 ML IVPB SCH ×3 (00:35→15:26)
[2019-11-21] MEDS: *HR* OxyCODONE Immed Rel 5 MG TABLET PO PRN ×2 (05:23→15:26)
[2019-11-21] MEDS: Budesonide/Formoterol 160/4.5 1 PUFF INH IH SCH (07:33)
[2019-11-21] MEDS: Insulin LISPRO 300 UNITS/3 ML VIAL SQ SCH ×4 (08:14→17:14)
[2019-11-21] MEDS: Aspirin 81 MG TAB.CHEW PO SCH (08:15)
[2019-11-21 08:59] LABS: Basophils # 0.1 K/mcL (0.0-0.2); Basophils % 0.5 %; Eosinophils # 0.2 K/mcL (0.0-0.6); Hematocrit 33.2 % (35.3-44.9); Hemoglobin 10.3 g/dL (11.5-15.4); Lymphocytes # 1.4 K/mcL (0.6-4.6); Lymphocytes % 13.2 %; Mean Corpuscular Hemoglobin 26.7 pg (28.0-33.3); Monocytes # 0.5 K/mcL (0.0-1.3); Monocytes % 4.5 %; Neutrophils # 8.2 K/mcL (1.6-8.9); Platelet Count 401 K/mcL (140-400); Red Blood Count 3.86 M/mcL (3.82-4.97); Red Cell Distribution Width 17.6 % (11.5-14.5); Segmented Neutrophils % 78.8 %; White Blood Count 10.4 K/mcL (4.3-11.1)
[2019-11-21 09:18] LABS: BUN/Creatinine Ratio 22 (6-26); Blood Urea Nitrogen 14 mg/dL (6-20); Calcium 7.9 mg/dL (8.6-10.3); Carbon Dioxide 26 mEq/L (23-29); Chloride 103 mEq/L (98-107); Glucose 152 mg/dL (70-105); Osmolality,Calculated 285 (280-300); Potassium 4.2 mEq/L (3.5-5.1); Sodium 136 mEq/L (136-145); eGFR For African Americans > 60 (> 60); eGFR For Non-African Americans > 60 (> 60)
[2019-11-21] MEDS: Gabapentin 300 MG CAPSULE PO SCH (20:45)
[2019-11-21] MEDS: Insulin DETEMIR 100 UNIT/ML X5UNITS SQ SCH (20:45)
[2019-11-21] MEDS: Acetaminophen 325 MG TABLET PO PRN (20:46)
[2019-11-22] MEDS: Piperacillin/Tazobactam 3.375 GM in 0.9 % Sodium Chloride Mini Bag 100 ML IVPB SCH ×4 (00:21→23:28)
[2019-11-22] MEDS: *HR* OxyCODONE Immed Rel 5 MG TABLET PO PRN ×3 (05:26→23:29)
[2019-11-22 06:54] LABS: Basophils % 0.4 %; Eosinophils # 0.3 K/mcL (0.0-0.6); Eosinophils % 2.6 %; Hemoglobin 9.7 g/dL (11.5-15.4); Immature Granulocytes % 0.9 % (0-4); Lymphocytes # 1.8 K/mcL (0.6-4.6); Lymphocytes % 17.7 %; Mean Corpuscular HGB Conc 31.3 g/dL (31.6-35.5); Mean Corpuscular Hemoglobin 27.1 pg (28.0-33.3); Mean Corpuscular Volume 86.6 fL (83.0-100.0); Mean Platelet Volume 9.1 fL (9.4-12.4); Monocytes # 0.5 K/mcL (0.0-1.3); Monocytes % 5.3 %; Neutrophils # 7.5 K/mcL (1.6-8.9); Platelet Count 402 K/mcL (140-400); Red Blood Count 3.58 M/mcL (3.82-4.97); Red Cell Distribution Width 17.5 % (11.5-14.5); Segmented Neutrophils % 73.1 %; White Blood Count 10.2 K/mcL (4.3-11.1)
[2019-11-22 07:11] LABS: BUN/Creatinine Ratio 22 (6-26); Blood Urea Nitrogen 16 mg/dL (6-20); Calcium 8.2 mg/dL (8.6-10.3); Carbon Dioxide 25 mEq/L (23-29); Chloride 101 mEq/L (98-107); Glucose 275 mg/dL (70-105); Osmolality,Calculated 291 (280-300); Potassium 4.6 mEq/L (3.5-5.1); Sodium 135 mEq/L (136-145); eGFR For African Americans > 60 (> 60); eGFR For Non-African Americans > 60 (> 60)
[2019-11-22] MEDS: Budesonide/Formoterol 160/4.5 1 PUFF INH IH SCH (08:21)
[2019-11-22] MEDS: Insulin LISPRO 300 UNITS/3 ML VIAL SQ SCH ×6 (09:22→16:56)
[2019-11-22] MEDS: Aspirin 81 MG TAB.CHEW PO SCH (09:23)
[2019-11-22] MEDS: Insulin DETEMIR 100 UNIT/ML X5UNITS SQ SCH (20:59)
[2019-11-22] MEDS: Gabapentin 300 MG CAPSULE PO SCH (20:59)
[2019-11-22] MEDS: Acetaminophen 325 MG TABLET PO PRN (20:59)
[2019-11-23 04:48] LABS: Basophils % 0.4 %; Eosinophils # 0.2 K/mcL (0.0-0.6); Eosinophils % 2.3 %; Hematocrit 30.7 % (35.3-44.9); Hemoglobin 9.4 g/dL (11.5-15.4); Immature Granulocytes % 0.8 % (0-4); Lymphocytes # 1.6 K/mcL (0.6-4.6); Lymphocytes % 22.2 %; Mean Corpuscular HGB Conc 30.6 g/dL (31.6-35.5); Mean Corpuscular Hemoglobin 26.5 pg (28.0-33.3); Mean Corpuscular Volume 86.5 fL (83.0-100.0); Monocytes # 0.4 K/mcL (0.0-1.3); Monocytes % 4.9 %; Neutrophils # 5.1 K/mcL (1.6-8.9); Platelet Count 387 K/mcL (140-400); Red Blood Count 3.55 M/mcL (3.82-4.97); Red Cell Distribution Width 17.2 % (11.5-14.5); Segmented Neutrophils % 69.4 %; White Blood Count 7.3 K/mcL (4.3-11.1)
[2019-11-23 05:07] LABS: BUN/Creatinine Ratio 19 (6-26); Blood Urea Nitrogen 14 mg/dL (6-20); Calcium 8.4 mg/dL (8.6-10.3); Carbon Dioxide 25 mEq/L (23-29); Chloride 104 mEq/L (98-107); Glucose 78 mg/dL (70-105); Osmolality,Calculated 281 (280-300); Potassium 4.4 mEq/L (3.5-5.1); Sodium 136 mEq/L (136-145); eGFR For African Americans > 60 (> 60); eGFR For Non-African Americans > 60 (> 60)
[2019-11-23] MEDS: Budesonide/Formoterol 160/4.5 1 PUFF INH IH SCH (07:39)
[2019-11-23] MEDS ORDERED: Piperacillin/Tazobactam 3.375 GM VIAL ONE (08:00)
[2019-11-23] MEDS: Piperacillin/Tazobactam 3.375 GM in 0.9 % Sodium Chloride Mini Bag 100 ML IVPB SCH ×2 (08:13→16:07)
[2019-11-23] MEDS: Aspirin 81 MG TAB.CHEW PO SCH (08:13)
[2019-11-23] MEDS: Insulin LISPRO 300 UNITS/3 ML VIAL SQ SCH ×6 (08:13→20:05)
[2019-11-23] MEDS: *HR* OxyCODONE Immed Rel 5 MG TABLET PO PRN ×2 (08:16→22:49)
[2019-11-23] MEDS: Insulin DETEMIR 100 UNIT/ML X5UNITS SQ SCH (20:13)
[2019-11-23] MEDS: Gabapentin 300 MG CAPSULE PO SCH (20:13)
[2019-11-24] MEDS: Piperacillin/Tazobactam 3.375 GM in 0.9 % Sodium Chloride Mini Bag 100 ML IVPB SCH ×3 (00:11→16:44)
[2019-11-24] MEDS: Budesonide/Formoterol 160/4.5 1 PUFF INH IH SCH (08:02)
[2019-11-24] MEDS: Insulin LISPRO 300 UNITS/3 ML VIAL SQ SCH ×6 (08:17→16:41)
[2019-11-24] MEDS: Aspirin 81 MG TAB.CHEW PO SCH (08:22)
[2019-11-24] MEDS: *HR* OxyCODONE Immed Rel 5 MG TABLET PO PRN ×2 (08:23→19:14)
[2019-11-24] MEDS: Gabapentin 300 MG CAPSULE PO SCH (21:21)
[2019-11-24] MEDS: Insulin DETEMIR 100 UNIT/ML X5UNITS SQ SCH (21:23)
[2019-11-25] MEDS: Piperacillin/Tazobactam 3.375 GM in 0.9 % Sodium Chloride Mini Bag 100 ML IVPB SCH ×2 (00:33→07:55)
[2019-11-25] MEDS: Budesonide/Formoterol 160/4.5 1 PUFF INH IH SCH (07:31)
[2019-11-25] MEDS: Aspirin 81 MG TAB.CHEW PO SCH (07:56)
[2019-11-25 08:02] VITALS: BP 120/83
[2019-11-25] MEDS: Insulin LISPRO 300 UNITS/3 ML VIAL SQ SCH ×2 (08:02→08:03)
== END 2019-11-25 15:19 | disposition home health service (06) | DRG 710 ==
LOC: 2ANU 14:38 → EMEROOARM 14:38 → SUATTDRO 20:25 → 2ANU 21:27 → ICNU 11-16 12:23 → 2NNU 11-17 08:47 → SUATTDRO 11-17 09:26 → 3ANU 11-20 09:43
PROVIDERS: ADMIT Internal Medicine; ATTEND Student in an Organized Health Care Education/Training Program

== ENCOUNTER 2019-12-14 07:02 | Inpatient (IN) ==
[2019-12-14] MEDS ORDERED: *HR* HYDROmorphone (PF) 1 MG/ML SYRINGE IVP STA (07:45)
[2019-12-14 08:04] LABS: Basophils % 0.4 %; Eosinophils # 0.1 K/mcL (0.0-0.6); Eosinophils % 0.5 %; Hematocrit 32.9 % (35.3-44.9); Hemoglobin 10.1 g/dL (11.5-15.4); Immature Granulocytes % 0.2 % (0-4); Lymphocytes # 1.3 K/mcL (0.6-4.6); Lymphocytes % 12.6 %; Mean Corpuscular HGB Conc 30.7 g/dL (31.6-35.5); Mean Corpuscular Hemoglobin 24.9 pg (28.0-33.3); Mean Corpuscular Volume 81.2 fL (83.0-100.0); Mean Platelet Volume 10.4 fL (9.4-12.4); Monocytes # 0.7 K/mcL (0.0-1.3); Neutrophils # 8.4 K/mcL (1.6-8.9); Platelet Count 237 K/mcL (140-400); Red Blood Count 4.05 M/mcL (3.82-4.97); Red Cell Distribution Width 17.2 % (11.5-14.5); Segmented Neutrophils % 79.3 %; White Blood Count 10.6 K/mcL (4.3-11.1)
[2019-12-14 08:34] LABS: Alanine Aminotransferase 10 Units/L (7-52); Albumin 3.2 g/dL (3.5-5.7); Albumin/Globulin Ratio 0.9 (1.1-2.2); Alkaline Phosphatase 111 Units/L (34-104); Aspartate Amino Transferase 11 Units/L (13-39); BUN/Creatinine Ratio 13 (6-26); Bilirubin,Total 0.7 mg/dL (0.3-1.0); Blood Urea Nitrogen 9 mg/dL (6-20); C-Reactive Protein 41 mg/L (Less than 10); Calcium 8.8 mg/dL (8.6-10.3); Carbon Dioxide 21 mEq/L (23-29); Chloride 92 mEq/L (98-107); Globulin 3.4 g/dL (2.4-3.5); Glucose 519 mg/dL (70-105); Osmolality,Calculated 284 (280-300); Potassium 4.3 mEq/L (3.5-5.1); Sodium 126 mEq/L (136-145); Total Protein 6.6 g/dL (6.4-8.9); eGFR For African Americans > 60 (> 60); eGFR For Non-African Americans > 60 (> 60)
[2019-12-14] MEDS ORDERED: Insulin Human Regular 10 UNIT in 0.9 % Sodium Chloride 10 ML IV ONE (08:40)
[2019-12-14] MEDS ORDERED: Piperacillin/Tazobactam 3.375 GM in Water for inj. (sterile) 20 ML IVP ONE (10:48)
[2019-12-14] MEDS ORDERED: Naloxone 0.4 MG/ML INJ IVP PRN (10:53)
[2019-12-14] MEDS ORDERED: Acetaminophen 325 MG TABLET PO PRN (10:53)
[2019-12-14] MEDS ORDERED: Dextrose Gel 15 GM/37.5 ML TUBE PO PRN ×2 (10:56)
[2019-12-14] MEDS ORDERED: D5% in Water 1,000 ML IVC PRN (10:56)
[2019-12-14] MEDS ORDERED: *HR* Dextrose 50 % in Water (Syg) 50 ML SYRINGE IVP PRN (10:56)
[2019-12-14] MEDS ORDERED: Albuterol 2.5 MG/3 ML NEBULIZER IH PRN (10:58)
[2019-12-14] MEDS ORDERED: Nitroglycerin 0.4 MG TAB.SUBL SL PRN (10:58)
[2019-12-14] MEDS: Furosemide 40 MG/4 ML VIAL IVP SCH (14:23)
[2019-12-14] MEDS: Insulin LISPRO 300 UNITS/3 ML VIAL SQ SCH ×3 (14:23→20:33)
[2019-12-14] MEDS: Gabapentin 300 MG CAPSULE PO SCH (14:23)
[2019-12-14] MEDS: *HR* HYDROcodone/Acet 5/325 mg TABLET PO PRN (15:03)
[2019-12-14] MEDS ORDERED: Piperacillin/Tazobactam 3.375 GM in 0.9 % Sodium Chloride Mini Bag 100 ML IVPB SCH (16:00)
[2019-12-14] MEDS ORDERED: Insulin LISPRO 300 UNITS/3 ML VIAL SQ SCH (16:30)
[2019-12-14] MEDS: Piperacillin/Tazobactam 3.375 GM in 0.9 % Sodium Chloride Mini Bag 100 ML IVPB SCH (18:19)
[2019-12-14] MEDS: Budesonide/Formoterol 160/4.5 1 PUFF INH IH SCH (19:44)
[2019-12-14] MEDS: Insulin DETEMIR 100 UNIT/ML X5UNITS SQ SCH (20:33)
[2019-12-15] MEDS: Piperacillin/Tazobactam 3.375 GM in 0.9 % Sodium Chloride Mini Bag 100 ML IVPB SCH ×3 (03:23→18:00)
[2019-12-15 05:46] LABS: Basophils # 0.1 K/mcL (0.0-0.2); Basophils % 0.7 %; Eosinophils # 0.1 K/mcL (0.0-0.6); Eosinophils % 1.1 %; Hematocrit 31.7 % (35.3-44.9); Hemoglobin 9.4 g/dL (11.5-15.4); Immature Granulocytes % 0.3 % (0-4); Lymphocytes # 1.5 K/mcL (0.6-4.6); Lymphocytes % 20.1 %; Mean Corpuscular HGB Conc 29.7 g/dL (31.6-35.5); Mean Corpuscular Hemoglobin 24.8 pg (28.0-33.3); Mean Corpuscular Volume 83.6 fL (83.0-100.0); Mean Platelet Volume 10.5 fL (9.4-12.4); Monocytes # 0.8 K/mcL (0.0-1.3); Monocytes % 11.3 %; Neutrophils # 4.8 K/mcL (1.6-8.9); Nucleated Red Blood Cells 0.3 /100 WBC (0); Platelet Count 217 K/mcL (140-400); Red Blood Count 3.79 M/mcL (3.82-4.97); Red Cell Distribution Width 17.2 % (11.5-14.5); Segmented Neutrophils % 66.5 %; White Blood Count 7.3 K/mcL (4.3-11.1)
[2019-12-15 05:57] LABS: BUN/Creatinine Ratio 20 (6-26); Blood Urea Nitrogen 12 mg/dL (6-20); Calcium 8.3 mg/dL (8.6-10.3); Carbon Dioxide 25 mEq/L (23-29); Chloride 96 mEq/L (98-107); Glucose 91 mg/dL (70-105); Osmolality,Calculated 271 (280-300); Potassium 3.8 mEq/L (3.5-5.1); Sodium 131 mEq/L (136-145); eGFR For African Americans > 60 (> 60); eGFR For Non-African Americans > 60 (> 60)
[2019-12-15] MEDS: Budesonide/Formoterol 160/4.5 1 PUFF INH IH SCH ×2 (07:37→19:50)
[2019-12-15] MEDS: Insulin LISPRO 300 UNITS/3 ML VIAL SQ SCH ×4 (07:49→21:19)
[2019-12-15] MEDS: Metoprolol XL (24 HR) Succ 25 MG TAB.ER.24H PO SCH (08:51)
[2019-12-15] MEDS: Gabapentin 300 MG CAPSULE PO SCH (08:51)
[2019-12-15] MEDS: Furosemide 40 MG/4 ML VIAL IVP SCH ×2 (08:52→16:12)
[2019-12-15] MEDS: Aspirin 81 MG TAB.CHEW PO SCH (08:52)
[2019-12-15] MEDS ORDERED: NON-FORMULARY MEDICATION 1 EACH EACH (Fluticasone/Vilanterol [Breo Ellipta 100-25 Mcg Inh] IH SCH (09:00)
[2019-12-15] MEDS ORDERED: Furosemide 40 MG TABLET PO SCH (09:00)
[2019-12-15] MEDS: Gentamicin Oint 15 GM TUBE TP SCH (14:07)
[2019-12-15] MEDS: *HR* HYDROcodone/Acet 5/325 mg TABLET PO PRN (16:12)
[2019-12-15] MEDS: Insulin DETEMIR 100 UNIT/ML X5UNITS SQ SCH (21:19)
[2019-12-16] MEDS: *HR* OxyCODONE Immed Rel 5 MG TABLET PO PRN (00:13)
[2019-12-16] MEDS: Piperacillin/Tazobactam 3.375 GM in 0.9 % Sodium Chloride Mini Bag 100 ML IVPB SCH ×3 (03:06→20:33)
[2019-12-16] MEDS ORDERED: Regadenoson 0.4 MG/5 ML SYRINGE IVP ONE (06:19)
[2019-12-16] MEDS: Insulin LISPRO 300 UNITS/3 ML VIAL SQ SCH ×4 (08:52→20:33)
[2019-12-16] MEDS: Furosemide 40 MG/4 ML VIAL IVP SCH ×2 (08:53→18:19)
[2019-12-16] MEDS: Gabapentin 300 MG CAPSULE PO SCH (08:55)
[2019-12-16] MEDS: Metoprolol XL (24 HR) Succ 25 MG TAB.ER.24H PO SCH (08:55)
[2019-12-16] MEDS: Aspirin 81 MG TAB.CHEW PO SCH (08:55)
[2019-12-16] MEDS: Budesonide/Formoterol 160/4.5 1 PUFF INH IH SCH ×2 (10:42→20:09)
[2019-12-16] MEDS: Gentamicin Oint 15 GM TUBE TP SCH (12:00)
[2019-12-16] MEDS: Insulin DETEMIR 100 UNIT/ML X5UNITS SQ SCH (20:33)
[2019-12-17] MEDS: Piperacillin/Tazobactam 3.375 GM in 0.9 % Sodium Chloride Mini Bag 100 ML IVPB SCH ×3 (03:31→18:27)
[2019-12-17] MEDS: *HR* OxyCODONE Immed Rel 5 MG TABLET PO PRN (03:51)
[2019-12-17 04:56] LABS: BUN/Creatinine Ratio 23 (6-26); Blood Urea Nitrogen 18 mg/dL (6-20); Calcium 7.7 mg/dL (8.6-10.3); Carbon Dioxide 27 mEq/L (23-29); Chloride 92 mEq/L (98-107); Glucose 325 mg/dL (70-105); Osmolality,Calculated 280 (280-300); Potassium 3.4 mEq/L (3.5-5.1); Sodium 128 mEq/L (136-145); eGFR For African Americans > 60 (> 60); eGFR For Non-African Americans > 60 (> 60)
[2019-12-17] MEDS: Budesonide/Formoterol 160/4.5 1 PUFF INH IH SCH ×2 (07:43→19:59)
[2019-12-17] MEDS: Insulin LISPRO 300 UNITS/3 ML VIAL SQ SCH ×3 (09:12→22:09)
[2019-12-17] MEDS: Furosemide 40 MG/4 ML VIAL IVP SCH (09:15)
[2019-12-17] MEDS: Metoprolol XL (24 HR) Succ 25 MG TAB.ER.24H PO SCH (09:17)
[2019-12-17] MEDS: Aspirin 81 MG TAB.CHEW PO SCH ×2 (09:17→10:15)
[2019-12-17] MEDS: Gabapentin 300 MG CAPSULE PO SCH (09:17)
[2019-12-17] MEDS: *HR* HYDROcodone/Acet 5/325 mg TABLET PO PRN (09:23)
[2019-12-17] MEDS: Gentamicin Oint 15 GM TUBE TP SCH (10:15)
[2019-12-17] MEDS: 0.9 % Sodium Chloride 500 ML IVC SCH (11:39)
[2019-12-17] MEDS ORDERED: *HR* Midazolam HCl 2 MG/2 ML VIAL ONE (13:28)
[2019-12-17] MEDS ORDERED: *HR* FentaNYL (PF) 100 MCG/2 ML VIAL ONE (13:28)
[2019-12-17] MEDS ORDERED: Propofol 500 MG/50 ML INFUS..BTL ONE (13:29)
[2019-12-17] MEDS ORDERED: Lidocaine -MPF 2% 2 ML VIAL ONE (13:29)
[2019-12-17] MEDS ORDERED: Vancomycin 1,000 MG VIAL ONE (13:41)
[2019-12-17] MEDS ORDERED: Lidocaine 1% 20 ML MDV ONE (13:41)
[2019-12-17] MEDS ORDERED: *HR* PHENYLEPHRINE 1,000 MCG/10 ML SYRINGE IVP ONE (14:18)
[2019-12-17] MEDS ORDERED: *HR* HYDROcodone/Acet 5/325 mg TABLET PO PRN (14:59)
[2019-12-17] MEDS ORDERED: *HR* Dextrose 50 % in Water (Syg) 50 ML SYRINGE IVP PRN (14:59)
[2019-12-17] MEDS ORDERED: D5% in Water 1,000 ML IVC PRN (14:59)
[2019-12-17] MEDS ORDERED: Nitroglycerin 0.4 MG TAB.SUBL SL PRN (14:59)
[2019-12-17] MEDS ORDERED: Naloxone 0.4 MG/ML INJ IVP PRN (14:59)
[2019-12-17] MEDS ORDERED: Albuterol 2.5 MG/3 ML NEBULIZER IH PRN (14:59)
[2019-12-17] MEDS ORDERED: Dextrose Gel 15 GM/37.5 ML TUBE PO PRN ×2 (14:59)
[2019-12-17] MEDS ORDERED: *HR* OxyCODONE Immed Rel 5 MG TABLET PO PRN (14:59)
[2019-12-17] MEDS ORDERED: 0.9 % Sodium Chloride 500 ML IVC SCH (14:59)
[2019-12-17] MEDS ORDERED: Acetaminophen 325 MG TABLET PO PRN (14:59)
[2019-12-17] MEDS ORDERED: Insulin LISPRO 300 UNITS/3 ML VIAL SQ SCH ×2 (16:30→21:00)
[2019-12-17] MEDS: Insulin DETEMIR 100 UNIT/ML X5UNITS SQ SCH (22:09)
[2019-12-18] MEDS: Piperacillin/Tazobactam 3.375 GM in 0.9 % Sodium Chloride Mini Bag 100 ML IVPB SCH ×3 (03:47→21:10)
[2019-12-18 06:41] LABS: BUN/Creatinine Ratio 30 (6-26); Blood Urea Nitrogen 19 mg/dL (6-20); Calcium 8.1 mg/dL (8.6-10.3); Carbon Dioxide 24 mEq/L (23-29); Chloride 96 mEq/L (98-107); Glucose 107 mg/dL (70-105); Osmolality,Calculated 277 (280-300); Potassium 3.9 mEq/L (3.5-5.1); Sodium 132 mEq/L (136-145); eGFR For African Americans > 60 (> 60); eGFR For Non-African Americans > 60 (> 60)
[2019-12-18 06:48] LABS: Basophils % 0.5 %; Eosinophils % 0.1 %; Hematocrit 32.7 % (35.3-44.9); Hemoglobin 10.1 g/dL (11.5-15.4); Immature Granulocytes % 0.4 % (0-4); Lymphocytes # 1.3 K/mcL (0.6-4.6); Lymphocytes % 15.4 %; Mean Corpuscular HGB Conc 30.9 g/dL (31.6-35.5); Mean Corpuscular Hemoglobin 24.8 pg (28.0-33.3); Mean Corpuscular Volume 80.1 fL (83.0-100.0); Mean Platelet Volume 10.4 fL (9.4-12.4); Monocytes # 0.8 K/mcL (0.0-1.3); Monocytes % 9.7 %; Neutrophils # 6.3 K/mcL (1.6-8.9); Nucleated Red Blood Cells 0.2 /100 WBC (0); Platelet Count 283 K/mcL (140-400); Red Blood Count 4.08 M/mcL (3.82-4.97); Red Cell Distribution Width 17.3 % (11.5-14.5); Segmented Neutrophils % 73.9 %; White Blood Count 8.6 K/mcL (4.3-11.1)
[2019-12-18] MEDS: Budesonide/Formoterol 160/4.5 1 PUFF INH IH SCH ×2 (07:56→21:34)
[2019-12-18] MEDS: Insulin LISPRO 300 UNITS/3 ML VIAL SQ SCH ×7 (08:09→21:08)
[2019-12-18] MEDS: Gabapentin 300 MG CAPSULE PO SCH (08:18)
[2019-12-18] MEDS: Metoprolol XL (24 HR) Succ 25 MG TAB.ER.24H PO SCH (08:18)
[2019-12-18] MEDS: Gentamicin Oint 15 GM TUBE TP SCH (09:43)
[2019-12-18] MEDS: Aspirin 81 MG TAB.CHEW PO SCH (09:43)
[2019-12-18] MEDS ORDERED: Vancomycin 1,000 MG, Sodium Chloride IRRigation 1,000 ML IR ONE ×2 (11:15)
[2019-12-18] MEDS ORDERED: Vancomycin 1,000 MG VIAL ONE ×2 (11:20→12:10)
[2019-12-18] MEDS ORDERED: Heparin 1,000 UNITS/500 mL 500 ML ONE (11:20)
[2019-12-18] MEDS ORDERED: Ondansetron 4 MG/2 ML VIAL IVP ONE (11:27)
[2019-12-18] MEDS ORDERED: *HR* HYDROmorphone (PF) 1 MG/ML SYRINGE IVP PRN (11:27)
[2019-12-18] MEDS ORDERED: *HR* OxyCODONE Immed Rel 5 MG TABLET PO PRN (11:27)
[2019-12-18] MEDS ORDERED: Ringers Solution, Lactated 1,000 ML IVC SCH (11:30)
[2019-12-18] MEDS ORDERED: *HR* Vasopressin 20 UNIT/ML VIAL ONE (11:33)
[2019-12-18] MEDS ORDERED: *HR* Norepinephrine 4 MG/4 ML VIAL IVC ONE (12:28)
[2019-12-18 13:28] LABS: ABG Base Excess 0 mEq/L (-2 to 3); ABG Chloride 96 mEq/L (98-107); ABG Glucose 117 mg/dL (60-95); ABG HCO3 23 mEq/L (21-27); ABG Ionized Calcium 1.12 mmol/L (1.15-1.35); ABG Oxygen Saturation 100 % (95-98); ABG PCO2 34 mmHg (35-45); ABG PH 7.44 pH Units (7.32-7.45); ABG PO2 553 mmHg (85-104); ABG TCO2 25 mEq/L (20-26)
[2019-12-18 13:37] LABS: ABG Base Excess -2 mEq/L (-2 to 3); ABG Chloride 97 mEq/L (98-107); ABG Glucose 100 mg/dL (60-95); ABG HCO3 21 mEq/L (21-27); ABG Ionized Calcium 1.08 mmol/L (1.15-1.35); ABG Oxygen Saturation 100 % (95-98); ABG PCO2 32 mmHg (35-45); ABG PH 7.43 pH Units (7.32-7.45); ABG PO2 510 mmHg (85-104); ABG TCO2 22 mEq/L (20-26)
[2019-12-18 14:19] LABS: ABG Base Excess -4 mEq/L (-2 to 3); ABG Chloride 96 mEq/L (98-107); ABG Glucose 106 mg/dL (60-95); ABG HCO3 22 mEq/L (21-27); ABG Ionized Calcium 1.11 mmol/L (1.15-1.35); ABG Oxygen Saturation 100 % (95-98); ABG PCO2 41 mmHg (35-45); ABG PH 7.33 pH Units (7.32-7.45); ABG PO2 536 mmHg (85-104); ABG TCO2 23 mEq/L (20-26)
[2019-12-18] MEDS ORDERED: *HR* Heparin 5,000 UNIT/ML VIAL ONE (14:42)
[2019-12-18 15:09] LABS: ABG Base Excess -7 mEq/L (-2 to 3); ABG Chloride 102 mEq/L (98-107); ABG Glucose 92 mg/dL (60-95); ABG HCO3 19 mEq/L (21-27); ABG Ionized Calcium 0.68 mmol/L (1.15-1.35); ABG Oxygen Saturation 100 % (95-98); ABG PCO2 39 mmHg (35-45); ABG PO2 472 mmHg (85-104); ABG TCO2 20 mEq/L (20-26)
[2019-12-18] MEDS ORDERED: Haloperidol Lactate 5 MG/ML VIAL IVP ONE (16:04)
[2019-12-18 20:20] LABS: Bilirubin,Urine Negative (Negative); Blood,Urine Trace (Negative); Clarity,Urine Cloudy (Clear); Color,Urine Dark Yellow (Yellow); Glucose,Urine (UA) Normal (Normal); Ketones,Urine Trace mg/dL (Negative); Leukocyte Esterase,Urine Small (Negative); Nitrite,Urine Negative (Negative); PH,Urine 5.5 pH Units (5.0-8.0); Protein,Urine 30 mg/dL (Neg-Trace); Specific Gravity,Urine 1.023 (1.010-1.025); Urobilinogen,Urine Normal (Normal)
[2019-12-18 20:25] LABS: Bacteria,Urine None Seen per hpf (None-Few); RBC,Urine 0-3 per hpf (0-3); Squamous Epithelial Cell,Urine Many per lpf (None-Few); WBC,Urine 30-50 per hpf (0-3)
[2019-12-18 20:46] LABS: Hyaline Casts,Urine Few per lpf (None-Few); Yeast,Urine Few per hpf (None Seen)
[2019-12-18] MEDS: Insulin DETEMIR 100 UNIT/ML X5UNITS SQ SCH (21:10)
[2019-12-19] MEDS: Piperacillin/Tazobactam 3.375 GM in 0.9 % Sodium Chloride Mini Bag 100 ML IVPB SCH ×3 (04:28→17:47)
[2019-12-19 05:42] LABS: Basophils % 0.1 %
[2019-12-19 05:43] LABS: Hematocrit 36.9 % (35.3-44.9); Hemoglobin 10.9 g/dL (11.5-15.4); Immature Granulocytes % 0.6 % (0-4); Lymphocytes # 0.9 K/mcL (0.6-4.6); Mean Corpuscular HGB Conc 29.5 g/dL (31.6-35.5); Mean Corpuscular Hemoglobin 23.7 pg (28.0-33.3); Mean Corpuscular Volume 80.4 fL (83.0-100.0); Mean Platelet Volume 10.4 fL (9.4-12.4); Monocytes # 0.8 K/mcL (0.0-1.3); Monocytes % 9.4 %; Platelet Count 273 K/mcL (140-400); Red Blood Count 4.59 M/mcL (3.82-4.97); Red Cell Distribution Width 17.9 % (11.5-14.5); Segmented Neutrophils % 79.9 %; White Blood Count 8.7 K/mcL (4.3-11.1)
[2019-12-19] MEDS ORDERED: *HR* Heparin 5,000 UNIT/ML VIAL SQ SCH (06:00)
[2019-12-19 06:10] LABS: Alanine Aminotransferase 8 Units/L (7-52); Albumin 2.3 g/dL (3.5-5.7); Albumin/Globulin Ratio 0.8 (1.1-2.2); Alkaline Phosphatase 105 Units/L (34-104); Aspartate Amino Transferase 15 Units/L (13-39); BUN/Creatinine Ratio 33 (6-26); Bilirubin,Total 0.8 mg/dL (0.3-1.0); Blood Urea Nitrogen 25 mg/dL (6-20); Calcium 8.4 mg/dL (8.6-10.3); Carbon Dioxide 24 mEq/L (23-29); Chloride 96 mEq/L (98-107); Globulin 2.9 g/dL (2.4-3.5); Glucose 224 mg/dL (70-105); Magnesium 1.5 mg/dL (1.6-2.6); Osmolality,Calculated 289 (280-300); Phosphorous 3.8 mg/dL (2.7-4.5); Potassium 4.4 mEq/L (3.5-5.1); Sodium 134 mEq/L (136-145); Total Protein 5.2 g/dL (6.4-8.9); eGFR For African Americans > 60 (> 60); eGFR For Non-African Americans > 60 (> 60)
[2019-12-19 06:26] LABS: Hypochromasia Present (Not Present); Polychromasia 1+ (Not Present)
[2019-12-19 06:27] LABS: Platelet Estimate Normal (Normal)
[2019-12-19] MEDS: Insulin LISPRO 300 UNITS/3 ML VIAL SQ SCH ×7 (07:47→23:29)
[2019-12-19] MEDS: Aspirin 81 MG TAB.CHEW PO SCH (07:49)
[2019-12-19] MEDS: Gabapentin 300 MG CAPSULE PO SCH (07:49)
[2019-12-19] MEDS: Metoprolol XL (24 HR) Succ 25 MG TAB.ER.24H PO SCH (07:49)
[2019-12-19] MEDS ORDERED: D5% in Water 1,000 ML IVC PRN (09:49)
[2019-12-19] MEDS ORDERED: Ondansetron 4 MG/2 ML VIAL IVP ONE (09:49)
[2019-12-19] MEDS ORDERED: *HR* Dextrose 50 % in Water (Syg) 50 ML SYRINGE IVP PRN (09:49)
[2019-12-19] MEDS ORDERED: Albuterol 2.5 MG/3 ML NEBULIZER IH PRN (09:49)
[2019-12-19] MEDS ORDERED: Dextrose Gel 15 GM/37.5 ML TUBE PO PRN ×2 (09:49)
[2019-12-19] MEDS ORDERED: Acetaminophen 325 MG TABLET PO PRN (09:49)
[2019-12-19] MEDS ORDERED: Naloxone 0.4 MG/ML INJ IVP PRN (09:49)
[2019-12-19] MEDS: Budesonide/Formoterol 160/4.5 1 PUFF INH IH SCH ×2 (11:21→20:28)
[2019-12-19] MEDS: Gentamicin Oint 15 GM TUBE TP SCH (11:23)
[2019-12-19] MEDS: *HR* Heparin 5,000 UNIT/ML VIAL SQ SCH (17:46)
[2019-12-19] MEDS ORDERED: Ondansetron 4 MG/2 ML VIAL ONE (19:36)
[2019-12-19] MEDS ORDERED: Ondansetron 4 MG/2 ML VIAL IVP PRN (19:40)
[2019-12-19] MEDS: *HR* HYDROcodone/Acet 5/325 mg TABLET PO PRN (23:19)
[2019-12-19] MEDS: Insulin DETEMIR 100 UNIT/ML X5UNITS SQ SCH (23:29)
[2019-12-20] MEDS: Piperacillin/Tazobactam 3.375 GM in 0.9 % Sodium Chloride Mini Bag 100 ML IVPB SCH ×3 (03:30→18:06)
[2019-12-20 05:31] LABS: Basophils % 0.1 %; Hematocrit 33.3 % (35.3-44.9); Hemoglobin 9.9 g/dL (11.5-15.4); Immature Granulocytes % 0.4 % (0-4); Lymphocytes # 1.2 K/mcL (0.6-4.6); Mean Corpuscular HGB Conc 29.7 g/dL (31.6-35.5); Mean Corpuscular Volume 80.8 fL (83.0-100.0); Mean Platelet Volume 10.7 fL (9.4-12.4); Monocytes # 1.1 K/mcL (0.0-1.3); Monocytes % 9.5 %; Neutrophils # 8.9 K/mcL (1.6-8.9); Nucleated Red Blood Cells 0.2 /100 WBC (0); Platelet Count 304 K/mcL (140-400); Red Blood Count 4.12 M/mcL (3.82-4.97); White Blood Count 11.2 K/mcL (4.3-11.1)
[2019-12-20 05:51] LABS: Alanine Aminotransferase 7 Units/L (7-52); Albumin 2.3 g/dL (3.5-5.7); Albumin/Globulin Ratio 0.9 (1.1-2.2); Alkaline Phosphatase 87 Units/L (34-104); Aspartate Amino Transferase 11 Units/L (13-39); BUN/Creatinine Ratio 35 (6-26); Bilirubin,Total 0.6 mg/dL (0.3-1.0); Blood Urea Nitrogen 29 mg/dL (6-20); Calcium 8.2 mg/dL (8.6-10.3); Carbon Dioxide 28 mEq/L (23-29); Chloride 97 mEq/L (98-107); Globulin 2.5 g/dL (2.4-3.5); Glucose 229 mg/dL (70-105); Magnesium 1.8 mg/dL (1.6-2.6); Osmolality,Calculated 287 (280-300); Phosphorous 2.4 mg/dL (2.7-4.5); Potassium 4.3 mEq/L (3.5-5.1); Sodium 132 mEq/L (136-145); Total Protein 4.8 g/dL (6.4-8.9); eGFR For African Americans > 60 (> 60); eGFR For Non-African Americans > 60 (> 60)
[2019-12-20] MEDS: *HR* Heparin 5,000 UNIT/ML VIAL SQ SCH ×2 (06:49→17:14)
[2019-12-20] MEDS: Budesonide/Formoterol 160/4.5 1 PUFF INH IH SCH ×2 (07:11→21:56)
[2019-12-20] MEDS: Insulin LISPRO 300 UNITS/3 ML VIAL SQ SCH ×7 (09:35→20:02)
[2019-12-20] MEDS: Gabapentin 300 MG CAPSULE PO SCH (09:36)
[2019-12-20] MEDS: Aspirin 81 MG TAB.CHEW PO SCH (09:36)
[2019-12-20] MEDS: Metoprolol XL (24 HR) Succ 25 MG TAB.ER.24H PO SCH (09:36)
[2019-12-20] MEDS: Gentamicin Oint 15 GM TUBE TP SCH ×2 (09:36→18:38)
[2019-12-20] MEDS: Fluconazole 100 MG TABLET PO SCH (13:44)
[2019-12-20] MEDS: 0.9 % Sodium Chloride 500 ML IVC SCH (18:37)
[2019-12-20] MEDS: *HR* HYDROcodone/Acet 5/325 mg TABLET PO PRN (20:05)
[2019-12-20] MEDS: Insulin DETEMIR 100 UNIT/ML X5UNITS SQ SCH (20:06)
[2019-12-21 02:58] LABS: Hematocrit 33.3 % (35.3-44.9); Hemoglobin 9.4 g/dL (11.5-15.4); Mean Corpuscular HGB Conc 28.2 g/dL (31.6-35.5); Mean Corpuscular Volume 85.2 fL (83.0-100.0); Mean Platelet Volume 10.2 fL (9.4-12.4); Platelet Count 253 K/mcL (140-400); Red Blood Count 3.91 M/mcL (3.82-4.97); Red Cell Distribution Width 18.1 % (11.5-14.5); White Blood Count 9.2 K/mcL (4.3-11.1)
[2019-12-21] MEDS: *HR* HYDROcodone/Acet 5/325 mg TABLET PO PRN ×2 (03:03→13:09)
[2019-12-21] MEDS: Piperacillin/Tazobactam 3.375 GM in 0.9 % Sodium Chloride Mini Bag 100 ML IVPB SCH ×3 (03:04→18:15)
[2019-12-21 03:17] LABS: BUN/Creatinine Ratio 40 (6-26); Blood Urea Nitrogen 23 mg/dL (6-20); Calcium 8.3 mg/dL (8.6-10.3); Carbon Dioxide 28 mEq/L (23-29); Chloride 100 mEq/L (98-107); Glucose 112 mg/dL (70-105); Magnesium 1.8 mg/dL (1.6-2.6); Osmolality,Calculated 280 (280-300); Potassium 4.2 mEq/L (3.5-5.1); Sodium 133 mEq/L (136-145); eGFR For African Americans > 60 (> 60); eGFR For Non-African Americans > 60 (> 60)
[2019-12-21] MEDS: *HR* Heparin 5,000 UNIT/ML VIAL SQ SCH ×2 (06:06→17:22)
[2019-12-21] MEDS: Aspirin 81 MG TAB.CHEW PO SCH (07:51)
[2019-12-21] MEDS: Metoprolol XL (24 HR) Succ 25 MG TAB.ER.24H PO SCH (07:51)
[2019-12-21] MEDS: Insulin LISPRO 300 UNITS/3 ML VIAL SQ SCH ×7 (07:51→20:04)
[2019-12-21] MEDS: Fluconazole 100 MG TABLET PO SCH (07:51)
[2019-12-21] MEDS: Gabapentin 300 MG CAPSULE PO SCH (07:51)
[2019-12-21] MEDS: Gentamicin Oint 15 GM TUBE TP SCH (07:56)
[2019-12-21] MEDS: Budesonide/Formoterol 160/4.5 1 PUFF INH IH SCH ×2 (08:00→20:06)
[2019-12-21] MEDS: *HR* OxyCODONE Immed Rel 5 MG TABLET PO PRN (20:01)
[2019-12-21] MEDS: Insulin DETEMIR 100 UNIT/ML X5UNITS SQ SCH (20:03)
[2019-12-22] MEDS: Piperacillin/Tazobactam 3.375 GM in 0.9 % Sodium Chloride Mini Bag 100 ML IVPB SCH ×3 (03:05→18:26)
[2019-12-22] MEDS: *HR* HYDROcodone/Acet 5/325 mg TABLET PO PRN (03:06)
[2019-12-22] MEDS: *HR* OxyCODONE Immed Rel 5 MG TABLET PO PRN (05:57)
[2019-12-22] MEDS: *HR* Heparin 5,000 UNIT/ML VIAL SQ SCH ×2 (05:57→17:27)
[2019-12-22] MEDS: Budesonide/Formoterol 160/4.5 1 PUFF INH IH SCH ×2 (07:44→20:25)
[2019-12-22] MEDS: Aspirin 81 MG TAB.CHEW PO SCH (08:40)
[2019-12-22] MEDS: Fluconazole 100 MG TABLET PO SCH (08:40)
[2019-12-22] MEDS: Gabapentin 300 MG CAPSULE PO SCH (08:41)
[2019-12-22] MEDS: Metoprolol XL (24 HR) Succ 25 MG TAB.ER.24H PO SCH (08:41)
[2019-12-22] MEDS: Gentamicin Oint 15 GM TUBE TP SCH (08:43)
[2019-12-22] MEDS: Insulin LISPRO 300 UNITS/3 ML VIAL SQ SCH ×6 (08:43→16:50)
[2019-12-22] MEDS ORDERED: Insulin LISPRO 300 UNITS/3 ML VIAL SQ SCH (18:36)
[2019-12-22] MEDS ORDERED: Insulin DETEMIR 100 UNIT/ML X5UNITS SQ SCH ×2 (21:00)
[2019-12-22] MEDS ORDERED: D5% in Water 500 ML IVC SCH (23:59)
[2019-12-23 01:12] LABS: Hematocrit 30.2 % (35.3-44.9); Hemoglobin 8.9 g/dL (11.5-15.4); Mean Corpuscular HGB Conc 29.5 g/dL (31.6-35.5); Mean Corpuscular Hemoglobin 23.9 pg (28.0-33.3); Mean Platelet Volume 10.2 fL (9.4-12.4); Platelet Count 347 K/mcL (140-400); Red Blood Count 3.73 M/mcL (3.82-4.97); Red Cell Distribution Width 18.2 % (11.5-14.5); White Blood Count 8.9 K/mcL (4.3-11.1)
[2019-12-23 01:29] LABS: BUN/Creatinine Ratio 36 (6-26); Blood Urea Nitrogen 21 mg/dL (6-20); Calcium 8.4 mg/dL (8.6-10.3); Carbon Dioxide 20 mEq/L (23-29); Chloride 96 mEq/L (98-107); Glucose 121 mg/dL (70-105); Osmolality,Calculated 268 (280-300); Potassium 5.2 mEq/L (3.5-5.1); Sodium 127 mEq/L (136-145); eGFR For African Americans > 60 (> 60); eGFR For Non-African Americans > 60 (> 60)
[2019-12-23] MEDS: Piperacillin/Tazobactam 3.375 GM in 0.9 % Sodium Chloride Mini Bag 100 ML IVPB SCH ×3 (02:36→20:38)
[2019-12-23] MEDS: Nitroglycerin 0.4 MG TAB.SUBL SL PRN ×3 (02:37→02:53)
[2019-12-23] MEDS ORDERED: Acetaminophen IV 1,000 MG/100 ML INFUS..BTL IVPB ONE (03:05)
[2019-12-23] MEDS: *HR* Heparin 5,000 UNIT/ML VIAL SQ SCH (06:03)
[2019-12-23] MEDS: Gabapentin 300 MG CAPSULE PO SCH (07:50)
[2019-12-23] MEDS: Aspirin 81 MG TAB.CHEW PO SCH (07:50)
[2019-12-23] MEDS: Fluconazole 100 MG TABLET PO SCH (07:50)
[2019-12-23] MEDS: Gentamicin Oint 15 GM TUBE TP SCH (07:51)
[2019-12-23] MEDS: Insulin LISPRO 300 UNITS/3 ML VIAL SQ SCH ×4 (07:51→21:54)
[2019-12-23] MEDS: Metoprolol XL (24 HR) Succ 25 MG TAB.ER.24H PO SCH (07:52)
[2019-12-23] MEDS: Budesonide/Formoterol 160/4.5 1 PUFF INH IH SCH ×2 (10:08→21:44)
[2019-12-23] MEDS ORDERED: Bupivacaine/EPI 1:200k 0.25%PF 10 ML VIAL INFILT ONE (15:48)
[2019-12-23] MEDS ORDERED: *HR* FentaNYL (PF) 100 MCG/2 ML VIAL ONE (15:56)
[2019-12-23] MEDS ORDERED: *HR* Midazolam HCl 2 MG/2 ML VIAL ONE (15:56)
[2019-12-23] MEDS ORDERED: *HR* Propofol 200 MG/20 ML VIAL IVP ONE (15:57)
[2019-12-23] MEDS ORDERED: Ondansetron 4 MG/2 ML VIAL ONE (15:58)
[2019-12-23] MEDS ORDERED: Dexamethasone 4 MG/ML VIAL ONE (15:58)
[2019-12-23] MEDS ORDERED: Vancomycin 1,000 MG, Sodium Chloride IRRigation 1,000 ML IR ONE ×2 (16:05→18:33)
[2019-12-23] MEDS ORDERED: Propofol 500 MG/50 ML INFUS..BTL ONE (16:34)
[2019-12-23] MEDS ORDERED: *HR* PHENYLEPHRINE 1,000 MCG/10 ML SYRINGE IVP ONE (16:42)
[2019-12-23] MEDS ORDERED: Nitroglycerin 0.4 MG TAB.SUBL SL PRN (18:33)
[2019-12-23] MEDS ORDERED: Dextrose Gel 15 GM/37.5 ML TUBE PO PRN ×2 (18:33)
[2019-12-23] MEDS ORDERED: Acetaminophen 325 MG TABLET PO PRN (18:33)
[2019-12-23] MEDS ORDERED: D5% in Water 500 ML IVC SCH (18:33)
[2019-12-23] MEDS ORDERED: Ondansetron 4 MG/2 ML VIAL IVP PRN (18:33)
[2019-12-23] MEDS ORDERED: *HR* Dextrose 50 % in Water (Syg) 50 ML SYRINGE IVP PRN (18:33)
[2019-12-23] MEDS ORDERED: D5% in Water 1,000 ML IVC PRN (18:33)
[2019-12-23] MEDS ORDERED: Albuterol 2.5 MG/3 ML NEBULIZER IH PRN (18:33)
[2019-12-23] MEDS ORDERED: *HR* HYDROcodone/Acet 5/325 mg TABLET PO PRN (18:33)
[2019-12-23] MEDS ORDERED: Naloxone 0.4 MG/ML INJ IVP PRN (18:33)
[2019-12-23] MEDS: *HR* OxyCODONE Immed Rel 5 MG TABLET PO PRN (20:44)
[2019-12-23] MEDS ORDERED: Insulin DETEMIR 100 UNIT/ML X5UNITS SQ SCH (21:00)
[2019-12-24] MEDS: Piperacillin/Tazobactam 3.375 GM in 0.9 % Sodium Chloride Mini Bag 100 ML IVPB SCH ×3 (03:07→19:10)
[2019-12-24 06:19] LABS: Hematocrit 37.3 % (35.3-44.9); Mean Corpuscular Hemoglobin 23.2 pg (28.0-33.3); Mean Platelet Volume 9.9 fL (9.4-12.4); Platelet Count 384 K/mcL (140-400); Red Blood Count 4.66 M/mcL (3.82-4.97); Red Cell Distribution Width 18.1 % (11.5-14.5); White Blood Count 7.8 K/mcL (4.3-11.1)
[2019-12-24 06:21] LABS: Hemoglobin 10.8 g/dL (11.5-15.4)
[2019-12-24 06:41] LABS: BUN/Creatinine Ratio 36 (6-26); Blood Urea Nitrogen 24 mg/dL (6-20); Calcium 7.8 mg/dL (8.6-10.3); Carbon Dioxide 22 mEq/L (23-29); Chloride 94 mEq/L (98-107); Glucose 309 mg/dL (70-105); Osmolality,Calculated 280 (280-300); Potassium 5.3 mEq/L (3.5-5.1); Sodium 127 mEq/L (136-145); eGFR For African Americans > 60 (> 60); eGFR For Non-African Americans > 60 (> 60)
[2019-12-24] MEDS: *HR* Heparin 5,000 UNIT/ML VIAL SQ SCH ×2 (06:54→17:41)
[2019-12-24] MEDS ORDERED: Insulin LISPRO 300 UNITS/3 ML VIAL SQ SCH (07:30)
[2019-12-24] MEDS: Budesonide/Formoterol 160/4.5 1 PUFF INH IH SCH ×2 (08:21→21:44)
[2019-12-24] MEDS: Fluconazole 100 MG TABLET PO SCH (08:30)
[2019-12-24] MEDS: Gabapentin 300 MG CAPSULE PO SCH (08:30)
[2019-12-24] MEDS: Aspirin 81 MG TAB.CHEW PO SCH (08:30)
[2019-12-24] MEDS: Metoprolol XL (24 HR) Succ 25 MG TAB.ER.24H PO SCH (08:30)
[2019-12-24] MEDS: Insulin LISPRO 300 UNITS/3 ML VIAL SQ SCH ×4 (08:30→20:04)
[2019-12-24] MEDS: Gentamicin Oint 15 GM TUBE TP SCH (11:28)
[2019-12-24] MEDS: *HR* OxyCODONE Immed Rel 5 MG TABLET PO PRN (11:39)
[2019-12-24] MEDS ORDERED: Insulin DETEMIR 100 UNIT/ML X5UNITS SQ STA (13:11)
[2019-12-24] MEDS: 0.9 % Sodium Chloride 1,000 ML IVC SCH (14:57)
[2019-12-24 15:12] LABS: BUN/Creatinine Ratio 34 (6-26); Blood Urea Nitrogen 25 mg/dL (6-20); Calcium 7.9 mg/dL (8.6-10.3); Carbon Dioxide 18 mEq/L (23-29); Chloride 95 mEq/L (98-107); Glucose 365 mg/dL (70-105); Osmolality,Calculated 285 (280-300); Potassium 5.1 mEq/L (3.5-5.1); Sodium 128 mEq/L (136-145); eGFR For African Americans > 60 (> 60); eGFR For Non-African Americans > 60 (> 60)
[2019-12-24] MEDS ORDERED: Haloperidol Lactate 5 MG/ML VIAL IVP ONE (15:43)
[2019-12-24] MEDS ORDERED: *HR* HYDROcodone/Acet 7.5/325 mg TABLET PO PRN (15:58)
[2019-12-24 17:16] LABS: BUN/Creatinine Ratio 35 (6-26); Blood Urea Nitrogen 27 mg/dL (6-20); Carbon Dioxide 17 mEq/L (23-29); Chloride 97 mEq/L (98-107); Glucose 351 mg/dL (70-105); Osmolality,Calculated 283 (280-300); Potassium 5.5 mEq/L (3.5-5.1); Sodium 127 mEq/L (136-145); eGFR For African Americans > 60 (> 60); eGFR For Non-African Americans > 60 (> 60)
[2019-12-24] MEDS: Insulin DETEMIR 100 UNIT/ML X5UNITS SQ SCH (20:04)
[2019-12-24] MEDS ORDERED: QUEtiapine Fumarate 25 MG TABLET PO SCH (21:00)
[2019-12-24] MEDS ORDERED: Insulin Human Regular 10 UNIT in 0.9 % Sodium Chloride 10 ML IV ONE (21:29)
[2019-12-24 22:01] LABS: Potassium,Urine 56.2 mEq/L; Sodium, Urine 12.7 mEq/L
[2019-12-25] MEDS: 0.9 % Sodium Chloride 1,000 ML IVC SCH (01:59)
[2019-12-25] MEDS: Piperacillin/Tazobactam 3.375 GM in 0.9 % Sodium Chloride Mini Bag 100 ML IVPB SCH ×3 (03:37→20:10)
[2019-12-25] MEDS: *HR* Heparin 5,000 UNIT/ML VIAL SQ SCH ×2 (05:09→17:40)
[2019-12-25 06:14] LABS: Mean Corpuscular Hemoglobin 23.3 pg (28.0-33.3)
[2019-12-25 06:16] LABS: Hematocrit 29.7 % (35.3-44.9); Hemoglobin 8.3 g/dL (11.5-15.4); Mean Corpuscular HGB Conc 27.9 g/dL (31.6-35.5); Mean Corpuscular Volume 83.4 fL (83.0-100.0); Mean Platelet Volume 10.1 fL (9.4-12.4); Platelet Count 326 K/mcL (140-400); Red Blood Count 3.56 M/mcL (3.82-4.97); Red Cell Distribution Width 17.7 % (11.5-14.5)
[2019-12-25] MEDS: Budesonide/Formoterol 160/4.5 1 PUFF INH IH SCH ×2 (08:09→19:45)
[2019-12-25] MEDS: Fluconazole 100 MG TABLET PO SCH (09:11)
[2019-12-25] MEDS: Insulin LISPRO 300 UNITS/3 ML VIAL SQ SCH ×4 (09:11→20:10)
[2019-12-25] MEDS: Metoprolol XL (24 HR) Succ 25 MG TAB.ER.24H PO SCH (09:11)
[2019-12-25] MEDS: Gabapentin 300 MG CAPSULE PO SCH (09:12)
[2019-12-25] MEDS: Aspirin 81 MG TAB.CHEW PO SCH (09:12)
[2019-12-25 09:25] LABS: BUN/Creatinine Ratio 37 (6-26); Blood Urea Nitrogen 25 mg/dL (6-20); Calcium 7.9 mg/dL (8.6-10.3); Carbon Dioxide 21 mEq/L (23-29); Chloride 95 mEq/L (98-107); Glucose 190 mg/dL (70-105); Osmolality,Calculated 275 (280-300); Potassium 4.6 mEq/L (3.5-5.1); Sodium 128 mEq/L (136-145); eGFR For African Americans > 60 (> 60); eGFR For Non-African Americans > 60 (> 60)
[2019-12-25] MEDS ORDERED: Ondansetron 4 MG/2 ML VIAL IVP PRN (12:22)
[2019-12-25] MEDS ORDERED: Haloperidol Lactate 5 MG/ML VIAL IVP ONE (12:55)
[2019-12-25 13:58] LABS: Bilirubin,Urine Negative (Negative); Blood,Urine Negative (Negative); Color,Urine Yellow (Yellow); Glucose,Urine (UA) 100 mg/dL (Normal); Ketones,Urine Negative (Negative); Leukocyte Esterase,Urine Moderate (Negative); Nitrite,Urine Negative (Negative); Protein,Urine 30 mg/dL (Neg-Trace); Specific Gravity,Urine 1.026 (1.010-1.025); Urobilinogen,Urine Normal (Normal)
[2019-12-25 14:00] LABS: Bacteria,Urine None Seen per hpf (None-Few); Hyaline Casts,Urine None Seen per lpf (None-Few); Squamous Epithelial Cell,Urine Moderate per lpf (None-Few); WBC,Urine TNTC per hpf (0-3)
[2019-12-25 14:03] LABS: Clarity,Urine Slightly Hazy (Clear)
[2019-12-25 15:20] LABS: Yeast,Urine Moderate per hpf (None Seen)
[2019-12-25] MEDS: Gentamicin Oint 15 GM TUBE TP SCH (17:20)
[2019-12-25] MEDS: Insulin DETEMIR 100 UNIT/ML X5UNITS SQ SCH (20:10)
[2019-12-25] MEDS ORDERED: QUEtiapine Fumarate 25 MG TABLET PO SCH (21:00)
[2019-12-26] MEDS: Piperacillin/Tazobactam 3.375 GM in 0.9 % Sodium Chloride Mini Bag 100 ML IVPB SCH ×2 (03:47→12:21)
[2019-12-26 04:24] LABS: BUN/Creatinine Ratio 37 (6-26); Blood Urea Nitrogen 22 mg/dL (6-20); Calcium 7.9 mg/dL (8.6-10.3); Carbon Dioxide 21 mEq/L (23-29); Chloride 102 mEq/L (98-107); Glucose 189 mg/dL (70-105); Osmolality,Calculated 280 (280-300); Potassium 4.9 mEq/L (3.5-5.1); Sodium 131 mEq/L (136-145); eGFR For African Americans > 60 (> 60); eGFR For Non-African Americans > 60 (> 60)
[2019-12-26] MEDS: *HR* Heparin 5,000 UNIT/ML VIAL SQ SCH (06:00)
[2019-12-26] MEDS: Budesonide/Formoterol 160/4.5 1 PUFF INH IH SCH (07:34)
[2019-12-26] MEDS: Insulin LISPRO 300 UNITS/3 ML VIAL SQ SCH ×2 (07:49→12:22)
[2019-12-26] MEDS: Aspirin 81 MG TAB.CHEW PO SCH (07:51)
[2019-12-26] MEDS: Gabapentin 300 MG CAPSULE PO SCH (07:51)
[2019-12-26] MEDS: Metoprolol XL (24 HR) Succ 25 MG TAB.ER.24H PO SCH (07:51)
[2019-12-26] MEDS: Gentamicin Oint 15 GM TUBE TP SCH (08:14)
[2019-12-26 15:34] VITALS: BP 91/63
[2019-12-26] MEDS ORDERED: Chloraseptic Spray 177 ML BOTTLE MM PRN (17:13)
== END 2019-12-26 16:12 | DRG 792 ==
LOC: 3ANU 07:02 → EMEROOARM 07:02 → SUATTDRO 10:53 → 3ANU 12:48 → SUATTDRO 12-17 15:27 → ICNU 12-18 13:30 → 2NENU 12-19 19:58 → 3NENU 12-23 18:22
PROVIDERS: ADMIT Internal Medicine; ATTEND Internal Medicine

== ENCOUNTER 2020-01-04 23:27 | Inpatient (IN) ==
[2020-01-04] MEDS ORDERED: 0.9 % Sodium Chloride 500 ML IVC ONE (23:54)
[2020-01-05 00:25] LABS: Hemoglobin 9.8 g/dL (11.5-15.4); Red Cell Distribution Width 18.7 % (11.5-14.5)
[2020-01-05 00:26] LABS: Basophils % 0.5 %; Eosinophils # 0.1 K/mcL (0.0-0.6); Eosinophils % 0.9 %; Hematocrit 34.6 % (35.3-44.9); Immature Granulocytes % 0.2 % (0-4); Lymphocytes # 1.1 K/mcL (0.6-4.6); Lymphocytes % 13.1 %; Mean Corpuscular HGB Conc 28.3 g/dL (31.6-35.5); Mean Corpuscular Hemoglobin 22.8 pg (28.0-33.3); Mean Corpuscular Volume 80.7 fL (83.0-100.0); Mean Platelet Volume 10.1 fL (9.4-12.4); Monocytes # 0.8 K/mcL (0.0-1.3); Monocytes % 9.5 %; Neutrophils # 6.2 K/mcL (1.6-8.9); Platelet Count 234 K/mcL (140-400); Red Blood Count 4.29 M/mcL (3.82-4.97); Segmented Neutrophils % 75.8 %; White Blood Count 8.2 K/mcL (4.3-11.1)
[2020-01-05 00:27] LABS: INR 1.5; Prothrombin Time 16.5 Seconds (9.4-12.1)
[2020-01-05 00:30] LABS: Activated Partial Thrombo Time 31.2 Seconds (26.0-36.0)
[2020-01-05 00:33] LABS: Bilirubin,Urine Negative (Negative); Blood,Urine Negative (Negative); Clarity,Urine Clear (Clear); Color,Urine Yellow (Yellow); Glucose,Urine (UA) Normal (Normal); Ketones,Urine Negative (Negative); Leukocyte Esterase,Urine Negative (Negative); Nitrite,Urine Negative (Negative); PH,Urine 7.5 pH Units (5.0-8.0); Protein,Urine Negative (Neg-Trace); Urobilinogen,Urine Normal (Normal)
[2020-01-05 00:34] LABS: Alanine Aminotransferase 8 Units/L (7-52); Albumin 2.9 g/dL (3.5-5.7); Albumin/Globulin Ratio 0.9 (1.1-2.2); Alkaline Phosphatase 93 Units/L (34-104); Aspartate Amino Transferase 13 Units/L (13-39); BUN/Creatinine Ratio 14 (6-26); Bilirubin,Direct 0.2 mg/dL (0.0-0.2); Bilirubin,Indirect 0.4 mg/dL (0.0-1.0); Bilirubin,Total 0.6 mg/dL (0.3-1.0); Blood Urea Nitrogen 9 mg/dL (6-20); Calcium 8.7 mg/dL (8.6-10.3); Carbon Dioxide 30 mEq/L (23-29); Chloride 97 mEq/L (98-107); Globulin 3.4 g/dL (2.4-3.5); Glucose 76 mg/dL (70-105); Osmolality,Calculated 279 (280-300); Potassium 3.6 mEq/L (3.5-5.1); Sodium 136 mEq/L (136-145); Total Protein 6.3 g/dL (6.4-8.9); Troponin I < 0.03 ng/mL (< 0.04); eGFR For African Americans > 60 (> 60); eGFR For Non-African Americans > 60 (> 60)
[2020-01-05 01:30] LABS: Hypochromasia Present (Not Present); Polychromasia 1+ (Not Present)
[2020-01-05 01:31] LABS: Platelet Estimate Normal (Normal); Poikilocytosis 1+ (Not Present)
[2020-01-05] MEDS ORDERED: Piperacillin/Tazobactam 3.375 GM in 0.9 % Sodium Chloride Mini Bag 100 ML IVPB ONE (02:48)
[2020-01-05] MEDS ORDERED: levoFLOXacin 750 MG/150 ML 750 MG/150 ML BAG IVPB ONE (02:48)
[2020-01-05] MEDS ORDERED: Ondansetron 4 MG/2 ML VIAL IVP PRN (03:38)
[2020-01-05] MEDS ORDERED: Acetaminophen 325 MG TABLET PO PRN (03:38)
[2020-01-05] MEDS ORDERED: Naloxone 0.4 MG/ML INJ IVP PRN (03:38)
[2020-01-05] MEDS ORDERED: Nitroglycerin 0.4 MG TAB.SUBL SL PRN (03:41)
[2020-01-05] MEDS ORDERED: Furosemide 40 MG TABLET PO PRN (03:41)
[2020-01-05] MEDS ORDERED: Ringers Solution, Lactated 1,000 ML IVC SCH (03:45)
[2020-01-05] MEDS ORDERED: D5% in Water 1,000 ML IVC PRN (03:59)
[2020-01-05] MEDS ORDERED: *HR* Dextrose 50 % in Water (Syg) 50 ML SYRINGE IVP PRN (03:59)
[2020-01-05] MEDS ORDERED: Dextrose Gel 15 GM/37.5 ML TUBE PO PRN ×2 (03:59)
[2020-01-05] MEDS ORDERED: Albuterol 2.5 MG/3 ML NEBULIZER IH PRN (04:00)
[2020-01-05 05:01] LABS: Basophils % 0.3 %; INR 1.6; Prothrombin Time 17.7 Seconds (9.4-12.1)
[2020-01-05 05:02] LABS: Eosinophils # 0.1 K/mcL (0.0-0.6); Eosinophils % 1.3 %; Hematocrit 30.3 % (35.3-44.9); Hemoglobin 8.6 g/dL (11.5-15.4); Immature Granulocytes % 0.1 % (0-4); Lymphocytes # 1.2 K/mcL (0.6-4.6); Lymphocytes % 15.5 %; Mean Corpuscular HGB Conc 28.4 g/dL (31.6-35.5); Mean Platelet Volume 10.2 fL (9.4-12.4); Monocytes # 0.9 K/mcL (0.0-1.3); Monocytes % 11.8 %; Neutrophils # 5.4 K/mcL (1.6-8.9); Platelet Count 221 K/mcL (140-400); Red Blood Count 3.74 M/mcL (3.82-4.97); Red Cell Distribution Width 18.5 % (11.5-14.5); White Blood Count 7.6 K/mcL (4.3-11.1)
[2020-01-05 05:27] LABS: Anisocytosis 1+ (Not Present); Hypochromasia Present (Not Present); Poikilocytosis 1+ (Not Present)
[2020-01-05] MEDS: *HR* Heparin 5,000 UNIT/ML VIAL SQ SCH ×2 (05:27→17:26)
[2020-01-05 05:28] LABS: Platelet Estimate Normal (Normal)
[2020-01-05 05:31] LABS: Alanine Aminotransferase 6 Units/L (7-52); Albumin 2.5 g/dL (3.5-5.7); Albumin/Globulin Ratio 0.9 (1.1-2.2); Alkaline Phosphatase 78 Units/L (34-104); Aspartate Amino Transferase 9 Units/L (13-39); BUN/Creatinine Ratio 15 (6-26); Bilirubin,Total 0.5 mg/dL (0.3-1.0); Blood Urea Nitrogen 8 mg/dL (6-20); Calcium 8.1 mg/dL (8.6-10.3); Carbon Dioxide 29 mEq/L (23-29); Chloride 99 mEq/L (98-107); Globulin 2.7 g/dL (2.4-3.5); Glucose 61 mg/dL (70-105); Magnesium 1.4 mg/dL (1.6-2.6); Osmolality,Calculated 278 (280-300); Phosphorous 3.1 mg/dL (2.7-4.5); Potassium 3.5 mEq/L (3.5-5.1); Sodium 136 mEq/L (136-145); Total Protein 5.2 g/dL (6.4-8.9); eGFR For African Americans > 60 (> 60); eGFR For Non-African Americans > 60 (> 60)
[2020-01-05] MEDS: *HR* HYDROcodone/Acet 5/325 mg TABLET PO PRN ×3 (05:43→23:28)
[2020-01-05] MEDS: Budesonide/Formoterol 160/4.5 1 PUFF INH IH SCH (07:20)
[2020-01-05] MEDS ORDERED: Cefepime HCl 1,000 MG in Water for inj. (sterile) 10 ML IVP SCH (08:00)
[2020-01-05] MEDS ORDERED: Piperacillin/Tazobactam 3.375 GM in 0.9 % Sodium Chloride Mini Bag 100 ML IVPB SCH (08:00)
[2020-01-05] MEDS ORDERED: Metoprolol XL (24 HR) Succ 25 MG TAB.ER.24H PO SCH (09:00)
[2020-01-05] MEDS ORDERED: lisinopriL 5 MG TABLET PO SCH (09:00)
[2020-01-05] MEDS: Aspirin 81 MG TAB.CHEW PO SCH (10:23)
[2020-01-05] MEDS: Sennosides 8.6 MG TABLET PO SCH (10:23)
[2020-01-05] MEDS: Insulin LISPRO 300 UNITS/3 ML VIAL SQ SCH ×4 (10:23→20:48)
[2020-01-05] MEDS ORDERED: 0.9 % Sodium Chloride 500 ML ONE (11:47)
[2020-01-05] MEDS ORDERED: Isovue-370 500 ML BOTTLE IVP ONE (16:50)
[2020-01-05 16:59] LABS: Adenovirus Not Detected (Not Detect); Bordetella Pertussis Not Detected (Not Detect); Chlamydophila pneumoniae Not Detected (Not Detect); Coronavirus 229E Not Detected (Not Detect); Coronavirus HKU1 DETECTED (Not Detect); Coronavirus NL63 Not Detected (Not Detect); Coronavirus OC43 Not Detected (Not Detect); Human Metapneumovirus Not Detected (Not Detect); Human Rhinovirus/Enterovirus Not Detected (Not Detect); Influenza A Subtype 2009 H1 Not Detected (Not Detect); Influenza B Not Detected (Not Detect); Mycoplasma pneumoniae Not Detected (Not Detect); Parainfluenza Virus 1 Not Detected (Not Detect); Parainfluenza Virus 2 Not Detected (Not Detect); Parainfluenza Virus 3 Not Detected (Not Detect); Parainfluenza Virus 4 Not Detected (Not Detect); Respiratory Syncytial Virus Not Detected (Not Detect)
[2020-01-05 17:57] LABS: Glucose,Pleural Fluid 61 mg/dL (No Ref Range); LDH,Pleural Fluid 280 Units/L (No Ref Range); Total Protein,Pleural Fluid < 3.0 g/dL
[2020-01-05] MEDS ORDERED: Albumin 25% 25gram/100mL 25 GM/100 ML IV.SOLN IVPB ONE (18:20)
[2020-01-05] MEDS ORDERED: *HR* Heparin 5,000 UNIT/ML VIAL IVP PRN ×2 (18:22)
[2020-01-05] MEDS: Heparin 25,000 UNIT/250 ML D5W 25,000 UNIT/250 ML IV.SOLN IVC SCH (20:47)
[2020-01-05] MEDS: QUEtiapine Fumarate 25 MG TABLET PO SCH (20:48)
[2020-01-05] MEDS: Insulin DETEMIR 100 UNIT/ML X5UNITS SQ SCH (20:48)
[2020-01-05] MEDS ORDERED: Insulin DETEMIR 100 UNIT/ML X5UNITS SQ SCH (21:00)
[2020-01-05 21:38] LABS: RBC,Pleural Fluid < 0.002 M/mcL
[2020-01-05 21:39] LABS: Appearance of Pleural Fl Hazy (Clear)
[2020-01-05 21:42] LABS: Basophils,Pleural Fluid 0 %; Eosinophils,Pleural Fluid 0 %; Monocytes,Pleural Fluid 0 %
[2020-01-06] MEDS: levoFLOXacin 750 MG/150 ML 750 MG/150 ML BAG IVPB SCH (00:59)
[2020-01-06 03:14] LABS: Hematocrit 28.7 % (35.3-44.9); Hemoglobin 7.9 g/dL (11.5-15.4); Mean Corpuscular HGB Conc 27.5 g/dL (31.6-35.5); Mean Corpuscular Hemoglobin 22.3 pg (28.0-33.3); Mean Corpuscular Volume 81.1 fL (83.0-100.0); Mean Platelet Volume 10.1 fL (9.4-12.4); Platelet Count 206 K/mcL (140-400); Red Blood Count 3.54 M/mcL (3.82-4.97); Red Cell Distribution Width 18.6 % (11.5-14.5); White Blood Count 7.5 K/mcL (4.3-11.1)
[2020-01-06 03:47] LABS: BUN/Creatinine Ratio 20 (6-26); Blood Urea Nitrogen 14 mg/dL (6-20); Carbon Dioxide 28 mEq/L (23-29); Chloride 100 mEq/L (98-107); Glucose 166 mg/dL (70-105); Osmolality,Calculated 282 (280-300); Potassium 4.4 mEq/L (3.5-5.1); Sodium 134 mEq/L (136-145); eGFR For African Americans > 60 (> 60); eGFR For Non-African Americans > 60 (> 60)
[2020-01-06] MEDS: Insulin LISPRO 300 UNITS/3 ML VIAL SQ SCH ×4 (08:21→22:29)
[2020-01-06] MEDS: Budesonide/Formoterol 160/4.5 1 PUFF INH IH SCH (08:49)
[2020-01-06] MEDS ORDERED: Aminoglycoside Consult 1 EACH MC ONE (09:03)
[2020-01-06] MEDS: Sennosides 8.6 MG TABLET PO SCH (09:46)
[2020-01-06] MEDS: Aspirin 81 MG TAB.CHEW PO SCH (09:46)
[2020-01-06] MEDS: *HR* HYDROcodone/Acet 5/325 mg TABLET PO PRN ×2 (09:46→22:35)
[2020-01-06] MEDS: Heparin 25,000 UNIT/250 ML D5W 25,000 UNIT/250 ML IV.SOLN IVC SCH (17:00)
[2020-01-06] MEDS: Insulin DETEMIR 100 UNIT/ML X5UNITS SQ SCH (22:35)
[2020-01-06] MEDS: QUEtiapine Fumarate 25 MG TABLET PO SCH (22:35)
[2020-01-07] MEDS: levoFLOXacin 750 MG/150 ML 750 MG/150 ML BAG IVPB SCH (00:56)
[2020-01-07 03:48] LABS: Hematocrit 28.8 % (35.3-44.9); Hemoglobin 7.9 g/dL (11.5-15.4); Mean Corpuscular HGB Conc 27.4 g/dL (31.6-35.5); Mean Corpuscular Hemoglobin 22.1 pg (28.0-33.3); Mean Corpuscular Volume 80.4 fL (83.0-100.0); Mean Platelet Volume 10.2 fL (9.4-12.4); Platelet Count 218 K/mcL (140-400); Red Blood Count 3.58 M/mcL (3.82-4.97); Red Cell Distribution Width 18.6 % (11.5-14.5); White Blood Count 6.2 K/mcL (4.3-11.1)
[2020-01-07 05:20] LABS: % Iron Saturation 4 % (15-50); BUN/Creatinine Ratio 28 (6-26); Blood Urea Nitrogen 15 mg/dL (6-20); Calcium 7.8 mg/dL (8.6-10.3); Carbon Dioxide 24 mEq/L (23-29); Chloride 99 mEq/L (98-107); Glucose 216 mg/dL (70-105); Iron 14 mcg/dL (50-170); Osmolality,Calculated 281 (280-300); Potassium 4.1 mEq/L (3.5-5.1); Sodium 132 mEq/L (136-145); Transferrin 247 mg/dL (203-362); eGFR For African Americans > 60 (> 60); eGFR For Non-African Americans > 60 (> 60)
[2020-01-07 05:50] LABS: Ferritin 84 ng/mL (10-120)
[2020-01-07 05:55] LABS: Folate 10.3 ng/mL (3.0-16.0)
[2020-01-07] MEDS ORDERED: Iron Sucrose Complex 400 MG in 0.9 % Sodium Chloride 250 ML IVPB ONE (07:23)
[2020-01-07] MEDS: Sennosides 8.6 MG TABLET PO SCH (09:15)
[2020-01-07] MEDS: Aspirin 81 MG TAB.CHEW PO SCH (09:15)
[2020-01-07] MEDS: Insulin LISPRO 300 UNITS/3 ML VIAL SQ SCH ×4 (09:18→20:55)
[2020-01-07] MEDS: Budesonide/Formoterol 160/4.5 1 PUFF INH IH SCH (11:27)
[2020-01-07] MEDS ORDERED: Albumin 25% 25gram/100mL 25 GM/100 ML IV.SOLN IVPB ONE (11:30)
[2020-01-07] MEDS: *HR* Rivaroxaban 15 MG TABLET PO SCH ×2 (12:04→16:57)
[2020-01-07] MEDS: Heparin 25,000 UNIT/250 ML D5W 25,000 UNIT/250 ML IV.SOLN IVC SCH (12:08)
[2020-01-07] MEDS: *HR* HYDROcodone/Acet 5/325 mg TABLET PO PRN ×2 (13:28→20:54)
[2020-01-07] MEDS: QUEtiapine Fumarate 25 MG TABLET PO SCH (20:54)
[2020-01-07] MEDS: Insulin DETEMIR 100 UNIT/ML X5UNITS SQ SCH (20:55)
[2020-01-08] MEDS: levoFLOXacin 750 MG/150 ML 750 MG/150 ML BAG IVPB SCH (01:03)
[2020-01-08 04:46] LABS: Platelet Count 189 K/mcL (140-400); Red Cell Distribution Width 18.7 % (11.5-14.5)
[2020-01-08 04:47] LABS: Hematocrit 28.1 % (35.3-44.9); Hemoglobin 7.9 g/dL (11.5-15.4); Mean Corpuscular HGB Conc 28.1 g/dL (31.6-35.5); Mean Corpuscular Hemoglobin 22.6 pg (28.0-33.3); Mean Corpuscular Volume 80.3 fL (83.0-100.0); Mean Platelet Volume 10.1 fL (9.4-12.4)
[2020-01-08] MEDS: Insulin LISPRO 300 UNITS/3 ML VIAL SQ SCH ×3 (08:28→17:09)
[2020-01-08] MEDS: Aspirin 81 MG TAB.CHEW PO SCH (08:28)
[2020-01-08] MEDS: Sennosides 8.6 MG TABLET PO SCH (08:29)
[2020-01-08] MEDS: *HR* Rivaroxaban 15 MG TABLET PO SCH ×2 (08:29→16:52)
[2020-01-08] MEDS: *HR* HYDROcodone/Acet 5/325 mg TABLET PO PRN (08:30)
[2020-01-08] MEDS: Budesonide/Formoterol 160/4.5 1 PUFF INH IH SCH (10:36)
[2020-01-08 11:17] VITALS: BP 100/71
[2020-01-09 20:56] LABS: Fluid Source for Albumin PLEURAL FLUID
== END 2020-01-08 18:02 | disposition home health service (06) | DRG 139 ==
LOC: EMEROOARM 23:27 → 2ANU 23:27 → SUATTDRO 01-05 03:21 → 2ANU 01-05 03:56
PROVIDERS: ADMIT Student in an Organized Health Care Education/Training Program; ATTEND Internal Medicine

== ENCOUNTER 2020-01-09 00:29 | Inpatient (IN) ==
[2020-01-09] MEDS ORDERED: 0.9 % Sodium Chloride 1,000 ML IVC ONE ×2 (00:54→05:21)
[2020-01-09] MEDS ORDERED: Isovue-370 500 ML BOTTLE IVP ONE ×3 (00:56→06:13)
[2020-01-09 01:24] LABS: Lymphocytes % 8.7 %
[2020-01-09 01:25] LABS: Basophils % 0.3 %; Eosinophils % 0.3 %; Hematocrit 34.3 % (35.3-44.9); Hemoglobin 9.1 g/dL (11.5-15.4); Immature Granulocytes % 0.3 % (0-4); Mean Corpuscular HGB Conc 26.5 g/dL (31.6-35.5); Mean Corpuscular Hemoglobin 22.2 pg (28.0-33.3); Mean Corpuscular Volume 83.7 fL (83.0-100.0); Monocytes # 0.4 K/mcL (0.0-1.3); Monocytes % 5.4 %; Neutrophils # 6.3 K/mcL (1.6-8.9); Nucleated Red Blood Cells 0.3 /100 WBC (0); Platelet Count 210 K/mcL (140-400); Red Cell Distribution Width 19.3 % (11.5-14.5); White Blood Count 7.4 K/mcL (4.3-11.1)
[2020-01-09 01:27] LABS: Lymphocytes # 0.6 K/mcL (0.6-4.6)
[2020-01-09 01:40] LABS: Platelet Estimate Normal (Normal)
[2020-01-09 01:41] LABS: Anisocytosis 1+ (Not Present); Hypochromasia Present (Not Present)
[2020-01-09 01:44] LABS: Alanine Aminotransferase 8 Units/L (7-52); Albumin 3.3 g/dL (3.5-5.7); Albumin/Globulin Ratio 1.1 (1.1-2.2); Alkaline Phosphatase 120 Units/L (34-104); Aspartate Amino Transferase 13 Units/L (13-39); BUN/Creatinine Ratio 22 (6-26); Bilirubin,Direct 0.3 mg/dL (0.0-0.2); Bilirubin,Indirect 0.3 mg/dL (0.0-1.0); Bilirubin,Total 0.6 mg/dL (0.3-1.0); Blood Urea Nitrogen 13 mg/dL (6-20); Calcium 8.6 mg/dL (8.6-10.3); Carbon Dioxide 19 mEq/L (23-29); Chloride 98 mEq/L (98-107); Globulin 2.9 g/dL (2.4-3.5); Glucose 278 mg/dL (70-105); Lipase 12 Units/L (11-82); Osmolality,Calculated 286 (280-300); Potassium 4.3 mEq/L (3.5-5.1); Sodium 133 mEq/L (136-145); Total Protein 6.2 g/dL (6.4-8.9); eGFR For African Americans > 60 (> 60); eGFR For Non-African Americans > 60 (> 60)
[2020-01-09] MEDS ORDERED: Ketamine *HR* 20 MG in 0.9 % Sodium Chloride 100 ML IVPB ONE (03:09)
[2020-01-09] MEDS ORDERED: *HR* HYDROcodone/Acet 5/325 mg TABLET PO ONE (04:38)
[2020-01-09 04:48] LABS: Bilirubin,Urine Negative (Negative); Blood,Urine Moderate (Negative); Clarity,Urine Clear (Clear); Color,Urine Dark Yellow (Yellow); Glucose,Urine (UA) >=1000 mg/dL (Normal); Ketones,Urine Negative (Negative); Leukocyte Esterase,Urine Trace (Negative); Nitrite,Urine Negative (Negative); Protein,Urine 100 mg/dL (Neg-Trace); Specific Gravity,Urine > 1.030 (1.010-1.025); Urobilinogen,Urine Normal (Normal)
[2020-01-09 04:50] LABS: Bacteria,Urine None Seen per hpf (None-Few); Hyaline Casts,Urine None Seen per lpf (None-Few); Squamous Epithelial Cell,Urine Many per lpf (None-Few); WBC,Urine 15-30 per hpf (0-3)
[2020-01-09 05:01] LABS: RBC,Urine 0-3 per hpf (0-3); Yeast,Urine Few per hpf (None Seen)
[2020-01-09] MEDS ORDERED: 0.9 % Sodium Chloride 1,000 ML IVC SCH (06:15)
[2020-01-09] MEDS ORDERED: Naloxone 0.4 MG/ML INJ IVP PRN (09:34)
[2020-01-09] MEDS ORDERED: Albuterol 2.5 MG/3 ML NEBULIZER IH PRN (10:37)
[2020-01-09] MEDS ORDERED: Milk and Molasses Enema 200 ML RC ONE (12:30)
[2020-01-09] MEDS: *HR* Rivaroxaban 15 MG TABLET PO SCH (16:57)
[2020-01-09] MEDS: *HR* HYDROcodone/Acet 5/325 mg TABLET PO PRN ×2 (16:57→23:38)
[2020-01-09] MEDS: Budesonide/Formoterol 160/4.5 1 PUFF INH IH SCH (20:21)
[2020-01-09] MEDS: QUEtiapine Fumarate 25 MG TABLET PO SCH (21:30)
[2020-01-10] MEDS ORDERED: *HR* Dextrose 50 % in Water (Syg) 50 ML SYRINGE IVP PRN (01:09)
[2020-01-10] MEDS ORDERED: D5% in Water 1,000 ML IVC PRN (01:09)
[2020-01-10] MEDS ORDERED: Dextrose Gel 15 GM/37.5 ML TUBE PO PRN ×2 (01:09)
[2020-01-10] MEDS ORDERED: Insulin DETEMIR 100 UNIT/ML X5UNITS SQ ONE (01:11)
[2020-01-10] MEDS: Insulin LISPRO 300 UNITS/3 ML VIAL SQ SCH ×5 (01:56→22:51)
[2020-01-10 04:54] LABS: Basophils % 0.2 %; Eosinophils % 0.8 %; Hemoglobin 8.4 g/dL (11.5-15.4); Red Cell Distribution Width 19.8 % (11.5-14.5)
[2020-01-10 04:55] LABS: Immature Granulocytes % 0.4 % (0-4); Lymphocytes # 1.3 K/mcL (0.6-4.6); Lymphocytes % 26.8 %; Mean Corpuscular HGB Conc 27.1 g/dL (31.6-35.5); Mean Corpuscular Hemoglobin 21.8 pg (28.0-33.3); Mean Corpuscular Volume 80.5 fL (83.0-100.0); Mean Platelet Volume 10.4 fL (9.4-12.4); Monocytes # 0.6 K/mcL (0.0-1.3); Monocytes % 11.5 %; Nucleated Red Blood Cells 0.4 /100 WBC (0); Platelet Count 244 K/mcL (140-400); Red Blood Count 3.85 M/mcL (3.82-4.97); Segmented Neutrophils % 60.3 %
[2020-01-10 05:11] LABS: BUN/Creatinine Ratio 24 (6-26); Blood Urea Nitrogen 12 mg/dL (6-20); Calcium 8.2 mg/dL (8.6-10.3); Carbon Dioxide 25 mEq/L (23-29); Chloride 102 mEq/L (98-107); Glucose 196 mg/dL (70-105); Osmolality,Calculated 281 (280-300); Potassium 4.2 mEq/L (3.5-5.1); Sodium 133 mEq/L (136-145); eGFR For African Americans > 60 (> 60); eGFR For Non-African Americans > 60 (> 60)
[2020-01-10 05:27] LABS: Hypochromasia Present (Not Present); Polychromasia 2+ (Not Present)
[2020-01-10 05:28] LABS: Anisocytosis 1+ (Not Present); Platelet Estimate Normal (Normal)
[2020-01-10] MEDS: Budesonide/Formoterol 160/4.5 1 PUFF INH IH SCH ×2 (07:40→20:22)
[2020-01-10] MEDS: *HR* Rivaroxaban 15 MG TABLET PO SCH ×2 (07:53→18:13)
[2020-01-10] MEDS: Aspirin 81 MG TAB.CHEW PO SCH (07:53)
[2020-01-10] MEDS ORDERED: Furosemide 40 MG/4 ML VIAL IVP SCH (09:00)
[2020-01-10] MEDS: Albumin 25% 25gram/100mL 25 GM/100 ML IV.SOLN IVPB SCH (10:45)
[2020-01-10] MEDS: Furosemide 40 MG/4 ML VIAL IVP SCH (13:22)
[2020-01-10] MEDS: *HR* HYDROcodone/Acet 5/325 mg TABLET PO PRN (22:50)
[2020-01-10] MEDS: QUEtiapine Fumarate 25 MG TABLET PO SCH (22:50)
[2020-01-11] MEDS: Insulin LISPRO 300 UNITS/3 ML VIAL SQ SCH ×4 (07:39→20:55)
[2020-01-11] MEDS: Albumin 25% 25gram/100mL 25 GM/100 ML IV.SOLN IVPB SCH (07:40)
[2020-01-11] MEDS: *HR* Rivaroxaban 15 MG TABLET PO SCH ×2 (07:40→16:55)
[2020-01-11] MEDS: Aspirin 81 MG TAB.CHEW PO SCH (07:40)
[2020-01-11 09:16] LABS: BUN/Creatinine Ratio 29 (6-26); Blood Urea Nitrogen 15 mg/dL (6-20); Calcium 8.4 mg/dL (8.6-10.3); Carbon Dioxide 27 mEq/L (23-29); Chloride 101 mEq/L (98-107); Glucose 215 mg/dL (70-105); Osmolality,Calculated 283 (280-300); Sodium 133 mEq/L (136-145); eGFR For African Americans > 60 (> 60); eGFR For Non-African Americans > 60 (> 60)
[2020-01-11 09:22] LABS: Basophils % 0.4 %; Hemoglobin 8.4 g/dL (11.5-15.4)
[2020-01-11 09:24] LABS: Eosinophils # 0.1 K/mcL (0.0-0.6); Eosinophils % 1.1 %; Immature Granulocytes % 0.3 % (0-4); Lymphocytes # 1.5 K/mcL (0.6-4.6); Lymphocytes % 20.9 %; Mean Corpuscular Hemoglobin 23.3 pg (28.0-33.3); Mean Corpuscular Volume 83.1 fL (83.0-100.0); Mean Platelet Volume 10.3 fL (9.4-12.4); Monocytes # 0.6 K/mcL (0.0-1.3); Monocytes % 8.8 %; Neutrophils # 4.8 K/mcL (1.6-8.9); Nucleated Red Blood Cells 0.3 /100 WBC (0); Platelet Count 235 K/mcL (140-400); Red Blood Count 3.61 M/mcL (3.82-4.97); Red Cell Distribution Width 21.3 % (11.5-14.5); Segmented Neutrophils % 68.5 %
[2020-01-11] MEDS: Furosemide 40 MG/4 ML VIAL IVP SCH (10:10)
[2020-01-11 10:13] LABS: Anisocytosis 2+ (Not Present); Hypochromasia Present (Not Present); Macrocytosis Present (Not Present); Microcytosis Present (Not Present); Platelet Estimate Normal (Normal)
[2020-01-11] MEDS: Budesonide/Formoterol 160/4.5 1 PUFF INH IH SCH ×2 (10:20→22:48)
[2020-01-11] MEDS: *HR* HYDROcodone/Acet 5/325 mg TABLET PO PRN ×2 (13:53→20:54)
[2020-01-11] MEDS: QUEtiapine Fumarate 25 MG TABLET PO SCH (20:55)
[2020-01-12 06:04] LABS: Eosinophils % 0.9 %; Hemoglobin 9.1 g/dL (11.5-15.4); Nucleated Red Blood Cells 0.5 /100 WBC (0)
[2020-01-12 06:06] LABS: Basophils % 0.4 %; Eosinophils # 0.1 K/mcL (0.0-0.6); Hematocrit 33.8 % (35.3-44.9); Immature Granulocytes % 0.7 % (0-4); Lymphocytes # 1.6 K/mcL (0.6-4.6); Lymphocytes % 20.5 %; Mean Corpuscular HGB Conc 26.9 g/dL (31.6-35.5); Mean Corpuscular Hemoglobin 22.5 pg (28.0-33.3); Mean Corpuscular Volume 83.5 fL (83.0-100.0); Monocytes # 0.7 K/mcL (0.0-1.3); Monocytes % 9.5 %; Neutrophils # 5.2 K/mcL (1.6-8.9); Platelet Count 281 K/mcL (140-400); Red Blood Count 4.05 M/mcL (3.82-4.97); Red Cell Distribution Width 22.2 % (11.5-14.5); White Blood Count 7.7 K/mcL (4.3-11.1)
[2020-01-12 06:22] LABS: BUN/Creatinine Ratio 28 (6-26); Blood Urea Nitrogen 16 mg/dL (6-20); Calcium 8.5 mg/dL (8.6-10.3); Carbon Dioxide 25 mEq/L (23-29); Chloride 98 mEq/L (98-107); Glucose 247 mg/dL (70-105); Osmolality,Calculated 281 (280-300); Potassium 4.2 mEq/L (3.5-5.1); Sodium 131 mEq/L (136-145); eGFR For African Americans > 60 (> 60); eGFR For Non-African Americans > 60 (> 60)
[2020-01-12 06:34] LABS: Anisocytosis 3+ (Not Present); Macrocytosis Present (Not Present); Microcytosis Present (Not Present); Platelet Estimate Normal (Normal)
[2020-01-12 06:35] LABS: Polychromasia 2+ (Not Present)
[2020-01-12] MEDS: Budesonide/Formoterol 160/4.5 1 PUFF INH IH SCH (07:57)
[2020-01-12] MEDS: Insulin LISPRO 300 UNITS/3 ML VIAL SQ SCH ×2 (08:33→12:34)
[2020-01-12] MEDS: Albumin 25% 25gram/100mL 25 GM/100 ML IV.SOLN IVPB SCH (08:34)
[2020-01-12] MEDS: *HR* Rivaroxaban 15 MG TABLET PO SCH (08:34)
[2020-01-12] MEDS: Aspirin 81 MG TAB.CHEW PO SCH (08:34)
[2020-01-12 11:00] VITALS: BP 81/59
[2020-01-12] MEDS ORDERED: Fosfomycin Tromethamine 3 GM Packet PO ONE (11:00)
[2020-01-12] MEDS: Furosemide 40 MG/4 ML VIAL IVP SCH (12:33)
== END 2020-01-12 16:31 | disposition home health service (06) | DRG 254 ==
LOC: 2ANU 00:29 → EMEROOARM 00:29 → SUATTDRO 09:34 → 2ANU 14:36
PROVIDERS: ADMIT Internal Medicine; ATTEND Internal Medicine

== ENCOUNTER 2020-01-18 22:23 | Observation (INO) ==
[2020-01-18 22:54] LABS: Hemoglobin 10.2 g/dL (11.5-15.4)
[2020-01-18 22:56] LABS: Basophils % 0.3 %; Hematocrit 37.2 % (35.3-44.9); Immature Granulocytes % 0.4 % (0-4); Lymphocytes # 0.9 K/mcL (0.6-4.6); Lymphocytes % 12.6 %; Mean Corpuscular HGB Conc 27.4 g/dL (31.6-35.5); Mean Corpuscular Hemoglobin 23.3 pg (28.0-33.3); Mean Corpuscular Volume 85.1 fL (83.0-100.0); Mean Platelet Volume 9.5 fL (9.4-12.4); Monocytes # 0.6 K/mcL (0.0-1.3); Monocytes % 8.7 %; Neutrophils # 5.8 K/mcL (1.6-8.9); Nucleated Red Blood Cells 0.3 /100 WBC (0); Platelet Count 277 K/mcL (140-400); Red Blood Count 4.37 M/mcL (3.82-4.97); Red Cell Distribution Width 23.7 % (11.5-14.5); White Blood Count 7.4 K/mcL (4.3-11.1)
[2020-01-18 23:10] LABS: Alanine Aminotransferase 22 Units/L (7-52); Albumin 3.4 g/dL (3.5-5.7); Albumin/Globulin Ratio 1.4 (1.1-2.2); Alkaline Phosphatase 155 Units/L (34-104); Aspartate Amino Transferase 33 Units/L (13-39); BUN/Creatinine Ratio 24 (6-26); Bilirubin,Total 1.6 mg/dL (0.3-1.0); Blood Urea Nitrogen 17 mg/dL (6-20); Calcium 8.8 mg/dL (8.6-10.3); Carbon Dioxide 20 mEq/L (23-29); Chloride 94 mEq/L (98-107); Globulin 2.5 g/dL (2.4-3.5); Glucose 261 mg/dL (70-105); Osmolality,Calculated 275 (280-300); Potassium 5.2 mEq/L (3.5-5.1); Sodium 127 mEq/L (136-145); Total Protein 5.9 g/dL (6.4-8.9); eGFR For African Americans > 60 (> 60); eGFR For Non-African Americans > 60 (> 60)
[2020-01-18 23:13] LABS: Hypochromasia Present (Not Present)
[2020-01-18 23:14] LABS: Anisocytosis 1+ (Not Present); Polychromasia 1+ (Not Present)
[2020-01-18] MEDS ORDERED: 0.9 % Sodium Chloride 1,000 ML IV ONE (23:22)
[2020-01-19] MEDS ORDERED: Naloxone 0.4 MG/ML INJ IVP PRN (01:22)
[2020-01-19] MEDS ORDERED: D5% in Water 1,000 ML IVC PRN (01:26)
[2020-01-19] MEDS ORDERED: Dextrose Gel 15 GM/37.5 ML TUBE PO PRN ×2 (01:26)
[2020-01-19] MEDS ORDERED: *HR* Dextrose 50 % in Water (Syg) 50 ML SYRINGE IVP PRN (01:26)
[2020-01-19] MEDS ORDERED: Albuterol 2.5 MG/3 ML NEBULIZER IH PRN (01:27)
[2020-01-19] MEDS ORDERED: Nitroglycerin 0.4 MG TAB.SUBL SL PRN (01:27)
[2020-01-19] MEDS: *HR* HYDROcodone/Acet 5/325 mg TABLET PO PRN ×3 (02:56→17:26)
[2020-01-19] MEDS ORDERED: 0.9 % Sodium Chloride 1,000 ML IVC SCH (03:00)
[2020-01-19 06:04] LABS: Basophils % 0.3 %; Hemoglobin 9.5 g/dL (11.5-15.4); Immature Granulocytes % 0.3 % (0-4); Mean Platelet Volume 10.2 fL (9.4-12.4)
[2020-01-19 06:06] LABS: Eosinophils % 0.3 %; Hematocrit 34.9 % (35.3-44.9); Lymphocytes # 1.4 K/mcL (0.6-4.6); Lymphocytes % 21.2 %; Mean Corpuscular HGB Conc 27.2 g/dL (31.6-35.5); Mean Corpuscular Hemoglobin 22.8 pg (28.0-33.3); Mean Corpuscular Volume 83.7 fL (83.0-100.0); Monocytes # 0.8 K/mcL (0.0-1.3); Monocytes % 12.3 %; Neutrophils # 4.4 K/mcL (1.6-8.9); Nucleated Red Blood Cells 0.3 /100 WBC (0); Platelet Count 283 K/mcL (140-400); Red Blood Count 4.17 M/mcL (3.82-4.97); Red Cell Distribution Width 23.5 % (11.5-14.5); Segmented Neutrophils % 65.6 %; White Blood Count 6.7 K/mcL (4.3-11.1)
[2020-01-19 06:24] LABS: Anisocytosis 1+ (Not Present); Poikilocytosis 1+ (Not Present); Polychromasia 1+ (Not Present)
[2020-01-19 06:25] LABS: BUN/Creatinine Ratio 30 (6-26); Blood Urea Nitrogen 19 mg/dL (6-20); Calcium 8.5 mg/dL (8.6-10.3); Carbon Dioxide 18 mEq/L (23-29); Chloride 96 mEq/L (98-107); Glucose 249 mg/dL (70-105); Hypochromasia Present (Not Present); Large Platelets Present (Not Present); Macrocytosis Present (Not Present); Osmolality,Calculated 281 (280-300); Platelet Estimate Normal (Normal); Potassium 5.1 mEq/L (3.5-5.1); Sodium 130 mEq/L (136-145); eGFR For African Americans > 60 (> 60); eGFR For Non-African Americans > 60 (> 60)
[2020-01-19] MEDS: Lactobacillus 1 EACH CAP.SPRINK PO SCH ×2 (08:49→20:20)
[2020-01-19] MEDS: *HR* Rivaroxaban 15 MG TABLET PO SCH ×2 (08:50→17:26)
[2020-01-19] MEDS: Insulin LISPRO 300 UNITS/3 ML VIAL SQ SCH ×3 (08:50→16:33)
[2020-01-19] MEDS: Aspirin 81 MG TAB.CHEW PO SCH (08:50)
[2020-01-19] MEDS ORDERED: Sennosides 8.6 MG TABLET PO SCH (09:00)
[2020-01-19] MEDS ORDERED: Budesonide/Formoterol 160/4.5 1 PUFF INH IH SCH (10:00)
[2020-01-19] MEDS ORDERED: Ipratropium/Albuterol Neb 3 ML IH PRN (17:18)
[2020-01-19] MEDS ORDERED: Insulin DETEMIR 100 UNIT/ML X5UNITS SQ SCH (21:00)
[2020-01-19] MEDS: Budesonide Neb 0.5 MG/2 ML IH SCH (21:53)
[2020-01-20] MEDS: *HR* HYDROcodone/Acet 5/325 mg TABLET PO PRN ×2 (00:01→10:16)
[2020-01-20 06:35] LABS: Basophils % 0.5 %; Hemoglobin 9.9 g/dL (11.5-15.4)
[2020-01-20 06:36] LABS: Eosinophils # 0.1 K/mcL (0.0-0.6); Eosinophils % 0.8 %; Immature Granulocytes % 0.3 % (0-4); Lymphocytes % 25.5 %; Mean Corpuscular HGB Conc 28.3 g/dL (31.6-35.5); Mean Corpuscular Hemoglobin 23.3 pg (28.0-33.3); Mean Corpuscular Volume 82.5 fL (83.0-100.0); Mean Platelet Volume 9.8 fL (9.4-12.4); Monocytes % 12.5 %; Neutrophils # 4.8 K/mcL (1.6-8.9); Nucleated Red Blood Cells 0.3 /100 WBC (0); Platelet Count 299 K/mcL (140-400); Red Blood Count 4.24 M/mcL (3.82-4.97); Red Cell Distribution Width 23.7 % (11.5-14.5); Segmented Neutrophils % 60.4 %
[2020-01-20 06:43] LABS: Estimated Average Glucose 249 mg/dl
[2020-01-20 06:53] LABS: Iron < 10 mcg/dL (50-170); Magnesium 1.8 mg/dL (1.6-2.6); Transferrin 298 mg/dL (203-362)
[2020-01-20 06:55] LABS: BUN/Creatinine Ratio 34 (6-26); Blood Urea Nitrogen 20 mg/dL (6-20); Calcium 8.6 mg/dL (8.6-10.3); Carbon Dioxide 25 mEq/L (23-29); Chloride 99 mEq/L (98-107); Glucose 39 mg/dL (70-105); Osmolality,Calculated 269 (280-300); Potassium 4.4 mEq/L (3.5-5.1); Sodium 130 mEq/L (136-145); eGFR For African Americans > 60 (> 60); eGFR For Non-African Americans > 60 (> 60)
[2020-01-20 07:10] LABS: Ferritin 173 ng/mL (10-120)
[2020-01-20 07:15] LABS: Folate 11.3 ng/mL (3.0-16.0)
[2020-01-20 07:21] LABS: Vitamin B12 > 1500 pg/mL (250-1100)
[2020-01-20] MEDS: Insulin LISPRO 300 UNITS/3 ML VIAL SQ SCH ×2 (07:41→12:59)
[2020-01-20] MEDS: Lactobacillus 1 EACH CAP.SPRINK PO SCH (07:48)
[2020-01-20] MEDS: Aspirin 81 MG TAB.CHEW PO SCH (07:48)
[2020-01-20] MEDS: *HR* Rivaroxaban 15 MG TABLET PO SCH ×2 (07:48→15:58)
[2020-01-20 07:58] LABS: Hypochromasia Present (Not Present); Platelet Estimate Normal (Normal); Polychromasia 1+ (Not Present)
[2020-01-20 07:59] LABS: Anisocytosis 2+ (Not Present); Poikilocytosis 1+ (Not Present)
[2020-01-20 08:00] LABS: Target Cells 1+ (Not Present)
[2020-01-20] MEDS: Budesonide Neb 0.5 MG/2 ML IH SCH (10:37)
[2020-01-20 11:53] VITALS: BP 107/77
== END 2020-01-20 17:39 ==
LOC: 2ANU 22:23 → EMEROOARM 22:23 → SUATTDRO 01-19 01:09 → 2ANU 01-19 02:02
PROVIDERS: ADMIT Internal Medicine; ATTEND Pharmacist

== ENCOUNTER 2020-01-21 20:06 | Inpatient (IN) ==
[2020-01-21 20:42] LABS: Bilirubin,Urine Negative (Negative); Blood,Urine Negative (Negative); Clarity,Urine Cloudy (Clear); Color,Urine Yellow (Yellow); Glucose,Urine (UA) Normal (Normal); Ketones,Urine Negative (Negative); Leukocyte Esterase,Urine Small (Negative); Nitrite,Urine Negative (Negative); PH,Urine 5.5 pH Units (5.0-8.0); Protein,Urine Negative (Neg-Trace); Specific Gravity,Urine 1.014 (1.010-1.025); Urobilinogen,Urine Normal (Normal)
[2020-01-21 20:44] LABS: Bacteria,Urine None Seen per hpf (None-Few); RBC,Urine 0-3 per hpf (0-3); Squamous Epithelial Cell,Urine Many per lpf (None-Few)
[2020-01-21 20:59] LABS: Hyaline Casts,Urine Many per lpf (None-Few)
[2020-01-21] MEDS ORDERED: Azithromycin 250 MG TABLET PO STA (21:20)
[2020-01-21] MEDS ORDERED: Piperacillin/Tazobactam 3.375 GM in 0.9 % Sodium Chloride Mini Bag 100 ML IVPB STA (21:24)
[2020-01-21 21:31] LABS: INR 12.8; Prothrombin Time 145.3 Seconds (9.4-12.1)
[2020-01-21 21:57] LABS: Mean Corpuscular Volume 84.9 fL (83.0-100.0)
[2020-01-21 21:58] LABS: Basophils % 0.3 %; Hematocrit 44.3 % (35.3-44.9); Hemoglobin 12.1 g/dL (11.5-15.4); Immature Granulocytes % 0.4 % (0-4); Lymphocytes # 0.9 K/mcL (0.6-4.6); Lymphocytes % 6.7 %; Mean Corpuscular HGB Conc 27.3 g/dL (31.6-35.5); Mean Corpuscular Hemoglobin 23.2 pg (28.0-33.3); Mean Platelet Volume 10.4 fL (9.4-12.4); Monocytes % 7.2 %; Neutrophils # 11.6 K/mcL (1.6-8.9); Nucleated Red Blood Cells 0.1 /100 WBC (0); Platelet Count 238 K/mcL (140-400); Red Blood Count 5.22 M/mcL (3.82-4.97); Segmented Neutrophils % 85.4 %; White Blood Count 13.6 K/mcL (4.3-11.1)
[2020-01-21 22:43] LABS: INR 12.7; Prothrombin Time 144.5 Seconds (9.4-12.1)
[2020-01-21] MEDS ORDERED: *HR* Phytonadione 5 MG TABLET PO STA (22:44)
[2020-01-21 22:46] LABS: Troponin I 0.03 ng/mL (< 0.04)
[2020-01-21 22:56] LABS: Anisocytosis 2+ (Not Present)
[2020-01-21 22:57] LABS: Hypochromasia Present (Not Present); Macrocytosis Present (Not Present); Microcytosis Present (Not Present); Poikilocytosis 1+ (Not Present); Polychromasia 1+ (Not Present)
[2020-01-21 22:58] LABS: Burr Cells 1+ (Not Present); Platelet Estimate Normal (Normal)
[2020-01-21 23:01] LABS: Alanine Aminotransferase 20 Units/L (7-52); Albumin 3.1 g/dL (3.5-5.7); Albumin/Globulin Ratio 1.1 (1.1-2.2); Alkaline Phosphatase 138 Units/L (34-104); Aspartate Amino Transferase 37 Units/L (13-39); BUN/Creatinine Ratio 31 (6-26); Bilirubin,Direct 0.7 mg/dL (0.0-0.2); Bilirubin,Indirect 1.1 mg/dL (0.0-1.0); Bilirubin,Total 1.8 mg/dL (0.3-1.0); Blood Urea Nitrogen 22 mg/dL (6-20); Calcium 8.4 mg/dL (8.6-10.3); Carbon Dioxide 14 mEq/L (23-29); Chloride 97 mEq/L (98-107); Globulin 2.8 g/dL (2.4-3.5); Glucose 188 mg/dL (70-105); Osmolality,Calculated 274 (280-300); Potassium 5.8 mEq/L (3.5-5.1); Sodium 128 mEq/L (136-145); Total Protein 5.9 g/dL (6.4-8.9); eGFR For African Americans > 60 (> 60); eGFR For Non-African Americans > 60 (> 60)
[2020-01-22] MEDS ORDERED: 0.9 % Sodium Chloride 1,000 ML ONE (00:36)
[2020-01-22] MEDS ORDERED: Calcium Gluconate 1gm/50mL 1 GM/50 ML BAG IVPB ONE (00:37)
[2020-01-22] MEDS ORDERED: Insulin Human Regular 10 UNIT in D10% in Water 500 ML IVC SCH (00:45)
[2020-01-22 01:52] LABS: Amphetamine Screen,Urine Negative ng/mL (Cutoff=1000); Barbiturate Screen,Urine Negative ng/mL (Cutoff=200); Benzodiazepines Screen,Urine Negative ng/mL (Cutoff=200); Cannabinoid Screen,Urine Negative ng/mL (Cutoff = 50); Cocaine Screen,Urine Negative ng/mL (Cutoff= 300); Opiate Screen,Urine Positive ng/mL (Cutoff=300); Phencyclidine Screen,Urine Negative ng/mL (Cutoff=25)
[2020-01-22] MEDS: 0.9 % Sodium Chloride 1,000 ML IVC SCH ×3 (02:07→20:30)
[2020-01-22 02:45] LABS: BUN/Creatinine Ratio 32 (6-26); Blood Urea Nitrogen 18 mg/dL (6-20); Carbon Dioxide 18 mEq/L (23-29); Chloride 108 mEq/L (98-107); Glucose 175 mg/dL (70-105); Osmolality,Calculated 278 (280-300); Potassium 4.2 mEq/L (3.5-5.1); Sodium 131 mEq/L (136-145); eGFR For African Americans > 60 (> 60); eGFR For Non-African Americans > 60 (> 60)
[2020-01-22] MEDS ORDERED: Cefepime HCl 2,000 MG in 0.9 % Sodium Chloride Mini Bag 100 ML IVPB SCH (03:19)
[2020-01-22] MEDS ORDERED: MetroNIDAZOLE 500 MG/100 ML 500 MG/100 ML BAG IVPB SCH (03:19)
[2020-01-22] MEDS ORDERED: Naloxone 0.4 MG/ML INJ IVP PRN (03:22)
[2020-01-22] MEDS ORDERED: Vancomycin (wt based) 1,000 MG VIAL IVPB SCH (04:00)
[2020-01-22] MEDS: Calcium Gluconate 1gm/50mL 1 GM/50 ML BAG IVPB SCH ×6 (04:11→14:32)
[2020-01-22] MEDS ORDERED: *HR* Dextrose 50 % in Water (Syg) 50 ML SYRINGE IVP PRN (04:59)
[2020-01-22] MEDS ORDERED: Dextrose Gel 15 GM/37.5 ML TUBE PO PRN ×2 (04:59)
[2020-01-22] MEDS ORDERED: D5% in Water 1,000 ML IVC PRN (04:59)
[2020-01-22 05:14] LABS: Basophils % 0.1 %; Hemoglobin 10.6 g/dL (11.5-15.4)
[2020-01-22 05:16] LABS: Hematocrit 38.1 % (35.3-44.9); Immature Granulocytes % 0.7 % (0-4); Lymphocytes # 1.2 K/mcL (0.6-4.6); Lymphocytes % 7.6 %; Mean Corpuscular HGB Conc 27.8 g/dL (31.6-35.5); Mean Corpuscular Volume 82.6 fL (83.0-100.0); Mean Platelet Volume 9.9 fL (9.4-12.4); Monocytes % 12.2 %; Neutrophils # 12.9 K/mcL (1.6-8.9); Platelet Count 286 K/mcL (140-400); Red Blood Count 4.61 M/mcL (3.82-4.97); Red Cell Distribution Width 24.3 % (11.5-14.5); Segmented Neutrophils % 79.4 %; White Blood Count 16.3 K/mcL (4.3-11.1)
[2020-01-22 05:19] LABS: VBG Ionized Calcium 0.74 mmol/L (1.15-1.35)
[2020-01-22] MEDS ORDERED: Ringers Solution, Lactated 1,000 ML IVC ONE (05:25)
[2020-01-22 05:27] LABS: Magnesium 1.6 mg/dL (1.6-2.6); Phosphorous 3.2 mg/dL (2.7-4.5)
[2020-01-22 05:28] LABS: BUN/Creatinine Ratio 27 (6-26); Blood Urea Nitrogen 21 mg/dL (6-20); Carbon Dioxide 20 mEq/L (23-29); Chloride 99 mEq/L (98-107); Glucose 247 mg/dL (70-105); Osmolality,Calculated 277 (280-300); Potassium 4.4 mEq/L (3.5-5.1); Sodium 128 mEq/L (136-145); eGFR For African Americans > 60 (> 60); eGFR For Non-African Americans > 60 (> 60)
[2020-01-22] MEDS: Insulin LISPRO 300 UNITS/3 ML VIAL SQ SCH ×3 (05:44→17:46)
[2020-01-22 05:45] LABS: Anisocytosis 2+ (Not Present); Hypochromasia Present (Not Present); Platelet Estimate Normal (Normal)
[2020-01-22] MEDS ORDERED: Piperacillin/Tazobactam 3.375 GM in 0.9 % Sodium Chloride Mini Bag 100 ML IVPB SCH (06:00)
[2020-01-22] MEDS ORDERED: Aminoglycoside Consult 1 EACH MC ONE (08:20)
[2020-01-22 10:28] LABS: BUN/Creatinine Ratio 26 (6-26); Blood Urea Nitrogen 22 mg/dL (6-20); Calcium 8.9 mg/dL (8.6-10.3); Carbon Dioxide 22 mEq/L (23-29); Chloride 97 mEq/L (98-107); Glucose 176 mg/dL (70-105); Osmolality,Calculated 278 (280-300); Potassium 4.3 mEq/L (3.5-5.1); Sodium 130 mEq/L (136-145); eGFR For African Americans > 60 (> 60); eGFR For Non-African Americans > 60 (> 60)
[2020-01-22 10:30] LABS: Troponin I < 0.03 ng/mL (< 0.04)
[2020-01-22 10:48] LABS: Creatine Kinase 29 Units/L (30-223)
[2020-01-22] MEDS ORDERED: Heparin 25,000 UNIT/250 ML D5W 25,000 UNIT/250 ML IV.SOLN IVC SCH (11:15)
[2020-01-22 11:38] LABS: Hemoglobin 10.1 g/dL (11.5-15.4); Mean Corpuscular HGB Conc 27.3 g/dL (31.6-35.5); Mean Corpuscular Hemoglobin 22.4 pg (28.0-33.3); Mean Corpuscular Volume 82.2 fL (83.0-100.0); Mean Platelet Volume 9.8 fL (9.4-12.4); Platelet Count 271 K/mcL (140-400); Red Cell Distribution Width 24.1 % (11.5-14.5); White Blood Count 13.2 K/mcL (4.3-11.1)
[2020-01-22] MEDS: DAPTOmycin 750 MG in 0.9 % Sodium Chloride 100 ML IVPB SCH (12:42)
[2020-01-22 13:17] LABS: INR 8.5; Prothrombin Time 96.9 Seconds (9.4-12.1)
[2020-01-22 13:18] LABS: Heparin anti-factor XA UFH > 2.00 IU/mL (0.30-0.70)
[2020-01-22 13:35] LABS: Activated Partial Thrombo Time 43.8 Seconds (26.0-36.0)
[2020-01-22 14:18] LABS: Acinetobacter baumannii by PCR Not Detected (Not Detect); Enterobacter cloacae Cmplx PCR Not Detected (Not Detect); Enterococcus by PCR Not Detected (Not Detect); Escherichia coli by PCR Not Detected (Not Detect); Klebsiella oxytoca by PCR Not Detected (Not Detect); Klebsiella pneumoniae by PCR Not Detected (Not Detect); Proteus by PCR Not Detected (Not Detect); Staphylococcus aureus by PCR Not Detected (Not Detect); Staphylococcus by PCR Not Detected (Not Detect); Streptococcus agalactiae(B)PCR Not Detected (Not Detect); Streptococcus by PCR Not Detected (Not Detect); Streptococcus pneumoniae PCR Not Detected (Not Detect); Streptococcus pyogenes (A) PCR Not Detected (Not Detect); blaKPC Carbapenem-Resist Gene Not Detected (Not Detect); mecA Methicillin-Resist Gene Not Detected (Not Detect); vanA/B Vancomycin-Resist Genes Not Detected (Not Detect)
[2020-01-22 14:19] LABS: Candida albicans by PCR Not Detected (Not Detect); Candida glabrata by PCR Not Detected (Not Detect); Candida krusei by PCR Not Detected (Not Detect); Candida parapsilosis by PCR Not Detected (Not Detect); Candida tropicalis by PCR Not Detected (Not Detect); Pseudomonas aeruginosa by PCR Not Detected (Not Detect); Serratia marcescens by PCR DETECTED (Not Detect)
[2020-01-22] MEDS: Heparin 25,000 UNIT/250 ML D5W 25,000 UNIT/250 ML IV.SOLN IVC SCH (15:03)
[2020-01-22 15:45] LABS: Triiodothyronine (T3) Free 1.79 pg/mL (2.50-3.90)
[2020-01-22] MEDS: Piperacillin/Tazobactam 3.375 GM in 0.9 % Sodium Chloride Mini Bag 100 ML IVPB SCH ×2 (15:50→23:20)
[2020-01-23] MEDS: Insulin LISPRO 300 UNITS/3 ML VIAL SQ SCH ×5 (00:07→21:57)
[2020-01-23] MEDS: Heparin 25,000 UNIT/250 ML D5W 25,000 UNIT/250 ML IV.SOLN IVC SCH (04:00)
[2020-01-23 05:14] LABS: Basophils % 0.1 %; Lymphocytes % 9.5 %; Monocytes % 9.7 %; Red Cell Distribution Width 23.9 % (11.5-14.5); Segmented Neutrophils % 80.2 %
[2020-01-23 05:15] LABS: Eosinophils % 0.1 %; Hematocrit 31.9 % (35.3-44.9); Immature Granulocytes % 0.4 % (0-4); Lymphocytes # 1.1 K/mcL (0.6-4.6); Mean Corpuscular HGB Conc 28.2 g/dL (31.6-35.5); Mean Corpuscular Volume 81.6 fL (83.0-100.0); Mean Platelet Volume 10.2 fL (9.4-12.4); Monocytes # 1.1 K/mcL (0.0-1.3); Nucleated Red Blood Cells 0.3 /100 WBC (0); Platelet Count 242 K/mcL (140-400); Red Blood Count 3.91 M/mcL (3.82-4.97); White Blood Count 11.2 K/mcL (4.3-11.1)
[2020-01-23] MEDS: Ketorolac 15 MG/ML VIAL IVP PRN ×2 (05:22→21:57)
[2020-01-23 05:36] LABS: BUN/Creatinine Ratio 32 (6-26); Blood Urea Nitrogen 19 mg/dL (6-20); Calcium 7.8 mg/dL (8.6-10.3); Carbon Dioxide 22 mEq/L (23-29); Chloride 101 mEq/L (98-107); Glucose 114 mg/dL (70-105); Osmolality,Calculated 273 (280-300); Potassium 3.8 mEq/L (3.5-5.1); Sodium 130 mEq/L (136-145); eGFR For African Americans > 60 (> 60); eGFR For Non-African Americans > 60 (> 60)
[2020-01-23] MEDS: Levothyroxine Sodium 100 MCG VIAL IVP SCH ×2 (05:36→06:17)
[2020-01-23] MEDS: Piperacillin/Tazobactam 3.375 GM in 0.9 % Sodium Chloride Mini Bag 100 ML IVPB SCH ×2 (05:36→13:55)
[2020-01-23 05:37] LABS: Anisocytosis 2+ (Not Present); Hypochromasia Present (Not Present); Ovalocytes 2+ (Not Present); Platelet Estimate Normal (Normal)
[2020-01-23] MEDS ORDERED: 0.9 % Sodium Chloride 500 ML IVC ONE (06:18)
[2020-01-23] MEDS: DAPTOmycin 750 MG in 0.9 % Sodium Chloride 100 ML IVPB SCH (09:42)
[2020-01-23 11:12] LABS: INR 6.1; Prothrombin Time 69.5 Seconds (9.4-12.1)
[2020-01-23 11:13] LABS: Activated Partial Thrombo Time 169.9 Seconds (26.0-36.0)
[2020-01-23] MEDS ORDERED: *HR* Phytonadione 10 MG/ML AMPUL SQ ONE (11:51)
[2020-01-23] MEDS: Ertapenem 1,000 MG in 0.9 % Sodium Chloride Mini Bag 100 ML IVPB SCH (15:46)
[2020-01-23] MEDS ORDERED: Vancomycin 1,000 MG, Sodium Chloride IRRigation 1,000 ML IR ONE (17:30)
[2020-01-24] MEDS: Ketorolac 15 MG/ML VIAL IVP PRN ×2 (04:33→11:38)
[2020-01-24 05:13] LABS: Hematocrit 34.3 % (35.3-44.9); Hemoglobin 9.7 g/dL (11.5-15.4); Mean Corpuscular HGB Conc 28.3 g/dL (31.6-35.5); Mean Corpuscular Volume 81.5 fL (83.0-100.0); Mean Platelet Volume 9.5 fL (9.4-12.4); Platelet Count 246 K/mcL (140-400); Red Blood Count 4.21 M/mcL (3.82-4.97); White Blood Count 8.8 K/mcL (4.3-11.1)
[2020-01-24 05:16] LABS: INR 3.5; Prothrombin Time 40.1 Seconds (9.4-12.1)
[2020-01-24 05:34] LABS: BUN/Creatinine Ratio 30 (6-26); Blood Urea Nitrogen 20 mg/dL (6-20); Carbon Dioxide 23 mEq/L (23-29); Chloride 100 mEq/L (98-107); Glucose 72 mg/dL (70-105); Osmolality,Calculated 273 (280-300); Potassium 3.8 mEq/L (3.5-5.1); Sodium 131 mEq/L (136-145); eGFR For African Americans > 60 (> 60); eGFR For Non-African Americans > 60 (> 60)
[2020-01-24] MEDS: Levothyroxine Sodium 100 MCG VIAL IVP SCH (06:14)
[2020-01-24] MEDS: Insulin LISPRO 300 UNITS/3 ML VIAL SQ SCH ×4 (08:00→21:50)
[2020-01-24] MEDS ORDERED: Acetaminophen 325 MG TABLET PO PRN (12:47)
[2020-01-24] MEDS ORDERED: Albumin 25% 25gram/100mL 25 GM/100 ML IV.SOLN IVPB ONE (14:42)
[2020-01-24] MEDS: Ertapenem 1,000 MG in 0.9 % Sodium Chloride Mini Bag 100 ML IVPB SCH (15:26)
[2020-01-24] MEDS ORDERED: Furosemide 20 MG/2 ML VIAL IVP ONE (23:57)
[2020-01-25 01:50] LABS: Hemoglobin 9.8 g/dL (11.5-15.4); INR 2.6; Mean Corpuscular HGB Conc 27.2 g/dL (31.6-35.5); Mean Corpuscular Hemoglobin 22.5 pg (28.0-33.3); Mean Corpuscular Volume 82.8 fL (83.0-100.0); Mean Platelet Volume 9.6 fL (9.4-12.4); Platelet Count 232 K/mcL (140-400); Prothrombin Time 29.8 Seconds (9.4-12.1); Red Blood Count 4.35 M/mcL (3.82-4.97); White Blood Count 9.7 K/mcL (4.3-11.1)
[2020-01-25] MEDS ORDERED: Furosemide 20 MG/2 ML VIAL IVP ONE (01:57)
[2020-01-25 02:05] LABS: Alanine Aminotransferase 13 Units/L (7-52); Albumin 2.9 g/dL (3.5-5.7); Albumin/Globulin Ratio 1.3 (1.1-2.2); Alkaline Phosphatase 103 Units/L (34-104); Aspartate Amino Transferase 16 Units/L (13-39); BUN/Creatinine Ratio 30 (6-26); Bilirubin,Total 1.1 mg/dL (0.3-1.0); Blood Urea Nitrogen 21 mg/dL (6-20); Calcium 8.1 mg/dL (8.6-10.3); Carbon Dioxide 22 mEq/L (23-29); Chloride 99 mEq/L (98-107); Globulin 2.3 g/dL (2.4-3.5); Glucose 156 mg/dL (70-105); Osmolality,Calculated 272 (280-300); Potassium 3.9 mEq/L (3.5-5.1); Sodium 128 mEq/L (136-145); Total Protein 5.2 g/dL (6.4-8.9); eGFR For African Americans > 60 (> 60); eGFR For Non-African Americans > 60 (> 60)
[2020-01-25] MEDS ORDERED: Acetaminophen 325 MG TABLET PO PRN (03:28)
[2020-01-25] MEDS ORDERED: *HR* Dextrose 50 % in Water (Syg) 50 ML SYRINGE IVP PRN (03:28)
[2020-01-25] MEDS ORDERED: Dextrose Gel 15 GM/37.5 ML TUBE PO PRN ×2 (03:28)
[2020-01-25] MEDS ORDERED: Naloxone 0.4 MG/ML INJ IVP PRN (03:28)
[2020-01-25] MEDS ORDERED: D5% in Water 1,000 ML IVC PRN (03:28)
[2020-01-25] MEDS: Heparin 25,000 UNIT/250 ML D5W 25,000 UNIT/250 ML IV.SOLN IVC SCH (06:06)
[2020-01-25] MEDS: Levothyroxine Sodium 100 MCG VIAL IVP SCH (06:11)
[2020-01-25] MEDS: Insulin LISPRO 300 UNITS/3 ML VIAL SQ SCH ×3 (07:29→15:31)
[2020-01-25] MEDS ORDERED: Albumin 25% 25gram/100mL 25 GM/100 ML IV.SOLN IVPB ONE (07:30)
[2020-01-25] MEDS ORDERED: Ertapenem 1,000 MG in 0.9 % Sodium Chloride Mini Bag 100 ML IVPB SCH (15:00)
[2020-01-25 15:57] LABS: INR 2.4; Prothrombin Time 27.2 Seconds (9.4-12.1)
[2020-01-25] MEDS ORDERED: *HR* Phytonadione 5 MG TABLET PO ONE (16:54)
[2020-01-25] MEDS ORDERED: Insulin LISPRO 300 UNITS/3 ML VIAL SQ SCH (21:00)
[2020-01-26 03:36] LABS: Eosinophils % 0.2 %
[2020-01-26 03:37] LABS: Basophils % 0.2 %; Hematocrit 36.5 % (35.3-44.9); Hemoglobin 9.9 g/dL (11.5-15.4); Immature Granulocytes % 0.3 % (0-4); Lymphocytes # 1.5 K/mcL (0.6-4.6); Lymphocytes % 12.9 %; Mean Corpuscular HGB Conc 27.1 g/dL (31.6-35.5); Mean Corpuscular Hemoglobin 22.2 pg (28.0-33.3); Mean Platelet Volume 9.2 fL (9.4-12.4); Monocytes % 8.9 %; Neutrophils # 8.9 K/mcL (1.6-8.9); Nucleated Red Blood Cells 0.2 /100 WBC (0); Platelet Count 232 K/mcL (140-400); Red Blood Count 4.45 M/mcL (3.82-4.97); Red Cell Distribution Width 24.1 % (11.5-14.5); Segmented Neutrophils % 77.5 %; White Blood Count 11.5 K/mcL (4.3-11.1)
[2020-01-26 03:43] LABS: INR 2.5; Prothrombin Time 28.6 Seconds (9.4-12.1)
[2020-01-26 03:58] LABS: BUN/Creatinine Ratio 33 (6-26); Blood Urea Nitrogen 18 mg/dL (6-20); Calcium 7.9 mg/dL (8.6-10.3); Carbon Dioxide 23 mEq/L (23-29); Chloride 100 mEq/L (98-107); Glucose 101 mg/dL (70-105); Osmolality,Calculated 274 (280-300); Potassium 4.1 mEq/L (3.5-5.1); Sodium 131 mEq/L (136-145); eGFR For African Americans > 60 (> 60); eGFR For Non-African Americans > 60 (> 60)
[2020-01-26 04:21] LABS: Anisocytosis 2+ (Not Present); Macrocytosis Present (Not Present); Poikilocytosis 1+ (Not Present); Polychromasia 1+ (Not Present)
[2020-01-26] MEDS: Levothyroxine Sodium 100 MCG VIAL IVP SCH (05:49)
[2020-01-26] MEDS: Heparin 25,000 UNIT/250 ML D5W 25,000 UNIT/250 ML IV.SOLN IVC SCH (08:16)
[2020-01-26] MEDS: Insulin LISPRO 300 UNITS/3 ML VIAL SQ SCH (08:20)
[2020-01-26] MEDS ORDERED: *HR* Phytonadione 10 MG/ML AMPUL SQ ONE ×2 (09:05→17:25)
[2020-01-26] MEDS ORDERED: Ondansetron 4 MG/2 ML VIAL ONE ×2 (10:11→11:15)
[2020-01-26] MEDS ORDERED: *HR* Propofol 200 MG/20 ML VIAL IVP ONE ×2 (10:11→11:17)
[2020-01-26] MEDS ORDERED: *HR* FentaNYL (PF) 100 MCG/2 ML VIAL ONE ×3 (10:11→12:40)
[2020-01-26] MEDS ORDERED: *HR* Succinylcholine 200 MG/10 ML VIAL IVP ONE ×2 (10:11→11:15)
[2020-01-26] MEDS ORDERED: Lidocaine -MPF 2% 2 ML VIAL ONE ×3 (10:11→11:15)
[2020-01-26] MEDS ORDERED: *HR* Midazolam HCl 2 MG/2 ML VIAL ONE ×2 (10:11→11:06)
[2020-01-26] MEDS ORDERED: Dexamethasone 4 MG/ML VIAL ONE ×2 (10:11→11:15)
[2020-01-26] MEDS ORDERED: *HR* Magnesium Sulfate 1 GM/2 ML VIAL ONE (10:40)
[2020-01-26] MEDS ORDERED: Lidocaine HCL 4 ML Topical Solution (Laryng-O-Jet Kit Sterile Pak) TP ONE (11:00)
[2020-01-26] MEDS ORDERED: Heparin 1,000 UNITS/500 mL 500 ML ONE (11:06)
[2020-01-26] MEDS ORDERED: Albuterol 2.5 MG/3 ML NEBULIZER IH PRN (11:23)
[2020-01-26] MEDS ORDERED: *HR* Promethazine 25 MG/ML VIAL IVP PRN ×2 (11:23→17:25)
[2020-01-26] MEDS ORDERED: *HR* HYDROmorphone PF 0.5 MG/0.5 ML SYRINGE IVP PRN (11:23)
[2020-01-26] MEDS ORDERED: Ipratropium Neb 0.5 MG NEBULIZER IH PRN (11:23)
[2020-01-26] MEDS ORDERED: Ondansetron 4 MG/2 ML VIAL IVP ONE (11:23)
[2020-01-26] MEDS ORDERED: *HR* Meperidine 25 MG/ML SYRINGE IVP PRN (11:23)
[2020-01-26] MEDS ORDERED: *HR* PHENYLEPHRINE 1,000 MCG/10 ML SYRINGE IVP ONE ×4 (11:32→15:43)
[2020-01-26] MEDS ORDERED: Vancomycin 1,000 MG, Sodium Chloride IRRigation 1,000 ML IR ONE ×2 (11:40)
[2020-01-26] MEDS ORDERED: *HR* Vasopressin 20 UNIT/ML VIAL ONE (12:46)
[2020-01-26] MEDS ORDERED: Albumin Human 5% 12.5 GM/250 ML IV.SOLN ONE (13:04)
[2020-01-26] MEDS ORDERED: EPHEDrine 50 MG/ML VIAL ONE (13:19)
[2020-01-26] MEDS ORDERED: Furosemide 20 MG/2 ML VIAL IVP ONE (14:28)
[2020-01-26] MEDS ORDERED: 0.9 % Sodium Chloride 500 ML ONE (14:29)
[2020-01-26] MEDS ORDERED: Ringers Solution, Lactated 1,000 ML ONE ×2 (14:29→16:22)
[2020-01-26] MEDS ORDERED: Ondansetron 4 MG/2 ML VIAL IVP PRN (17:25)
[2020-01-26] MEDS ORDERED: *HR* Labetalol 20 MG/4 ML SYRINGE IVP PRN (17:25)
[2020-01-26] MEDS ORDERED: *HR* OxyCODONE Immed Rel 5 MG TABLET PO PRN ×2 (17:25)
[2020-01-26] MEDS ORDERED: Acetaminophen 325 MG TABLET PO PRN ×2 (17:25)
[2020-01-26] MEDS ORDERED: D5% in Water 1,000 ML IVC PRN (17:25)
[2020-01-26] MEDS ORDERED: *HR* Dextrose 50 % in Water (Syg) 50 ML SYRINGE IVP PRN (17:25)
[2020-01-26] MEDS ORDERED: Naloxone 0.4 MG/ML INJ IVP PRN (17:25)
[2020-01-26] MEDS ORDERED: *HR* HYDROcodone/Acet 5/325 mg TABLET PO PRN (17:25)
[2020-01-26] MEDS ORDERED: Dextrose Gel 15 GM/37.5 ML TUBE PO PRN ×2 (17:25)
[2020-01-26 18:17] LABS: Hematocrit 39.5 % (35.3-44.9); Hemoglobin 11.3 g/dL (11.5-15.4)
[2020-01-26 18:19] LABS: INR 2.6; Prothrombin Time 29.6 Seconds (9.4-12.1)
[2020-01-26 18:24] LABS: Activated Partial Thrombo Time 34.2 Seconds (26.0-36.0)
[2020-01-26] MEDS ORDERED: Insulin LISPRO 300 UNITS/3 ML VIAL SQ SCH (21:00)
[2020-01-26] MEDS: *HR* HYDROcodone/Acet 5/325 mg TABLET PO PRN (23:51)
[2020-01-27 04:45] LABS: Basophils % 0.1 %; Hematocrit 41.9 % (35.3-44.9); Hemoglobin 12.4 g/dL (11.5-15.4); Immature Granulocytes % 0.6 % (0-4); Lymphocytes # 0.7 K/mcL (0.6-4.6); Lymphocytes % 6.2 %; Mean Corpuscular HGB Conc 29.6 g/dL (31.6-35.5); Mean Corpuscular Hemoglobin 24.3 pg (28.0-33.3); Mean Corpuscular Volume 82.2 fL (83.0-100.0); Mean Platelet Volume 9.8 fL (9.4-12.4); Monocytes # 0.4 K/mcL (0.0-1.3); Monocytes % 3.8 %; Neutrophils # 10.2 K/mcL (1.6-8.9); Nucleated Red Blood Cells 0.3 /100 WBC (0); Platelet Count 204 K/mcL (140-400); Red Cell Distribution Width 22.4 % (11.5-14.5); Segmented Neutrophils % 89.3 %; White Blood Count 11.5 K/mcL (4.3-11.1)
[2020-01-27 04:47] LABS: INR 1.9
[2020-01-27 05:01] LABS: BUN/Creatinine Ratio 39 (6-26); Blood Urea Nitrogen 19 mg/dL (6-20); Calcium 7.6 mg/dL (8.6-10.3); Carbon Dioxide 19 mEq/L (23-29); Chloride 100 mEq/L (98-107); Glucose 193 mg/dL (70-105); Osmolality,Calculated 280 (280-300); Potassium 4.8 mEq/L (3.5-5.1); Sodium 131 mEq/L (136-145); eGFR For African Americans > 60 (> 60); eGFR For Non-African Americans > 60 (> 60)
[2020-01-27 06:30] LABS: Activated Partial Thrombo Time 33.1 Seconds (26.0-36.0)
[2020-01-27] MEDS ORDERED: Levothyroxine Sodium 100 MCG VIAL IVP SCH (06:30)
[2020-01-27] MEDS: Heparin 25,000 UNIT/250 ML D5W 25,000 UNIT/250 ML IV.SOLN IVC SCH ×2 (08:00→08:30)
[2020-01-27] MEDS: Insulin LISPRO 300 UNITS/3 ML VIAL SQ SCH ×4 (08:01→22:28)
[2020-01-27] MEDS: *HR* HYDROcodone/Acet 5/325 mg TABLET PO PRN ×2 (08:40→15:13)
[2020-01-27] MEDS ORDERED: Sennosides/Docusate Sodium TABLET PO PRN ×2 (10:55→12:52)
[2020-01-27] MEDS ORDERED: Heparin 25,000 UNIT/250 ML D5W 25,000 UNIT/250 ML IV.SOLN IVC SCH (12:52)
[2020-01-27] MEDS ORDERED: Naloxone 0.4 MG/ML INJ IVP PRN (12:52)
[2020-01-27] MEDS ORDERED: D5% in Water 1,000 ML IVC PRN (12:52)
[2020-01-27] MEDS ORDERED: Dextrose Gel 15 GM/37.5 ML TUBE PO PRN ×2 (12:52)
[2020-01-27] MEDS ORDERED: *HR* Dextrose 50 % in Water (Syg) 50 ML SYRINGE IVP PRN (12:52)
[2020-01-27] MEDS ORDERED: Ondansetron 4 MG/2 ML VIAL IVP PRN (12:52)
[2020-01-27] MEDS: Ertapenem 1,000 MG in 0.9 % Sodium Chloride Mini Bag 100 ML IVPB SCH (14:53)
[2020-01-27] MEDS ORDERED: Ertapenem 1,000 MG in 0.9 % Sodium Chloride Mini Bag 100 ML IVPB SCH (15:00)
[2020-01-27] MEDS ORDERED: 0.9 % Sodium Chloride 250 ML ONE (23:31)
[2020-01-27] MEDS ORDERED: 0.9 % Sodium Chloride 250 ML IVC ONE (23:38)
[2020-01-28 04:27] LABS: Mean Corpuscular HGB Conc 28.4 g/dL (31.6-35.5); Mean Corpuscular Hemoglobin 24.2 pg (28.0-33.3); Mean Corpuscular Volume 85.2 fL (83.0-100.0); Mean Platelet Volume 9.6 fL (9.4-12.4); Platelet Count 210 K/mcL (140-400); Red Blood Count 4.46 M/mcL (3.82-4.97); Red Cell Distribution Width 22.6 % (11.5-14.5); White Blood Count 11.7 K/mcL (4.3-11.1)
[2020-01-28 04:28] LABS: Hemoglobin 10.8 g/dL (11.5-15.4)
[2020-01-28 04:47] LABS: BUN/Creatinine Ratio 39 (6-26); Blood Urea Nitrogen 27 mg/dL (6-20); Calcium 7.8 mg/dL (8.6-10.3); Carbon Dioxide 23 mEq/L (23-29); Chloride 99 mEq/L (98-107); Glucose 216 mg/dL (70-105); Osmolality,Calculated 280 (280-300); Potassium 5.1 mEq/L (3.5-5.1); Sodium 129 mEq/L (136-145); eGFR For African Americans > 60 (> 60); eGFR For Non-African Americans > 60 (> 60)
[2020-01-28 05:02] LABS: Thyroid Stimulating Hormone 15.993 mcIU/mL (0.340-5.600)
[2020-01-28] MEDS: *HR* Enoxaparin 100 MG/ML SYRINGE SQ SCH ×2 (09:06→17:57)
[2020-01-28] MEDS: Insulin LISPRO 300 UNITS/3 ML VIAL SQ SCH ×4 (09:06→20:11)
[2020-01-28] MEDS: Albumin 25% 25gram/100mL 25 GM/100 ML IV.SOLN IVPB SCH ×2 (09:06→17:52)
[2020-01-28] MEDS: *HR* HYDROcodone/Acet 5/325 mg TABLET PO PRN (09:07)
[2020-01-28] MEDS: Furosemide 40 MG/4 ML VIAL IVP SCH ×2 (10:55→20:09)
[2020-01-28] MEDS: Ertapenem 1,000 MG in 0.9 % Sodium Chloride Mini Bag 100 ML IVPB SCH (14:31)
[2020-01-28] MEDS: Insulin DETEMIR 100 UNIT/ML X5UNITS SQ SCH (20:10)
[2020-01-28] MEDS: Budesonide Neb 0.5 MG/2 ML IH SCH (21:45)
[2020-01-29 02:38] LABS: Mean Corpuscular HGB Conc 28.5 g/dL (31.6-35.5)
[2020-01-29 02:39] LABS: Hematocrit 33.3 % (35.3-44.9); Hemoglobin 9.5 g/dL (11.5-15.4); Mean Corpuscular Hemoglobin 23.9 pg (28.0-33.3); Mean Corpuscular Volume 83.9 fL (83.0-100.0); Mean Platelet Volume 9.9 fL (9.4-12.4); Platelet Count 177 K/mcL (140-400); Red Blood Count 3.97 M/mcL (3.82-4.97); Red Cell Distribution Width 22.5 % (11.5-14.5); White Blood Count 9.5 K/mcL (4.3-11.1)
[2020-01-29 02:58] LABS: BUN/Creatinine Ratio 48 (6-26); Blood Urea Nitrogen 27 mg/dL (6-20); Carbon Dioxide 24 mEq/L (23-29); Chloride 100 mEq/L (98-107); Glucose 200 mg/dL (70-105); Osmolality,Calculated 279 (280-300); Potassium 4.2 mEq/L (3.5-5.1); Sodium 129 mEq/L (136-145); eGFR For African Americans > 60 (> 60); eGFR For Non-African Americans > 60 (> 60)
[2020-01-29] MEDS: *HR* Enoxaparin 100 MG/ML SYRINGE SQ SCH ×2 (05:47→18:06)
[2020-01-29] MEDS: Aspirin 81 MG TAB.CHEW PO SCH (08:10)
[2020-01-29] MEDS: Insulin LISPRO 300 UNITS/3 ML VIAL SQ SCH ×4 (08:10→20:06)
[2020-01-29] MEDS: *HR* HYDROcodone/Acet 5/325 mg TABLET PO PRN ×3 (08:11→23:47)
[2020-01-29] MEDS: Budesonide Neb 0.5 MG/2 ML IH SCH ×2 (08:18→20:47)
[2020-01-29] MEDS: Albumin 25% 25gram/100mL 25 GM/100 ML IV.SOLN IVPB SCH ×2 (08:49→18:06)
[2020-01-29] MEDS: levoFLOXacin 750 MG TABLET PO SCH (08:50)
[2020-01-29] MEDS: Furosemide 40 MG/4 ML VIAL IVP SCH ×2 (11:01→20:05)
[2020-01-29] MEDS: Insulin DETEMIR 100 UNIT/ML X5UNITS SQ SCH (20:06)
[2020-01-30 02:04] LABS: Red Cell Distribution Width 22.5 % (11.5-14.5)
[2020-01-30 02:06] LABS: Hematocrit 33.8 % (35.3-44.9); Hemoglobin 9.5 g/dL (11.5-15.4); Mean Corpuscular HGB Conc 28.1 g/dL (31.6-35.5); Mean Corpuscular Hemoglobin 23.8 pg (28.0-33.3); Mean Corpuscular Volume 84.5 fL (83.0-100.0); Mean Platelet Volume 9.4 fL (9.4-12.4); Platelet Count 151 K/mcL (140-400); White Blood Count 11.5 K/mcL (4.3-11.1)
[2020-01-30 02:19] LABS: INR 2.1; Prothrombin Time 24.1 Seconds (9.4-12.1)
[2020-01-30 02:26] LABS: BUN/Creatinine Ratio 57 (6-26); Blood Urea Nitrogen 27 mg/dL (6-20); Calcium 8.3 mg/dL (8.6-10.3); Carbon Dioxide 26 mEq/L (23-29); Chloride 98 mEq/L (98-107); Glucose 134 mg/dL (70-105); Osmolality,Calculated 279 (280-300); Potassium 4.2 mEq/L (3.5-5.1); Sodium 131 mEq/L (136-145); eGFR For African Americans > 60 (> 60); eGFR For Non-African Americans > 60 (> 60)
[2020-01-30] MEDS: *HR* Enoxaparin 100 MG/ML SYRINGE SQ SCH ×2 (05:27→16:59)
[2020-01-30] MEDS: levoFLOXacin 750 MG TABLET PO SCH (08:07)
[2020-01-30] MEDS: Aspirin 81 MG TAB.CHEW PO SCH (08:08)
[2020-01-30] MEDS: Furosemide 40 MG/4 ML VIAL IVP SCH ×2 (08:09→16:58)
[2020-01-30] MEDS: Insulin LISPRO 300 UNITS/3 ML VIAL SQ SCH ×4 (08:16→21:48)
[2020-01-30] MEDS: Albumin 25% 25gram/100mL 25 GM/100 ML IV.SOLN IVPB SCH ×2 (09:55→16:59)
[2020-01-30] MEDS: Budesonide Neb 0.5 MG/2 ML IH SCH ×2 (10:38→22:35)
[2020-01-30] MEDS ORDERED: Furosemide 40 MG/4 ML VIAL IVP SCH (11:00)
[2020-01-30] MEDS: *HR* HYDROcodone/Acet 5/325 mg TABLET PO PRN ×2 (11:39→21:29)
[2020-01-30] MEDS: *HR* OxyCODONE Immed Rel 5 MG TABLET PO PRN (17:00)
[2020-01-30] MEDS: Insulin DETEMIR 100 UNIT/ML X5UNITS SQ SCH (21:29)
[2020-01-31] MEDS: Albumin 25% 25gram/100mL 25 GM/100 ML IV.SOLN IVPB SCH ×3 (00:56→16:15)
[2020-01-31] MEDS: *HR* OxyCODONE Immed Rel 5 MG TABLET PO PRN ×3 (00:57→20:54)
[2020-01-31] MEDS: Furosemide 40 MG/4 ML VIAL IVP SCH ×3 (02:44→18:09)
[2020-01-31 05:58] LABS: Hemoglobin 6.7 g/dL (11.5-15.4); Mean Corpuscular HGB Conc 27.9 g/dL (31.6-35.5); Mean Corpuscular Hemoglobin 23.6 pg (28.0-33.3); Mean Corpuscular Volume 84.5 fL (83.0-100.0); Mean Platelet Volume 10.2 fL (9.4-12.4); Platelet Count 144 K/mcL (140-400); Red Blood Count 2.84 M/mcL (3.82-4.97); Red Cell Distribution Width 22.4 % (11.5-14.5); White Blood Count 11.2 K/mcL (4.3-11.1)
[2020-01-31] MEDS: Insulin LISPRO 300 UNITS/3 ML VIAL SQ SCH ×4 (08:07→21:57)
[2020-01-31] MEDS: *HR* Enoxaparin 100 MG/ML SYRINGE SQ SCH ×2 (08:33→10:54)
[2020-01-31] MEDS: levoFLOXacin 750 MG TABLET PO SCH (08:36)
[2020-01-31] MEDS: *HR* HYDROcodone/Acet 5/325 mg TABLET PO PRN (08:37)
[2020-01-31] MEDS ORDERED: 0.9 % Sodium Chloride 250 ML ONE (10:04)
[2020-01-31] MEDS: Budesonide Neb 0.5 MG/2 ML IH SCH ×2 (10:30→19:50)
[2020-01-31] MEDS: Aspirin 81 MG TAB.CHEW PO SCH (10:53)
[2020-01-31 11:26] LABS: BUN/Creatinine Ratio 50 (6-26); Blood Urea Nitrogen 25 mg/dL (6-20); Calcium 8.3 mg/dL (8.6-10.3); Carbon Dioxide 26 mEq/L (23-29); Chloride 98 mEq/L (98-107); Glucose 56 mg/dL (70-105); Osmolality,Calculated 282 (280-300); Potassium 3.8 mEq/L (3.5-5.1); Sodium 135 mEq/L (136-145); eGFR For African Americans > 60 (> 60); eGFR For Non-African Americans > 60 (> 60)
[2020-01-31 16:35] LABS: Hemoglobin 7.6 g/dL (11.5-15.4)
[2020-01-31 16:36] LABS: Hematocrit 26.3 % (35.3-44.9)
[2020-01-31] MEDS: Insulin DETEMIR 100 UNIT/ML X5UNITS SQ SCH (21:59)
[2020-02-01] MEDS: Albumin 25% 25gram/100mL 25 GM/100 ML IV.SOLN IVPB SCH ×3 (01:50→16:56)
[2020-02-01] MEDS: Furosemide 40 MG/4 ML VIAL IVP SCH ×4 (03:46→19:40)
[2020-02-01 04:55] LABS: Basophils % 0.1 %; Hematocrit 27.1 % (35.3-44.9); Hemoglobin 8.1 g/dL (11.5-15.4); Immature Granulocytes % 0.4 % (0-4); Lymphocytes % 8.5 %; Mean Corpuscular HGB Conc 29.9 g/dL (31.6-35.5); Mean Corpuscular Hemoglobin 25.2 pg (28.0-33.3); Mean Corpuscular Volume 84.4 fL (83.0-100.0); Monocytes # 0.8 K/mcL (0.0-1.3); Monocytes % 6.7 %; Neutrophils # 10.3 K/mcL (1.6-8.9); Nucleated Red Blood Cells 0.5 /100 WBC (0); Platelet Count 124 K/mcL (140-400); Red Blood Count 3.21 M/mcL (3.82-4.97); Red Cell Distribution Width 20.4 % (11.5-14.5); Segmented Neutrophils % 84.3 %; White Blood Count 12.2 K/mcL (4.3-11.1)
[2020-02-01 05:18] LABS: BUN/Creatinine Ratio 39 (6-26); Blood Urea Nitrogen 27 mg/dL (6-20); Carbon Dioxide 30 mEq/L (23-29); Chloride 94 mEq/L (98-107); Glucose 131 mg/dL (70-105); Magnesium 1.6 mg/dL (1.6-2.6); Osmolality,Calculated 285 (280-300); Phosphorous 2.9 mg/dL (2.7-4.5); Potassium 4.5 mEq/L (3.5-5.1); Sodium 134 mEq/L (136-145); eGFR For African Americans > 60 (> 60); eGFR For Non-African Americans > 60 (> 60)
[2020-02-01] MEDS: *HR* Enoxaparin 100 MG/ML SYRINGE SQ SCH ×3 (07:16→19:49)
[2020-02-01] MEDS: Budesonide Neb 0.5 MG/2 ML IH SCH ×2 (07:38→19:59)
[2020-02-01] MEDS: Insulin LISPRO 300 UNITS/3 ML VIAL SQ SCH ×4 (09:16→21:08)
[2020-02-01] MEDS: levoFLOXacin 750 MG TABLET PO SCH (09:24)
[2020-02-01] MEDS: Aspirin 81 MG TAB.CHEW PO SCH (09:24)
[2020-02-01] MEDS: Acetaminophen 325 MG TABLET PO PRN (16:55)
[2020-02-01] MEDS: metOLazone 5 MG TABLET PO SCH (19:41)
[2020-02-01 20:25] LABS: Hematocrit 24.8 % (35.3-44.9); Hemoglobin 7.2 g/dL (11.5-15.4)
[2020-02-01] MEDS: Insulin DETEMIR 100 UNIT/ML X5UNITS SQ SCH (21:07)
[2020-02-01] MEDS ORDERED: 0.9 % Sodium Chloride 250 ML ONE (21:54)
[2020-02-02] MEDS: Acetaminophen 325 MG TABLET PO PRN (01:29)
[2020-02-02] MEDS: Furosemide 40 MG/4 ML VIAL IVP SCH ×3 (01:30→21:35)
[2020-02-02 04:19] LABS: Basophils % 0.1 %; Eosinophils % 0.1 %; Hematocrit 28.9 % (35.3-44.9); Hemoglobin 8.7 g/dL (11.5-15.4); Immature Granulocytes % 0.5 % (0-4); Lymphocytes # 1.5 K/mcL (0.6-4.6); Lymphocytes % 11.1 %; Mean Corpuscular HGB Conc 30.1 g/dL (31.6-35.5); Mean Corpuscular Volume 86.5 fL (83.0-100.0); Monocytes # 1.3 K/mcL (0.0-1.3); Monocytes % 9.5 %; Neutrophils # 10.5 K/mcL (1.6-8.9); Nucleated Red Blood Cells 0.5 /100 WBC (0); Platelet Count 131 K/mcL (140-400); Red Blood Count 3.34 M/mcL (3.82-4.97); Red Cell Distribution Width 19.7 % (11.5-14.5); Segmented Neutrophils % 78.7 %; White Blood Count 13.3 K/mcL (4.3-11.1)
[2020-02-02 04:37] LABS: BUN/Creatinine Ratio 45 (6-26); Blood Urea Nitrogen 28 mg/dL (6-20); Calcium 8.7 mg/dL (8.6-10.3); Carbon Dioxide 29 mEq/L (23-29); Chloride 94 mEq/L (98-107); Glucose 95 mg/dL (70-105); Magnesium 1.6 mg/dL (1.6-2.6); Osmolality,Calculated 277 (280-300); Phosphorous 2.5 mg/dL (2.7-4.5); Potassium 4.3 mEq/L (3.5-5.1); Sodium 131 mEq/L (136-145); eGFR For African Americans > 60 (> 60); eGFR For Non-African Americans > 60 (> 60)
[2020-02-02] MEDS: *HR* Enoxaparin 100 MG/ML SYRINGE SQ SCH (06:33)
[2020-02-02] MEDS: metOLazone 5 MG TABLET PO SCH (08:15)
[2020-02-02] MEDS: Aspirin 81 MG TAB.CHEW PO SCH (08:15)
[2020-02-02] MEDS: levoFLOXacin 750 MG TABLET PO SCH (08:15)
[2020-02-02] MEDS: Insulin LISPRO 300 UNITS/3 ML VIAL SQ SCH ×4 (08:15→21:41)
[2020-02-02] MEDS: Budesonide Neb 0.5 MG/2 ML IH SCH ×2 (09:58→21:04)
[2020-02-02] MEDS: *HR* HYDROcodone/Acet 5/325 mg TABLET PO PRN (10:59)
[2020-02-02 14:37] LABS: INR 3.1; Prothrombin Time 35.6 Seconds (9.4-12.1)
[2020-02-02] MEDS ORDERED: Isovue-370 500 ML BOTTLE IVP ONE ×2 (17:04→17:20)
[2020-02-02] MEDS ORDERED: 0.9 % Sodium Chloride 500 ML IV ONE (17:05)
[2020-02-02 17:52] LABS: Basophils % 0.1 %; Eosinophils % 0.1 %; Hematocrit 29.4 % (35.3-44.9); Hemoglobin 8.8 g/dL (11.5-15.4); Immature Granulocytes % 0.4 % (0-4); Lymphocytes # 1.1 K/mcL (0.6-4.6); Lymphocytes % 7.9 %; Mean Corpuscular HGB Conc 29.9 g/dL (31.6-35.5); Mean Platelet Volume 10.1 fL (9.4-12.4); Monocytes # 1.4 K/mcL (0.0-1.3); Monocytes % 10.1 %; Nucleated Red Blood Cells 0.3 /100 WBC (0); Platelet Count 127 K/mcL (140-400); Red Blood Count 3.38 M/mcL (3.82-4.97); Red Cell Distribution Width 19.9 % (11.5-14.5); Segmented Neutrophils % 81.4 %; White Blood Count 13.5 K/mcL (4.3-11.1)
[2020-02-02] MEDS ORDERED: Ringers Solution, Lactated 1,000 ML IVC ONE (18:50)
[2020-02-02] MEDS: Insulin DETEMIR 100 UNIT/ML X5UNITS SQ SCH (21:42)
[2020-02-03 06:07] LABS: Basophils % 0.1 %; Eosinophils % 0.1 %; Hematocrit 29.2 % (35.3-44.9); Hemoglobin 8.8 g/dL (11.5-15.4); Immature Granulocytes % 0.4 % (0-4); Lymphocytes # 0.9 K/mcL (0.6-4.6); Lymphocytes % 7.6 %; Mean Corpuscular HGB Conc 30.1 g/dL (31.6-35.5); Mean Corpuscular Hemoglobin 25.6 pg (28.0-33.3); Mean Corpuscular Volume 84.9 fL (83.0-100.0); Mean Platelet Volume 10.5 fL (9.4-12.4); Monocytes # 1.1 K/mcL (0.0-1.3); Neutrophils # 9.8 K/mcL (1.6-8.9); Nucleated Red Blood Cells 0.3 /100 WBC (0); Platelet Count 133 K/mcL (140-400); Red Blood Count 3.44 M/mcL (3.82-4.97); Red Cell Distribution Width 19.9 % (11.5-14.5); Segmented Neutrophils % 82.8 %; White Blood Count 11.8 K/mcL (4.3-11.1)
[2020-02-03 06:23] LABS: BUN/Creatinine Ratio 51 (6-26); Blood Urea Nitrogen 25 mg/dL (6-20); Calcium 8.4 mg/dL (8.6-10.3); Carbon Dioxide 30 mEq/L (23-29); Chloride 94 mEq/L (98-107); Glucose 146 mg/dL (70-105); Magnesium 1.6 mg/dL (1.6-2.6); Osmolality,Calculated 281 (280-300); Phosphorous 2.1 mg/dL (2.7-4.5); Potassium 3.6 mEq/L (3.5-5.1); Sodium 132 mEq/L (136-145); eGFR For African Americans > 60 (> 60); eGFR For Non-African Americans > 60 (> 60)
[2020-02-03] MEDS: Aspirin 81 MG TAB.CHEW PO SCH (07:53)
[2020-02-03] MEDS: Insulin LISPRO 300 UNITS/3 ML VIAL SQ SCH ×4 (07:53→20:14)
[2020-02-03] MEDS: levoFLOXacin 750 MG TABLET PO SCH (07:53)
[2020-02-03] MEDS: metOLazone 5 MG TABLET PO SCH (07:53)
[2020-02-03] MEDS: Furosemide 40 MG/4 ML VIAL IVP SCH ×2 (07:53→16:24)
[2020-02-03] MEDS: *HR* HYDROcodone/Acet 5/325 mg TABLET PO PRN ×2 (08:08→16:24)
[2020-02-03] MEDS: Budesonide Neb 0.5 MG/2 ML IH SCH ×2 (10:10→21:52)
[2020-02-03] MEDS: Sennosides/Docusate Sodium TABLET PO SCH (14:13)
[2020-02-03] MEDS: Albumin 25% 25gram/100mL 25 GM/100 ML IV.SOLN IVPB SCH (16:24)
[2020-02-03] MEDS: Insulin DETEMIR 100 UNIT/ML X5UNITS SQ SCH (20:14)
[2020-02-04] MEDS: Furosemide 40 MG/4 ML VIAL IVP SCH ×4 (00:20→21:34)
[2020-02-04] MEDS: Albumin 25% 25gram/100mL 25 GM/100 ML IV.SOLN IVPB SCH ×2 (01:16→08:12)
[2020-02-04 02:27] LABS: Basophils % 0.1 %; Eosinophils % 0.2 %; Hematocrit 31.6 % (35.3-44.9); Hemoglobin 9.6 g/dL (11.5-15.4); Immature Granulocytes % 0.3 % (0-4); Lymphocytes # 0.9 K/mcL (0.6-4.6); Lymphocytes % 6.3 %; Mean Corpuscular HGB Conc 30.4 g/dL (31.6-35.5); Mean Corpuscular Hemoglobin 26.1 pg (28.0-33.3); Mean Corpuscular Volume 85.9 fL (83.0-100.0); Mean Platelet Volume 10.7 fL (9.4-12.4); Monocytes # 1.3 K/mcL (0.0-1.3); Monocytes % 8.7 %; Neutrophils # 12.1 K/mcL (1.6-8.9); Nucleated Red Blood Cells 0.1 /100 WBC (0); Platelet Count 141 K/mcL (140-400); Red Blood Count 3.68 M/mcL (3.82-4.97); Red Cell Distribution Width 20.3 % (11.5-14.5); Segmented Neutrophils % 84.4 %; White Blood Count 14.4 K/mcL (4.3-11.1)
[2020-02-04 02:46] LABS: BUN/Creatinine Ratio 31 (6-26); Blood Urea Nitrogen 22 mg/dL (6-20); Carbon Dioxide 37 mEq/L (23-29); Chloride 89 mEq/L (98-107); Glucose 66 mg/dL (70-105); Magnesium 1.5 mg/dL (1.6-2.6); Osmolality,Calculated 280 (280-300); Phosphorous 2.8 mg/dL (2.7-4.5); Potassium 2.7 mEq/L (3.5-5.1); Sodium 134 mEq/L (136-145); eGFR For African Americans > 60 (> 60); eGFR For Non-African Americans > 60 (> 60)
[2020-02-04] MEDS: *HR* OxyCODONE Immed Rel 5 MG TABLET PO PRN (02:59)
[2020-02-04] MEDS ORDERED: Potassium Chloride 40 MEQ, Lidocaine 1% 2 ML in 0.9 % Sodium Chloride 500 ML IVPB ONE (04:40)
[2020-02-04] MEDS: Budesonide Neb 0.5 MG/2 ML IH SCH ×2 (07:56→22:18)
[2020-02-04] MEDS: Insulin LISPRO 300 UNITS/3 ML VIAL SQ SCH ×4 (07:58→21:05)
[2020-02-04] MEDS: Sennosides/Docusate Sodium TABLET PO SCH (08:13)
[2020-02-04] MEDS: Aspirin 81 MG TAB.CHEW PO SCH (08:13)
[2020-02-04] MEDS ORDERED: Potassium Chloride Elixir 20 MEQ/15 ML UDC PO ONE (08:30)
[2020-02-04] MEDS: Piperacillin/Tazobactam 3.375 GM in 0.9 % Sodium Chloride Mini Bag 100 ML IVPB SCH ×2 (12:25→16:49)
[2020-02-04] MEDS ORDERED: Albumin 25% 25gram/100mL 25 GM/100 ML IV.SOLN IVPB SCH ×2 (20:30→21:15)
[2020-02-04] MEDS: polyethylene glycoL 3350 17 GM POWD.PACK PO SCH (21:04)
[2020-02-04] MEDS: Acetaminophen 325 MG TABLET PO PRN (21:34)
[2020-02-05] MEDS: Piperacillin/Tazobactam 3.375 GM in 0.9 % Sodium Chloride Mini Bag 100 ML IVPB SCH ×2 (00:15→08:01)
[2020-02-05 01:40] LABS: Basophils % 0.1 %; Eosinophils % 0.2 %; Hematocrit 28.6 % (35.3-44.9); Hemoglobin 8.7 g/dL (11.5-15.4); Immature Granulocytes % 0.5 % (0-4); Lymphocytes # 0.9 K/mcL (0.6-4.6); Lymphocytes % 6.9 %; Mean Corpuscular HGB Conc 30.4 g/dL (31.6-35.5); Mean Corpuscular Hemoglobin 26.1 pg (28.0-33.3); Mean Corpuscular Volume 85.9 fL (83.0-100.0); Mean Platelet Volume 10.6 fL (9.4-12.4); Monocytes # 1.2 K/mcL (0.0-1.3); Monocytes % 9.3 %; Neutrophils # 10.9 K/mcL (1.6-8.9); Platelet Count 125 K/mcL (140-400); Red Blood Count 3.33 M/mcL (3.82-4.97); Red Cell Distribution Width 20.4 % (11.5-14.5); White Blood Count 13.1 K/mcL (4.3-11.1)
[2020-02-05 01:59] LABS: BUN/Creatinine Ratio 30 (6-26); Blood Urea Nitrogen 18 mg/dL (6-20); Calcium 8.9 mg/dL (8.6-10.3); Carbon Dioxide 35 mEq/L (23-29); Chloride 89 mEq/L (98-107); Glucose 161 mg/dL (70-105); Magnesium 1.9 mg/dL (1.6-2.6); Osmolality,Calculated 279 (280-300); Phosphorous 2.4 mg/dL (2.7-4.5); Potassium 3.7 mEq/L (3.5-5.1); Sodium 132 mEq/L (136-145); eGFR For African Americans > 60 (> 60); eGFR For Non-African Americans > 60 (> 60)
[2020-02-05 02:02] LABS: % Iron Saturation 7 % (15-50); Iron 17 mcg/dL (50-170); Transferrin 174 mg/dL (203-362)
[2020-02-05 02:20] LABS: Ferritin 70 ng/mL (10-120)
[2020-02-05 02:25] LABS: Folate 10.2 ng/mL (3.0-16.0)
[2020-02-05] MEDS: Acetaminophen 325 MG TABLET PO PRN (04:16)
[2020-02-05] MEDS: Budesonide Neb 0.5 MG/2 ML IH SCH (07:45)
[2020-02-05] MEDS ORDERED: Ferumoxytol 510 MG in 0.9 % Sodium Chloride 100 ML IVPB ONE (07:48)
[2020-02-05 07:51] VITALS: BP 104/78
[2020-02-05] MEDS: Insulin LISPRO 300 UNITS/3 ML VIAL SQ SCH (07:56)
[2020-02-05] MEDS: polyethylene glycoL 3350 17 GM POWD.PACK PO SCH (07:58)
[2020-02-05] MEDS: Sennosides/Docusate Sodium TABLET PO SCH (08:00)
[2020-02-05] MEDS: Aspirin 81 MG TAB.CHEW PO SCH (08:00)
[2020-02-05] MEDS: Furosemide 40 MG/4 ML VIAL IVP SCH (08:02)
[2020-02-05] MEDS ORDERED: Albumin 25% 25gram/100mL 25 GM/100 ML IV.SOLN IVPB SCH (09:00)
[2020-02-05] MEDS ORDERED: Furosemide 40 MG/4 ML VIAL IVP SCH (09:00)
[2020-02-05] MEDS ORDERED: Sodium Ferric Gluconat/Sucrose 125 MG in 0.9 % Sodium Chloride 100 ML IVPB SCH (09:00)
[2020-02-05] MEDS ORDERED: FentaNYL (PF) 1,000 MCG in 0.9 % Sodium Chloride 80 ML IVC SCH (09:45)
[2020-02-05] MEDS ORDERED: Isovue-370 500 ML BOTTLE IVP ONE (09:53)
[2020-02-05] MEDS ORDERED: EPINEPHrine 1 MG in D5% in Water 250 ML IVC SCH (10:00)
[2020-02-05] MEDS ORDERED: Norepinephrine 4 MG in 0.9 % Sodium Chloride 250 ML IVC SCH (10:00)
[2020-02-05] MEDS ORDERED: *HR* Atropine Sulfate 1 MG/10 ML SYRINGE IV ONE (10:08)
[2020-02-05] MEDS ORDERED: *HR* EPINEPHrine 1 MG/10 ML SYRINGE IVP ONE ×2 (10:08)
[2020-02-05] MEDS ORDERED: D5% in Water 250 ML IV BAG IV ONE (10:08)
[2020-02-05] MEDS ORDERED: *HR* Norepinephrine 4 MG/4 ML VIAL IVC ONE (10:08)
== END 2020-02-05 10:09 | disposition expired | DRG 710 ==
LOC: 2NNU 20:06 → EMEROOARM 20:06 → 2NNU 01-22 00:40 → SUATTDRO 01-22 15:55 → ICNU 01-24 23:14 → 2NNU 01-26 11:05 → ICNU 01-26 15:13 → 2NNU 01-27 14:42 → 2NENU 01-30 21:25 → 3NENU 02-02 16:39 → ICNU 02-05 09:41
PROVIDERS: ADMIT Family Medicine; ATTEND Internal Medicine